=== PATIENT | female | born 1940 | race Caucasian/White ===

== ENCOUNTER 2016-05-18 12:44 | Inpatient (IN) | payer OTHER ==
[2016-05-11 11:23] VITALS: BMI 21.0
[~2016-05-18] VITALS: Ht 165.1 cm; Wt 59.9 kg
[~2016-05-18 12:44] MED LIST: CEPH500C2 PO; CMBIN INH; DIGO0.122 PO; LEVO25TA5 PO; POTA-335 PO; SULF1TAB92 PO
[2016-05-18 13:25] VITALS: BMI 21.0
[2016-05-18] MEDS ORDERED: LIDOCAINE HCL 2% 2 ML VIAL (20MG/ML) ONE (13:34)
[2016-05-18] MEDS ORDERED: PROPOFOL IV EMULSION 10 MG/ML 20 ML VIAL IV ONE (13:34)
[2016-05-18] MEDS ORDERED: SODIUM CHLORIDE 0.9% 500ML 500 ML IV ONE (13:37)
[2016-05-18] MEDS ORDERED: KETAMINE HCL INJ 50 MG/ML 10 ML VIAL ONE (13:38)
--- NOTE | 2016-05-18 13:39 | Endo History and Physical ---
History & Physical Date of Service: May 18, 2016. Chief Complaint: blood in stool Referring Physician: Dr. Marcial History of Present Illness + cologard;colonoscopy Past Medical History Atrial Fibrillation, Sleep Apnea, CHF, COPD, CVA/TIA Past Surgical History Hx Cardiac Surgery: Yes (HEART CATH-NO STENTS) Hx Internal Defibrillator: No Hx Pacemaker: No Hx Abdominal Surgery: Yes (OVARIAN CYST REMOVAL, KEYLA BSO) Hx of Implantable Prosthesis: No Hx Post-Op Nausea and Vomiting: No Hx Cancer Surgery: No Hx Thoracic Surgery: No Hx Orthopedic: No Hx Urinary Tract Surgery: No Family History None Social History Smoking Status: Former Smoker Hx Substance Use: No Hx Alcohol Use: No Allergies Coded Allergies: Latex1 -Allergic Contact Dermititis (Verified Allergy, Mild, RASH AND ITCHING, 05/18/16) Diltiazem (Verified Adverse Reaction, Unknown, LOW BP AND UPSET STOMACH, ) Current Medications Reported Home Medications Medications Dose Route/Sig Max Daily Dose Days Date Category Dose Instructions Bactrim 400MG/80MG (Trimethoprim/Sulfamethoxazole) Tab 0.5 Tab PO Q12H 05/11/16 Reported Keflex (Cephalexin Monohydrate) 500 Mg Cap 500 Mg PO BID 05/11/16 Reported Vitamin C (Ascorbic Acid) 500 Mg Tab 1 Tab PO DAILY AT LUNCH 05/11/16 Reported Levothyroxine Sodium 25 Mcg Tab 1 Tab PO 6XWK 90 05/11/16 Reported Levothyroxine Sodium 25 Mcg Tab 2 Tab PO WK 90 05/11/16 Reported Floranex (Lactobacillus) 1 Tab Tab 1 Tab PO QAM 05/11/16 Reported Calcium (Calcium Carbonate) 600 Mg Tab 1 Tab PO DAILY AT LUNCH 05/11/16 Reported Vitamin D3 (Cholecalciferol) 2,000 Unit Cap 1 Cap PO BID 90 05/11/16 Reported Prilosec (Omeprazole) 20 Mg Capcr 20 Mg PO DAILY PRN 10/12/14 Reported Micro-K Ext Rel (Potassium Chloride) 20 Meq Cap 20 Meq PO DAILY PRN 09/15/14 Reported Multivitamin (Multiple Vitamin) 1 Tab Tab 1 Tab PO DAILY AT LUNCH 09/15/14 Reported Toprol-Xl (Metoprolol Succinate) 25 Mg Tabcr 12.5 Mg PO QAM 08/19/14 Reported Pradaxa (Dabigatran Elexilate) 75 Mg Cap 75 Mg PO BID 08/19/14 Reported Advair Diskus 100/50 60 Dose (Fluticasone Prop/Salmeterol) 1 Ea Aerp 1 Puff INH BID 08/19/14 Reported Lasix (Furosemide) 20 Mg Tab 40 Mg PO DAILY PRN 06/22/12 Reported Tylenol (Acetaminophen) 500 Mg Tab 500 Mg PO Q4 PRN 08/11/11 Reported Mag-Ox (Magnesium Oxide) 400 Mg Tab 400 Mg PO DAILY 08/11/11 Reported TAKE WITH LUNCH Nitrostat (Nitroglycerin) 0.4 Mg Tab 0.4 Mg UT UD PRN 08/11/11 Reported Lanoxin (Digoxin) 0.125 Mg Tab 0.125 Mg PO DAILY 08/11/11 Reported Combivent (Ipratropium [place]) Aer 2 Puffs INH QID 08/11/11 Reported Zocor (Simvastatin) 20 Mg Tab 20 Mg PO QPM 09/12/08 Reported Vital Signs Weight (Kilograms): 58.18 Height (Feet): 5 Height (Inches): 5 Date Time Temp Pulse Resp B/P Pulse Ox O2 Delivery O2 Flow Rate FiO2 05/18/16 13:19 36.7 93 24 112/63 95 Room Air Physical Exam AAO x3 Nl s1s2 Lungs CTA Abd soft NT/ND + BS - CCe Assessment and Plan colonoscopy today
[2016-05-18] MEDS ORDERED: ALBUT/IPRATROP 3MG/0.5MG NEB 3 ML VIAL INH ONE (13:45)
[2016-05-18 13:48] VITALS: PULSE 87; O2SAT 92
[2016-05-18] MEDS ORDERED: PHENYLEPHRINE HCL INJ 10 MG/ML VIAL ONE (15:20)
--- NOTE | 2016-05-18 15:27 | Discharge Instructions ---
Endoscopy Patient Instructions Date / Procedure(s) Performed May 18, 2016. Colonoscopy Allergy Information Coded Allergies: Latex1 -Allergic Contact Dermititis (Verified Allergy, Mild, RASH AND ITCHING, 05/18/16) Diltiazem (Verified Adverse Reaction, Unknown, LOW BP AND UPSET STOMACH, ) Discharge Date / Findings May 18, 2016. CASE CANCELED DUE TO EKG CHANGES PROCEDURE NOT PERFORMED AND PATIENT DID NOT RECEIVE ANY SEDATION Medication Instructions Stopped Medication(s): Pradaxa stopped per Dr. Vargas. Last dose was 05/15/16 Restart Stopped Medication(s): Reported Home Medications Medications Dose Route/Sig Max Daily Dose Days Date Category Dose Instructions Bactrim 400MG/80MG (Trimethoprim/Sulfamethoxazole) Tab 0.5 Tab PO Q12H 05/11/16 Reported Keflex (Cephalexin Monohydrate) 500 Mg Cap 500 Mg PO BID 05/11/16 Reported Vitamin C (Ascorbic Acid) 500 Mg Tab 1 Tab PO DAILY AT LUNCH 05/11/16 Reported Levothyroxine Sodium 25 Mcg Tab 1 Tab PO 6XWK 90 05/11/16 Reported Levothyroxine Sodium 25 Mcg Tab 2 Tab PO WK 90 05/11/16 Reported Floranex (Lactobacillus) 1 Tab Tab 1 Tab PO QAM 05/11/16 Reported Calcium (Calcium Carbonate) 600 Mg Tab 1 Tab PO DAILY AT LUNCH 05/11/16 Reported Vitamin D3 (Cholecalciferol) 2,000 Unit Cap 1 Cap PO BID 90 05/11/16 Reported Prilosec (Omeprazole) 20 Mg Capcr 20 Mg PO DAILY PRN 10/12/14 Reported Micro-K Ext Rel (Potassium Chloride) 20 Meq Cap 20 Meq PO DAILY PRN 09/15/14 Reported Multivitamin (Multiple Vitamin) 1 Tab Tab 1 Tab PO DAILY AT LUNCH 09/15/14 Reported Toprol-Xl (Metoprolol Succinate) 25 Mg Tabcr 12.5 Mg PO QAM 08/19/14 Reported Pradaxa (Dabigatran Elexilate) 75 Mg Cap 75 Mg PO BID 08/19/14 Reported Advair Diskus 100/50 60 Dose (Fluticasone Prop/Salmeterol) 1 Ea Aerp 1 Puff INH BID 08/19/14 Reported Lasix (Furosemide) 20 Mg Tab 40 Mg PO DAILY PRN 06/22/12 Reported Tylenol (Acetaminophen) 500 Mg Tab 500 Mg PO Q4 PRN 08/11/11 Reported Mag-Ox (Magnesium Oxide) 400 Mg Tab 400 Mg PO DAILY 08/11/11 Reported TAKE WITH LUNCH Nitrostat (Nitroglycerin) 0.4 Mg Tab 0.4 Mg UT UD PRN 08/11/11 Reported Lanoxin (Digoxin) 0.125 Mg Tab 0.125 Mg PO DAILY 08/11/11 Reported Combivent (Ipratropium [place]) Aer 2 Puffs INH QID 08/11/11 Reported Zocor (Simvastatin) 20 Mg Tab 20 Mg PO QPM 09/12/08 Reported PT TO BE ADMITTED. WILL CONSIDER COLONOSCOPY TOMORROW OR FUTURE DATE ONCE CARDIAC STATUS OPTIMIZED Provider Instructions Activity Restrictions - No exercising or heavy lifting for 24 hours. - Do not drink alcohol the day of the procedure. - Do not drive a car or operate machinery until the day after the procedure. - Do not make any important decisions or sign important papers in 24 hours after the procedure. Following Day: - Return to full activity which may include returning to work/school. Diet Start your diet with liquids and light foods (jello, soup, juice, toast). Then eat your usual diet if not nauseated. Treatment For Common After Affects For mild abdominal pain, bloating, or excessive gas: - Rest - Eat lightly - Lie on right side Follow-Up Information Follow-up with Dr. Marcial as scheduled Anesthesia Information What You Should Know You have had a procedure that required some medicine to reduce anxiety and discomfort. This treatment is called moderate sedation. After receiving the treatment, you may be sleepy, but you will be able to breathe on your own. The effects of the treatment may last for several hours. Follow these instructions along with Activity/Diet recommendations noted above: * Do NOT do anything where dizziness or clumsiness would be dangerous. * Rest quietly at home today, then you can be up and about tomorrow. * Have a responsible person stay with you the rest of today. * You may have had an I.V. today. If so, you may take the dressing off later today. Recommendations Call your doctor if: * Trouble breathing * Continuous vomiting for more than 24 hours * Temperature above 101 degrees * Severe abdominal pain or bloating * Pain not relieved by pain medicine ordered * There is increased drainage or redness from any incision * A large amount of rectal bleeding greater than 2-3 tablespoons. (If you had a polyp/s removed or have hemorrhoids, a small amount of blood - from the rectum is to be expected.) * You have any unanswered questions or concerns. IN THE EVENT OF A SERIOUS EMERGENCY, GO TO THE NEAREST EMERGENCY ROOM Your discharge instructions were prepared by provider Dominick Das. Patient Instructions Signature Page Leonora Ellison Patient (or Guardian) Signature/Date: I have read and understand the instructions given to me by my caregivers. Caregiver/RN/Doctor Signature/Date: The above-named patient and/or guardian has received patient instructions on this date. + Original Patient Signature Page (only) stays with chart. Please make copy for patient.
--- NOTE | 2016-05-18 15:50 | History and Physical ---
History & Physical Date & Time of Service: May 18, 2016 at 15:50 Chief Complaint: Positive Stool 7 Primary Care Physician: Crow Marcial D.O.Int.Med. Past Medical/Surgical History Medical Problems: (1) ANTICOAGULANTS,LT,CURRENT USE Status: Chronic (2) ATRIAL FIBRILLATION Status: Chronic (3) CATARACT NOS Status: Resolved (4) CEREBRAL THROMBOSIS W CEREBRAL INFARCTION Status: Resolved (5) CHR AIRWAY OBSTRUCT NEC Status: Chronic (6) DIVERTICULOSIS COLON (W/O MENT OF HEMORRHAGE) Status: Chronic Family History Negative FHx for blood clots Social History Smoking Status: Former Smoker Drug Use: none Marital Status: Occupational Status: retired Immunizations History of Influenza Vaccine: No History of Tetanus Vaccine?: Unknown History of Pneumococcal: Unknown Pneumococcal Date: Apr 10, 2010 History of Hepatitis B Vaccine: Unknown Multi-Drug Resistant Organisms History of MDRO: No Allergies Coded Allergies: Latex1 -Allergic Contact Dermititis (Verified Allergy, Mild, RASH AND ITCHING, 05/18/16) Diltiazem (Verified Adverse Reaction, Unknown, LOW BP AND UPSET STOMACH, ) Home Medications Scheduled Ascorbic Acid (Vitamin C), 1 TAB PO DAILY AT LUNCH Calcium Carbonate (Calcium), 1 TAB PO DAILY AT LUNCH Cephalexin Monohydrate (Keflex), 500 MG PO BID Cholecalciferol (Vitamin D3), 1 CAP PO BID Dabigatran Elexilate (Pradaxa), 75 MG PO BID Digoxin (Lanoxin), 0.125 MG PO DAILY Fluticasone Prop/Salmeterol (Advair Diskus 100/50 60 Dose), 1 PUFF INH BID Ipratropium/Albuterol (Combivent), 2 PUFFS INH QID Lactobacillus (Floranex), 1 TAB PO QAM Levothyroxine Sodium (Levothyroxine Sodium), 2 TAB PO WK Levothyroxine Sodium (Levothyroxine Sodium), 1 TAB PO 6XWK Magnesium Oxide (Mag-Ox), 400 MG PO DAILY Metoprolol Succ (Toprol Xl) (Toprol-Xl), 12.5 MG PO QAM Multiple Vitamin (Multivitamin), 1 TAB PO DAILY AT LUNCH Simvastatin (Zocor), 20 MG PO QPM Trimethoprim/Sulfamethoxazole (Bactrim 400MG/80MG), 0.5 TAB PO Q12H Scheduled PRN Acetaminophen (Tylenol), 500 MG PO Q4 PRN for Pain or Fever Furosemide (Lasix), 40 MG PO DAILY PRN for SWELLING Nitroglycerin (Nitrostat), 0.4 MG UT UD PRN for Chest Pain Omeprazole (Prilosec), 20 MG PO DAILY PRN for GI Upset Potassium Chloride (Micro-K Ext Rel), 20 MEQ PO DAILY PRN for LASIX USE Physical Exam Vital Signs Date Time Temp Pulse Resp B/P Pulse Ox O2 Delivery O2 Flow Rate FiO2 05/18/16 15:28 93 20 111/58 98 Nasal Cannula 3 05/18/16 15:13 92 20 123/62 99 Nasal Cannula 3 05/18/16 13:48 87 16 92 Room Air 05/18/16 13:19 36.7 93 24 112/63 95 Room Air Impression Assessment and Plan admit #[id number]
[2016-05-18] MEDS ORDERED: ONDANSETRON INJ 2 MG/ML 2 ML VIAL IV PRN (16:00)
[2016-05-18] MEDS ORDERED: ACETAMINOPHEN 500 MG TAB PO PRN (16:00)
[2016-05-18] MEDS ORDERED: POTASSIUM CHLORIDE 20 MEQ TABCR PO PRN (16:00)
[2016-05-18] MEDS ORDERED: NITROGLYCERIN 0.4 MG SL PER TAB CHARGE UT PRN (16:00)
[2016-05-18] MEDS ORDERED: NITROGLYCERIN 0.4 MG SL PER TAB CHARGE SL PRN (16:00)
[2016-05-18] MEDS ORDERED: IV FLUIDS COMPLETED PRN (16:15)
--- NOTE | 2016-05-18 16:42 | Anesthesiology Progress Note ---
Anesthesia Progress Note Date of Service May 18, 2016. Progress Notes The patient is a 75 y/o female scheduled for colonoscopy with Dr. Das to evaluate for bleeding. PMH includes COPD ( chronic 02 2L NC at home) , LAITH on CPAP, Afib, HTN, DLD, diastolic CHF, cor pulmonale, PVD, GERD, stage III CKD, and hypothyroidism. The patient was noted to be short of breath on arrival and was taking puffs from her albuterol inhaler on admission to the preoperative area. Her preoperative SpO2 was 95% on RA. She had decreased breath sounds at the bases as well as slight rales in the L anterior apex. She is able to lie flat without any problems. However, she is easily becomes SOB with activity. She has no chest pain. The patient sees Dr. Vargas with cardiology as an outpatient. Her last echocardiogram in 2014 showed EF 65-70% with mod-severe TR. The patient also complains of cellulitis in her legs. Her BP in the preop area was 112/63, however her initial BP upon arrival to the procedure room was 89/60 with a HR in the 80s. The patient's initial IV was not functioning so a 22 GA IV was started in the R upper extremity. Shortly after the IV was placed the patient starting saying that she "did not feel right. " She denied chest pain or shortness of breath just stating that she felt " weird" and " just not right. " Her BP cuff was cycled and she was given 100mcg IV phenylephrine and placed in Trendelenburg. Her BP was 112/69. Her HR was in the 90s and it appeared that her ST segments were becoming more depressed. She remained in atrial fibrillation. Her oxygen saturation was 100% on 10L FM. Over the next several minutes the patient started feeling better. Her vital signs remained normal and she had no further complaints. Therefore, it was felt that the patient likely experienced a vasovagal response to IV placement. A 12 lead EKG was obtained and showed Atrial fibrillation HR [address] and T wave abnormality, consider inferolateral ischemia. There were T wave inversion in II, III, AVF and V4-V6. The EKG, however is very similar to her EKG from 09/12/14 which showed similar changes. I discussed the patient and her EKG with Dr. Worthington who felt that due to the patient's complicated cardiac with abnormal EKG and pulmonary history in the setting of likely dehydration secondary to bowel prep that it would be best to cancel her procedure until she can be better optimized. I was also concerned that aggressively hydrating the patient may place her in heart failure. I informed Dr. Das who stated that he would like the patient admitted overnight for further evaluation and treatment. If the patient is stabilized and felt to be optimized than she can have her colonoscopy tomorrow. The patient was agreeable to being admitted. Dr. Briceno was consulted and given a full report. He evaluated the patient in endoscopy recovery. He will be admitting her to telemetry for further evaluation and treatment.
[2016-05-18 17:01] LABS: BASO % 0.4 %; BASO ABS # 0.02 K/uL (0-0.2); COMPLETE YES; EOS % 2.6 %; HEMATOCRIT 40.2 % (37-47); IG% 0.2 %; LYMPH % 13.4 %; LYMPH ABS # 0.66 K/uL (1.2-3.4); MEAN CORPUSCULAR HEMOGLOBIN 34.4 pg (25-34); MEAN CORPUSCULAR HGB CONC 34.1 g/dl (32-36); MEAN PLATELET VOLUME 10.1 fL (7.4-10.4); MONO % 10.8 %; NEUT % 72.6 %; PLATELET COUNT 149 K/uL (130-400); RED BLOOD COUNT 3.98 M/uL (4.2-5.4); WHITE BLOOD COUNT 4.93 K/uL (4.8-10.8)
[2016-05-18 17:15] VITALS: BP 122/69; PULSE 96; TEMP 36.6; O2SAT 95; Ht 165.1 cm; Wt 59.9 kg
[2016-05-18 17:33] LABS: CALCIUM 9.1 mg/dl (8.5-10.1); CREATININE 0.88 mg/dl (0.60-1.20); POTASSIUM 3.8 mmol/L (3.5-5.1)
[2016-05-18] MEDS ORDERED: DIGOXIN 0.125 MG TAB PO ONE (18:30)
[2016-05-18] MEDS: SODIUM CHLORIDE 0.45% 1000ML 1,000 ML IV SCH (18:43)
[2016-05-18] MEDS: IPRATROPIUM BROMIDE/ALBUTEROL respimat INH INH SCH ×2 (18:53→20:50)
[2016-05-18] MEDS ORDERED: NURSING VERBAL MED ORDER ONE (19:45)
[2016-05-18] MEDS: FLUTICASONE/SALMETEROL 100/50 (ADVAIR) 14 PUFF/1 INHALER INH SCH (20:50)
[2016-05-18] MEDS: CHOLECALCIFEROL 1000 INTER.UNIT TAB PO SCH (20:52)
[2016-05-18] MEDS: SULFAMETHOXAZOLE/TRIMETHOPRIM DS 800/160MG TAB PO SCH (20:54)
[2016-05-18] MEDS: CEPHALEXIN MONOHYDRATE 500 MG CAP PO SCH (20:54)
[2016-05-18] MEDS: SIMVASTATIN 20 MG TAB PO SCH (20:55)
[2016-05-18] MEDS ORDERED: DABIGATRAN ELEXILATE 75 MG CAP PO SCH (21:00)
[2016-05-18] MEDS ORDERED: LAVAGE SOLUTION 4000ML PO SCH (21:00)
--- NOTE | 2016-05-18 21:47 | HISTORY & PHYSICAL EXAMINATION ---
DATE OF ADMISSION: 05/18/2016 CHIEF COMPLAINT: Hypotension. HISTORY OF PRESENT ILLNESS: The patient is a very pleasant 75-year-old female, who was actually here for a colonoscopy because of apparently ongoing blood in the stool. She had a bowel prep and then whenever they started to give medications she started to be hypotensive. Anesthesia did note that she was a bit short of breath on arrival and was taking puffs off her albuterol inhaler, although to me she does not necessarily relate that she has got any worse short of breath than her baseline. She was 112/63, then after IV was placed she started not feeling quite right. Her blood pressure started to drop, she was given phenylephrine and placed in Trendelenburg. EKG was checked; with a degree of ST depression, although on further review it appeared fairly similar to her previous EKG. Her vital signs then improved to normal and she was generally feeling good. We were asked to see her to admit her because of concern on volume depletion from the bowel prep as well as needing to get the colonoscopy done and what appears to be overall a high risk patient. REVIEW OF SYSTEMS: Otherwise negative, except for as above. PAST MEDICAL HISTORY: Includes chronic diastolic CHF, COPD, cor pulmonale, dyslipidemia, GERD, hypothyroidism, sleep apnea, osteoporosis, peripheral vascular disease, atrial fibrillation, vitamin D deficiency and recurrent lower extremity cellulitis on chronic suppressive antibiotic therapy, related to venous stasis. MEDICATIONS: Advair 250/50 one puff b.i.d., Keflex 1 cap b.i.d., cephalexin 500 mg b.i.d., Combivent 1 puff q.i.d., digoxin 125 mcg daily, calcium 600 mg daily, Floranex daily, Lasix 40 mg p.r.n. weight gain, Synthroid 25 mcg Sunday to Sunday and 2 tablets on Sunday, Mag-Ox 400 mg daily, metoprolol ER 25 mg 1/2 tab daily, multivitamin daily, nitroglycerin 0.4 under the tongue p.r.n. chest pain, potassium chloride 20 mEq daily, Pradaxa 75 mg b.i.d., Prilosec 20 mg daily, simvastatin 20 mg at bedtime, Bactrim 800/160 daily, Tylenol Arthritis 650 p.r.n. pain and Vitamin C 500 mg daily. PAST SURGICAL HISTORY: Includes hysterectomy. FAMILY HISTORY: Mom had an NM as did her father. SOCIAL HISTORY: She is a former smoker. She is retired. No significant alcohol use. ALLERGIES: INCLUDE DILTIAZEM AND LATEX WHICH CAUSES CONTACT DERMATITIS. PHYSICAL EXAMINATION: VITAL SIGNS: Temperature 36.7, pulse 93, respiratory rate 24, blood pressure 112/63 and 95% on room air. Round about the time I am seeing her, her heart rate is 93 with a blood pressure of 111/58. GENERAL: She is awake, alert, oriented x3, pleasant, in no acute distress. HEENT: Normocephalic and atraumatic. Mucous membranes are moist. CARDIOVASCULAR: Irregularly irregular, but rate-controlled. No rubs, murmurs or gallops. LUNGS: Clear to auscultation bilaterally. No rales, rhonchi or wheezes, with good effort. ABDOMEN: Soft, nondistended and nontender. No masses or organomegaly. EXTREMITIES: Without cyanosis or clubbing. She has about 1+ left lower extremity edema compared to maybe trace on the right. The left definitely appears shiny and more thickened skin: She notes this is actually worse than her baseline. NEUROLOGIC: Shows cranial nerves II-XII to be grossly intact. Gross motor and sensory are intact. MENTAL STATE: Shows good recent and remote recall. Normal mood and affect. Good judgment and insight. LABORATORIES AND DIAGNOSTICS: CBC shows a white count of 4.93, hemoglobin 13.7, MCV of 101 and platelets of 149. Basic metabolic panel with; sodium 138, potassium 3.8, chloride 101, CO2 26, BUN 11, creatinine 0.88, calcium 9.1 and glucose of 71. ASSESSMENT AND PLAN: 1. Hypotension. This appears to be syncope, multifactorial or near syncope I guess. When she was lying down she never quite lost consciousness, but probably in no small part volume depletion from the bowel prep and with cor pulmonale, likely she was unable to handle the diminished volume because of right heart filling pressures going down combined with likely vagal response as they were starting her IV. She appears okay now. We will give her gentle hydration, follow her closely and anticipate improvement. 2. Blood in her stool, certainly need to progress with colonoscopy. It appears that this would likely be able to be done tomorrow. 3. EKG changes with ST depressions anterolaterally; appear very similar to previous. We will trend cardiac enzymes to be safe, but I suspect this is her baseline EKG. 4. Chronic obstructive pulmonary disease. Continue home medications and oxygen. 5. Chronic diastolic congestive heart failure. Hold off on her Lasix, continue home medications. Otherwise, follow obviously as we are giving her fluids. 6. Gastroesophageal reflux disease. Continue her PPI. 7. Hypothyroidism. Continue her Synthroid. 8. Sleep apnea. 9. Osteoporosis. Continue home medications. 10. Deep venous thrombosis prophylaxis; pharmacologically contraindicated both because of the procedure tomorrow and her gastrointestinal bleeding. 11. Venous stasis with apparent chronic cellulitis. Continue suppressive therapy as per infectious diseases. 12. Asymmetric left lower extremity edema, check venous Dopplers. MTDD
--- NOTE | 2016-05-18 22:05 | GASTROINTESTINAL CONSULTATION ---
DATE OF CONSULTATION: 05/18/2016 REASON FOR CONSULTATION: Heme-positive stools, abnormal Cologuard test. HISTORY: Mrs. Ellison is a 75-year-old white female who was scheduled for an outpatient colonoscopy at [facility] today for an abnormal Cologuard finding through Dr. Marcial's office. Prior to performing the procedure or receiving sedation, the patient had developed a sense of chest pressure with possible EKG changes identified. The patient is followed by cardiology with Dr. Vargas. She is on Pradaxa at home for a history of CVA. CHRONIC HISTORY: Includes atrial fibrillation, cerebral thrombosis with cerebral infarction, chronic airway obstructive disease, diverticulosis, anticoagulants for above. The patient had a prior colonoscopy approximately [address] Lee, at which time polyps were identified according to the patient. FAMILY HISTORY: Noncontributory. There is no report of colorectal cancer or other gastrointestinal disorders. SOCIAL HISTORY: The patient is a former smoker. She is and retired. ALLERGIES: SHE IS ALLERGIC TO LATEX AND CARDIAZEM. CURRENT MEDICATIONS: Include ascorbic acid, calcium carbonate, Keflex for cellulitis, vitamin D, Pradaxa, digoxin, Advair, Combivent, lactobacillus, Synthroid, magnesium oxide, Lopressor, multivitamin, simvastatin and Bactrim. REVIEW OF SYSTEMS: Otherwise noncontributory. The patient denies melena, bright red blood per rectum, weight loss, odynophagia, dysphagia, hematemesis, or coffee-ground emesis. PHYSICAL EXAMINATION: VITAL SIGNS: On admission through the endo department, temperature, she is afebrile at 36.7, heart rate 93, respirations 24, blood pressure 112/63, she is 95% on room air. GENERAL: The patient is awake, alert and oriented x3. HEENT: Sclerae anicteric. Oral mucosa moist. Conjunctivae moist. NECK: There is no cervical or supraclavicular adenopathy. I do not appreciate thyromegaly. HEART: Normal S1 and S2. LUNGS: Breath sounds are markedly diminished in the lower lung andrea bilaterally. ABDOMEN: Soft, flat, nontender, nondistended, with good bowel sounds. EXTREMITIES: Without clubbing, cyanosis or edema. RECTAL: Deferred. LABORATORY STUDIES: This evening show a white count of 4.93, hemoglobin 13.7, MCV is 101, platelets 149,000. Serum chemistry reveals BUN and creatinine of 11 and 0.9 with a potassium of 3.8. Calcium is normal. Glucose 71. IMPRESSION: Depending on the cardiac workup and assessment, would consider holding Pradaxa in anticipation of the patient undergoing colonoscopy tomorrow. She will require an additional small-bowel prep in order to further cleanse the colon. Once this is completed, if the primary team is agreeable, the patient can be discharged from a GI standpoint. We will make tentative arrangements and place orders for colonoscopy for tomorrow if acceptable with the primary team provided that there are no acute cardiac or respiratory issues that would delay this procedure. The patient can have clear liquids through midnight and afterwards n.p.o. except for medications. All questions answered.
[2016-05-18 22:40] LABS: CKMB/CK RATIO 3.2 (0-3.0)
--- NOTE | 2016-05-18 22:58 | DIAGNOSTIC IMAGING REPORT ---
ULTRASOUND VENOUS DOPPLER LWR EXT BILA CLINICAL HISTORY: Bilateral leg edema COMPARISON STUDY: 10/12/2014 FINDINGS: Real-time and color flow Doppler imaging were performed. Flow was seen within the femoral, popliteal and calf veins with no intraluminal thrombus demonstrated. The saphenous vein is patent. Incidental note is made of a 20 x 39 x 13 mm left popliteal cyst. IMPRESSION: No evidence of lower extremity DVT. Electronically signed by: Glen Cade M.D. 05/18/2016 10:56 PM Dictated Date/Time: 05/18/2016 10:56 PM
[2016-05-19] VITALS (12 sets, daily range): BP systolic 79–101; BP diastolic 43–63; PULSE 71–100; TEMP 36.3–36.8; O2SAT 94–99
[2016-05-19] MEDS: LEVOTHYROXINE 25 MCG TAB PO SCH (05:26)
[2016-05-19 06:36] LABS: CKMB/CK RATIO 3.7 (0-3.0)
[2016-05-19] MEDS: SODIUM CHLORIDE 0.45% 1000ML 1,000 ML IV SCH (07:00)
[2016-05-19] MEDS: CEPHALEXIN MONOHYDRATE 500 MG CAP PO SCH ×2 (09:00→21:02)
[2016-05-19] MEDS: MAGNESIUM OXIDE 400 MG TAB PO SCH (09:00)
[2016-05-19] MEDS: CHOLECALCIFEROL 1000 INTER.UNIT TAB PO SCH ×2 (09:00→21:02)
[2016-05-19] MEDS ORDERED: PANTOprazole SOD 40 MG TAB PO PRN (09:00)
[2016-05-19] MEDS: MULTIVITAMIN TAB PO SCH (09:00)
[2016-05-19] MEDS: LACTOBACILLUS ACIDOPHILUS (FLORANEX) TAB PO SCH (09:00)
[2016-05-19] MEDS: METOPROLOL SUCC 25MG EXT REL TAB PO SCH (09:00)
[2016-05-19] MEDS: ASCORBIC ACID 500 MG TAB PO SCH (09:00)
[2016-05-19] MEDS: SULFAMETHOXAZOLE/TRIMETHOPRIM DS 800/160MG TAB PO SCH ×2 (09:00→21:02)
[2016-05-19] MEDS: FLUTICASONE/SALMETEROL 100/50 (ADVAIR) 14 PUFF/1 INHALER INH SCH ×2 (10:17→21:02)
[2016-05-19] MEDS: IPRATROPIUM BROMIDE/ALBUTEROL respimat INH INH SCH ×4 (10:18→21:02)
[2016-05-19] MEDS: CALCIUM CARBONATE 1250MG TAB PO SCH (12:00)
[2016-05-19] MEDS ORDERED: SODIUM CHLORIDE 0.9% 500ML 500 ML IV SCH (12:15)
[2016-05-19] MEDS ORDERED: METOPROLOL TARTRATE 1 MG/ML VIAL IV PRN (12:15)
[2016-05-19] MEDS ORDERED: HEPARIN IV LOW DOSE NO BOLUS SCH ×2 (12:32→15:15)
--- NOTE | 2016-05-19 12:35 | Hospitalist Progress Note ---
Hospitalist Progress Note Date of Service May 19, 2016. (Dorota Al, MAINOR) Subjective Pt evaluation today including: conversation w/ patient, conversation w/ family , physical exam, chart review, lab review, review of studies Pain: None PO Intake: NPO Voiding: no voiding problems The patient was seen and examined this morning. Pt's son is present at bedside. Was called for hypotension of 79/43 by nursing. The patient was mentating and denies any lightheadedness, dizziness, palpitations, flutter, cp, or shortness of breath. + c/o fatigue while this was happening. She is unhappy about having an elective procedure and possibly needing to stay in the hospital if she doesn't get this colonoscopy today, and states she'll leave. She does not want to do another bowel prep since she has gotten dehydrated now twice from them. All Other Systems: Reviewed and Negative (other than listed above) (Dorota Al, BLUEC) Objective Vital Signs Date Time Temp Pulse Resp B/P Pulse Ox O2 Delivery O2 Flow Rate FiO2 05/19/16 11:45 71 16 89/53 05/19/16 11:44 36.4 83 16 79/48 05/19/16 08:00 Nasal Cannula 2.0 05/19/16 07:35 36.4 92 17 91/55 94 05/19/16 06:26 Nasal Cannula 2.0 05/19/16 04:05 Nasal Cannula 2.0 05/19/16 04:00 36.3 88 20 101/60 94 2.0 05/19/16 00:05 Nasal Cannula 2.0 05/19/16 00:00 36.4 92 18 94/57 99 2.0 05/18/16 20:05 Nasal Cannula 2.0 05/18/16 18:53 83 05/18/16 17:15 36.6 96 22 122/69 95 Nasal Cannula 2.0 05/18/16 16:13 81 20 101/58 96 Nasal Cannula 3 05/18/16 15:58 85 20 106/57 98 Nasal Cannula 3 05/18/16 15:43 87 20 101/51 96 Nasal Cannula 3 05/18/16 15:28 93 20 111/58 98 Nasal Cannula 3 05/18/16 15:13 92 20 123/62 99 Nasal Cannula 3 05/18/16 13:48 87 16 92 Room Air 05/18/16 13:19 36.7 93 24 112/63 95 Room Air (Dorota Al PA-C) Physical Exam General Appearance: WD/WN, no apparent distress, + thin Eyes: PERRL, EOMI ENT: hearing grossly normal, pharynx normal Neck: supple, no JVD Respiratory/Chest: chest non-tender, lungs clear, no respiratory distress, no accessory muscle use Cardiovascular: + irregularly irregular Abdomen: normal bowel sounds, non tender, soft, no organomegaly Extremities: non-tender, no pedal edema, no calf tenderness Neurologic/Psychiatric: alert, normal mood/affect, oriented x 3 Skin: normal color, warm/dry (Dorota Al PA-C) Laboratory Results Last 24 Hours Test 05/18/16 16:50 05/18/16 21:55 05/19/16 05:50 05/19/16 12:06 White Blood Count 4.93 K/uL Red Blood Count 3.98 M/uL Hemoglobin 13.7 g/dL Hematocrit 40.2 % Mean Corpuscular Volume 101.0 fL Mean Corpuscular Hemoglobin 34.4 pg Mean Corpuscular Hemoglobin Concent 34.1 g/dl Platelet Count 149 K/uL Mean Platelet Volume 10.1 fL Neutrophils (%) (Auto) 72.6 % Lymphocytes (%) (Auto) 13.4 % Monocytes (%) (Auto) 10.8 % Eosinophils (%) (Auto) 2.6 % Basophils (%) (Auto) 0.4 % Neutrophils # (Auto) 3.58 K/uL Lymphocytes # (Auto) 0.66 K/uL Monocytes # (Auto) 0.53 K/uL Eosinophils # (Auto) 0.13 K/uL Basophils # (Auto) 0.02 K/uL RDW Standard Deviation 49.0 fL RDW Coefficient of Variation 13.2 % Immature Granulocyte % (Auto) 0.2 % Immature Granulocyte # (Auto) 0.01 K/uL Sodium Level 138 mmol/L Potassium Level 3.8 mmol/L Chloride Level 101 mmol/L Carbon Dioxide Level 26 mmol/L Anion Gap 11.0 mmol/L Blood Urea Nitrogen 11 mg/dl Creatinine 0.88 mg/dl Est Creatinine Clear Calc Drug Dose 48.2 ml/min Estimated GFR () 73.5 Estimated GFR (Non- 63.4 BUN/Creatinine Ratio 12.0 Random Glucose 71 mg/dl Calcium Level 9.1 mg/dl Total Creatine Kinase 189 U/L 178 U/L Creatine Kinase MB 6.1 ng/ml 6.5 ng/ml Creatine Kinase MB Ratio 3.2 3.7 Troponin I 0.034 ng/ml 0.038 ng/ml Vitamin B12 Level 528 pg/mL (Dorota Al, MAINOR) Assessment and Plan 75 yo admitted after episode of hypotension prior to outpatient scheduled colonoscopy yesterday with Dr. dixon. She was admitted for colonoscopy to be performed today by Dr. North. Hypotension - Yesterday was attributed to syncope likely secondary to volume depletion from the bowel prep and with cor pulmonale, likely she was unable to handle the diminished volume because of right heart filling pressures going down combined with likely vagal response as they were starting her IV. - Reoccurrence of hypotension this morning- the patient is asymptomatic at bedside with pressure of 79/43 - only complaint is fatigue. - Ordered 500 mL bolus stat, and recheck of BP was improved - Rechecking H&H stat, follow - Discussion was held with Dr. North who plans to see the patient prior to procedure and discuss other options since the pt is adamant that she doesn't want to stay admitted in the hospital if scope doesn't happen today. - Spoke with Dr. Vargas about holding pradaxa ( today is day 3) - he is agreeable to starting heparin gtt if she stays inpatient without bolus- reasoning behind this is that the patient has had a previous stroke and it increases her risk for a thromboembolic event after the first 48 hours. + Blood in stool - Dr. North scheduled for scope today, will await his eval and discussion with anesthesia regarding episode of low BP. Spoke with him on the phone and he plans to see the patient soon and determine if she can have scope today. EKG changes with ST depressions anterolaterally; appear very similar to previous. - Negative troponins thus far Chronic obstructive pulmonary disease. - Continue home medications and oxygen. Chronic diastolic congestive heart failure. - Hold off on her Lasix, continue home medications. - Caution with replacing with NSS but pt does appear to be hypovolemic at present - Checking digoxin level Gastroesophageal reflux disease. Continue her PPI. Hypothyroidism. Continue her Synthroid. Sleep apnea. Osteoporosis. Continue home medications. Venous stasis with apparent chronic cellulitis. Continue suppressive therapy as per infectious diseases. Asymmetric left lower extremity edema appears to have resolved. Venous Dopplers checked and are negative. DVT ppx: pharmacologically contraindicated currently. Discussion was held with Dr. Vargas and Sarao about starting heparin gtt as above if scope is not able to be performed today. Continue TEDs, SCDs CODE STATUS: FULL CODE Disposition: From home (Dorota Al, MAINOR) PA Physician Supervision Note: I interviewed and examined the patient. Discussed with Dorota Al PAC and agree with findings and plan as documented in the note. Any exceptions or clarifications are listed here: None this pt was previously pradaxa as chronic anticoagulation for AFIB with stroke presents after low blood pressure after presenting for outpt colonoscopy for heme positive stools, although blood pressure is low by numbers, Seems hemodynamically stable as has good color and is hemodynamically stable exam is non focal, abdomen is benign. will use protonix and trend hgb, after discussion with DR Vargas will use heparin gtt overweekend and have colonoscopy on sunday while maintaining liquid diet Documented By: Sergio Guzman . (Sergio Guzman M.D.)
[2016-05-19 13:17] LABS: HEMATOCRIT 38.2 % (37-47)
[2016-05-19] MEDS: SODIUM CHLORIDE 0.9% 1000ML 1,000 ML IV SCH ×2 (13:19→23:17)
--- NOTE | 2016-05-19 13:35 | PROGRESS NOTE ---
DATE: 05/19/2016 SUBJECTIVE: The patient reports no abdominal pain or bleeding. The patient was scheduled for an outpatient colonoscopy yesterday for a positive Cologuard test but prior to the procedure, the patient got hypotensive and vagal and was admitted to the hospital overnight. She remained on clear liquids and was given some IV fluids. She continues to be slightly hypotensive with a systolic pressure of 90. She is in chronic atrial fibrillation and has had a CVA in the past and was on Pradaxa, which was held 2 days ago. With a pressure of 90 currently, I believe it is probably not safe to proceed with the planned colonoscopy as the sedation would potentially lower her pressure even more. I discussed the situation with the patient and her son and we agreed that she will need to re-prep but if she can stay on clear liquids through the weekend, we can add her onto the schedule on Sunday afternoon as an outpatient. She should stay off her Pradaxa and if Dr. Vargas decides to bridge her with heparin between now and Sunday, that would be fine; if not, she will just stay off the Pradaxa and we will see her on Sunday as an outpatient. She needs to report at 12:45 to the outpatient endoscopy center at [facility]. In the meantime just stay on clear liquids only and drink lots to get her pressure up into a safer range.
[2016-05-19] MEDS ORDERED: HEPARIN IV LOW DOSE NO BOLUS STA (14:53)
[2016-05-19 15:30] LABS: BASO % 0.4 %; BASO ABS # 0.02 K/uL (0-0.2); EOS % 1.5 %; HEMATOCRIT 38.2 % (37-47); IG% 0.2 %; LYMPH % 16.1 %; LYMPH ABS # 0.85 K/uL (1.2-3.4); MEAN PLATELET VOLUME 9.7 fL (7.4-10.4); MONO % 11.2 %; NEUT % 70.6 %; PLATELET COUNT 151 K/uL (130-400); RED BLOOD COUNT 3.82 M/uL (4.2-5.4); WHITE BLOOD COUNT 5.29 K/uL (4.8-10.8)
[2016-05-19] MEDS ORDERED: HEPARIN BOLUS IV ONE (15:30)
[2016-05-19 15:42] LABS: INR 1.1 (0.9-1.1); PARTIAL THROMBOPLASTIN RATIO 1.1; PROTHROMBIN TIME (PATIENT) 12.3 SECONDS (9.0-12.0)
[2016-05-19 16:12] LABS: COMPLETE YES
[2016-05-19] MEDS: HEPARIN 25,000 UNIT/500ML D5W 500 ML IV PRN ×2 (16:18→23:02)
[2016-05-19] MEDS: DIGOXIN 0.125 MG TAB PO SCH (16:19)
[2016-05-19] MEDS: SIMVASTATIN 20 MG TAB PO SCH (21:02)
[2016-05-19 22:44] LABS: PARTIAL THROMBOPLASTIN RATIO 1.8
[2016-05-19] MEDS ORDERED: HEPARIN IV BOLUS 2,000 UNIT in SYRINGE 0 ML IV STA (23:01)
[2016-05-20 04:25] VITALS: BP 89/54; PULSE 80; TEMP 36.6; O2SAT 91
[2016-05-20 05:55] LABS: HEMATOCRIT 36.4 % (37-47); MEAN CELL VOLUME 99.2 fL (80-100); MEAN CORPUSCULAR HEMOGLOBIN 33.8 pg (25-34); MEAN CORPUSCULAR HGB CONC 34.1 g/dl (32-36); MEAN PLATELET VOLUME 9.9 fL (7.4-10.4); PLATELET COUNT 146 K/uL (130-400); RED BLOOD COUNT 3.67 M/uL (4.2-5.4); WHITE BLOOD COUNT 4.76 K/uL (4.8-10.8)
[2016-05-20] MEDS: LEVOTHYROXINE 25 MCG TAB PO SCH (06:12)
[2016-05-20] MEDS: HEPARIN 25,000 UNIT/500ML D5W 500 ML IV PRN (06:37)
[2016-05-20 08:04] VITALS: BP 106/66; PULSE 90; TEMP 36.9; O2SAT 97
[2016-05-20] MEDS: MULTIVITAMIN TAB PO SCH (09:00)
[2016-05-20] MEDS: SODIUM CHLORIDE 0.9% 1000ML 1,000 ML IV SCH (09:58)
[2016-05-20] MEDS: METOPROLOL SUCC 25MG EXT REL TAB PO SCH (09:58)
[2016-05-20] MEDS: LACTOBACILLUS ACIDOPHILUS (FLORANEX) TAB PO SCH (09:59)
[2016-05-20] MEDS: CEPHALEXIN MONOHYDRATE 500 MG CAP PO SCH ×2 (09:59→20:53)
[2016-05-20] MEDS: SULFAMETHOXAZOLE/TRIMETHOPRIM DS 800/160MG TAB PO SCH ×2 (09:59→20:53)
[2016-05-20] MEDS: CHOLECALCIFEROL 1000 INTER.UNIT TAB PO SCH ×2 (10:00→20:53)
[2016-05-20] MEDS: IPRATROPIUM BROMIDE/ALBUTEROL respimat INH INH SCH ×4 (10:00→20:52)
[2016-05-20] MEDS: MAGNESIUM OXIDE 400 MG TAB PO SCH (10:00)
[2016-05-20] MEDS: FLUTICASONE/SALMETEROL 100/50 (ADVAIR) 14 PUFF/1 INHALER INH SCH ×2 (10:01→20:52)
[2016-05-20] MEDS: ASCORBIC ACID 500 MG TAB PO SCH (10:06)
[2016-05-20 12:09] VITALS: BP 98/57; PULSE 77; TEMP 36.9; O2SAT 95
[2016-05-20] MEDS: CALCIUM CARBONATE 1250MG TAB PO SCH (12:13)
[2016-05-20 12:38] LABS: PARTIAL THROMBOPLASTIN RATIO 1.9
--- NOTE | 2016-05-20 15:20 | Progress Note ---
Subjective Date of Service: May 20, 2016. Subjective pt had some shortness of breath in am which improved after stopping ivf, no issues with heparin, no significant blood in stool Review of Systems Constitutional: No chills, No fever Respiratory: + shortness of breath (resolved though), No cough Cardiac: No chest pain, No edema Abdomen: No nausea, No pain Female : No dysuria, No urinary frequency Objective Vital Signs Date Time Temp Pulse Resp B/P Pulse Ox O2 Delivery O2 Flow Rate FiO2 05/20/16 08:04 36.9 90 18 106/66 97 2.0 05/20/16 04:25 36.6 80 18 89/54 91 2.0 05/20/16 04:05 Nasal Cannula 2.0 05/20/16 00:05 Nasal Cannula 2.0 05/19/16 23:52 36.4 87 16 96/56 97 Nasal Cannula 2.0 05/19/16 20:35 36.8 98 24 87/53 95 Nasal Cannula 2.0 82/47 05/19/16 20:00 Nasal Cannula 2.0 05/19/16 16:19 84 05/19/16 16:00 Nasal Cannula 2.0 05/19/16 15:16 96/63 05/19/16 15:15 36.7 87 16 79/43 97 05/19/16 13:00 100 93/58 05/19/16 12:00 94 Nasal Cannula 2.0 05/19/16 11:45 71 16 89/53 05/19/16 11:44 36.4 83 16 79/48 Physical Exam General Appearance: WD/WN, + mild distress Eyes: PERRL, EOMI Respiratory/Chest: chest non-tender, lungs clear, normal breath sounds Cardiovascular: no murmur, + irregularly irregular Abdomen: normal bowel sounds, non tender, soft Extremities: no pedal edema, no calf tenderness Neurologic/Psychiatric: alert, oriented x 3 Laboratory Results Last 24 Hours Test 05/19/16 13:03 05/19/16 15:20 05/19/16 22:15 05/20/16 05:14 Hemoglobin 12.8 g/dL 13.0 g/dL 12.4 g/dL Hematocrit 38.2 % 38.2 % 36.4 % Digoxin Level 0.5 ng/ml White Blood Count 5.29 K/uL 4.76 K/uL Red Blood Count 3.82 M/uL 3.67 M/uL Mean Corpuscular Volume 100.0 fL 99.2 fL Mean Corpuscular Hemoglobin 34.0 pg 33.8 pg Mean Corpuscular Hemoglobin Concent 34.0 g/dl 34.1 g/dl Platelet Count 151 K/uL 146 K/uL Mean Platelet Volume 9.7 fL 9.9 fL Neutrophils (%) (Auto) 70.6 % Lymphocytes (%) (Auto) 16.1 % Monocytes (%) (Auto) 11.2 % Eosinophils (%) (Auto) 1.5 % Basophils (%) (Auto) 0.4 % Neutrophils # (Auto) 3.74 K/uL Lymphocytes # (Auto) 0.85 K/uL Monocytes # (Auto) 0.59 K/uL Eosinophils # (Auto) 0.08 K/uL Basophils # (Auto) 0.02 K/uL RDW Standard Deviation 48.2 fL 48.0 fL RDW Coefficient of Variation 13.3 % 13.2 % Immature Granulocyte % (Auto) 0.2 % Immature Granulocyte # (Auto) 0.01 K/uL Prothrombin Time 12.3 SECONDS Prothromb Time International Ratio 1.1 Activated Partial Thromboplast Time 29.0 SECONDS 46.3 SECONDS 77.9 SECONDS Partial Thromboplastin Ratio 1.1 1.8 3.0 Assessment and Plan 75 F on pradaxa for anticoagulation of Afib with previous embolic stroke, having blood in bowel movements attempt of outpt colonsocopy pt had low blood pressure and presyncope, was admitted for heparin bridging as is high risk off anticoagulation for prolonged periods and monitoring for more significant GI bleed Had some shortness of breath, improved after stopping ivf, is taking po although liquid diet GIB is stable continue protonix and planning colonoscopy on 05/22 while maintaining liquid diet to avoid need of formal bowel prep afib, blood pressure remains low pt states this is her norm, continue metoprolol at lower dose, digoxin level is low but heart rate is controlled dvt prevention is scd's I personally reviewed labs and hgb is stable Documented By: Sergio Guzman .
[2016-05-20 16:00] VITALS: O2SAT 95
[2016-05-20 16:09] VITALS: BP 97/63; PULSE 82; TEMP 36.4; O2SAT 96
[2016-05-20] MEDS: DIGOXIN 0.125 MG TAB PO SCH (17:13)
[2016-05-20] MEDS: SIMVASTATIN 20 MG TAB PO SCH (20:54)
[2016-05-20 23:32] VITALS: BP 105/68; PULSE 100; TEMP 36.5; O2SAT 92
[2016-05-21] VITALS (10 sets, daily range): BP systolic 87–104; BP diastolic 54–64; PULSE 79–90; TEMP 36.3–37.1; O2SAT 91–98
[2016-05-21 00:45] LABS: BUN/CREATININE RATIO 8.2 (10-20); CALCIUM 8.2 mg/dl (8.5-10.1); CREATININE 0.6 mg/dl (0.60-1.20); MAGNESIUM 1.6 mg/dl (1.8-2.4); POTASSIUM 3.6 mmol/L (3.5-5.1)
[2016-05-21 00:52] LABS: ALB/GLOB RATIO 1.2 (0.9-2)
[2016-05-21] MEDS: HEPARIN 25,000 UNIT/500ML D5W 500 ML IV PRN ×2 (05:12→09:31)
[2016-05-21] MEDS: LEVOTHYROXINE 25 MCG TAB PO SCH (05:52)
--- NOTE | 2016-05-21 07:19 | DIAGNOSTIC IMAGING REPORT ---
CHEST ONE VIEW PORTABLE HISTORY: Hypotension. change of patient condition COMPARISON: Chest 10/12/2014. FINDINGS: Emphysema persists. The heart remains mildly enlarged. No pneumothorax. Mild central pulmonary vascular congestion without overt edema. Trace left pleural effusion. IMPRESSION: 1. Mild central pulmonary vascular congestion without overt edema. 2. Trace left pleural effusion. 3. Emphysema. 4. Stable mild cardiomegaly. Electronically signed by: Link Koroma M.D. 05/21/2016 7:18 AM Dictated Date/Time: 05/21/2016 7:17 AM
[2016-05-21 07:26] LABS: HEMATOCRIT 34.9 % (37-47); MEAN CELL VOLUME 98.6 fL (80-100); MEAN CORPUSCULAR HEMOGLOBIN 33.9 pg (25-34); MEAN CORPUSCULAR HGB CONC 34.4 g/dl (32-36); MEAN PLATELET VOLUME 9.9 fL (7.4-10.4); PLATELET COUNT 132 K/uL (130-400); RED BLOOD COUNT 3.54 M/uL (4.2-5.4); WHITE BLOOD COUNT 5.54 K/uL (4.8-10.8)
[2016-05-21 07:41] LABS: PARTIAL THROMBOPLASTIN RATIO 1.7
[2016-05-21 07:55] LABS: BUN/CREATININE RATIO 5.1 (10-20); CALCIUM 8.3 mg/dl (8.5-10.1); CREATININE 0.63 mg/dl (0.60-1.20); POTASSIUM 3.7 mmol/L (3.5-5.1)
[2016-05-21] MEDS: FLUTICASONE/SALMETEROL 100/50 (ADVAIR) 14 PUFF/1 INHALER INH SCH ×2 (08:11→21:24)
[2016-05-21] MEDS: IPRATROPIUM BROMIDE/ALBUTEROL respimat INH INH SCH ×4 (08:11→21:24)
[2016-05-21] MEDS: METOPROLOL SUCC 25MG EXT REL TAB PO SCH (08:12)
[2016-05-21] MEDS: SULFAMETHOXAZOLE/TRIMETHOPRIM DS 800/160MG TAB PO SCH ×2 (08:13→21:27)
[2016-05-21] MEDS: CEPHALEXIN MONOHYDRATE 500 MG CAP PO SCH ×2 (08:13→21:26)
[2016-05-21] MEDS: MAGNESIUM OXIDE 400 MG TAB PO SCH (08:14)
[2016-05-21] MEDS: LACTOBACILLUS ACIDOPHILUS (FLORANEX) TAB PO SCH (08:14)
--- NOTE | 2016-05-21 08:27 | Progress Note ---
Subjective Date of Service: May 21, 2016. Subjective pt tends to feel sob in am, requests lasix today, states takes at home, does not have systolic heart failure on last echo Review of Systems Constitutional: No chills, No fatigue, No fever, No weakness ENT: No hearing loss, No sore throat Respiratory: + dyspnea on exertion, + shortness of breath, No cough Cardiac: No chest pain, No edema Abdomen: No diarrhea, No nausea, No pain, No vomiting Objective Vital Signs Date Time Temp Pulse Resp B/P Pulse Ox O2 Delivery O2 Flow Rate FiO2 05/21/16 07:49 37.1 90 16 95/61 95 2.0 05/21/16 04:36 36.8 82 18 100/64 96 Nasal Cannula 2.0 05/21/16 04:00 Nasal Cannula 2.0 05/21/16 00:00 94 Nasal Cannula 2.0 05/20/16 23:32 36.5 100 18 105/68 92 Nasal Cannula 2.0 05/20/16 20:00 Nasal Cannula 2.0 05/20/16 17:13 74 05/20/16 16:09 36.4 82 16 97/63 96 2.0 05/20/16 16:00 95 Nasal Cannula 2.0 05/20/16 12:09 36.9 77 20 98/57 95 2.0 05/20/16 12:00 Nasal Cannula 2.0 05/20/16 10:25 Nasal Cannula 2.0 Physical Exam General Appearance: WD/WN, + mild distress Neck: supple, no JVD Respiratory/Chest: chest non-tender, lungs clear, normal breath sounds Cardiovascular: no murmur, + irregularly irregular Abdomen: normal bowel sounds, non tender, soft Extremities: no pedal edema, no calf tenderness Laboratory Results Last 24 Hours Test 05/20/16 12:05 05/21/16 07:08 Activated Partial Thromboplast Time 50.6 SECONDS 44.6 SECONDS Partial Thromboplastin Ratio 1.9 1.7 White Blood Count 5.54 K/uL Red Blood Count 3.54 M/uL Hemoglobin 12.0 g/dL Hematocrit 34.9 % Mean Corpuscular Volume 98.6 fL Mean Corpuscular Hemoglobin 33.9 pg Mean Corpuscular Hemoglobin Concent 34.4 g/dl RDW Standard Deviation 48.0 fL RDW Coefficient of Variation 13.2 % Platelet Count 132 K/uL Mean Platelet Volume 9.9 fL Sodium Level 138 mmol/L Potassium Level 3.7 mmol/L Chloride Level 103 mmol/L Carbon Dioxide Level 31 mmol/L Anion Gap 4.0 mmol/L Blood Urea Nitrogen 3 mg/dl Creatinine 0.63 mg/dl Est Creatinine Clear Calc Drug Dose 67.3 ml/min Estimated GFR () 100.3 Estimated GFR (Non- 86.5 BUN/Creatinine Ratio 5.1 Random Glucose 104 mg/dl Calcium Level 8.3 mg/dl Assessment and Plan 75 F on pradaxa for anticoagulation of Afib with previous embolic stroke, having blood in bowel movements Attempt of outpt colonsocopy pt deveolped presyncope, was admitted for heparin bridging as is high risk off anticoagulation for prolonged periods and monitoring for more significant GI bleed Had some shortness of breath 05/20 and 05/21 ,although no clinical HF the pt requested lasix " as I would take it at home" as I feel anxiety is also at hand will give small dose of lasix and follow GIB is stable continue protonix and planning colonoscopy on 05/22 while maintaining liquid diet to avoid need of formal bowel prep afib, blood pressure remains low pt states this is her norm, she has no symptoms of weakness, continue metoprolol at lower dose, digoxin level is low but heart rate is controlled dvt prevention is scd's I personally reviewed labs and hgb is stable in the 12 gm range, blood pressure remains low but pt is asymptomatic Documented By: Sergio Guzman .
[2016-05-21] MEDS ORDERED: FUROSEMIDE INJ 10 MG in SYRINGE 0 ML IV ONE (09:30)
[2016-05-21] MEDS ORDERED: POTASSIUM CHLORIDE 10 MEQ TABCR PO ONE (09:30)
[2016-05-21] MEDS ORDERED: HEPARIN IV BOLUS 2,000 UNIT in SYRINGE 0 ML IV ONE (09:30)
[2016-05-21] MEDS: MULTIVITAMIN TAB PO SCH (12:51)
[2016-05-21] MEDS: CHOLECALCIFEROL 1000 INTER.UNIT TAB PO SCH ×2 (12:51→21:27)
[2016-05-21] MEDS: CALCIUM CARBONATE 1250MG TAB PO SCH (12:52)
[2016-05-21] MEDS: ASCORBIC ACID 500 MG TAB PO SCH (12:53)
[2016-05-21 15:45] LABS: PARTIAL THROMBOPLASTIN RATIO 2.4
[2016-05-21] MEDS: DIGOXIN 0.125 MG TAB PO SCH (17:48)
[2016-05-21] MEDS: SIMVASTATIN 20 MG TAB PO SCH (21:27)
[2016-05-22] VITALS (9 sets, daily range): BP systolic 88–115; BP diastolic 51–74; PULSE 75–96; TEMP 36.4–36.9; O2SAT 90–99
[2016-05-22 06:00] LABS: HEMATOCRIT 36.5 % (37-47); MEAN CELL VOLUME 101.7 fL (80-100); MEAN CORPUSCULAR HEMOGLOBIN 33.7 pg (25-34); MEAN CORPUSCULAR HGB CONC 33.2 g/dl (32-36); MEAN PLATELET VOLUME 10.3 fL (7.4-10.4); PLATELET COUNT 117 K/uL (130-400); RED BLOOD COUNT 3.59 M/uL (4.2-5.4); WHITE BLOOD COUNT 4.02 K/uL (4.8-10.8)
[2016-05-22] MEDS: LEVOTHYROXINE 25 MCG TAB PO SCH ×2 (06:11→06:12)
[2016-05-22 06:15] LABS: PARTIAL THROMBOPLASTIN RATIO 2.2
[2016-05-22 06:33] LABS: BUN/CREATININE RATIO 4.7 (10-20); CALCIUM 8.3 mg/dl (8.5-10.1); CREATININE 0.59 mg/dl (0.60-1.20); POTASSIUM 3.8 mmol/L (3.5-5.1)
--- NOTE | 2016-05-22 08:04 | Hospitalist Progress Note ---
Hospitalist Progress Note Date of Service May 22, 2016. (Dorota Al PA-C) Subjective Pt evaluation today including: conversation w/ patient, physical exam, chart review, lab review, review of studies, review of inpatient medication list Pain: None PO Intake: Liquid diet Voiding: no voiding problems The patient was seen and examined this morning. Pt reports feeling well this morning, she did have a full liquid diet ordered over the weekend. This morning appears she had chicken broth and small amount of chocolate pudding, coffee. She did not eat the red jello that was on her tray as I visited her prior to consuming that. She denies visible blood in stool, black tarry stools over the weekend. She had a liquid bowel movement last evening around 7 pm. Pt is anticipating scope today. All Other Systems: Reviewed and Negative (other than above) (Dorota Al PA-C) Objective Vital Signs Date Time Temp Pulse Resp B/P Pulse Ox O2 Delivery O2 Flow Rate FiO2 05/22/16 07:33 36.8 84 16 89/52 95 2.0 05/22/16 06:15 Nasal Cannula 2.0 05/22/16 04:27 36.9 77 18 88/51 90 2.0 05/22/16 04:05 94 Nasal Cannula 2.0 05/22/16 00:05 94 Nasal Cannula 2.0 05/21/16 23:36 36.4 87 18 98/62 96 Nasal Cannula 2.0 05/21/16 20:05 Nasal Cannula 2.0 05/21/16 20:03 36.8 85 18 104/61 91 Nasal Cannula 2.0 05/21/16 17:48 79 05/21/16 16:05 36.3 79 18 99/62 98 Nasal Cannula 2.0 05/21/16 15:28 94 Nasal Cannula 2.0 05/21/16 12:00 94 Nasal Cannula 2.0 05/21/16 11:48 36.6 82 18 87/54 98 2.0 05/21/16 08:28 94 Nasal Cannula 2.0 (Dorota Al PA-C) Physical Exam General Appearance: WD/WN, no apparent distress Eyes: PERRL, EOMI ENT: hearing grossly normal, pharynx normal Neck: supple, no JVD Respiratory/Chest: lungs clear, normal breath sounds, no respiratory distress, no accessory muscle use Cardiovascular: regular rate, rhythm, no JVD Abdomen: non tender, soft, + pertinent finding (hypoactive bowel sounds) Extremities: non-tender, no pedal edema, no calf tenderness Neurologic/Psychiatric: alert, normal mood/affect, oriented x 3 Skin: normal color, warm/dry (Dorota Al PA-C) Laboratory Results Last 24 Hours Test 05/21/16 15:20 05/22/16 05:42 Activated Partial Thromboplast Time 62.6 SECONDS 56.8 SECONDS Partial Thromboplastin Ratio 2.4 2.2 White Blood Count 4.02 K/uL Red Blood Count 3.59 M/uL Hemoglobin 12.1 g/dL Hematocrit 36.5 % Mean Corpuscular Volume 101.7 fL Mean Corpuscular Hemoglobin 33.7 pg Mean Corpuscular Hemoglobin Concent 33.2 g/dl RDW Standard Deviation 49.5 fL RDW Coefficient of Variation 13.2 % Platelet Count 117 K/uL Mean Platelet Volume 10.3 fL Sodium Level 140 mmol/L Potassium Level 3.8 mmol/L Chloride Level 100 mmol/L Carbon Dioxide Level 35 mmol/L Anion Gap 5.0 mmol/L Blood Urea Nitrogen 3 mg/dl Creatinine 0.59 mg/dl Est Creatinine Clear Calc Drug Dose 71.9 ml/min Estimated GFR () 102.5 Estimated GFR (Non- 88.4 BUN/Creatinine Ratio 4.7 Random Glucose 94 mg/dl Calcium Level 8.3 mg/dl (Dorota Al PA-C) Assessment and Plan 75 yo admitted after episode of hypotension prior to outpatient scheduled colonoscopy yesterday with Dr. dixon. She was admitted for colonoscopy to be performed today by Dr. North which was postponed due to hypotension again. Pt was kept inpatient over the weekend for colonoscopy this morning. Hypotension - Seems improved with rehydration with fluids and allowed to have liquid diet. - H&H has remained stable around ~12 gm - Dr. Vargas agreed with holding pradaxa (today is day 3) - he is agreeable to starting heparin gtt if she stays inpatient without bolus- reasoning behind this is that the patient has had a previous stroke and it increases her risk for a thromboembolic event after the first 48 hours. GI bleed/ + Blood in stool - Was allowed a clear liquid diet x 3 days after previous bowel preps which likely caused dehydration. Yesterday she was ordered a full liquid diet, pt was made NPO this morning. She had chicken broth, some chocolate pudding and coffee this morning. - unable to scope today. - Dr. Dixon to see the patient today. - Plan for scope tomorrow morning while pt is maintained on clears for now. NPO after 2400. - Will need Heparin gtt turned off mikal morning in anticipation of scope. EKG changes with ST depressions anterolaterally; appear very similar to previous. - Negative troponins Chronic obstructive pulmonary disease. - Continue home medications and oxygen. - Wearing 2L O2 while admitted, normally does not required supplemental o2. Chronic diastolic congestive heart failure, not systolic failure - Hold Lasix- pt requested this yesterday for some swelling in her hands and feet. None apparent today. - Caution with replacing with NSS but pt does appear to be hypovolemic at present- she is also getting small amount of fluid with heparin gtt. Gastroesophageal reflux disease. Continue her PPI. Hypothyroidism - Cont Synthroid. Sleep apnea. Osteoporosis. Continue home medications. Venous stasis with apparent chronic cellulitis. Continue suppressive therapy as per infectious diseases. - Asymmetric left lower extremity edema appears to have resolved. Venous Dopplers checked and are negative. DVT ppx: Cont heparin gtt per Dr. Vargas, TEDs, SCDs CODE STATUS: FULL CODE Disposition: From home, discharge after scope possibly tomorrow (Dorota Al, MAINOR) Attending Attestation: Pt seen/examined, chart reviewed, care plan d/w VIKASH Al. I agree w/ the newton components of her documentation. Pt upset that her colonoscopy was canceled today because she had full liquids for breakfast this AM. With that said she denies any complaints - specifically, no BRBPR, sob at rest, DORADO, orthopnea, abd pain. Denies dizziness. VSS although BPs run low (80s to about 100 systolically) gen - nad mouth - MMM neck - no JVD heart - RRR, s1, s2 lungs - CTA b/l abd - soft, NT, ND, BS+ ext - no edema skin - no cellulitis LLE labs - Hb 12.1 A/P: 1. acute blood loss anemia 2nd to GI bleeding in setting of chronic anticoagulation 2. chronic diastolic CHF - compensated 3. LAITH on CPAP 4. hypotension - mild, asymptomatic Extensive discussion held with GI Dr. Dixon as well as the anesthesiologist contract administrator. plan - NPO after MN tonight Bowel Prep again tonight IVF - 1 liter NS x 1 to help raise BP anesthesia consultation due to previous lack of success with colonoscopy due to hypotension restart heparin drip; this will need to be stopped 6 hours prior to scopes son updated at bedside Emory AGRBER MD (Declan Garber MD)
[2016-05-22] MEDS: METOPROLOL SUCC 25MG EXT REL TAB PO SCH (08:12)
[2016-05-22] MEDS: ASCORBIC ACID 500 MG TAB PO SCH (08:21)
[2016-05-22] MEDS: SULFAMETHOXAZOLE/TRIMETHOPRIM DS 800/160MG TAB PO SCH ×2 (08:21→16:31)
[2016-05-22] MEDS: MAGNESIUM OXIDE 400 MG TAB PO SCH (08:21)
[2016-05-22] MEDS: MULTIVITAMIN TAB PO SCH (08:21)
[2016-05-22] MEDS: LACTOBACILLUS ACIDOPHILUS (FLORANEX) TAB PO SCH (08:21)
[2016-05-22] MEDS: CHOLECALCIFEROL 1000 INTER.UNIT TAB PO SCH ×2 (08:21→21:05)
[2016-05-22] MEDS: FLUTICASONE/SALMETEROL 100/50 (ADVAIR) 14 PUFF/1 INHALER INH SCH ×2 (08:22→21:05)
[2016-05-22] MEDS: CEPHALEXIN MONOHYDRATE 500 MG CAP PO SCH ×2 (08:22→16:31)
[2016-05-22] MEDS: IPRATROPIUM BROMIDE/ALBUTEROL respimat INH INH SCH ×4 (08:22→21:04)
[2016-05-22] MEDS: CALCIUM CARBONATE 1250MG TAB PO SCH (11:42)
[2016-05-22] MEDS ORDERED: HEPARIN IV LOW DOSE NO BOLUS SCH (12:30)
[2016-05-22] MEDS ORDERED: HEPARIN 25,000 UNIT/500ML D5W 500 ML IV PRN (13:00)
[2016-05-22 13:43] LABS: INR 1.1 (0.9-1.1); PARTIAL THROMBOPLASTIN RATIO 1.1; PROTHROMBIN TIME (PATIENT) 11.9 SECONDS (9.0-12.0)
[2016-05-22] MEDS ORDERED: HEPARIN IV BOLUS 3,000 UNIT in SYRINGE 0 ML IV ONE (14:00)
[2016-05-22 14:42] LABS: PARTIAL THROMBOPLASTIN RATIO 1.1
[2016-05-22] MEDS ORDERED: LAVAGE SOLUTION 4000ML PO PRN (15:30)
[2016-05-22] MEDS ORDERED: LAVAGE SOLUTION 4000ML PO SCH (16:00)
[2016-05-22] MEDS: SODIUM CHLORIDE 0.9% 1000ML 1,000 ML IV SCH (16:17)
[2016-05-22] MEDS: DIGOXIN 0.125 MG TAB PO SCH (16:18)
[2016-05-22] MEDS: SIMVASTATIN 20 MG TAB PO SCH (16:31)
[2016-05-22] MEDS ORDERED: NURSING VERBAL MED ORDER ONE (16:45)
--- NOTE | 2016-05-22 17:05 | GASTROINTESTINAL CONSULTATION ---
DATE OF CONSULTATION: 05/22/2016 GASTROENTEROLOGY INPATIENT PROGRESS NOTE HISTORY OF PRESENT ILLNESS: The patient had eaten pudding this morning. The patient is planned for colonoscopy due to a positive Cologuard result. The patient on heparin for stroke history and has had blood pressure meds managed over the weekend. MEDICATIONS: Reviewed and reconciled and are unchanged. She continues levothyroxine, heparin, digoxin, Lopressor, ascorbic acid, Floranex, Mag-ox, pantoprazole, Synthroid, Keflex for cellulitis and Bactrim. ALLERGIES: INCLUDE DILTIAZEM AND LATEX. REVIEW OF SYSTEMS: Otherwise noncontributory. There are no reports of hematemesis, coffee-ground emesis, melena or bright red blood per rectum. Otherwise, noncontributory based on a 14-point exam. PHYSICAL EXAMINATION: VITAL SIGNS: Today - blood pressure 99/66, heart rate is 83, respirations 18, afebrile 36.8, 93% on 2 liters. GENERAL: Unchanged. HEENT: Sclerae are anicteric. Oral mucosa moist. HEART: Normal S1, S2. LUNGS: Clear to auscultation. ABDOMEN: Soft, flat, nontender, nondistended with good bowel sounds. EXTREMITIES: Without edema. RECTAL: Deferred. IMPRESSION AND PLAN: 1. We will arrange for colonoscopy for tomorrow. We will maintain clear liquids this evening with bowel prep and n.p.o. after midnight except meds. Heparin can be resumed and held tomorrow morning at approximately 6:00-8:00 a.m. in anticipation of colonoscopy in the afternoon. Further recommendations to follow. In addition, given the patient's heme-positive status on Cologuard, will plan for upper endoscopy as well, given the patient's necessity for anticoagulation.
--- NOTE | 2016-05-22 17:08 | Anesthesiology Progress Note ---
Anesthesia Progress Note Date of Service May 22, 2016. Progress Notes The patient is a 75 y/o female scheduled for colonoscopy with Dr. Das to evaluate for bleeding. PMH includes COPD ( chronic 02 2L NC at home), LAITH on CPAP, Afib, HTN, DLD, diastolic CHF, cor pulmonale, PVD, GERD, stage III CKD, and hypothyroidism. The procedure was attempted on 05/18/16 but patient had a vaso-vagal episode with IV replacement in procedure room prior to the procedure starting (initial IV infiltrated) in setting of hypotension and EKG changes and subsequently procedure was aborted (see Dr. Augustine's note for full details). Patient was admitted and hospitalist service has been following her. She had an episode of hypotension on 05/19/16 on the floor so she was not scheduled for the procedure that day. Procedure was again scheduled for 05/22/16 but she had improper diet ordered and was not done. Plan is for her to redo the prep tonight and have the procedure tomorrow with Dr. Das on 05/23/16. Of note, patient's systolic blood pressure runs high 80's through 100's. She is being gently hydrated given that she has diastolic heart failure with cor pulmonale. She is able to lay flat but does required NC oxygen chronically. EKG' s have shown ST depressions but this has not changed from prior EKG's and her troponins have been negative for this admission. She is on a small dose of metoprolol for rate controlling her A fib and and is also on a heparin ggt since her anticoagulation had been stopped (pradaxa). Patient appeared in good spirits despite the setbacks when I went to see her. She denied any worsening shortness of breath and was anxious to have the procedure done tomorrow. Anesthesia was discussed with her and plan will be for a gentle sedation given that her blood pressure runs low and she will certainly be more prone to hypotension. While she does have many significant medical problems, it appears that she is as optimized as she is going to be prior to this procedure. Consent was obtained and all questions were answered. Micha Molina.
[2016-05-22 20:22] LABS: PARTIAL THROMBOPLASTIN RATIO 1.6
[2016-05-22] MEDS ORDERED: HEPARIN IV BOLUS 2,000 UNIT in SYRINGE 0 ML IV ONE (21:15)
[2016-05-23] MEDS: SODIUM CHLORIDE 0.9% 1000ML 1,000 ML IV SCH ×2 (00:15→10:27)
[2016-05-23 03:53] VITALS: BP 97/57; PULSE 84; TEMP 36.5; O2SAT 98
[2016-05-23 04:05] VITALS: O2SAT 94
[2016-05-23 04:59] LABS: PARTIAL THROMBOPLASTIN RATIO 2.5
[2016-05-23] MEDS: LEVOTHYROXINE 25 MCG TAB PO SCH ×2 (06:02→08:23)
[2016-05-23 06:56] VITALS: BP 93/56; PULSE 73; TEMP 36.9; O2SAT 96
--- NOTE | 2016-05-23 07:25 | Hospitalist Progress Note ---
Hospitalist Progress Note Date of Service May 23, 2016. (Dorota Al PA-C) Subjective Pt evaluation today including: conversation w/ patient, physical exam, chart review, lab review, review of studies, review of inpatient medication list Pain: None PO Intake: NPO, finishing bowel prep Voiding: no voiding problems The patient was seen and examined this morning. Pt reports doing well, she has not been able to finish the bowel prep due to nausea. She feels good this morning overall. Denies any lightheadedness, dizziness, fatigue. She has not yet been up and moving around though. Her BPs this morning are stable. She anticipates having colonoscopy today by Dr. Dixon. All Other Systems: Reviewed and Negative (other than listed above) (Dorota Al PA-C) Objective Vital Signs Date Time Temp Pulse Resp B/P Pulse Ox O2 Delivery O2 Flow Rate FiO2 05/23/16 06:56 36.9 73 18 93/56 96 2.0 05/23/16 06:35 Nasal Cannula 2.0 05/23/16 04:05 94 Nasal Cannula 2.0 05/23/16 03:53 36.5 84 16 97/57 98 Nasal Cannula 2.0 05/23/16 00:05 Nasal Cannula 2.0 05/22/16 23:43 36.5 96 20 100/64 99 2.0 05/22/16 20:05 94 Nasal Cannula 2.0 05/22/16 19:50 36.4 93 22 115/74 95 2.0 05/22/16 16:30 Nasal Cannula 2.0 05/22/16 16:18 73 05/22/16 15:56 36.8 83 18 99/66 93 2.0 05/22/16 12:15 Nasal Cannula 2.0 05/22/16 11:44 36.4 75 16 89/53 98 2.0 75 05/22/16 08:45 Nasal Cannula 2.0 05/22/16 07:33 36.8 84 16 89/52 95 2.0 (Dorota Al PA-C) Physical Exam General Appearance: WD/WN, no apparent distress Eyes: PERRL, EOMI ENT: hearing grossly normal, pharynx normal Neck: supple, no JVD Respiratory/Chest: lungs clear, no respiratory distress, no accessory muscle use Cardiovascular: regular rate, rhythm, no murmur Abdomen: normal bowel sounds, non tender, soft, no organomegaly Extremities: non-tender, no pedal edema, no calf tenderness, + pertinent finding (+ mild LLE erythema and edema, 1+ nonpitting. ) Neurologic/Psychiatric: alert, normal mood/affect, oriented x 3 Skin: normal color, warm/dry (Dorota Al PA-C) Laboratory Results Last 24 Hours Test 05/22/16 13:16 05/22/16 14:10 05/22/16 20:05 05/23/16 04:14 Prothrombin Time 11.9 SECONDS Prothromb Time International Ratio 1.1 Activated Partial Thromboplast Time 28.4 SECONDS 27.8 SECONDS 42.7 SECONDS 63.9 SECONDS Partial Thromboplastin Ratio 1.1 1.1 1.6 2.5 (Dorota Al PA-C) Assessment and Plan 75 yo admitted after episode of hypotension prior to outpatient scheduled colonoscopy yesterday with Dr. dixon. She was admitted for colonoscopy to be performed today by Dr. North which was postponed due to hypotension again. Pt was kept inpatient over the weekend for colonoscopy. Hypotension - Seems improved with rehydration with fluids and allowed to have liquid diet. - H&H has remained stable around ~12 gm - Dr. Vargas agreed with holding pradaxa - he is agreeable to starting heparin gtt if she stays inpatient without bolus- reasoning behind this is that the patient has had a previous stroke and it increases her risk for a thromboembolic event after the first 48 hours. GI bleed/ + Blood in stool - Was allowed a clear liquid diet x 3 days after previous bowel preps which likely caused dehydration. - Planned for colonoscopy today by Dr. Dixon - pt has tolerated partial bowel prep today, had some nausea, caution as she has had hypotensive episodes x 2 in relation to dehydration with bowel preps. Currently NPO except meds. - Heparin gtt on hold anticipation of scope this morning, will restart after procedure EKG changes with ST depressions anterolaterally; appear very similar to previous. - Negative troponins Chronic obstructive pulmonary disease. - Continue home medications and oxygen. - Wearing 2L O2 while admitted, normally does not required supplemental o2. Chronic diastolic congestive heart failure, not systolic failure - Hold Lasix- pt requested once for some swelling in her hands and feet over the weekend. No swelling at this point. - Caution with replacing with NSS but pt does appear to be hypovolemic at present- she is also getting small amount of fluid with heparin gtt. Gastroesophageal reflux disease. Continue her PPI. Hypothyroidism - Cont Synthroid. Sleep apnea. Osteoporosis. Continue home medications. Venous stasis with apparent chronic cellulitis. Continue suppressive therapy as per infectious diseases. - Asymmetric left lower extremity edema slightly present this morning with mild erythema surrounding the ankle. Pt reports this comes and goes on and off. Venous Dopplers checked and are negative. DVT ppx: Cont heparin gtt per Rojelio Gonzalez, SCDs CODE STATUS: FULL CODE Disposition: From home, discharge after scope possibly today (Dorota Al, MAINOR) Attending Attestation: Pt seen/examined, chart reviewed, care plan d/w VIKASH Montoya. I agree w/ the newton components of her documentation. No events overnight. I saw the pt following her c-scope today. She tolerated a diet after the c-scope and ambulated w/o difficulty. VSS gen - nad heart - RRR, s1, s2 lungs - CTA b/l abd - soft, NT, ND, BS+ ext - no edema A/P: s/p colonoscopy today. sigmoid diverticulosis noted. no colon cancer. no active bleeding. EGD also negative. ok for d/c home. ok to resume pradaxa later tonight. f/u PCP later this week for repeat cbc. diverticulosis instructions given to patient. discussed fiber supplementation. questions answered. Emory GARBER MD (Declan Garber MD)
[2016-05-23] MEDS: FLUTICASONE/SALMETEROL 100/50 (ADVAIR) 14 PUFF/1 INHALER INH SCH (08:08)
[2016-05-23] MEDS: CEPHALEXIN MONOHYDRATE 500 MG CAP PO SCH (08:08)
[2016-05-23] MEDS: IPRATROPIUM BROMIDE/ALBUTEROL respimat INH INH SCH ×3 (08:08→15:35)
[2016-05-23] MEDS: MAGNESIUM OXIDE 400 MG TAB PO SCH (08:08)
[2016-05-23] MEDS: CHOLECALCIFEROL 1000 INTER.UNIT TAB PO SCH (08:08)
[2016-05-23] MEDS: ASCORBIC ACID 500 MG TAB PO SCH (08:08)
[2016-05-23] MEDS: SULFAMETHOXAZOLE/TRIMETHOPRIM DS 800/160MG TAB PO SCH (08:09)
[2016-05-23] MEDS: METOPROLOL SUCC 25MG EXT REL TAB PO SCH (08:09)
[2016-05-23] MEDS: MULTIVITAMIN TAB PO SCH (08:09)
[2016-05-23] MEDS: LACTOBACILLUS ACIDOPHILUS (FLORANEX) TAB PO SCH (08:09)
--- NOTE | 2016-05-23 09:54 | Discharge Instructions ---
Discharge Instructions Admission Reason for Admission: Hypotension (Dorota Al PA-C) Discharge Discharge Diagnosis / Problem: Hypotension secondary to dehydration (Dorota Al PA-C) Discharge Goals Goal(s): Decrease discomfort, Improve function, Increase independence (Dorota Al PA-C) Activity Recommendations Activity Limitations: resume your previous activity Lifting Limitations: gradually increase as tolerated Exercise/Sports Limitations: rest today, gradually increase as tolerated Shower/Bathe: no limitations Driving or Machine Use: resume 1 day after discharge . (Dorota Al PA-C) Instructions / Follow-Up Instructions / Follow-Up You were admitted to [facility] with hypotension secondary to dehydration from bowel prep During your stay here you were treated with intravenous fluids, and heparin intravenously while your blood thinner was held for colonoscopy. Your blood pressure improved with use of intravenous fluids. Imaging studies which were completed include colonoscopy on 05/23. Continue taking medications as prescribed. Follow up with your PCP within 1 week. (Dorota Al PA-C) Instructions / Follow-Up From Dr. Garber - 1. Your upper endoscopy (also known as "EGD") was completely normal. Your colonoscopy showed diverticulosis. There was NO EVIDENCE of colon cancer. This is a common condition in Americans. Please see the separate hand-out devoted to diverticulosis. Recommend that you take a DAILY fiber supplement. A good example is Metamucil. You can buy this [id number] at any grocery store or pharmacy. 2. It is possible that the trace amounts of blood in your stool came from the diverticulosis or in the small intestine. Pradaxa use will make you more susceptible to bleeding of course. Have your family doctor on Sunday of this week repeat your blood counts. 3. OK to resume your pradaxa TONIGHT, 05/23/16. 4. Upon return home you may gradually increase your diet as tolerated. Would avoid heavy, processed foods; fried foods; fast foods for at least 24 hours. (Declan Garber MD) Current Hospital Diet Patient's current hospital diet: Clear Liquid Diet (Dorota Al PA-C) Discharge Diet Recommended Diet: Regular Diet Fluid Restriction: None (Dorota Al PA-C) Procedures Procedures Performed: Colonoscopy 05/23 (Dorota Al PA-C) Procedures Performed: EGD (upper endoscopy) - normal colonoscopy - diverticulosis (Declan Garber MD) Pending Studies Studies pending at discharge: no (Dorota Al PA-C) Studies pending at discharge: no (Declan Garber MD) Medical Emergencies . Who to Call and When: Medical Emergencies: If at any time you feel your situation is an emergency, please call 911 immediately. . (Dorota Al PA-C) Non-Emergent Contact Non-Emergency issues call your: Primary Care Provider Call Non-Emergent contact if: temperature is above 100.5, your pain is not controlled, your pain is worsening, you have any medication questions you experience chest pain, shortness of breath, abdominal pain, bright red blood per rectum, lightheadedness, dizziness, nausea, vomiting, diarrhea, or if you have other concerns with your health. . (Dorota Al PA-C) Past History Medical & Surgical History: (1) GI bleed (2) Hypotension (3) ATRIAL FIBRILLATION (4) ANTICOAGULANTS,LT,CURRENT USE (5) CEREBRAL THROMBOSIS W CEREBRAL INFARCTION (6) Cellulitis (7) Peripheral vascular disease (Dorota Al PA-C) . "Provider Documentation" section prepared by Yara Al. (Dorota Al PA-C) VTE Core Measure Inpt VTE Proph given/why not?: Other Anticoagulation, T.E.D. Stockings, SCD's (Dorota Al PA-C)
--- NOTE | 2016-05-23 10:09 | Discharge Summary ---
Discharge Summary Date of Service May 23, 2016. (Dorota Al PA-C) Discharge Summary Admission Date: May 22, 2016 at 10:23 Discharge Date: May 23, 2016 Discharge Disposition: Home Principal Diagnosis: GI bleed, hypotension secondary to dehydration Problems/Secondary Diagnoses: Atrial fibrillation on anticoagulation, Hx CVA, Hypothyroidism, hypotension, chronic cellulitis of the LLE, Immunizations: Have You Had Influenza Vaccine: No History of Tetanus Vaccine?: Unknown History of Pneumococcal: Unknown Pneumococcal Date: Apr 10, 2010 History of Hepatitis B Vaccine: Unknown Procedures: Colonoscopy 05/23/16 EGD 05/23/16 - Normal EGD - Diverticulosis ULTRASOUND VENOUS DOPPLER LWR EXT BILA CLINICAL HISTORY: Bilateral leg edema COMPARISON STUDY: 10/12/2014 FINDINGS: Real-time and color flow Doppler imaging were performed. Flow was seen within the femoral, popliteal and calf veins with no intraluminal thrombus demonstrated. The saphenous vein is patent. Incidental note is made of a 20 x 39 x 13 mm left popliteal cyst. IMPRESSION: No evidence of lower extremity DVT. Electronically signed by: Glen Cade M.D. 05/18/2016 10:56 PM Dictated Date/Time: 05/18/2016 10:56 PM The status of this report is Signed. CHEST ONE VIEW PORTABLE HISTORY: Hypotension. change of patient condition COMPARISON: Chest 10/12/2014. FINDINGS: Emphysema persists. The heart remains mildly enlarged. No pneumothorax. Mild central pulmonary vascular congestion without overt edema. Trace left pleural effusion. IMPRESSION: 1. Mild central pulmonary vascular congestion without overt edema. 2. Trace left pleural effusion. 3. Emphysema. 4. Stable mild cardiomegaly. Electronically signed by: Link Koroma M.D. 05/21/2016 7:18 AM Dictated Date/Time: 05/21/2016 7:17 AM The status of this report is Signed. Consultations: Gastroenterology Cardiology (Dorota Al PA-C) Medication Reconciliation Continued Medications: Acetaminophen (Tylenol) 500 Mg Tab 500 MG PO Q4 PRN for Pain or Fever, TAB Ascorbic Acid (Vitamin C) 500 Mg Tab 1 TAB PO DAILY AT LUNCH Calcium Carbonate (Calcium) 600 Mg Tab 1 TAB PO DAILY AT LUNCH Cephalexin Monohydrate (Keflex) 500 Mg Cap 500 MG PO BID, #15 CAP Cholecalciferol (Vitamin D3) 2,000 Unit Cap 1 CAP PO BID for 90 Days, #180 CAP 3 Refills Dabigatran Elexilate (Pradaxa) 75 Mg Cap 75 MG PO BID Digoxin (Lanoxin) 0.125 Mg Tab 0.125 MG PO DAILY, TAB Fluticasone Prop/Salmeterol (Advair Diskus 100/50 60 Dose) 1 Ea Aerp 1 PUFF INH BID, INHALER Furosemide (Lasix) 20 Mg Tab 40 MG PO DAILY PRN for SWELLING, #30 Ipratropium/Albuterol (Combivent) Aer 2 PUFFS INH QID, AER Lactobacillus (Floranex) 1 Tab Tab 1 TAB PO QAM Levothyroxine Sodium (Levothyroxine Sodium) 25 Mcg Tab 2 TAB PO WK for 90 Days, TAB 1 Refill Levothyroxine Sodium (Levothyroxine Sodium) 25 Mcg Tab 1 TAB PO 6XWK for 90 Days, TAB 3 Refills Magnesium Oxide (Mag-Ox) 400 Mg Tab 400 MG PO DAILY, TAB TAKE WITH LUNCH Metoprolol Succ (Toprol Xl) (Toprol-Xl) 25 Mg Tabcr 12.5 MG PO QAM, TAB Multiple Vitamin (Multivitamin) 1 Tab Tab 1 TAB PO DAILY AT LUNCH, TAB Nitroglycerin (Nitrostat) 0.4 Mg Tab 0.4 MG UT UD PRN for Chest Pain, TAB Omeprazole (Prilosec) 20 Mg Capcr 20 MG PO DAILY PRN for GI Upset, CAP Potassium Chloride (Micro-K Ext Rel) 20 Meq Cap 20 MEQ PO DAILY PRN for LASIX USE, CAP Simvastatin (Zocor) 20 Mg Tab 20 MG PO QPM, 0 Refills Trimethoprim/Sulfamethoxazole (Bactrim 400MG/80MG) Tab 0.5 TAB PO Q12H, TAB Discharge Exam The patient was seen and examined this morning. She is feeling well this morning , anticipating colonoscopy today. Heparin gtt has been turned off this morning. She is scheduled with Dr. Dixon this afternoon for scope. Review of Systems: Constitutional: No chills, No fever Eyes: No diplopia, No problem reported ENT: No problem reported, No trouble swallowing Respiratory: No cough, No dyspnea at rest, No dyspnea on exertion, No shortness of breath Cardiovascular: No chest pain, No orthopnea Abdomen: No constipation, No diarrhea, No nausea, No pain, No vomiting Musculoskeletal: No calf pain, No muscle pain, No swelling Genitourinary - Male: No dysuria, No hematuria Neurologic: No balance problems, No numbness/tingling Endocrine: No fatigue Integumentary: No itch, No rash Physical Exam: General Appearance: WD/WN, no apparent distress Eyes: PERRL, EOMI ENT: hearing grossly normal, pharynx normal Neck: supple, no JVD Respiratory/Chest: lungs clear, normal breath sounds, no respiratory distress, no accessory muscle use Cardiovascular: regular rate, rhythm, normal peripheral pulses Abdomen / GI: normal bowel sounds, non tender, soft, no organomegaly Extremities: no calf tenderness, normal range of motion, + pertinent finding (+ mild ertythema and edema 1+ of the LLE, chronic) Neurologic/Psychiatric: alert, normal reflexes, oriented x 3 Skin: normal color, warm/dry (Dorota Al, MAINOR) Hospital Course H&P per Dr. Jake Briceno HISTORY OF PRESENT ILLNESS: The patient is a very pleasant 75-year-old female, who was actually here for a colonoscopy because of apparently ongoing blood in the stool. She had a bowel prep and then whenever they started to give medications she started to be hypotensive. Anesthesia did note that she was a bit short of breath on arrival and was taking puffs off her albuterol inhaler, although to me she does not necessarily relate that she has got any worse short of breath than her baseline. She was 112/63, then after IV was placed she started not feeling quite right. Her blood pressure started to drop, she was given phenylephrine and placed in Trendelenburg. EKG was checked; with a degree of ST depression, although on further review it appeared fairly similar to her previous EKG. Her vital signs then improved to normal and she was generally feeling good. We were asked to see her to admit her because of concern on volume depletion from the bowel prep as well as needing to get the colonoscopy done and what appears to be overall a high risk patient. PHYSICAL EXAMINATION: VITAL SIGNS: Temperature 36.7, pulse 93, respiratory rate 24, blood pressure 112/63 and 95% on room air. Round about the time I am seeing her, her heart rate is 93 with a blood pressure of 111/58. GENERAL: She is awake, alert, oriented x3, pleasant, in no acute distress. HEENT: Normocephalic and atraumatic. Mucous membranes are moist. CARDIOVASCULAR: Irregularly irregular, but rate-controlled. No rubs, murmurs or gallops. LUNGS: Clear to auscultation bilaterally. No rales, rhonchi or wheezes, with good effort. ABDOMEN: Soft, nondistended and nontender. No masses or organomegaly. EXTREMITIES: Without cyanosis or clubbing. She has about 1+ left lower extremity edema compared to maybe trace on the right. The left definitely appears shiny and more thickened skin: She notes this is actually worse than her baseline. NEUROLOGIC: Shows cranial nerves II-XII to be grossly intact. Gross motor and sensory are intact. MENTAL STATE: Shows good recent and remote recall. Normal mood and affect. Good judgment and insight. Hospital Course: 75 yo admitted after episode of hypotension prior to outpatient scheduled colonoscopy with Dr. dixon. She was admitted for colonoscopy to be performed today by Dr. North which was postponed due to hypotension again. Pt was kept inpatient over the weekend for colonoscopy prior to discharge. She was maintained on a heparin ftt while pradaxa was held due to high risck for thromboembolic event with her hx of previous ischemic CVA. Dr. Vargas with cardiology was consulted and agreed with this plan. The patient was able to tolerate a bowel prep overnight on 05/22 for colonoscopy on 05/23. Colonoscopy and Egd were completed on 05/23 and showed normal EGD and colonoscopy with diverticulosis. Hypotension - Seems improved with rehydration with fluids. - H&H has remained stable around ~12 gm - Dr. Vargas agreed with holding pradaxa - he is agreeable to starting heparin gtt if she stays inpatient without bolus- reasoning behind this is that the patient has had a previous stroke and it increases her risk for a thromboembolic event after the first 48 hours. GI bleed/ + Blood in stool - Was allowed a clear liquid diet x 3 days after previous bowel preps which likely caused dehydration. - Planned for colonoscopy 05/[address] Dixon - colonoscopy and Egd were completed on 05/23 and showed normal EGD and colonoscopy with diverticulosis. - pt has tolerated partial bowel prep prior to scope, had some nausea, caution as she has had hypotensive episodes x 2 in relation to dehydration with bowel preps. - Heparin gtt on hold anticipation of scope this morning, will restart after procedure. - Pradaxa was restarted upon discharge. EKG changes with ST depressions anterolaterally; appear very similar to previous. - Negative troponins Chronic obstructive pulmonary disease. - Continue home medications and oxygen. - Wearing 2L O2 while admitted, normally does not required supplemental o2. Chronic diastolic congestive heart failure, not systolic failure - Hold Lasix- pt requested once for some swelling in her hands and feet over the weekend. No swelling at this point. Will resume prn upon discharge. - Caution with replacing with NSS but pt does appear to be hypovolemic at present- she is also getting small amount of fluid with heparin gtt. Gastroesophageal reflux disease. Continue her PPI. Hypothyroidism - Cont Synthroid. Sleep apnea. Osteoporosis. Continue home medications. Venous stasis with apparent chronic cellulitis. Continue suppressive therapy as per infectious diseases. - Asymmetric left lower extremity edema slightly present this morning with mild erythema surrounding the ankle. Pt reports this comes and goes on and off. Have pt continue f/u with PCP. - Venous Dopplers checked and are negative. DVT ppx: Cont heparin gtt per Rojelio Gonzalez, SCDs CODE STATUS: FULL CODE Disposition: From home, discharge after scopes today. Total Time Spent: Greater than 30 minutes This includes examination of the patient, discharge planning, medication reconciliation, and communication with other providers. (Dorota Al PA-C) Attending Attestation: Pt seen/examined, chart reviewed, care plan d/w VIKASH Al on day of discharge. I agree w/ the newton components of her discharge summary. 75yo female with h/o a. fib on chronic anticoagulation who presented for a colonoscopy due to a recently positive fecal occult blood test. Unfortunately the colonoscopy had to be aborted due to hypotension at the onset of the procedure. She was subsequently admitted. After admission her pradaxa was held, she was hydrated, and she was once again prepped for another colonoscopy later on in her stay. She underwent EGD and colonoscopy without incident. EGD was normal. Colonoscopy showed sigmoid diverticulosis but no other acute findings. It is possible her previous fecal occult blood was positive due to diverticular disease or an unknown small bowel process. Hemoglobin stayed stable throughout her hospitalization, and she will resume her pradaxa following discharge. Discharge exam: gen - NAD neck - no JVD heart - irregular lungs - CTA b/l abd - soft, NT, ND, BS+ ext - no edema skin - no lingering cellulitis of either leg Declan Garber MD (Declan Garber MD) Discharge Instructions Please refer to the electronic Patient Visit Report (Discharge Instructions) for additional information. (Dorota Al PA-C) Follow-Up Follow up with your Primary Care Provider within 1 week. (Dorota Al PA-C) Chelle Cameron PA-C at Dr. Marcial's office for May 26 at 11am (Declan Garber MD) Additional Copies To Crow Marcial D.O.Int.Med.
[2016-05-23 11:24] VITALS: BP 94/60; PULSE 78; TEMP 36.8; O2SAT 100
[2016-05-23] MEDS ORDERED: MIDAZOLAM HCL 1 MG/ML 2ML VIAL ONE (12:57)
[2016-05-23] MEDS ORDERED: ONDANSETRON INJ 2 MG/ML 2 ML VIAL ONE (12:58)
[2016-05-23] MEDS ORDERED: LIDOCAINE HCL 2% 2 ML VIAL (20MG/ML) ONE (12:58)
[2016-05-23] MEDS ORDERED: PROPOFOL IV EMULSION 10 MG/ML 20 ML VIAL IV ONE (12:58)
[2016-05-23] MEDS ORDERED: ETOMIDATE 2 MG/ML 20 ML VIAL IV ONE (13:07)
--- NOTE | 2016-05-23 13:11 | History & Physical Bridge Note ---
H&P Re-Evaluation Bridge Note: I have examined the patient, reviewed the History & Physical and in the interval since the performance of the History & Physical I have noted the following changes of clinical significance: No changes noted
[2016-05-23] MEDS ORDERED: PHENYLEPHRINE 100MCG/ML 5ML SYR ONE (13:53)
--- NOTE | 2016-05-23 13:58 | GI REPORT ---
Procedure Date: 05/23/2016 1:24 PM Procedure: Upper GI endoscopy Indications: Heme positive stool Medicines: Propofol per Anesthesia Complications: No immediate complications. Estimated blood loss: None. Estimated Blood Loss: Estimated blood loss: none. Procedure: Pre-Anesthesia Assessment: - Prior to the procedure, a History and Physical was performed, and patient medications and allergies were reviewed. The patient's tolerance of previous anesthesia was also reviewed. The risks and benefits of the procedure and the sedation options and risks were discussed with the patient. All questions were answered, and informed consent was obtained. Prior Anticoagulants: The patient has taken no previous anticoagulant or antiplatelet agents. ASA Grade Assessment: III - A patient with severe systemic disease. After reviewing the risks and benefits, the patient was deemed in satisfactory condition to undergo the procedure. After obtaining informed consent, the endoscope was passed under direct vision. Throughout the procedure, the patient's blood pressure, pulse, and oxygen saturations were monitored continuously. The scope was introduced through the mouth, and advanced to the third part of duodenum. The upper GI endoscopy was accomplished without difficulty. The patient tolerated the procedure well. Findings: The examined esophagus was normal. The Z-line was regular and was found 42 cm from the incisors. The entire examined stomach was normal. The examined duodenum was normal. Retained gastric contents are not identified on this exam. The cardia and gastric fundus were normal on retroflexion. Impression: - Normal esophagus. - Z-line regular, 42 cm from the incisors. - Normal stomach. - Normal examined duodenum. - No specimens collected. Recommendation: - Return patient to [facility] for ongoing care. - Perform a colonoscopy today. MD Dominick Ramon MD 05/23/2016 1:58:34 PM This report has been signed electronically. Note Initiated On: 05/23/2016 1:24 PM I attest to the content of the Intraoperative Record and orders documented therein, exceptions below
[2016-05-23 15:26] VITALS: BP 158/83; PULSE 58; TEMP 36.4; O2SAT 58
[2016-05-23] MEDS: CALCIUM CARBONATE 1250MG TAB PO SCH (15:26)
[2016-05-23] MEDS: DIGOXIN 0.125 MG TAB PO SCH (15:35)
--- NOTE | 2016-05-23 15:38 | Anesthesiology Progress Note ---
Anesthesia Post Op Note Date & Time May 23, 2016 at 15:37 Vital Signs Pain Intensity: 0 Vital Signs Past 12 Hours Date Time Temp Pulse Resp B/P Pulse Ox O2 Delivery O2 Flow Rate FiO2 05/23/16 15:35 78 05/23/16 15:26 36.4 58 16 158/83 58 2.0 05/23/16 14:35 80 18 110/63 97 Room Air 2 05/23/16 14:23 104 18 96/53 98 Nasal Cannula 2 05/23/16 14:10 107 18 100/58 96 Nasal Cannula 2 05/23/16 13:58 100 18 102/56 97 Nasal Cannula 2 05/23/16 12:54 36.6 81 20 105/60 98 Nasal Cannula 2 05/23/16 11:24 36.8 78 18 94/60 100 2.0 05/23/16 08:30 Nasal Cannula 2.0 05/23/16 06:56 36.9 73 18 93/56 96 2.0 05/23/16 06:35 Nasal Cannula 2.0 05/23/16 04:05 94 Nasal Cannula 2.0 05/23/16 03:53 36.5 84 16 97/57 98 Nasal Cannula 2.0 Notes Mental Status: alert / awake / arousable, participated in evaluation Pt Amnestic to Procedure: Yes Nausea / Vomiting: adequately controlled Pain: adequately controlled Airway Patency, RR, SpO2: stable & adequate BP & HR: stable & adequate Hydration State: stable & adequate Anesthetic Complications: no major complications apparent
[2016-05-23] MEDS ORDERED: NURSING VERBAL MED ORDER ONE (16:00)
[2016-05-23 17:58] VITALS: BP 158/83; PULSE 78; TEMP 36.4; O2SAT 58
[2016-05-25] MEDS ORDERED: LEVOTHYROXINE 50 MCG TAB PO SCH (06:30)
[2016-06-12] MEDS ORDERED: ACET-1256 PO (09:48)
[2016-11-29] MEDS ORDERED: MULTTAB58 PO (09:10)
[2016-11-29] MEDS ORDERED: NTRGSL/4 UT (09:43)
[2016-11-29] MEDS ORDERED: MAGN400T6 PO (09:47)
[2016-11-29] MEDS ORDERED: ASCO500T3 PO (11:42)
[2016-11-29] MEDS ORDERED: LACT1TAB4 PO (11:42)
[2016-11-29] MEDS ORDERED: LNX125 PO (11:54)
[2016-11-29] MEDS ORDERED: MCRK20 PO (11:58)
== END 2016-05-23 18:24 | disposition home or self-care (01) | DRG 813 ==
LOC: ENRESERVDT → ENRESERVTM → C.GI 12:44 → C.MED 17:16 → OBSVTOIN 05-22 10:23
PROVIDERS: ADMIT Internal Medicine Gastroenterology; ATTEND Internal Medicine
PROC: 0DJ08ZZ Inspection of Upper Intestinal Tract, Via Natural or Artificial Opening Endoscopic (ICD-10-PCS; principal; 2016-05-23 12:51)
DX: D68.32 Hemorrhagic disorder due to extrinsic circulating anticoagulants (principal); K57.31 Diverticulosis of large intestine without perforation or abscess with bleeding; D62 Acute posthemorrhagic anemia; I50.32 Chronic diastolic (congestive) heart failure; K92.1 Melena; L03.116 Cellulitis of left lower limb; I13.0 Hypertensive heart and chronic kidney disease with heart failure and stage 1 through stage 4 chronic kidney disease, or unspecified chronic kidney disease; I95.9 Hypotension, unspecified; E03.9 Hypothyroidism, unspecified; N18.3 Chronic kidney disease, stage 3 (moderate); K21.9 Gastro-esophageal reflux disease without esophagitis; I48.2 Chronic atrial fibrillation; G47.33 Obstructive sleep apnea (adult) (pediatric); M81.0 Age-related osteoporosis without current pathological fracture; E86.0 Dehydration; J44.9 Chronic obstructive pulmonary disease, unspecified; E78.5 Hyperlipidemia, unspecified; I87.8 Other specified disorders of veins; R55 Syncope and collapse; R94.31 Abnormal electrocardiogram [ECG] [EKG]; I27.81 Cor pulmonale (chronic); E55.9 Vitamin D deficiency, unspecified; Z79.01 Long term (current) use of anticoagulants; Z79.51 Long term (current) use of inhaled steroids; Z79.899 Other long term (current) drug therapy; Z99.89 Dependence on other enabling machines and devices; Z86.73 Personal history of transient ischemic attack (TIA), and cerebral infarction without residual deficits; Z87.891 Personal history of nicotine dependence; Z53.09 Procedure and treatment not carried out because of other contraindication

== ENCOUNTER 2016-06-12 11:19 | Inpatient (IN) | payer OTHER ==
[~2016-06-12] VITALS: Ht 162.6 cm; Wt 56.6 kg
[~2016-06-12 11:19] MED LIST changes: +ACET-1256 PO
[2016-06-12] MEDS ORDERED: CALC-393 PO (11:42)
[2016-06-12] MEDS ORDERED: CHOL2000 PO (11:42)
[2016-06-12] MEDS ORDERED: SULF800T23 PO (11:53)
[2016-06-12] MEDS ORDERED: IPRA1AER2 INH (11:54)
[2016-06-12] MEDS ORDERED: SYN50 PO (11:56)
[2016-06-12] MEDS ORDERED: SYN25 PO (11:56)
--- NOTE | 2016-06-12 13:00 | EMERGENCY ROOM VISIT NOTE ---
History Report prepared by Pierre: Nilson Zaidi Under the Supervision of: Dr. Jerry Gordon M.D. First contact with patient: 12:45 Chief Complaint: OTHER COMPLAINT Stated Complaint: CELLULITIS BOTH LEGS History of Present Illness The patient is a 75 year old female who presents to the Emergency Room with complaints of worsening bilateral leg cellulitis that started last week. She says she has had issues with cellulitis for 2 years. The patient notes that both her legs are swollen, red, and very painful. The patient says that she had a colonoscopy done at the end of April, and had to be in the hospital for 6 days for that. She states that she was dehydrated, and her "diet was messed up" . The patient says that she got the flu after leaving the hospital, and her legs were swollen, but not red yet. Over the next few weeks, she says her swelling worsened, until last week, her cellulitis went "full blown". She states that she is short of breath, and has some chills and coughing. The patient denies any fevers, nausea, or vomiting. She was at her primary care physician's office lately, and there was some concern over her right lung. The patient has had to be admitted for cellulitis in the past, and the cellulitis has been worse before than it is currently. She has been on Bactrim and Keflex daily for 2 years. Source of History: patient Onset: Last week Position: leg (bilateral) Quality: other (cellulitis) Timing: worsening Associated Symptoms: + SOB, + chills, + cough, No fevers, No nausea, No vomiting Note: Associated symptoms: Leg swelling, leg redness, leg pain. Review of Systems See HPI for pertinent positives & negatives. A total of 10 systems reviewed and were otherwise negative. Past Medical & Surgical Medical Problems: (1) ANTICOAGULANTS,LT,CURRENT USE (2) ATRIAL FIBRILLATION (3) CATARACT NOS (4) CEREBRAL THROMBOSIS W CEREBRAL INFARCTION (5) CHR AIRWAY OBSTRUCT NEC (6) DIVERTICULOSIS COLON (W/O MENT OF HEMORRHAGE) (7) GI bleed (8) Hypotension Family History Negative FHx for blood clots Social History Smoking Status: Former Smoker Alcohol Use: none Drug Use: none Marital Status: Housing Status: lives with family Occupation Status: retired Current/Historical Medications Scheduled Ascorbic Acid (Vitamin C), 1 TAB PO DAILY AT LUNCH Calcium Carbonate (Calcium), 1 TAB PO DAILY AT LUNCH Cephalexin Monohydrate (Keflex), 500 MG PO BID Cholecalciferol (Vitamin D3), 1 CAP PO BID Dabigatran Elexilate (Pradaxa), 75 MG PO BID Digoxin (Digoxin), 0.125 MG PO DAILY Fluticasone Prop/Salmeterol (Advair Diskus 100/50 60 Dose), 1 PUFF INH BID Ipratropium-Albuterol (Combivent Respimat), 1 PUFFS INH QID Lactobacillus (Floranex), 1 TAB PO QAM Levothyroxine Sodium (Synthroid), 25 MCG PO 6XWK Levothyroxine Sodium (Synthroid), 50 MCG PO WK Magnesium Oxide (Mag-Ox), 400 MG PO DAILY Metoprolol Succ (Toprol Xl) (Toprol-Xl), 12.5 MG PO QAM Multiple Vitamin (Multivitamin), 1 TAB PO DAILY AT LUNCH Potassium Chloride (Klor-Con M20), 20 MEQ PO DAILY Simvastatin (Zocor), 20 MG PO QPM Sulfamethoxazole-Trimethoprim (Bactrim Ds 800MG/160MG), 0.5 TAB PO BID Scheduled PRN Acetaminophen (Tylenol), 500 MG PO Q4 PRN for Pain or Fever Furosemide (Lasix), 40 MG PO DAILY PRN for SWELLING Nitroglycerin (Nitrostat), 0.4 MG UT UD PRN for Chest Pain Omeprazole (Prilosec), 20 MG PO DAILY PRN for GI Upset Allergies Coded Allergies: Latex1 -Allergic Contact Dermititis (Verified Allergy, Mild, RASH AND ITCHING, 06/12/16) Diltiazem (Verified Adverse Reaction, Unknown, LOW BP AND UPSET STOMACH, ) Physical Exam Vital Signs Date Time Temp Pulse Resp B/P Pulse Ox O2 Delivery O2 Flow Rate FiO2 06/12/16 11:23 36.9 76 20 106/68 96 Room Air Physical Exam GENERAL: Patient is chronically unwell appearing, in mild distress. HEENT: No acute trauma, normocephalic atraumatic, mucous membranes moist, no nasal congestion, no scleral icterus. NECK: No stridor, no adenopathy, no meningismus, trachea is midline. LUNGS: Crackles in right lower lobe, mildly dyspneic. HEART: Irregular heartbeat. No murmurs, rubs, gallops appreciated. ABDOMEN: Soft, nontender, bowel sounds positive, no masses appreciated, no peritonitis. BACK: No midline tenderness, no CVA tenderness EXTREMITIES: Large erythematous left leg from knee to toes, severely tender to palpation. Some blistering over heel. Mild erythema of right ankle, with increased warmth. NEUROLOGIC: Alert and oriented, no acute motor or sensory deficits, no focal weakness, cranial nerves grossly intact. SKIN: No diaphoresis. Medical Decision & Procedures ER Provider Diagnostic Interpretation: X ray results are stated below per my interpretation and the radiologist's interpretation. CHEST ONE VIEW PORTABLE HISTORY: shortness of breath COMPARISON: Chest 05/15/1616. FINDINGS: The heart remains mildly enlarged. There are trace bilateral pleural effusions. No focal lung consolidations to suggest pneumonia. Slight prominence of interstitial markings has improved. This is consistent with resolving congestive change. The lungs remain hyperexpanded with apical predominant emphysematous changes. IMPRESSION: 1. Trace bilateral pleural effusions and mild cardiomegaly. 2. Mild interstitial thickening is slightly improved. This suggests resolving congestive change. Electronically signed by: Link Koroma M.D. 06/12/2016 1:11 PM Dictated Date/Time: 06/12/2016 1:09 PM Laboratory Results 06/12/16 12:30 Red Blood Count 4.00, Mean Corpuscular Volume 102.3, Mean Corpuscular Hemoglobin 33.5, Mean Corpuscular Hemoglobin Concent 32.8, Mean Platelet Volume 10.2, Neutrophils (%) (Auto) 75.9, Lymphocytes (%) (Auto) 9.0, Monocytes (%) ( Auto) 12.3, Eosinophils (%) (Auto) 2.4, Basophils (%) (Auto) 0.2, Neutrophils # (Auto) 5.06, Lymphocytes # (Auto) 0.60, Monocytes # (Auto) 0.82, Eosinophils # ( Auto) 0.16, Basophils # (Auto) 0.01 06/12/16 12:30 Test 06/12/16 12:30 06/12/16 12:45 06/12/16 13:22 White Blood Count 6.66 K/uL (4.8-10.8) Red Blood Count 4.00 M/uL (4.2-5.4) Hemoglobin 13.4 g/dL (12.0-16.0) Hematocrit 40.9 % (37-47) Mean Corpuscular Volume 102.3 fL (80-100) Mean Corpuscular Hemoglobin 33.5 pg (25-34) Mean Corpuscular Hemoglobin Concent 32.8 g/dl (32-36) Platelet Count 213 K/uL (130-400) Mean Platelet Volume 10.2 fL (7.4-10.4) Neutrophils (%) (Auto) 75.9 % Lymphocytes (%) (Auto) 9.0 % Monocytes (%) (Auto) 12.3 % Eosinophils (%) (Auto) 2.4 % Basophils (%) (Auto) 0.2 % Neutrophils # (Auto) 5.06 K/uL (1.4-6.5) Lymphocytes # (Auto) 0.60 K/uL (1.2-3.4) Monocytes # (Auto) 0.82 K/uL (0.11-0.59) Eosinophils # (Auto) 0.16 K/uL (0-0.5) Basophils # (Auto) 0.01 K/uL (0-0.2) RDW Standard Deviation 50.1 fL (36.4-46.3) RDW Coefficient of Variation 13.4 % (11.5-14.5) Immature Granulocyte % (Auto) 0.2 % Immature Granulocyte # (Auto) 0.01 K/uL (0.00-0.02) Anion Gap 7.0 mmol/L (3-11) Est Creatinine Clear Calc Drug Dose 49.0 ml/min Estimated GFR () 78.8 Estimated GFR (Non- 68.0 BUN/Creatinine Ratio 9.6 (10-20) Calcium Level 9.5 mg/dl (8.5-10.1) Total Bilirubin 0.5 mg/dl (0.2-1) Aspartate Amino Transf (AST/SGOT) 28 U/L (15-37) Alanine Aminotransferase (ALT/SGPT) 32 U/L (12-78) Alkaline Phosphatase 89 U/L (45-117) Troponin I 0.019 ng/ml (0-0.045) C-Reactive Protein < 0.29 mg/dl (0-0.29) Pro-B-Type Natriuretic Peptide 2638 pg/ml (0-1800) Total Protein 6.8 gm/dl (6.4-8.2) Albumin 3.6 gm/dl (3.4-5.0) Globulin 3.2 gm/dl (2.5-4.0) Albumin/Globulin Ratio 1.1 (0.9-2) Digoxin Level 0.7 ng/ml (0.8-2.0) Thyroid Stimulating Hormone (TSH) 2.670 uIu/ml (0.300-4.500) Bedside Lactic Acid Venous 1.15 mmol/L (0.90-1.70) Laboratory results as reviewed by me. ECG Indication: other (cellulitis) Rate (beats per minute): 86 Rhythm: atrial fibrillation Findings: T-wave inversion (Lateral), other (no STEMI) ED Course 1246: The patient was evaluated in room B4B. A complete history and physical exam was performed. 1322: I discussed the patient with Dr. Walter SHERIDAN hospitalist - he is going to evaluate the patient for further treatment. 1330: Upon reevaluation, the patient is resting comfortably. Discussed results and treatment plan with the patient. She verbalized understanding and agreement with the treatment plan. The patient will be evaluated for further management. 1341: I reevaluated the patient and she is stable. She is currently being evaluated by medicine. Medical Decision Differential: DVT, CHF, Arterial Occlusion, Infectious, Joint Effusion, Trauma, Lymphedema, Idiopathic, Trauma, amongst other pathologies entertained. 75 yr old female sent over from infectious disease office for erythematous left leg and swelling. Crackles bilateral lungs. Not hypoxic. Already on bactrim/ keflex. No fever, no wbc, no crp elevation. I am not convinced this is infectious and may just be fluid overload with vascular congestion. Blood cultures pending. As already on abx will hold on emergent treatment and defer to decision of hospitalist on if to treat empirically or not. Already on blood thinner thus will hold on US lower extremity. Pulses intact thus I do not feel this is arterial in nature. She is stable, no distress and not septic. She will be evaluated by Hospitalist for further management. Consults Time Called: 1320 Consulting Physician: Dr. Walter SHERIDAN hospitalist Returned Call: 1322 I discussed the patient with Dr. Watson - [facility] hospitalist - he is going to evaluate the patient for further treatment. Impression Primary Impression: Fluid overload Additional Impression: Pulmonary vascular congestion Scribe Attestation The scribe's documentation has been prepared under my direction and personally reviewed by me in its entirety. I confirm that the note above accurately reflects all work, treatment, procedures, and medical decision making performed by me. Departure Information Dispostion Being Evaluated By Hospitalist Referrals Crow Marcial, D.O.Int.Med. (PCP) Patient Instructions My [facility] Problem Qualifiers Primary Impression: Fluid overload Hypervolemia type: unspecified Qualified Codes: E87.70 - Fluid overload, unspecified
[2016-06-12 13:04] LABS: BASO % 0.2 %; BASO ABS # 0.01 K/uL (0-0.2); COMPLETE YES; EOS % 2.4 %; HEMATOCRIT 40.9 % (37-47); IG% 0.2 %; MEAN CELL VOLUME 102.3 fL (80-100); MEAN CORPUSCULAR HEMOGLOBIN 33.5 pg (25-34); MEAN CORPUSCULAR HGB CONC 32.8 g/dl (32-36); MEAN PLATELET VOLUME 10.2 fL (7.4-10.4); MONO % 12.3 %; NEUT % 75.9 %; PLATELET COUNT 213 K/uL (130-400); WHITE BLOOD COUNT 6.66 K/uL (4.8-10.8)
[2016-06-12 13:12] LABS: ALT/SGPT 32 U/L (12-78); AST/SGOT 28 U/L (15-37); BLOOD UREA NITROGEN 8 mg/dl (7-18); BUN/CREATININE RATIO 9.6 (10-20); C-REACTIVE PROTEIN < 0.29 mg/dl (0-0.29); CALCIUM 9.5 mg/dl (8.5-10.1); CARBON DIOXIDE 32 mmol/L (21-32); CHLORIDE 101 mmol/L (98-107); CREATININE 0.83 mg/dl (0.60-1.20); GLUCOSE 82 mg/dl (70-99); POTASSIUM 4.4 mmol/L (3.5-5.1); SODIUM 140 mmol/L (136-145)
--- NOTE | 2016-06-12 13:12 | DIAGNOSTIC IMAGING REPORT ---
CHEST ONE VIEW PORTABLE HISTORY: shortness of breath COMPARISON: Chest 05/15/1616. FINDINGS: The heart remains mildly enlarged. There are trace bilateral pleural effusions. No focal lung consolidations to suggest pneumonia. Slight prominence of interstitial markings has improved. This is consistent with resolving congestive change. The lungs remain hyperexpanded with apical predominant emphysematous changes. IMPRESSION: 1. Trace bilateral pleural effusions and mild cardiomegaly. 2. Mild interstitial thickening is slightly improved. This suggests resolving congestive change. Electronically signed by: Link Koroma M.D. 06/12/2016 1:11 PM Dictated Date/Time: 06/12/2016 1:09 PM
[2016-06-12 13:16] LABS: ALB/GLOB RATIO 1.1 (0.9-2); ALKALINE PHOSPHATASE 89 U/L (45-117)
[2016-06-12] MEDS ORDERED: HEPARIN SOD 5000 UNIT/0.5 ML CARP SQ SCH (13:45)
[2016-06-12] MEDS ORDERED: ONDANSETRON INJ 2 MG/ML 2 ML VIAL IV PRN (13:45)
[2016-06-12] MEDS ORDERED: ACETAMINOPHEN 325 MG TAB PO PRN (13:45)
[2016-06-12] MEDS ORDERED: NITROGLYCERIN 0.4 MG SL PER TAB CHARGE UT PRN (14:00)
[2016-06-12] MEDS ORDERED: ACETAMINOPHEN 500 MG TAB PO PRN (14:00)
[2016-06-12] MEDS ORDERED: PANTOprazole SOD 40 MG TAB PO PRN (14:00)
[2016-06-12] MEDS ORDERED: PRLSR20 PO (14:40)
--- NOTE | 2016-06-12 14:41 | History and Physical ---
History & Physical Date & Time of Service: Jun 12, 2016 at 14:23 Chief Complaint: Cellulitis Both Legs Primary Care Physician: Crow Marcial D.O.Int.Med. History of Present Illness Source: patient Pt is a 75 year old female who presents to the ER with complaints of worsening bilateral leg cellulitis that started last week. Pt has been on keflex and bactrim for 2 yrs for chronic cellulitis. Pt reports was just at [facility] for colonoscopy 3 weeks ago where she reports "she was given too much IV fluids." She states having worsening shortness of breath on exertion and reports worsening pain in swelling in both legs, especially the left leg. Pt denies missing any of her keflex or bactrim medication. She did got to Dr. Little's office who recommended admission for cellulitis. Pt denies any fevers, chills, chest pain, palpitations, trauma or tick/insect bites to leg. Past Medical/Surgical History Medical Problems: (1) ANTICOAGULANTS,LT,CURRENT USE Status: Chronic (2) ATRIAL FIBRILLATION Status: Chronic (3) CATARACT NOS Status: Resolved (4) CEREBRAL THROMBOSIS W CEREBRAL INFARCTION Status: Resolved (5) CHR AIRWAY OBSTRUCT NEC Status: Chronic (6) DIVERTICULOSIS COLON (W/O MENT OF HEMORRHAGE) Status: Chronic Family History Negative FHx for blood clots Social History Smoking Status: Former Smoker Drug Use: none Marital Status: Occupational Status: retired Immunizations History of Influenza Vaccine: No History of Tetanus Vaccine?: Unknown History of Pneumococcal: Unknown Pneumococcal Date: Apr 10, 2010 History of Hepatitis B Vaccine: Unknown Multi-Drug Resistant Organisms History of MDRO: No Allergies Coded Allergies: Latex1 -Allergic Contact Dermititis (Verified Allergy, Mild, RASH AND ITCHING, 06/12/16) Diltiazem (Verified Adverse Reaction, Unknown, LOW BP AND UPSET STOMACH, ) Home Medications Scheduled Ascorbic Acid (Vitamin C), 1 TAB PO DAILY AT LUNCH Calcium Carbonate (Calcium), 1 TAB PO DAILY AT LUNCH Cephalexin Monohydrate (Keflex), 500 MG PO BID Cholecalciferol (Vitamin D3), 1 CAP PO BID Dabigatran Elexilate (Pradaxa), 75 MG PO BID Digoxin (Digoxin), 0.125 MG PO DAILY Fluticasone Prop/Salmeterol (Advair Diskus 100/50 60 Dose), 1 PUFF INH BID Ipratropium-Albuterol (Combivent Respimat), 1 PUFFS INH QID Lactobacillus (Floranex), 1 TAB PO QAM Levothyroxine Sodium (Synthroid), 25 MCG PO 6XWK Levothyroxine Sodium (Synthroid), 50 MCG PO WK Magnesium Oxide (Mag-Ox), 400 MG PO DAILY Metoprolol Succ (Toprol Xl) (Toprol-Xl), 12.5 MG PO QAM Multiple Vitamin (Multivitamin), 1 TAB PO DAILY AT LUNCH Potassium Chloride (Klor-Con M20), 20 MEQ PO DAILY Simvastatin (Zocor), 20 MG PO QPM Sulfamethoxazole-Trimethoprim (Bactrim Ds 800MG/160MG), 0.5 TAB PO BID Scheduled PRN Acetaminophen (Tylenol), 500 MG PO Q4 PRN for Pain or Fever Furosemide (Lasix), 40 MG PO DAILY PRN for SWELLING Nitroglycerin (Nitrostat), 0.4 MG UT UD PRN for Chest Pain Omeprazole (Prilosec), 20 MG PO DAILY PRN for GI Upset Review of Systems Constitutional: No chills, No fever Respiratory: + dyspnea on exertion, No cough, No shortness of breath, No sputum Cardiovascular: + edema, No chest pain, No orthopnea Abdomen: No nausea, No pain, No vomiting Musculoskeletal: + calf pain, + joint pain, + muscle pain Genitourinary - Female: No dysuria, No urinary frequency, No urinary urgency Psychiatric: No anhedonism, No anxiety Endocrine: No excessive thirst, No fatigue Integumentary: No itch, No rash Physical Exam Vital Signs Date Time Temp Pulse Resp B/P Pulse Ox O2 Delivery O2 Flow Rate FiO2 06/12/16 14:05 83 16 107/53 92 Room Air 06/12/16 11:23 36.9 76 20 106/68 96 Room Air General Appearance: WD/WN, + mild distress Neck: supple, no adenopathy Respiratory/Chest: chest non-tender, + accessory muscle use Cardiovascular: no gallop, + irregularly irregular Abdomen/GI: non tender, soft Extremities/Musculoskelatal: + calf tenderness, + inflammation (left leg tenderness and redness below knee, right foot redness and tenderness) Neurologic/Psych: alert, normal mood/affect, oriented x 3 Diagnostics Laboratory Results Results Past 24 Hours Test 06/12/16 12:30 06/12/16 13:22 Range/Units White Blood Count 6.66 4.8-10.8 K/uL Red Blood Count 4.00 4.2-5.4 M/uL Hemoglobin 13.4 12.0-16.0 g/dL Hematocrit 40.9 37-47 % Mean Corpuscular Volume 102.3 80-100 fL Mean Corpuscular Hemoglobin 33.5 25-34 pg Mean Corpuscular Hemoglobin Concent 32.8 32-36 g/dl Platelet Count 213 130-400 K/uL Mean Platelet Volume 10.2 7.4-10.4 fL Neutrophils (%) (Auto) 75.9 % Lymphocytes (%) (Auto) 9.0 % Monocytes (%) (Auto) 12.3 % Eosinophils (%) (Auto) 2.4 % Basophils (%) (Auto) 0.2 % Neutrophils # (Auto) 5.06 1.4-6.5 K/uL Lymphocytes # (Auto) 0.60 1.2-3.4 K/uL Monocytes # (Auto) 0.82 0.11-0.59 K/uL Eosinophils # (Auto) 0.16 0-0.5 K/uL Basophils # (Auto) 0.01 0-0.2 K/uL RDW Standard Deviation 50.1 36.4-46.3 fL RDW Coefficient of Variation 13.4 11.5-14.5 % Immature Granulocyte % (Auto) 0.2 % Immature Granulocyte # (Auto) 0.01 0.00-0.02 K/uL Sodium Level 140 136-145 mmol/L Potassium Level 4.4 3.5-5.1 mmol/L Chloride Level 101 98-107 mmol/L Carbon Dioxide Level 32 21-32 mmol/L Anion Gap 7.0 3-11 mmol/L Blood Urea Nitrogen 8 7-18 mg/dl Creatinine 0.83 0.60-1.20 mg/dl Est Creatinine Clear Calc Drug Dose 49.0 ml/min Estimated GFR () 78.8 Estimated GFR (Non- 68.0 BUN/Creatinine Ratio 9.6 10-20 Random Glucose 82 70-99 mg/dl Calcium Level 9.5 8.5-10.1 mg/dl Total Bilirubin 0.5 0.2-1 mg/dl Aspartate Amino Transf (AST/SGOT) 28 15-37 U/L Alanine Aminotransferase (ALT/SGPT) 32 12-78 U/L Alkaline Phosphatase 89 45-117 U/L Troponin I 0.019 0-0.045 ng/ml C-Reactive Protein < 0.29 0-0.29 mg/dl Pro-B-Type Natriuretic Peptide 2638 0-1800 pg/ml Total Protein 6.8 6.4-8.2 gm/dl Albumin 3.6 3.4-5.0 gm/dl Globulin 3.2 2.5-4.0 gm/dl Albumin/Globulin Ratio 1.1 0.9-2 Digoxin Level 0.7 0.8-2.0 ng/ml Bedside Lactic Acid Venous 1.15 0.90-1.70 mmol/L Microbiology Results 06/12/16 Blood Culture, Received Pending 06/12/16 Blood Culture, Received Pending Impression Assessment and Plan Pt is a 75 yo female with hx of atrial fib, diastolic CHF, hypothyroidism, chronic cellulitis who reports to ER for worsening bilateral lower ext redness and swelling for past 3 days Bilateral lower ext cellulitis - Will admit to med surg at this time. Stop keflex and bactrim and start on IV clindamycin. No fevers or leukocytosis noted. CRP WNL. Consult ID at this time. Blood cultures pending. Acute on chronic diastolic HF - Stop PO lasix and start on IV lasix 40 mg daily. CXR with noted congestion. Obtain ECHO at this time. Likely secondary to IVF from previous hospitalization. Cont digoxin at this time and metoprolol. Trend trops. EKG consistent with atrial fib with t wave inversions in lateral leads. COPD - Cont combivent and advair, no exacerbation noted Atrial fibrillation - Cont digoxin, metoprolol and pradaxa, EKG noted afib Hypothyroidism - Check TSH, cont synthroid Pt is FULL CODE VTE Prophylaxis VTE Risk Assessment Done? Y/N: Yes Risk Level: Moderate
[2016-06-12 15:15] VITALS: BP 107/63; PULSE 56; TEMP 36.9; O2SAT 95; Ht 162.6 cm; Wt 56.6 kg
[2016-06-12 15:38] VITALS: BP 107/63; PULSE 56; TEMP 37; O2SAT 95
[2016-06-12] MEDS ORDERED: NURSING VERBAL MED ORDER ONE ×2 (16:30→16:44)
[2016-06-12] MEDS: CLINDAMYCIN IV 300 MG in DEXTROSE 5% 50ML 50 ML IV SCH ×2 (16:44→23:51)
[2016-06-12] MEDS: IPRATROPIUM BROMIDE/ALBUTEROL respimat INH INH SCH ×2 (16:45→19:23)
[2016-06-12] MEDS ORDERED: FUROSEMIDE INJ 40 MG in SYRINGE 0 ML IV ONE (16:45)
[2016-06-12] MEDS ORDERED: DIGOXIN 0.125 MG TAB PO ONE (17:15)
[2016-06-12] MEDS ORDERED: PRD75 PO (17:54)
[2016-06-12] MEDS ORDERED: ADVIN10/60 INH (17:54)
[2016-06-12] MEDS: FLUTICASONE/SALMETEROL 100/50 (ADVAIR) 14 PUFF/1 INHALER INH SCH (19:21)
[2016-06-12] MEDS: SIMVASTATIN 20 MG TAB PO SCH (19:22)
[2016-06-12] MEDS: CHOLECALCIFEROL 1000 INTER.UNIT TAB PO SCH (19:22)
[2016-06-12 19:30] VITALS: O2SAT 91
[2016-06-12 19:42] VITALS: BP 134/75; PULSE 81; TEMP 37.3; O2SAT 93
[2016-06-12] MEDS: DABIGATRAN ELEXILATE 75 MG CAP PO SCH (20:42)
[2016-06-12] MEDS ORDERED: FURO-85 PO (22:08)
[2016-06-13 00:16] VITALS: BP 97/56; PULSE 96; TEMP 37; O2SAT 96
[2016-06-13] MEDS: LEVOTHYROXINE 25 MCG TAB PO SCH (06:02)
[2016-06-13 06:19] LABS: BASO % 0.2 %; BASO ABS # 0.01 K/uL (0-0.2); COMPLETE YES; EOS % 5.2 %; IG% 0.2 %; LYMPH % 15.5 %; LYMPH ABS # 0.81 K/uL (1.2-3.4); MEAN CELL VOLUME 100.3 fL (80-100); MEAN CORPUSCULAR HGB CONC 32.9 g/dl (32-36); MONO % 18.5 %; NEUT % 60.4 %; PLATELET COUNT 189 K/uL (130-400); RED BLOOD COUNT 3.79 M/uL (4.2-5.4); WHITE BLOOD COUNT 5.23 K/uL (4.8-10.8)
[2016-06-13 06:53] LABS: BUN/CREATININE RATIO 11.5 (10-20); CALCIUM 8.6 mg/dl (8.5-10.1); CREATININE 1.1 mg/dl (0.60-1.20); POTASSIUM 3.9 mmol/L (3.5-5.1)
[2016-06-13] MEDS ORDERED: PERFLUTREN LIPID MICROSPHERE (DEFINITY) IV ONE (07:23)
[2016-06-13 07:49] VITALS: BP_SYST 90; BP_SYST 95; BP_DIAS 56; BP_DIAS 59; PULSE 76; TEMP 36.3; O2SAT 97
--- NOTE | 2016-06-13 07:51 | Hospitalist Progress Note ---
Hospitalist Progress Note Date of Service Jun 13, 2016. (Dorota Al PA-C) Subjective Pt evaluation today including: conversation w/ patient, physical exam, chart review, lab review, review of studies, review of inpatient medication list Pain: Left lower ext PO Intake: Good Voiding: no voiding problems The patient was seen and examined this morning. Pt reports a chronic history of cellulitis where she had been placed on keflex and bactrim about [address] Little. She reports her LLE is a little less swollen and not as painful. She states the redness is about the same, still extends up to her knee. She has some reddness in the RLE over the top of her foot which she normally has not had in the past. Constitutional: No chills, No fever, No sweats Eyes: No diplopia, No redness ENT: + problem reported (Recent URI with flu like symptoms), No nasal symptoms, No sore throat Respiratory: + shortness of breath, + wheezing, No cough, No dyspnea at rest , No dyspnea on exertion Cardiovascular: No chest pain, No palpitations Abdomen: No constipation, No diarrhea, No nausea, No pain, No vomiting Musculoskeletal: + swelling (LLE and R foot), No joint pain, No muscle pain Female : No dysuria Neurologic: No balance problems, No numbness/tingling, No weakness Psychiatric: No anxiety Endo: No fatigue Skin: No itch, No rash (Dorota Al PA-C) Objective Vital Signs Date Time Temp Pulse Resp B/P Pulse Ox O2 Delivery O2 Flow Rate FiO2 06/13/16 00:16 37.0 96 20 97/56 96 2.0 06/13/16 00:01 Nasal Cannula 2.0 06/12/16 19:42 37.3 81 134/75 93 Room Air 06/12/16 19:30 91 Nasal Cannula 2.0 06/12/16 17:31 70 06/12/16 15:38 37.0 56 16 107/63 95 06/12/16 15:15 36.9 56 16 107/63 95 Room Air 06/12/16 14:05 83 16 107/53 92 Room Air 06/12/16 11:23 36.9 76 20 106/68 96 Room Air (Dorota Al PA-C) Physical Exam General Appearance: WD/WN, no apparent distress, + thin Eyes: PERRL, EOMI ENT: hearing grossly normal, pharynx normal Neck: supple, no JVD Respiratory/Chest: normal breath sounds, no respiratory distress, no accessory muscle use, + pertinent finding (+ expiratory wheeze in the left lung andrea, No crackles. Wearing 2 L O2 via NC) Cardiovascular: no murmur, + irregularly irregular Abdomen: normal bowel sounds, non tender, soft, no organomegaly Extremities: + pedal edema, + pertinent finding (Erythema of the LLE up to the knee with + edema, Erythema over dorsal aspect of the R foot with + edema. Tender with palpation. ) Neurologic/Psychiatric: alert, normal mood/affect, oriented x 3 Skin: warm/dry (other than described in extremity exam), no rash (Dorota Al PA-C) Laboratory Results Last 24 Hours Test 06/12/16 12:30 06/12/16 12:45 06/12/16 13:22 06/12/16 21:57 White Blood Count 6.66 K/uL Red Blood Count 4.00 M/uL Hemoglobin 13.4 g/dL Hematocrit 40.9 % Mean Corpuscular Volume 102.3 fL Mean Corpuscular Hemoglobin 33.5 pg Mean Corpuscular Hemoglobin Concent 32.8 g/dl Platelet Count 213 K/uL Mean Platelet Volume 10.2 fL Neutrophils (%) (Auto) 75.9 % Lymphocytes (%) (Auto) 9.0 % Monocytes (%) (Auto) 12.3 % Eosinophils (%) (Auto) 2.4 % Basophils (%) (Auto) 0.2 % Neutrophils # (Auto) 5.06 K/uL Lymphocytes # (Auto) 0.60 K/uL Monocytes # (Auto) 0.82 K/uL Eosinophils # (Auto) 0.16 K/uL Basophils # (Auto) 0.01 K/uL RDW Standard Deviation 50.1 fL RDW Coefficient of Variation 13.4 % Immature Granulocyte % (Auto) 0.2 % Immature Granulocyte # (Auto) 0.01 K/uL Sodium Level 140 mmol/L Potassium Level 4.4 mmol/L Chloride Level 101 mmol/L Carbon Dioxide Level 32 mmol/L Anion Gap 7.0 mmol/L Blood Urea Nitrogen 8 mg/dl Creatinine 0.83 mg/dl Est Creatinine Clear Calc Drug Dose 49.0 ml/min Estimated GFR () 78.8 Estimated GFR (Non- 68.0 BUN/Creatinine Ratio 9.6 Random Glucose 82 mg/dl Calcium Level 9.5 mg/dl Total Bilirubin 0.5 mg/dl Aspartate Amino Transf (AST/SGOT) 28 U/L Alanine Aminotransferase (ALT/SGPT) 32 U/L Alkaline Phosphatase 89 U/L Troponin I 0.019 ng/ml 0.023 ng/ml C-Reactive Protein < 0.29 mg/dl Pro-B-Type Natriuretic Peptide 2638 pg/ml Total Protein 6.8 gm/dl Albumin 3.6 gm/dl Globulin 3.2 gm/dl Albumin/Globulin Ratio 1.1 Digoxin Level 0.7 ng/ml Thyroid Stimulating Hormone (TSH) 2.670 uIu/ml Bedside Lactic Acid Venous 1.15 mmol/L Test 06/13/16 06:00 White Blood Count 5.23 K/uL Red Blood Count 3.79 M/uL Hemoglobin 12.5 g/dL Hematocrit 38.0 % Mean Corpuscular Volume 100.3 fL Mean Corpuscular Hemoglobin 33.0 pg Mean Corpuscular Hemoglobin Concent 32.9 g/dl Platelet Count 189 K/uL Mean Platelet Volume 10.0 fL Neutrophils (%) (Auto) 60.4 % Lymphocytes (%) (Auto) 15.5 % Monocytes (%) (Auto) 18.5 % Eosinophils (%) (Auto) 5.2 % Basophils (%) (Auto) 0.2 % Neutrophils # (Auto) 3.16 K/uL Lymphocytes # (Auto) 0.81 K/uL Monocytes # (Auto) 0.97 K/uL Eosinophils # (Auto) 0.27 K/uL Basophils # (Auto) 0.01 K/uL RDW Standard Deviation 49.0 fL RDW Coefficient of Variation 13.5 % Immature Granulocyte % (Auto) 0.2 % Immature Granulocyte # (Auto) 0.01 K/uL Sodium Level 141 mmol/L Potassium Level 3.9 mmol/L Chloride Level 101 mmol/L Carbon Dioxide Level 36 mmol/L Anion Gap 4.0 mmol/L Blood Urea Nitrogen 13 mg/dl Creatinine 1.10 mg/dl Est Creatinine Clear Calc Drug Dose 37.0 ml/min Estimated GFR () 56.1 Estimated GFR (Non- 48.4 BUN/Creatinine Ratio 11.5 Random Glucose 89 mg/dl Calcium Level 8.6 mg/dl Troponin I 0.018 ng/ml (Dorota Al PA-C) Assessment and Plan Pt is a 75 yo female PMHhx of atrial fib, diastolic CHF, hypothyroidism, chronic cellulitis who reported to the ER for worsening bilateral lower ext redness and swelling for past week. The patient is well known to me from a previous admission at the end of April for + cologuard and required inpatient colonscopy due to episodes of hypotension associated with volume depletion with bowel prep. Bilateral lower ext cellulitis - Failed outpatient antibiotics keflex and bactrim, start on IV clindamycin.- ID consulted, pt follows with Dr. Little as an outpatient. She has been taking abx for chronic cellulitis for the past 2 years - No fevers or leukocytosis noted. - Follow Blood cultures Acute on chronic diastolic HF - Stop PO lasix and start on IV lasix 40 mg daily. - CXR with bilateral pleural effusion- Likely secondary to IVF, Pt also reports a history of recent URI about 1 week ago. - ordered ECHO - Digoxin level =0.7, Cont digoxin at this time and metoprolol. - Trend trops--> 0.19, 0.023, 0.018 - EKG consistent with atrial fib with t wave inversions in lateral leads. - BP typically runs in the 90s - 100s, so no concerns with pressure at this time. COPD - Cont combivent and advair, no exacerbation noted - Will order prn duonebs for complaints of sob this morning Atrial fibrillation - Cont digoxin, metoprolol and pradaxa, EKG noted afib Hypothyroidism - Check TSH, cont synthroid DVT ppx:Teds, SCDs, on pradaxa CODE STATUS: FULL CODE Disposition: From home, discharge when medically stable, will likely need IV antibiotics for another day or so, await ID recs. (Dorota Al PA-C) Resident Physician Supervision Note: I interviewed and examined the patient. Discussed with Dorota Al PAC and agree with findings and plan as documented in the note. Any exceptions or clarifications are listed here: None Pt with history of recurrent LE cellulitis, and chronic venous stasis, on rotating oral antibiotics supervised by Dr Little Developed progressive redness pain and swelling, R>L treated with IV clindamycin and improved vss legs with some redness, pain and swelling L>R continue clinda pending cultures and ID recommendations Documented By: Sergio Guzman (Sergio Guzman M.D.)
[2016-06-13 08:00] VITALS: O2SAT 97
[2016-06-13] MEDS: METOPROLOL SUCC 25MG EXT REL TAB PO SCH (08:22)
[2016-06-13] MEDS: LACTOBACILLUS ACIDOPHILUS (FLORANEX) TAB PO SCH (08:23)
[2016-06-13] MEDS: MAGNESIUM OXIDE 400 MG TAB PO SCH (08:23)
[2016-06-13] MEDS: CHOLECALCIFEROL 1000 INTER.UNIT TAB PO SCH ×2 (08:23→20:35)
[2016-06-13] MEDS: POTASSIUM CHLORIDE 20 MEQ TABCR PO SCH (08:23)
[2016-06-13] MEDS: DABIGATRAN ELEXILATE 75 MG CAP PO SCH ×2 (08:23→20:35)
[2016-06-13] MEDS: FUROSEMIDE INJ 40 MG in SYRINGE 0 ML IV SCH (08:23)
[2016-06-13] MEDS: FLUTICASONE/SALMETEROL 100/50 (ADVAIR) 14 PUFF/1 INHALER INH SCH ×2 (08:24→20:33)
[2016-06-13] MEDS: IPRATROPIUM BROMIDE/ALBUTEROL respimat INH INH SCH ×4 (08:24→20:33)
[2016-06-13] MEDS: CLINDAMYCIN IV 300 MG in DEXTROSE 5% 50ML 50 ML IV SCH ×3 (08:35→23:34)
[2016-06-13] MEDS ORDERED: ALBUT/IPRATROP 3MG/0.5MG NEB 3 ML VIAL INH PRN (08:45)
--- NOTE | 2016-06-13 11:36 | Medical Consult ---
Consultation Date of Consultation: Jun 13, 2016. Attending Physician: Brayan Watson D.O. Reason for Consultation: Bilateral lower extremity cellulitis History of Present Illness Patient is a 75-year-old female who presented to the emergency department after my recommendation from the office yesterday. Patient is chronically seen a by Infectious Disease for recurrent bilateral lower extremity cellulitis. She is typically followed by Dr. Little. She has chronically been on p.o. Bactrim and Keflex for approximately 2 years and has been well controlled with her recurrent cellulitis. The patient was recently admitted to the hospital for a colonoscopy during which time she had multiple complications during prep for her colonoscopy and ended up being in the hospital for multiple days. She did end up having a colonoscopy and EGD which were both unremarkable. These were reviewed again today. She was noted to have some diverticulosis, but otherwise the studies were negative. During my exam yesterday, the patient was noted to have moderate edema of the bilateral lower extremities with the left being worse than the right. She was also noted to have erythema and a shiny appearance to her bilateral lower extremities. She did also have wheezing in the left lung throughout. She was having shortness of breath especially with exertion, and her respiratory rate was 40 on exam. Since admission, the patient was noted to have a normal white blood cell count at 6.66. Her creatinine was 0.83 yesterday, and her BNP was noted to be 2638. She was started on IV Lasix and IV clindamycin. She is feeling slightly improved today. Her TSH was normal at 2.67. She did have blood cultures drawn which are pending. A chest x-ray showed trace bilateral pleural effusions and mild cardiomegaly along with mild interstitial thickening which is slightly improved compared to her prior exam. Past Medical/Surgical History Medical Problems: (1) Fluid overload Status: Acute (2) Pulmonary vascular congestion Status: Acute Medical Problems: (1) ANTICOAGULANTS,LT,CURRENT USE (2) ATRIAL FIBRILLATION (3) CATARACT NOS (4) CEREBRAL THROMBOSIS W CEREBRAL INFARCTION (5) CHR AIRWAY OBSTRUCT NEC (6) DIVERTICULOSIS COLON (W/O MENT OF HEMORRHAGE) (7) GI bleed (8) Hypotension Family History Negative FHx for blood clots Noncontributory Social History Smoking Status: Former Smoker Drug Use: none Marital Status: Housing Status: lives with family Occupation Status: retired Allergies Coded Allergies: Latex1 -Allergic Contact Dermititis (Verified Allergy, Mild, RASH AND ITCHING, 06/12/16) Diltiazem (Verified Adverse Reaction, Unknown, LOW BP AND UPSET STOMACH, ) Home Medications Reported Home Medications Medications Dose Route/Sig Max Daily Dose Days Date Category Dose Instructions Klor-Con M20 (Potassium Chloride) 20 Meq Tabcr 20 Meq PO DAILY 06/12/16 Reported EXTRA TABLET WITH INCREASED LASIX Synthroid (Levothyroxine Sodium) 50 Mcg Tab 50 Mcg PO WK 06/12/16 Reported SUNDAY Synthroid (Levothyroxine Sodium) 25 Mcg Tab 25 Mcg PO [id number] 06/12/16 Reported SUNDAY THROUGH SUNDAY Combivent Respimat (Ipratropium-Albuterol) 1 Aer Aer 1 Puffs INH QID 06/12/16 Reported Digoxin 0.125 Mg Tab 0.125 Mg PO DAILY 06/12/16 Reported Bactrim Ds 800MG/160MG (Sulfamethoxazole-Trimethoprim) 1 Tab Tab 0.5 Tab PO BID 06/12/16 Reported Keflex (Cephalexin Monohydrate) 500 Mg Cap 500 Mg PO BID 05/11/16 Reported Vitamin C (Ascorbic Acid) 500 Mg Tab 1 Tab PO DAILY AT LUNCH 05/11/16 Reported Floranex (Lactobacillus) 1 Tab Tab 1 Tab PO QAM 05/11/16 Reported Calcium (Calcium Carbonate) 600 Mg Tab 1 Tab PO DAILY AT LUNCH 05/11/16 Reported Vitamin D3 (Cholecalciferol) 2,000 Unit Cap 1 Cap PO BID 90 05/11/16 Reported Prilosec (Omeprazole) 20 Mg Capcr 20 Mg PO DAILY PRN 10/12/14 Reported Multivitamin (Multiple Vitamin) 1 Tab Tab 1 Tab PO DAILY AT LUNCH 09/15/14 Reported Toprol-Xl (Metoprolol Succinate) 25 Mg Tabcr 12.5 Mg PO QAM 08/19/14 Reported Pradaxa (Dabigatran Elexilate) 75 Mg Cap 75 Mg PO BID 08/19/14 Reported Advair Diskus 100/50 60 Dose (Fluticasone Prop/Salmeterol) 1 Ea Aerp 1 Puff INH BID 08/19/14 Reported Lasix (Furosemide) 20 Mg Tab 40 Mg PO DAILY PRN 06/22/12 Reported Tylenol (Acetaminophen) 500 Mg Tab 500 Mg PO Q4 PRN 08/11/11 Reported Mag-Ox (Magnesium Oxide) 400 Mg Tab 400 Mg PO DAILY 08/11/11 Reported TAKE WITH LUNCH Nitrostat (Nitroglycerin) 0.4 Mg Tab 0.4 Mg UT UD PRN 08/11/11 Reported Zocor (Simvastatin) 20 Mg Tab 20 Mg PO QPM 09/12/08 Reported Current Inpatient Medications Current Inpatient Medications Medications (Trade) Dose Ordered Sig/Lori Route Start Time Stop Time Status Last Admin Dose Admin Acetaminophen (Tylenol Tab) 650 mg Q4H PRN PO 06/12/16 13:45 07/12/16 13:44 Ondansetron HCl 4 mg 4 mg Q6H PRN IV 06/12/16 13:45 07/12/16 13:44 Furosemide 40 mg/ Syringe 4 ml @ 4 mls/min DAILY IV 06/13/16 09:00 07/13/16 08:59 06/13/16 08:23 4 MLS/MIN Clindamycin Phosphate/Dextrose (Cleocin Iv/D5 50ml) 52 ml @ 100 mls/hr Q8H IV 06/12/16 16:00 06/22/16 13:59 06/13/16 08:35 100 MLS/HR Acetaminophen (Tylenol Tab) 500 mg Q4 PRN PO 06/12/16 14:00 07/12/16 13:59 Dabigatran (Pradaxa Cap) 75 mg BID PO 06/12/16 21:00 07/12/16 20:59 06/13/16 08:23 75 MG Digoxin (Lanoxin Tab) 0.125 mg DAILY@1600 PO 06/13/16 16:00 07/13/16 15:59 Salmeterol Xinafoate/ Fluticasone (Advair Diskus 100/50 Inh) 1 puff BID INH 06/12/16 21:00 07/12/16 20:59 06/13/16 08:24 1 PUFF Albuterol/ Ipratropium (Combivent Respimat Inh) 1 puffs QID INH 06/12/16 17:00 07/12/16 16:59 06/13/16 08:24 1 PUFFS Lactobacillus Acidophilus (Floranex Tab) 1 tab QAM PO 06/13/16 09:00 07/13/16 08:59 06/13/16 08:23 1 TAB Levothyroxine Sodium (Synthroid Tab) 25 mcg DAILYBB PO 06/13/16 06:30 07/13/16 06:59 06/13/16 06:02 25 MCG Magnesium Oxide (Mag-Ox Tab) 400 mg DAILY PO 06/13/16 09:00 07/13/16 08:59 06/13/16 08:23 400 MG Metoprolol Succinate (Toprol Xl Tab) 12.5 mg QAM PO 06/13/16 09:00 07/13/16 08:59 Nitroglycerin (Nitrostat Tab) 0.4 mg UD PRN UT 06/12/16 14:00 07/12/16 13:59 Potassium Chloride (Klor-Con Tab) 20 meq DAILY PO 06/13/16 09:00 07/13/16 08:59 06/13/16 08:23 20 MEQ Simvastatin (Zocor Tab) 20 mg QPM PO 06/12/16 21:00 07/12/16 20:59 06/12/16 19:22 20 MG Calcium Carbonate (oS-Carlos 500 TAB) 1,250 mg QDL PO 06/13/16 11:00 07/13/16 10:59 Cholecalciferol (Vitamin D Tab) 2,000 inter.unit BID PO 06/12/16 21:00 07/12/16 20:59 06/13/16 08:23 2,000 INTER.UNIT Pantoprazole Sodium (Protonix Tab) 40 mg DAILY PRN PO 06/12/16 14:00 07/12/16 13:59 Albuterol/ Ipratropium (Duoneb) 3 ml QID PRN INH 06/13/16 08:45 07/13/16 08:44 Review of Systems Constitutional: + chills, + fatigue, + weakness Eyes: No worsening of vision ENT: No hearing loss Respiratory: + cough, + dyspnea on exertion, + shortness of breath Cardiovascular: No chest pain Abdomen: No nausea, No pain, No vomiting Musculoskeletal: + swelling (Bilateral lower extremities), No joint pain Genitourinary - Female: No dysuria, No urinary frequency Integumentary: + color change (Erythema of the bilateral lower extremities especially of the left lower extremity and right ankle), No itch, No rash Physical Exam Date Time Temp Pulse Resp B/P Pulse Ox O2 Delivery O2 Flow Rate FiO2 06/13/16 08:00 97 Nasal Cannula 2.0 06/13/16 07:49 36.3 76 17 90/56 97 Nasal Cannula 2.0 95/59 06/13/16 00:16 37.0 96 20 97/56 96 2.0 06/13/16 00:01 Nasal Cannula 2.0 06/12/16 19:42 37.3 81 134/75 93 Room Air 06/12/16 19:30 91 Nasal Cannula 2.0 06/12/16 17:31 70 06/12/16 15:38 37.0 56 16 107/63 95 06/12/16 15:15 36.9 56 16 107/63 95 Room Air 06/12/16 14:05 83 16 107/53 92 Room Air General Appearance: WD/WN, no apparent distress Head: normocephalic, atraumatic Eyes: normal inspection, sclerae normal ENT: hearing grossly normal Neck: supple, trachea midline Respiratory/Chest: chest non-tender, no respiratory distress, no accessory muscle use, + wheezing (Mild throughout the left lung) Cardiovascular: no murmur, + irregularly irregular Abdomen/GI: normal bowel sounds, non tender, soft Back: normal inspection Extremities/Musculoskelatal: + swelling (1+ pitting edema of the bilateral lower extremities and pedal edema.) Neurologic/Psych: alert, normal mood/affect Skin: warm/dry, + pertinent finding (Erythema of the left lower extremity. Very mildly improved compared to yesterday's exam. Right ankle mild erythema as well. Warmth on exam) Laboratory Results CHEST ONE VIEW PORTABLE HISTORY: shortness of breath COMPARISON: Chest 05/15/1616. FINDINGS: The heart remains mildly enlarged. There are trace bilateral pleural effusions. No focal lung consolidations to suggest pneumonia. Slight prominence of interstitial markings has improved. This is consistent with resolving congestive change. The lungs remain hyperexpanded with apical predominant emphysematous changes. IMPRESSION: 1. Trace bilateral pleural effusions and mild cardiomegaly. 2. Mild interstitial thickening is slightly improved. This suggests resolving congestive change. Item Value Date Time Blood Culture Received 06/12/16 1315 Blood Pending Blood Culture Received 06/12/16 1232 Blood Pending Last 24 Hours Test 06/12/16 12:30 06/12/16 12:45 06/12/16 13:22 06/12/16 21:57 White Blood Count 6.66 K/uL Red Blood Count 4.00 M/uL Hemoglobin 13.4 g/dL Hematocrit 40.9 % Mean Corpuscular Volume 102.3 fL Mean Corpuscular Hemoglobin 33.5 pg Mean Corpuscular Hemoglobin Concent 32.8 g/dl Platelet Count 213 K/uL Mean Platelet Volume 10.2 fL Neutrophils (%) (Auto) 75.9 % Lymphocytes (%) (Auto) 9.0 % Monocytes (%) (Auto) 12.3 % Eosinophils (%) (Auto) 2.4 % Basophils (%) (Auto) 0.2 % Neutrophils # (Auto) 5.06 K/uL Lymphocytes # (Auto) 0.60 K/uL Monocytes # (Auto) 0.82 K/uL Eosinophils # (Auto) 0.16 K/uL Basophils # (Auto) 0.01 K/uL RDW Standard Deviation 50.1 fL RDW Coefficient of Variation 13.4 % Immature Granulocyte % (Auto) 0.2 % Immature Granulocyte # (Auto) 0.01 K/uL Sodium Level 140 mmol/L Potassium Level 4.4 mmol/L Chloride Level 101 mmol/L Carbon Dioxide Level 32 mmol/L Anion Gap 7.0 mmol/L Blood Urea Nitrogen 8 mg/dl Creatinine 0.83 mg/dl Est Creatinine Clear Calc Drug Dose 49.0 ml/min Estimated GFR () 78.8 Estimated GFR (Non- 68.0 BUN/Creatinine Ratio 9.6 Random Glucose 82 mg/dl Calcium Level 9.5 mg/dl Total Bilirubin 0.5 mg/dl Aspartate Amino Transf (AST/SGOT) 28 U/L Alanine Aminotransferase (ALT/SGPT) 32 U/L Alkaline Phosphatase 89 U/L Troponin I 0.019 ng/ml 0.023 ng/ml C-Reactive Protein < 0.29 mg/dl Pro-B-Type Natriuretic Peptide 2638 pg/ml Total Protein 6.8 gm/dl Albumin 3.6 gm/dl Globulin 3.2 gm/dl Albumin/Globulin Ratio 1.1 Digoxin Level 0.7 ng/ml Thyroid Stimulating Hormone (TSH) 2.670 uIu/ml Bedside Lactic Acid Venous 1.15 mmol/L Test 06/13/16 06:00 White Blood Count 5.23 K/uL Red Blood Count 3.79 M/uL Hemoglobin 12.5 g/dL Hematocrit 38.0 % Mean Corpuscular Volume 100.3 fL Mean Corpuscular Hemoglobin 33.0 pg Mean Corpuscular Hemoglobin Concent 32.9 g/dl Platelet Count 189 K/uL Mean Platelet Volume 10.0 fL Neutrophils (%) (Auto) 60.4 % Lymphocytes (%) (Auto) 15.5 % Monocytes (%) (Auto) 18.5 % Eosinophils (%) (Auto) 5.2 % Basophils (%) (Auto) 0.2 % Neutrophils # (Auto) 3.16 K/uL Lymphocytes # (Auto) 0.81 K/uL Monocytes # (Auto) 0.97 K/uL Eosinophils # (Auto) 0.27 K/uL Basophils # (Auto) 0.01 K/uL RDW Standard Deviation 49.0 fL RDW Coefficient of Variation 13.5 % Immature Granulocyte % (Auto) 0.2 % Immature Granulocyte # (Auto) 0.01 K/uL Sodium Level 141 mmol/L Potassium Level 3.9 mmol/L Chloride Level 101 mmol/L Carbon Dioxide Level 36 mmol/L Anion Gap 4.0 mmol/L Blood Urea Nitrogen 13 mg/dl Creatinine 1.10 mg/dl Est Creatinine Clear Calc Drug Dose 37.0 ml/min Estimated GFR () 56.1 Estimated GFR (Non- 48.4 BUN/Creatinine Ratio 11.5 Random Glucose 89 mg/dl Calcium Level 8.6 mg/dl Troponin I 0.018 ng/ml Assessment & Plan Patient with CHF exacerbation, lower extremity edema, and acute on chronic cellulitis of the left lower extremity and possibly of the right ankle/lower extremity as well. She is currently on IV Clindamycin and dose appear to have had some improvement. Will continue this antibiotic pending further improvement. She hopefully will be able to transition to PO abx in the near future, but continue IV's pending further workup and decreasing leg edema/ erythema. We will follow. PROVIDER ADDENDUM: Patient examined and reviewed with Ms. Hurtado. Agree with above assessment.
[2016-06-13] MEDS: CALCIUM CARBONATE 1250MG TAB PO SCH (12:00)
--- NOTE | 2016-06-13 13:16 | ECHOCARDIOGRAM REPORT ---
*NOTICE TO RECEIVING DEMOCRAT AGENCY This information is strictly Confidential and protected under [place] law. [place] law prohibits you from making any further disclosure of this information unless further disclosure is expressly permitted by the written consent of the person to whom it pertains or is authorized by law. A general authorization for the release of medical or other information is not sufficient for this purpose. Hospital accepts no responsibility if the information is made available to any other person, INCLUDING THE PATIENT. Interpretation Summary * Name: LEONORA RODRIGUEZ Study Date: 06/13/2016 06:47 AM BP: 95/59 mmHg * Patient Location: [facility]\S\N278\S\1 HR: 76 * : 1940 (M/d/yyy) Gender: Female Height: 64 in * Age: 75 yrs Ethnicity: [place] Weight: 131 lb * Ordering Physician: Brayan Watson * Referring Physician: Self, Referred * Performed By: Leonora Foley RDCS * * Reason For Study: DIASTOLIC CHF * BSA: 1.6 m2 * History: DIASTOLIC CHF, CONGESTION * -- Conclusions -- * 1. Normal left ventricular size with hyperdynamic systolic function. EF 65-70%. No regional wall motion abnormalities. Severe hypertrophy of the distal left ventricular segments, including the apex, consistent with hypertrophic cardiomyopathy, apical variant. * 2. Mild biatrial dilation. * 3. At least mild to moderate tricuspid regurgitation. * 4. Normal estimated right ventricular systolic pressure; 34 mmHg. * 5. Compared to prior study on 08/29/2014, tricuspid regurgitant jet is not as well visualized on current study. Current degree of tricuspid regurgitation may be underestimated due to visualization. Procedure Details * A contrast injection of Definity was performed to improve assessment of LV function. * Contrast was injected into an intravenous site in the right arm. * One vial of Definity ultrasound contrast was diluted in normal saline to a total volume of 10 ml. A total of '2' ml of solution was administered during imaging. * Lot # [id number] of Definity utilized for procedure. * Expiration date JUN 10. * The attending nurse who injected the contrast agent was HILARY MARTIN RN. Left Ventricle * Normal left ventricular size with hyperdynamic systolic function. EF 65-70%. No regional wall motion abnormalities. Severe hypertrophy of the distal left ventricular segments, including the apex, consistent with hypertrophic cardiomyopathy, apical variant. Right Ventricle * The right ventricle is normal in size and function. * The right ventricular systolic function is normal as assessed by tricuspid annular plane systolic excursion (TAPSE) (normal >1.5 cm). Atria * The left atrium is mildly dilated. * The right atrium is mildly dilated. * There is no evidence of atrial septal defect, but resolution does not allow assessment for a patent foramen ovale. Mitral Valve * The mitral valve leaflets appear normal. There is no evidence of stenosis, fluttering, or prolapse. * There is trace mitral regurgitation. Tricuspid Valve * The tricuspid valve is not well visualized, but is grossly normal. * There is no tricuspid stenosis. * At least mild to moderate tricuspid regurgitation. Aortic Valve * The aortic valve is normal in structure and function. * The aortic valve is trileaflet. * No hemodynamically significant valvular aortic stenosis. * Trace aortic regurgitation. Pulmonic Valve * The pulmonic valve is not well visualized. * There is no pulmonic valvular stenosis. * There is no significant pulmonary regurgitation. Great Vessels * The aortic root is normal size. * Ascending aorta of normal dimension * Aortic arch of normal dimension. * Blunted pulmonary venous flow pattern. Pericardium/Pleural * There is no pericardial effusion. Great Vessels * Normal inferior vena cava size and collapsability with sniff indicates a normal right atrial pressure of 3 mmHg MMode 2D Measurements and Calculations IVSd 0.77 cm IVSs 1.2 cm LVIDd 5.0 cm LVIDs 3.2 cm LVPWd 1.1 cm LVPWs 1.9 cm IVS/LVPW 0.72 FS 36.2 % EDV(Teich) 115.8 ml ESV(Teich) 39.8 ml EF(Teich) 65.7 % EDV(cubed) 121.6 ml ESV(cubed) 31.6 ml EF(cubed) 74.0 % % IVS thick 59.6 % % LVPW thick 73.5 % LV mass(C)d 161.4 grams LV mass(C)dI 98.8 grams/m\S\2 LV mass(C)s 178.5 grams LV mass(C)sI 109.2 grams/m\S\2 SV(Teich) 76.0 ml SI(Teich) 46.5 ml/m\S\2 SV(cubed) 90.1 ml SI(cubed) 55.1 ml/m\S\2 Ao root diam 3.1 cm Ao root area 7.4 cm\S\2 LA dimension 3.9 cm asc Aorta Diam 2.8 cm LA/Ao 1.3 Doppler Measurements and Calculations MV E max xenia 88.8 cm/sec MV dec time 0.22 sec Ao V2 max 109.7 cm/sec Ao max PG 4.8 mmHg Ao max PG (full) 1.8 mmHg LV V1 max PG 3.0 mmHg LV V1 max 87.3 cm/sec TV E max xenia 60.6 cm/sec TR max xenia 274.9 cm/sec RVSP(TR) 33.6 mmHg RAP systole 3.0 mmHg
[2016-06-13 15:02] VITALS: BP 95/59; PULSE 76; TEMP 36.3; O2SAT 97
[2016-06-13 15:50] VITALS: BP 92/55; PULSE 79; TEMP 36.6; O2SAT 97
[2016-06-13] MEDS: DIGOXIN 0.125 MG TAB PO SCH (16:34)
[2016-06-13] MEDS: SIMVASTATIN 20 MG TAB PO SCH (20:35)
[2016-06-13 23:30] VITALS: BP 95/56; PULSE 81; TEMP 36.7; O2SAT 96
[2016-06-14] MEDS: LEVOTHYROXINE 25 MCG TAB PO SCH (06:34)
[2016-06-14 07:30] LABS: BASO % 0.2 %; BASO ABS # 0.01 K/uL (0-0.2); COMPLETE YES; EOS % 5.3 %; HEMATOCRIT 38.1 % (37-47); LYMPH % 16.2 %; LYMPH ABS # 0.76 K/uL (1.2-3.4); MEAN CELL VOLUME 101.9 fL (80-100); MEAN CORPUSCULAR HEMOGLOBIN 33.4 pg (25-34); MEAN CORPUSCULAR HGB CONC 32.8 g/dl (32-36); MEAN PLATELET VOLUME 9.9 fL (7.4-10.4); MONO % 16.4 %; NEUT % 61.9 %; PLATELET COUNT 186 K/uL (130-400); RED BLOOD COUNT 3.74 M/uL (4.2-5.4)
[2016-06-14] MEDS: CLINDAMYCIN IV 300 MG in DEXTROSE 5% 50ML 50 ML IV SCH ×3 (07:36→23:57)
[2016-06-14 08:00] VITALS: BP 100/63; PULSE 88; TEMP 36.3; O2SAT 92
[2016-06-14 08:00] LABS: BUN/CREATININE RATIO 17.9 (10-20); CALCIUM 8.7 mg/dl (8.5-10.1); CREATININE 0.82 mg/dl (0.60-1.20); POTASSIUM 4.2 mmol/L (3.5-5.1)
[2016-06-14] MEDS: FLUTICASONE/SALMETEROL 100/50 (ADVAIR) 14 PUFF/1 INHALER INH SCH ×2 (08:34→20:57)
[2016-06-14] MEDS: IPRATROPIUM BROMIDE/ALBUTEROL respimat INH INH SCH ×4 (08:34→20:57)
[2016-06-14] MEDS: METOPROLOL SUCC 25MG EXT REL TAB PO SCH (08:35)
[2016-06-14] MEDS: MAGNESIUM OXIDE 400 MG TAB PO SCH (08:35)
[2016-06-14] MEDS: DABIGATRAN ELEXILATE 75 MG CAP PO SCH ×2 (08:35→20:57)
[2016-06-14] MEDS: CHOLECALCIFEROL 1000 INTER.UNIT TAB PO SCH ×2 (08:35→20:56)
[2016-06-14] MEDS: FUROSEMIDE INJ 40 MG in SYRINGE 0 ML IV SCH (08:35)
[2016-06-14] MEDS: POTASSIUM CHLORIDE 20 MEQ TABCR PO SCH (08:36)
[2016-06-14] MEDS: LACTOBACILLUS ACIDOPHILUS (FLORANEX) TAB PO SCH (08:36)
[2016-06-14] MEDS: CALCIUM CARBONATE 1250MG TAB PO SCH (11:19)
--- NOTE | 2016-06-14 11:37 | Infectious Disease Progress Nt ---
Progress Note Date of Service Jun 14, 2016. Subjective Pt evaluation today including: conversation w/ patient, physical exam, chart review, lab review, review of studies, review of inpatient medication list WBC count was 4.70 this morning. The patient continues to have swelling in the right ankle and left lower extremity. She is fatigued today. She has some tenderness of the bilateral legs. She continues to have mild SOB but states this has slightly improved. All Other Systems: Reviewed and Negative Medications Current Inpatient Medications Medications (Trade) Dose Ordered Sig/Lori Route Start Time Stop Time Status Last Admin Dose Admin Acetaminophen (Tylenol Tab) 650 mg Q4H PRN PO 06/12/16 13:45 07/12/16 13:44 Ondansetron HCl 4 mg 4 mg Q6H PRN IV 06/12/16 13:45 07/12/16 13:44 Furosemide 40 mg/ Syringe 4 ml @ 4 mls/min DAILY IV 06/13/16 09:00 07/13/16 08:59 06/14/16 08:35 4 MLS/MIN Clindamycin Phosphate/Dextrose (Cleocin Iv/D5 50ml) 52 ml @ 100 mls/hr Q8H IV 06/12/16 16:00 06/22/16 13:59 06/14/16 07:36 100 MLS/HR Acetaminophen (Tylenol Tab) 500 mg Q4 PRN PO 06/12/16 14:00 07/12/16 13:59 Dabigatran (Pradaxa Cap) 75 mg BID PO 06/12/16 21:00 07/12/16 20:59 06/14/16 08:35 75 MG Digoxin (Lanoxin Tab) 0.125 mg DAILY@1600 PO 06/13/16 16:00 07/13/16 15:59 06/13/16 16:34 0.125 MG Salmeterol Xinafoate/ Fluticasone (Advair Diskus 100/50 Inh) 1 puff BID INH 06/12/16 21:00 07/12/16 20:59 06/14/16 08:34 1 PUFF Albuterol/ Ipratropium (Combivent Respimat Inh) 1 puffs QID INH 06/12/16 17:00 07/12/16 16:59 06/14/16 08:34 1 PUFFS Lactobacillus Acidophilus (Floranex Tab) 1 tab QAM PO 06/13/16 09:00 07/13/16 08:59 06/14/16 08:36 1 TAB Levothyroxine Sodium (Synthroid Tab) 25 mcg DAILYBB PO 06/13/16 06:30 07/13/16 06:59 06/14/16 06:34 25 MCG Magnesium Oxide (Mag-Ox Tab) 400 mg DAILY PO 06/13/16 09:00 07/13/16 08:59 06/14/16 08:35 400 MG Metoprolol Succinate (Toprol Xl Tab) 12.5 mg QAM PO 06/13/16 09:00 07/13/16 08:59 06/14/16 08:35 12.5 MG Nitroglycerin (Nitrostat Tab) 0.4 mg UD PRN UT 06/12/16 14:00 07/12/16 13:59 Potassium Chloride (Klor-Con Tab) 20 meq DAILY PO 06/13/16 09:00 07/13/16 08:59 06/14/16 08:36 20 MEQ Simvastatin (Zocor Tab) 20 mg QPM PO 06/12/16 21:00 07/12/16 20:59 06/13/16 20:35 20 MG Calcium Carbonate (oS-Carlos 500 TAB) 1,250 mg QDL PO 06/13/16 11:00 07/13/16 10:59 06/14/16 11:19 1,250 MG Cholecalciferol (Vitamin D Tab) 2,000 inter.unit BID PO 06/12/16 21:00 07/12/16 20:59 06/14/16 08:35 2,000 INTER.UNIT Pantoprazole Sodium (Protonix Tab) 40 mg DAILY PRN PO 06/12/16 14:00 07/12/16 13:59 Albuterol/ Ipratropium (Duoneb) 3 ml QID PRN INH 06/13/16 08:45 07/13/16 08:44 Objective Vital Signs Date Time Temp Pulse Resp B/P Pulse Ox O2 Delivery O2 Flow Rate FiO2 06/14/16 08:00 36.3 88 18 100/63 92 Room Air 06/14/16 07:45 Nasal Cannula 2.0 06/13/16 23:30 36.7 81 16 95/56 96 Nasal Cannula 2.0 06/13/16 23:30 Nasal Cannula 2.0 06/13/16 16:34 64 06/13/16 15:50 36.6 79 32 92/55 97 Nasal Cannula 2.0 06/13/16 15:50 97 Nasal Cannula 2.0 06/13/16 15:02 36.3 76 18 97 2.0 Physical Exam General Appearance: no apparent distress, + thin Eyes: normal inspection, sclerae normal ENT: hearing grossly normal Neck: supple, trachea midline Respiratory/Chest: chest non-tender, no respiratory distress, no accessory muscle use, + wheezing (left lung throughout - mild) Cardiovascular: + irregularly irregular Abdomen: normal bowel sounds, non tender Extremities: + swelling (right ankle with 1+ edema. Left lower extremity with continued mild to moderate edema- slightly improved. ) Neurologic/Psychiatric: alert, normal mood/affect Skin: warm/dry, no rash, + pertinent finding (continued mild to moderate erythema of the left lower extremity, very mild erythema of the right ankle. Slightly improved.) Laboratory Results Item Value Date Time Blood Culture - Preliminary Resulted 06/12/16 1315 Blood NO GROWTH TO DATE. Blood Culture - Preliminary Resulted 06/12/16 1232 Blood NO GROWTH TO DATE. Last 24 Hours Test 06/13/16 14:03 06/14/16 07:20 Troponin I 0.025 ng/ml White Blood Count 4.70 K/uL Red Blood Count 3.74 M/uL Hemoglobin 12.5 g/dL Hematocrit 38.1 % Mean Corpuscular Volume 101.9 fL Mean Corpuscular Hemoglobin 33.4 pg Mean Corpuscular Hemoglobin Concent 32.8 g/dl Platelet Count 186 K/uL Mean Platelet Volume 9.9 fL Neutrophils (%) (Auto) 61.9 % Lymphocytes (%) (Auto) 16.2 % Monocytes (%) (Auto) 16.4 % Eosinophils (%) (Auto) 5.3 % Basophils (%) (Auto) 0.2 % Neutrophils # (Auto) 2.91 K/uL Lymphocytes # (Auto) 0.76 K/uL Monocytes # (Auto) 0.77 K/uL Eosinophils # (Auto) 0.25 K/uL Basophils # (Auto) 0.01 K/uL RDW Standard Deviation 50.0 fL RDW Coefficient of Variation 13.4 % Immature Granulocyte % (Auto) 0.0 % Immature Granulocyte # (Auto) 0.00 K/uL Sodium Level 140 mmol/L Potassium Level 4.2 mmol/L Chloride Level 101 mmol/L Carbon Dioxide Level 34 mmol/L Anion Gap 5.0 mmol/L Blood Urea Nitrogen 15 mg/dl Creatinine 0.82 mg/dl Est Creatinine Clear Calc Drug Dose 49.6 ml/min Estimated GFR () 80.0 Estimated GFR (Non- 69.0 BUN/Creatinine Ratio 17.9 Random Glucose 90 mg/dl Calcium Level 8.7 mg/dl Assessment and Plan Patient with CHF exacerbation, lower extremity edema, and acute on chronic cellulitis of the left lower extremity and possibly of the right ankle/lower extremity as well. She is currently on IV Clindamycin and does appear to have continued very slight improvement. I have asked Dr. Little to also evaluate this patient this afternoon since he is more familiar with her baseline cellulitis. We will continue IV abx, and I feel that she likely will at least need 1 more day of IV therapy pending further improvement. We will follow. PROVIDER ADDENDUM: Patient examined and reviewed with Ms. Hurtado. Agree with above assessment. She does seem to be making slow improvement, and will continue present therapy.
[2016-06-14 16:00] VITALS: BP 105/65; PULSE 89; TEMP 36.6; O2SAT 96
[2016-06-14 16:20] VITALS: O2SAT 96
[2016-06-14] MEDS: DIGOXIN 0.125 MG TAB PO SCH (16:21)
--- NOTE | 2016-06-14 17:21 | Progress Note ---
Subjective Date of Service: Jun 14, 2016. Subjective this has slow and steady progress to her cellulitis, ID is concerned that Clindamycin may not be the best choice and she was on IV vanco in the past via picc line, Dr Little to make the final determination Problem List Medical Problems: (1) Fluid overload Status: Acute (2) Pulmonary vascular congestion Status: Acute Review of Systems Constitutional: No chills, No fever Respiratory: No cough, No shortness of breath Cardiac: No edema Abdomen: No diarrhea, No nausea, No pain, No vomiting Musculoskeletal: + joint pain, + muscle pain, + swelling Skin: + problem reported (improving redness), + rash Objective Vital Signs Date Time Temp Pulse Resp B/P Pulse Ox O2 Delivery O2 Flow Rate FiO2 06/14/16 16:21 80 06/14/16 16:20 96 Nasal Cannula 2.0 06/14/16 16:00 36.6 89 20 105/65 96 Nasal Cannula 2.0 06/14/16 08:00 36.3 88 18 100/63 92 Room Air 06/14/16 07:45 Nasal Cannula 2.0 06/13/16 23:30 36.7 81 16 95/56 96 Nasal Cannula 2.0 06/13/16 23:30 Nasal Cannula 2.0 Physical Exam General Appearance: WD/WN, + mild distress Neck: supple, no JVD Respiratory/Chest: chest non-tender, lungs clear, normal breath sounds Cardiovascular: regular rate, rhythm, no murmur Abdomen: normal bowel sounds, non tender, soft Extremities: + pertinent finding (redness and swelling are receeding) Laboratory Results Last 24 Hours Test 06/14/16 07:20 White Blood Count 4.70 K/uL Red Blood Count 3.74 M/uL Hemoglobin 12.5 g/dL Hematocrit 38.1 % Mean Corpuscular Volume 101.9 fL Mean Corpuscular Hemoglobin 33.4 pg Mean Corpuscular Hemoglobin Concent 32.8 g/dl Platelet Count 186 K/uL Mean Platelet Volume 9.9 fL Neutrophils (%) (Auto) 61.9 % Lymphocytes (%) (Auto) 16.2 % Monocytes (%) (Auto) 16.4 % Eosinophils (%) (Auto) 5.3 % Basophils (%) (Auto) 0.2 % Neutrophils # (Auto) 2.91 K/uL Lymphocytes # (Auto) 0.76 K/uL Monocytes # (Auto) 0.77 K/uL Eosinophils # (Auto) 0.25 K/uL Basophils # (Auto) 0.01 K/uL RDW Standard Deviation 50.0 fL RDW Coefficient of Variation 13.4 % Immature Granulocyte % (Auto) 0.0 % Immature Granulocyte # (Auto) 0.00 K/uL Sodium Level 140 mmol/L Potassium Level 4.2 mmol/L Chloride Level 101 mmol/L Carbon Dioxide Level 34 mmol/L Anion Gap 5.0 mmol/L Blood Urea Nitrogen 15 mg/dl Creatinine 0.82 mg/dl Est Creatinine Clear Calc Drug Dose 49.6 ml/min Estimated GFR () 80.0 Estimated GFR (Non- 69.0 BUN/Creatinine Ratio 17.9 Random Glucose 90 mg/dl Calcium Level 8.7 mg/dl Assessment and Plan Pt with history of recurrent LE cellulitis, and chronic venous stasis, on rotating oral antibiotics supervised by Dr Little Developed progressive redness pain and swelling, R>Ltreated with IV clindamycin and improved continue clinda pending cultures and ID recommendations Acute on chronic diastolic HF , LE edema has improved, will transition back to po lasix COPD stable combivent and advair, likely swelling in part from lung disease and right heart Atrial fibrillation rate controlled digoxin, metoprolol and pradaxa, EKG noted afib Hypothyroidism TSH normal , cont synthroid DVT ppx:Teds, SCDs, on pradaxa CODE STATUS: FULL CODE
[2016-06-14 19:30] VITALS: BP 100/63; PULSE 71; TEMP 36.6; O2SAT 96
[2016-06-14] MEDS: SIMVASTATIN 20 MG TAB PO SCH (20:54)
[2016-06-14 23:00] VITALS: BP 94/56; PULSE 76; TEMP 36.7; O2SAT 98
[2016-06-14 23:55] VITALS: O2SAT 98
[2016-06-15 04:00] VITALS: BP 101/56; PULSE 68; TEMP 36.3; O2SAT 99
[2016-06-15] MEDS: LEVOTHYROXINE 25 MCG TAB PO SCH (06:44)
[2016-06-15 07:00] LABS: BASO % 0.2 %; BASO ABS # 0.01 K/uL (0-0.2); COMPLETE YES; EOS % 3.7 %; HEMATOCRIT 39.3 % (37-47); IG% 0.2 %; LYMPH % 17.3 %; LYMPH ABS # 0.99 K/uL (1.2-3.4); MEAN CELL VOLUME 101.6 fL (80-100); MEAN CORPUSCULAR HEMOGLOBIN 34.4 pg (25-34); MEAN CORPUSCULAR HGB CONC 33.8 g/dl (32-36); MEAN PLATELET VOLUME 10.1 fL (7.4-10.4); MONO % 9.8 %; NEUT % 68.8 %; PLATELET COUNT 194 K/uL (130-400); RED BLOOD COUNT 3.87 M/uL (4.2-5.4); WHITE BLOOD COUNT 5.73 K/uL (4.8-10.8)
[2016-06-15 07:36] LABS: BUN/CREATININE RATIO 21.1 (10-20); CALCIUM 8.8 mg/dl (8.5-10.1); CREATININE 0.78 mg/dl (0.60-1.20); POTASSIUM 4.6 mmol/L (3.5-5.1)
[2016-06-15] MEDS: CLINDAMYCIN IV 300 MG in DEXTROSE 5% 50ML 50 ML IV SCH ×2 (07:56→16:00)
[2016-06-15 08:00] VITALS: BP 82/54; PULSE 78; TEMP 36.3; O2SAT 95
[2016-06-15] MEDS: FLUTICASONE/SALMETEROL 100/50 (ADVAIR) 14 PUFF/1 INHALER INH SCH ×2 (08:37→21:29)
[2016-06-15] MEDS: IPRATROPIUM BROMIDE/ALBUTEROL respimat INH INH SCH ×4 (08:38→21:29)
[2016-06-15] MEDS: POTASSIUM CHLORIDE 20 MEQ TABCR PO SCH (08:38)
[2016-06-15] MEDS: CHOLECALCIFEROL 1000 INTER.UNIT TAB PO SCH ×2 (08:39→21:30)
[2016-06-15] MEDS: MAGNESIUM OXIDE 400 MG TAB PO SCH (08:39)
[2016-06-15] MEDS: METOPROLOL SUCC 25MG EXT REL TAB PO SCH (08:41)
[2016-06-15] MEDS: DABIGATRAN ELEXILATE 75 MG CAP PO SCH ×2 (08:42→21:30)
[2016-06-15] MEDS: LACTOBACILLUS ACIDOPHILUS (FLORANEX) TAB PO SCH (08:43)
[2016-06-15] MEDS: FUROSEMIDE 40 MG TAB PO SCH (08:49)
--- NOTE | 2016-06-15 11:11 | Infectious Disease Progress Nt ---
Progress Note Date of Service Jun 15, 2016. Subjective Pt evaluation today including: conversation w/ patient, physical exam, chart review, lab review, review of studies, conversation w/ talent acquisition consultant (Dr. Guzman ), review of inpatient medication list WBC count was 5.73 today. Creatinine is stable at 0.78. The patient states that she continues to feel very fatigued, but continues to improve. She feels that her legs are improving very slowly. Her breathing is better. She continues to have mild pain in the B/L LE. No calf pain. No diarrhea, nausea or vomiting. Blood cultures continue to show no growth to date. All Other Systems: Reviewed and Negative Medications Current Inpatient Medications Medications (Trade) Dose Ordered Sig/Lori Route Start Time Stop Time Status Last Admin Dose Admin Acetaminophen (Tylenol Tab) 650 mg Q4H PRN PO 06/12/16 13:45 07/12/16 13:44 Ondansetron HCl 4 mg 4 mg Q6H PRN IV 06/12/16 13:45 07/12/16 13:44 Clindamycin Phosphate/Dextrose (Cleocin Iv/D5 50ml) 52 ml @ 100 mls/hr Q8H IV 06/12/16 16:00 06/22/16 13:59 06/15/16 07:56 100 MLS/HR Acetaminophen (Tylenol Tab) 500 mg Q4 PRN PO 06/12/16 14:00 07/12/16 13:59 Dabigatran (Pradaxa Cap) 75 mg BID PO 06/12/16 21:00 07/12/16 20:59 06/15/16 08:42 75 MG Digoxin (Lanoxin Tab) 0.125 mg DAILY@1600 PO 06/13/16 16:00 07/13/16 15:59 06/14/16 16:21 0.125 MG Salmeterol Xinafoate/ Fluticasone (Advair Diskus 100/50 Inh) 1 puff BID INH 06/12/16 21:00 07/12/16 20:59 06/15/16 08:37 1 PUFF Albuterol/ Ipratropium (Combivent Respimat Inh) 1 puffs QID INH 06/12/16 17:00 07/12/16 16:59 06/15/16 08:38 1 PUFFS Lactobacillus Acidophilus (Floranex Tab) 1 tab QAM PO 06/13/16 09:00 07/13/16 08:59 06/15/16 08:43 1 TAB Levothyroxine Sodium (Synthroid Tab) 25 mcg DAILYBB PO 06/13/16 06:30 07/13/16 06:59 06/15/16 06:44 25 MCG Magnesium Oxide (Mag-Ox Tab) 400 mg DAILY PO 06/13/16 09:00 07/13/16 08:59 06/15/16 08:39 400 MG Metoprolol Succinate (Toprol Xl Tab) 12.5 mg QAM PO 06/13/16 09:00 07/13/16 08:59 06/14/16 08:35 12.5 MG Nitroglycerin (Nitrostat Tab) 0.4 mg UD PRN UT 06/12/16 14:00 07/12/16 13:59 Potassium Chloride (Klor-Con Tab) 20 meq DAILY PO 06/13/16 09:00 07/13/16 08:59 06/15/16 08:38 20 MEQ Simvastatin (Zocor Tab) 20 mg QPM PO 06/12/16 21:00 07/12/16 20:59 06/14/16 20:54 20 MG Calcium Carbonate (oS-Carlos 500 TAB) 1,250 mg QDL PO 06/13/16 11:00 07/13/16 10:59 06/14/16 11:19 1,250 MG Cholecalciferol (Vitamin D Tab) 2,000 inter.unit BID PO 06/12/16 21:00 07/12/16 20:59 06/15/16 08:39 2,000 INTER.UNIT Pantoprazole Sodium (Protonix Tab) 40 mg DAILY PRN PO 06/12/16 14:00 07/12/16 13:59 Albuterol/ Ipratropium (Duoneb) 3 ml QID PRN INH 06/13/16 08:45 07/13/16 08:44 Furosemide (Lasix Tab) 40 mg QAM PO 06/15/16 09:00 07/15/16 08:59 06/15/16 08:49 40 MG Objective Vital Signs Date Time Temp Pulse Resp B/P Pulse Ox O2 Delivery O2 Flow Rate FiO2 06/15/16 08:00 95 Nasal Cannula 2.0 06/15/16 08:00 36.3 78 26 82/54 95 Nasal Cannula 2.0 06/15/16 04:00 36.3 68 20 101/56 99 Room Air 2.0 06/14/16 23:55 98 Nasal Cannula 2.0 06/14/16 23:00 36.7 76 20 94/56 98 Nasal Cannula 2.0 06/14/16 19:30 36.6 71 22 100/63 96 Nasal Cannula 2.0 06/14/16 16:21 80 06/14/16 16:20 96 Nasal Cannula 2.0 06/14/16 16:00 36.6 89 20 105/65 96 Nasal Cannula 2.0 Physical Exam General Appearance: WD/WN, no apparent distress Eyes: normal inspection, sclerae normal ENT: hearing grossly normal Neck: supple, trachea midline Respiratory/Chest: chest non-tender, normal breath sounds, no respiratory distress, no accessory muscle use, + wheezing (very mild right upper lobe) Cardiovascular: + irregularly irregular Abdomen: normal bowel sounds Extremities: + swelling (mild edema of the left lower extremity, continued mild edema of the right ankle. ), + pertinent finding (mild tenderness to palpation of the bilateral lower extremities but no calf tenderness) Neurologic/Psychiatric: alert, normal mood/affect Skin: + pertinent finding (purple discoloration of the left lower extremity and right anterior ankle- no erythema today. Mild warmth) Laboratory Results Item Value Date Time Blood Culture - Preliminary Resulted 06/12/16 1315 Blood NO GROWTH TO DATE. Blood Culture - Preliminary Resulted 06/12/16 1232 Blood NO GROWTH TO DATE. Last 24 Hours Test 06/15/16 06:50 White Blood Count 5.73 K/uL Red Blood Count 3.87 M/uL Hemoglobin 13.3 g/dL Hematocrit 39.3 % Mean Corpuscular Volume 101.6 fL Mean Corpuscular Hemoglobin 34.4 pg Mean Corpuscular Hemoglobin Concent 33.8 g/dl Platelet Count 194 K/uL Mean Platelet Volume 10.1 fL Neutrophils (%) (Auto) 68.8 % Lymphocytes (%) (Auto) 17.3 % Monocytes (%) (Auto) 9.8 % Eosinophils (%) (Auto) 3.7 % Basophils (%) (Auto) 0.2 % Neutrophils # (Auto) 3.95 K/uL Lymphocytes # (Auto) 0.99 K/uL Monocytes # (Auto) 0.56 K/uL Eosinophils # (Auto) 0.21 K/uL Basophils # (Auto) 0.01 K/uL RDW Standard Deviation 50.0 fL RDW Coefficient of Variation 13.4 % Immature Granulocyte % (Auto) 0.2 % Immature Granulocyte # (Auto) 0.01 K/uL Sodium Level 139 mmol/L Potassium Level 4.6 mmol/L Chloride Level 100 mmol/L Carbon Dioxide Level 35 mmol/L Anion Gap 4.0 mmol/L Blood Urea Nitrogen 16 mg/dl Creatinine 0.78 mg/dl Est Creatinine Clear Calc Drug Dose 52.2 ml/min Estimated GFR () 85.0 Estimated GFR (Non- 73.3 BUN/Creatinine Ratio 21.1 Random Glucose 91 mg/dl Calcium Level 8.8 mg/dl Chemistry Specimen Hemolysis Assessment and Plan Patient with CHF exacerbation, lower extremity edema, and acute on chronic cellulitis of the left lower extremity and possibly of the right ankle/lower extremity as well. She is currently on IV Clindamycin and does appear to have more improvement today. Will continue IV Clindamycin likely for at least 1 more day. May consider transition to PO Clindamycin tomorrow if continued improvement. PROVIDER ADDENDUM: Patient reviewed with Ms. Hurtado. Agree with above assessment.
[2016-06-15] MEDS: CALCIUM CARBONATE 1250MG TAB PO SCH (11:58)
[2016-06-15 15:30] VITALS: BP 96/66; PULSE 85; TEMP 36.6; O2SAT 97
[2016-06-15] MEDS: DIGOXIN 0.125 MG TAB PO SCH (16:00)
--- NOTE | 2016-06-15 16:33 | Progress Note ---
Subjective Date of Service: Jun 15, 2016. Subjective this pt is doing better, has receding erythema Problem List Medical Problems: (1) Fluid overload Status: Acute (2) Pulmonary vascular congestion Status: Acute Review of Systems Constitutional: No chills, No fever Respiratory: No cough, No shortness of breath Cardiac: No chest pain, No edema Abdomen: No diarrhea, No nausea, No pain, No vomiting Neurologic: No memory loss, No paralysis Skin: + new/changing skin lesions (improving), + rash Objective Vital Signs Date Time Temp Pulse Resp B/P Pulse Ox O2 Delivery O2 Flow Rate FiO2 06/15/16 08:00 95 Nasal Cannula 2.0 06/15/16 08:00 36.3 78 26 82/54 95 Nasal Cannula 2.0 06/15/16 04:00 36.3 68 20 101/56 99 Room Air 2.0 06/14/16 23:55 98 Nasal Cannula 2.0 06/14/16 23:00 36.7 76 20 94/56 98 Nasal Cannula 2.0 06/14/16 19:30 36.6 71 22 100/63 96 Nasal Cannula 2.0 Physical Exam General Appearance: WD/WN, + mild distress Neck: supple, no JVD Respiratory/Chest: chest non-tender, lungs clear, normal breath sounds Cardiovascular: regular rate, rhythm, no murmur Abdomen: normal bowel sounds, non tender, soft Extremities: no calf tenderness, + pedal edema (chronically) Skin: + rash, + pertinent finding (receeding cellulitis on baseline chronic venous stasis changes) Laboratory Results Last 24 Hours Test 06/15/16 06:50 White Blood Count 5.73 K/uL Red Blood Count 3.87 M/uL Hemoglobin 13.3 g/dL Hematocrit 39.3 % Mean Corpuscular Volume 101.6 fL Mean Corpuscular Hemoglobin 34.4 pg Mean Corpuscular Hemoglobin Concent 33.8 g/dl Platelet Count 194 K/uL Mean Platelet Volume 10.1 fL Neutrophils (%) (Auto) 68.8 % Lymphocytes (%) (Auto) 17.3 % Monocytes (%) (Auto) 9.8 % Eosinophils (%) (Auto) 3.7 % Basophils (%) (Auto) 0.2 % Neutrophils # (Auto) 3.95 K/uL Lymphocytes # (Auto) 0.99 K/uL Monocytes # (Auto) 0.56 K/uL Eosinophils # (Auto) 0.21 K/uL Basophils # (Auto) 0.01 K/uL RDW Standard Deviation 50.0 fL RDW Coefficient of Variation 13.4 % Immature Granulocyte % (Auto) 0.2 % Immature Granulocyte # (Auto) 0.01 K/uL Sodium Level 139 mmol/L Potassium Level 4.6 mmol/L Chloride Level 100 mmol/L Carbon Dioxide Level 35 mmol/L Anion Gap 4.0 mmol/L Blood Urea Nitrogen 16 mg/dl Creatinine 0.78 mg/dl Est Creatinine Clear Calc Drug Dose 52.2 ml/min Estimated GFR () 85.0 Estimated GFR (Non- 73.3 BUN/Creatinine Ratio 21.1 Random Glucose 91 mg/dl Calcium Level 8.8 mg/dl Chemistry Specimen Hemolysis Assessment and Plan Pt with history of recurrent LE cellulitis, and chronic venous stasis, on rotating oral antibiotics supervised by Dr Little Developed progressive redness pain and swelling, R>Ltreated with IV clindamycin and comtinues to improve continue clinda pending cultures and ID recommendation is one additional day of iv then transition to po Acute on chronic diastolic HF , LE edema has improved, will transition back to po lasix COPD stable combivent and advair, likely swelling in part from lung disease and right heart Atrial fibrillation rate controlled digoxin, metoprolol and pradaxa, EKG noted afib Hypothyroidism TSH normal , cont synthroid DVT ppx:Teds, SCDs, on pradaxa CODE STATUS: FULL CODE
[2016-06-15 19:50] VITALS: BP 100/64; PULSE 87; TEMP 36.5; O2SAT 92
[2016-06-15] MEDS: SIMVASTATIN 20 MG TAB PO SCH (21:30)
[2016-06-16 00:01] VITALS: BP 102/63; PULSE 96; TEMP 36.7; O2SAT 97
[2016-06-16] MEDS: CLINDAMYCIN IV 300 MG in DEXTROSE 5% 50ML 50 ML IV SCH ×2 (00:05→07:36)
[2016-06-16] MEDS: LEVOTHYROXINE 25 MCG TAB PO SCH (06:25)
[2016-06-16 07:09] LABS: BASO % 0.2 %; BASO ABS # 0.01 K/uL (0-0.2); COMPLETE YES; EOS % 4.6 %; HEMATOCRIT 39.2 % (37-47); LYMPH % 16.5 %; LYMPH ABS # 0.82 K/uL (1.2-3.4); MEAN CELL VOLUME 100.3 fL (80-100); MEAN CORPUSCULAR HEMOGLOBIN 33.5 pg (25-34); MEAN CORPUSCULAR HGB CONC 33.4 g/dl (32-36); MEAN PLATELET VOLUME 9.9 fL (7.4-10.4); MONO % 14.3 %; NEUT % 64.4 %; PLATELET COUNT 189 K/uL (130-400); RED BLOOD COUNT 3.91 M/uL (4.2-5.4); WHITE BLOOD COUNT 4.96 K/uL (4.8-10.8)
[2016-06-16 07:43] LABS: BUN/CREATININE RATIO 20.8 (10-20); CALCIUM 9.1 mg/dl (8.5-10.1); CREATININE 0.72 mg/dl (0.60-1.20); POTASSIUM 4.2 mmol/L (3.5-5.1)
[2016-06-16 07:51] VITALS: BP_SYST 95; BP_DIAS 61; BP_DIAS 62; PULSE 77; TEMP 36.3; O2SAT 96
[2016-06-16] MEDS: FLUTICASONE/SALMETEROL 100/50 (ADVAIR) 14 PUFF/1 INHALER INH SCH (08:23)
[2016-06-16] MEDS: IPRATROPIUM BROMIDE/ALBUTEROL respimat INH INH SCH ×2 (08:23→12:32)
[2016-06-16] MEDS: LACTOBACILLUS ACIDOPHILUS (FLORANEX) TAB PO SCH (08:24)
[2016-06-16] MEDS: METOPROLOL SUCC 25MG EXT REL TAB PO SCH (08:26)
[2016-06-16] MEDS: FUROSEMIDE 40 MG TAB PO SCH (08:26)
[2016-06-16] MEDS: MAGNESIUM OXIDE 400 MG TAB PO SCH (08:26)
[2016-06-16] MEDS: CHOLECALCIFEROL 1000 INTER.UNIT TAB PO SCH (08:27)
[2016-06-16] MEDS: POTASSIUM CHLORIDE 20 MEQ TABCR PO SCH (08:28)
[2016-06-16] MEDS: DABIGATRAN ELEXILATE 75 MG CAP PO SCH (08:28)
[2016-06-16] MEDS ORDERED: CLIN300C2 PO (10:31)
[2016-06-16] MEDS ORDERED: SYN25 PO (10:31)
--- NOTE | 2016-06-16 10:40 | Discharge Instructions ---
Discharge Instructions Date of Service Jun 16, 2016. Admission Reason for Admission: Chf Exacerbation, Left Leg Cellulitis Discharge Discharge Diagnosis / Problem: cellulitis bilateral lower extremities Discharge Goals Goal(s): Improve function, Therapeutic intervention Activity Recommendations Activity Limitations: resume your previous activity . Instructions / Follow-Up Instructions / Follow-Up You have been treated in the hospital for worsening cellulitis of your lower legs The following changes/additions have been made to your medication list: -Please discontinue Keflex and Bactrim -Clindamycin 300 mg 3 times daily. Please finish the entire course -Synthroid has been increased to 25 g daily Please follow up with your primary care physician within one week Please also follow up with infectious disease as scheduled Call your doctor or return to the emergency department if you have any of the following symptoms: -Fever of 101F or greater -Persistent vomiting - Persistent diarrhea -Lethargy -Chest pain -Shortness of breath -Worsening swelling, pain or redness of your legs Current Hospital Diet Patient's current hospital diet: AHA Diet (Heart Healthy) Discharge Diet Recommended Diet: AHA Diet (Heart Healthy) Pending Studies Studies pending at discharge: no Medical Emergencies . Who to Call and When: Medical Emergencies: If at any time you feel your situation is an emergency, please call 911 immediately. . Non-Emergent Contact Non-Emergency issues call your: Primary Care Provider . . "Provider Documentation" section prepared by Parvin Briseno. VTE Core Measure Inpt VTE Proph given/why not?: Other Anticoagulation
--- NOTE | 2016-06-16 10:53 | Discharge Summary ---
Discharge Summary Date of Service Jun 16, 2016. (Parvin Briseno PA-C) Discharge Summary Admission Date: Jun 12, 2016 at 13:43 Discharge Date: Jun 16, 2016 Discharge Disposition: Home Principal Diagnosis: cellulitis, CHF exacerbation Problems/Secondary Diagnoses: A. fib Hypertension COPD Hypothyroidism Immunizations: Have You Had Influenza Vaccine: No History of Tetanus Vaccine?: Unknown History of Pneumococcal: Unknown Pneumococcal Date: Apr 10, 2010 History of Hepatitis B Vaccine: Unknown Consultations: Infectious disease (Parvin Briseno PA-C) Medication Reconciliation New Medications: Clindamycin Hcl (Cleocin) 300 Mg Cap 1 CAP PO TID for 10 Days, #30 CAP Levothyroxine Sodium (Synthroid) 25 Mcg Tab 25 MCG PO DAILYBB for 30 Days, #30 TAB Continued Medications: Acetaminophen (Tylenol) 500 Mg Tab 500 MG PO Q4 PRN for Pain or Fever, TAB Ascorbic Acid (Vitamin C) 500 Mg Tab 1 TAB PO DAILY AT LUNCH Calcium Carbonate (Calcium) 600 Mg Tab 1 TAB PO DAILY AT LUNCH Cholecalciferol (Vitamin D3) 2,000 Unit Cap 1 CAP PO BID for 90 Days, #180 CAP 3 Refills Dabigatran Elexilate (Pradaxa) 75 Mg Cap 75 MG PO BID Digoxin (Digoxin) 0.125 Mg Tab 0.125 MG PO DAILY Fluticasone Prop/Salmeterol (Advair Diskus 100/50 60 Dose) 1 Ea Aerp 1 PUFF INH BID, INHALER Furosemide (Lasix) 20 Mg Tab 40 MG PO DAILY PRN for SWELLING, #30 Ipratropium-Albuterol (Combivent Respimat) 1 Aer Aer 1 PUFFS INH QID, INH Lactobacillus (Floranex) 1 Tab Tab 1 TAB PO QAM Magnesium Oxide (Mag-Ox) 400 Mg Tab 400 MG PO DAILY, TAB TAKE WITH LUNCH Metoprolol Succ (Toprol Xl) (Toprol-Xl) 25 Mg Tabcr 12.5 MG PO QAM, TAB Multiple Vitamin (Multivitamin) 1 Tab Tab 1 TAB PO DAILY AT LUNCH, TAB Nitroglycerin (Nitrostat) 0.4 Mg Tab 0.4 MG UT UD PRN for Chest Pain, TAB Omeprazole (Prilosec) 20 Mg Capcr 20 MG PO DAILY PRN for GI Upset, CAP Potassium Chloride (Klor-Con M20) 20 Meq Tabcr 20 MEQ PO DAILY EXTRA TABLET WITH INCREASED LASIX Simvastatin (Zocor) 20 Mg Tab 20 MG PO QPM, 0 Refills Discontinued Medications: Cephalexin Monohydrate (Keflex) 500 Mg Cap 500 MG PO BID, #15 CAP Levothyroxine Sodium (Synthroid) 25 Mcg Tab 25 MCG PO 6XWK SUNDAY THROUGH SUNDAY Levothyroxine Sodium (Synthroid) 50 Mcg Tab 50 MCG PO WK SUNDAY Sulfamethoxazole-Trimethoprim (Bactrim Ds 800MG/160MG) 1 Tab Tab 0.5 TAB PO BID, #6 TAB Referrals At Discharge Follow up Referrals: Infectious Disease - Within 1-2 Weeks with Kwaku Little MD Discharge Exam Patient reports feeling fairly well today. Her legs overall have improved. She is still complaining of some pain in the right proximal foot/distal leg. Denies any fever or chills. Review of Systems: Constitutional: No fever Respiratory: No cough Cardiovascular: No chest pain Abdomen: No nausea Physical Exam: General Appearance: no apparent distress Eyes: EOMI Neck: no JVD Respiratory/Chest: + pertinent finding (very faint crackles at the bases bilaterally. Mild wheeze bilaterally. No tachypnea or accessory muscle use) Cardiovascular: no murmur, + irregularly irregular Abdomen / GI: normal bowel sounds, non tender, soft Extremities: + pertinent finding (erythema in the left lower extremity distal to the knee extending into the foot mild warmth. Blotchy erythema noted to a lesser extent on the right lower extremity. Warmth also noted.) Neurologic/Psychiatric: no motor/sensory deficits, oriented x 3 Skin: warm/dry (Parvin Briseno, PA-C) Hospital Course Pt is a 75 yo female PMHhx of atrial fib, diastolic CHF, hypothyroidism, chronic cellulitis who reported to the ER for worsening bilateral lower ext redness and swelling for past week. Bilateral lower ext cellulitis - Failed outpatient antibiotics keflex and bactrim, start on IV clindamycin.- ID consulted, pt follows with Dr. Little as an outpatient. She has been taking abx for chronic cellulitis for the past 2 years -Started on IV Clinda--> transition to po 300 mg TID for a total course of 14 days -Blood cultures negative Acute on chronic diastolic HF -Upon admission, Lasix 40 mg IV was started--> eventually transitioned back to po -tele monitoring intially - Trend trops--> 0.19, 0.023, 0.018 - ordered ECHO * 1. Normal left ventricular size with hyperdynamic systolic function. EF 65-70 %. No regional wall motion abnormalities. Severe hypertrophy of the distal left ventricular segments, including the apex, consistent with hypertrophic cardiomyopathy, apical variant. * 2. Mild biatrial dilation. * 3. At least mild to moderate tricuspid regurgitation. * 4. Normal estimated right ventricular systolic pressure; 34 mmHg. -Cont digoxin at this time and metoprolol. - EKG consistent with atrial fib with t wave inversions in lateral leads. - BP typically runs in the 90s - 100s, so no concerns with pressure at this time. COPD - Cont combivent and advair, no exacerbation noted Atrial fibrillation - Cont digoxin, metoprolol and pradaxa, EKG noted afib Hypothyroidism -Synthroid increased to 25 g daily DVT ppx:Teds, SCDs, on pradaxa CODE STATUS: FULL CODE Total Time Spent: Greater than 30 minutes This includes examination of the patient, discharge planning, medication reconciliation, and communication with other providers. (Parvin Briseno PA-C) PA Physician Supervision Note: I interviewed and examined the patient. Discussed with Parvin Briseno PAC and agree with findings and plan as documented in the note. Any exceptions or clarifications are listed here: None Pt with history of recurrent LE cellulitis, and chronic venous stasis, on rotating oral antibiotics supervised by Dr Little Developed progressive redness pain and swelling, R>Ltreated with IV clindamycin and has improved, will transition to po and follow up with DR Little Acute on chronic diastolic HF , LE edema has improved, po lasix COPD stable combivent and advair Atrial fibrillation rate controlled digoxin, metoprolol and pradaxa, EKG noted afib Hypothyroidism TSH normal , cont synthroid Documented By: Sergio Guzman Total Time Spent: Greater than 30 minutes (Sergio Guzman M.D.) Discharge Instructions Please refer to the electronic Patient Visit Report (Discharge Instructions) for additional information. (Parvin Briseno PA-C) Follow-Up Infectious disease PCP (Parvin Briseno PA-C) Additional Copies To Kwaku Little MD; Crow Marcial, Sarahy.O.Int.Med.
--- NOTE | 2016-06-16 11:24 | Infectious Disease Progress Nt ---
Progress Note Date of Service Jun 16, 2016. Subjective Pt evaluation today including: conversation w/ patient, physical exam, chart review, lab review, review of studies, conversation w/ compensation consultant (Dr Guzman) , review of inpatient medication list Patient is feeling improved this morning. Her legs are slightly less swollen. She is not having SOB. She continues to have mild pain in the legs. WBC count 4.96. All Other Systems: Reviewed and Negative Medications Current Inpatient Medications Medications (Trade) Dose Ordered Sig/Lori Route Start Time Stop Time Status Last Admin Dose Admin Acetaminophen (Tylenol Tab) 650 mg Q4H PRN PO 06/12/16 13:45 07/12/16 13:44 Ondansetron HCl 4 mg 4 mg Q6H PRN IV 06/12/16 13:45 07/12/16 13:44 Clindamycin Phosphate/Dextrose (Cleocin Iv/D5 50ml) 52 ml @ 100 mls/hr Q8H IV 06/12/16 16:00 06/22/16 13:59 06/16/16 07:36 100 MLS/HR Acetaminophen (Tylenol Tab) 500 mg Q4 PRN PO 06/12/16 14:00 07/12/16 13:59 Dabigatran (Pradaxa Cap) 75 mg BID PO 06/12/16 21:00 07/12/16 20:59 06/16/16 08:28 75 MG Digoxin (Lanoxin Tab) 0.125 mg DAILY@1600 PO 06/13/16 16:00 07/13/16 15:59 06/15/16 16:00 0.125 MG Salmeterol Xinafoate/ Fluticasone (Advair Diskus 100/50 Inh) 1 puff BID INH 06/12/16 21:00 07/12/16 20:59 06/16/16 08:23 1 PUFF Albuterol/ Ipratropium (Combivent Respimat Inh) 1 puffs QID INH 06/12/16 17:00 07/12/16 16:59 06/16/16 08:23 1 PUFFS Lactobacillus Acidophilus (Floranex Tab) 1 tab QAM PO 06/13/16 09:00 07/13/16 08:59 06/16/16 08:24 1 TAB Levothyroxine Sodium (Synthroid Tab) 25 mcg DAILYBB PO 06/13/16 06:30 4/20/17 06:59 06/16/16 06:25 25 MCG Magnesium Oxide (Mag-Ox Tab) 400 mg DAILY PO 06/13/16 09:00 07/13/16 08:59 06/16/16 08:26 400 MG Metoprolol Succinate (Toprol Xl Tab) 12.5 mg QAM PO 06/13/16 09:00 07/13/16 08:59 06/16/16 08:26 12.5 MG Nitroglycerin (Nitrostat Tab) 0.4 mg UD PRN UT 06/12/16 14:00 07/12/16 13:59 Potassium Chloride (Klor-Con Tab) 20 meq DAILY PO 06/13/16 09:00 07/13/16 08:59 06/16/16 08:28 20 MEQ Simvastatin (Zocor Tab) 20 mg QPM PO 06/12/16 21:00 07/12/16 20:59 06/15/16 21:30 20 MG Calcium Carbonate (oS-Carlos 500 TAB) 1,250 mg QDL PO 06/13/16 11:00 07/13/16 10:59 06/15/16 11:58 1,250 MG Cholecalciferol (Vitamin D Tab) 2,000 inter.unit BID PO 06/12/16 21:00 07/12/16 20:59 06/16/16 08:27 2,000 INTER.UNIT Pantoprazole Sodium (Protonix Tab) 40 mg DAILY PRN PO 06/12/16 14:00 07/12/16 13:59 Albuterol/ Ipratropium (Duoneb) 3 ml QID PRN INH 06/13/16 08:45 07/13/16 08:44 Furosemide (Lasix Tab) 40 mg QAM PO 06/15/16 09:00 07/15/16 08:59 06/16/16 08:26 40 MG Objective Vital Signs Date Time Temp Pulse Resp B/P Pulse Ox O2 Delivery O2 Flow Rate FiO2 06/16/16 08:30 Nasal Cannula 2.0 06/16/16 07:51 36.3 77 16 95/62 96 Nasal Cannula 2.0 95/61 06/16/16 00:01 36.7 96 18 102/63 97 Room Air 06/16/16 00:00 Nasal Cannula 2.0 06/15/16 19:50 Room Air 06/15/16 19:50 36.5 87 16 100/64 92 Room Air 06/15/16 16:00 80 06/15/16 15:30 97 Nasal Cannula 2.0 06/15/16 15:30 36.6 85 24 96/66 97 Room Air Physical Exam General Appearance: WD/WN, no apparent distress Eyes: normal inspection, sclerae normal ENT: hearing grossly normal Neck: supple, trachea midline Respiratory/Chest: no respiratory distress, no accessory muscle use Cardiovascular: + irregularly irregular Extremities: + swelling (mild edema of right ankle. Mild edema left lower extremity) Skin: warm/dry, + pertinent finding (Very mild erythema/purple discoloration of left lower extremity and right ankle) Laboratory Results Last 24 Hours Test 06/16/16 06:55 White Blood Count 4.96 K/uL Red Blood Count 3.91 M/uL Hemoglobin 13.1 g/dL Hematocrit 39.2 % Mean Corpuscular Volume 100.3 fL Mean Corpuscular Hemoglobin 33.5 pg Mean Corpuscular Hemoglobin Concent 33.4 g/dl Platelet Count 189 K/uL Mean Platelet Volume 9.9 fL Neutrophils (%) (Auto) 64.4 % Lymphocytes (%) (Auto) 16.5 % Monocytes (%) (Auto) 14.3 % Eosinophils (%) (Auto) 4.6 % Basophils (%) (Auto) 0.2 % Neutrophils # (Auto) 3.19 K/uL Lymphocytes # (Auto) 0.82 K/uL Monocytes # (Auto) 0.71 K/uL Eosinophils # (Auto) 0.23 K/uL Basophils # (Auto) 0.01 K/uL RDW Standard Deviation 48.2 fL RDW Coefficient of Variation 13.3 % Immature Granulocyte % (Auto) 0.0 % Immature Granulocyte # (Auto) 0.00 K/uL Sodium Level 139 mmol/L Potassium Level 4.2 mmol/L Chloride Level 100 mmol/L Carbon Dioxide Level 34 mmol/L Anion Gap 5.0 mmol/L Blood Urea Nitrogen 15 mg/dl Creatinine 0.72 mg/dl Est Creatinine Clear Calc Drug Dose 56.5 ml/min Estimated GFR () 93.6 Estimated GFR (Non- 80.8 BUN/Creatinine Ratio 20.8 Random Glucose 91 mg/dl Calcium Level 9.1 mg/dl Assessment and Plan Patient with CHF exacerbation, lower extremity edema, and acute on chronic cellulitis of the left lower extremity and possibly of the right ankle/lower extremity as well. She is currently on IV Clindamycin and does appear to have more improvement today. OK to D/C IV Clindamycin today. Recommend transition to PO Clindamycin 300 mg TID. We will follow up as outpatient. Thanks PROVIDER ADDENDUM: Patient reviewed with Ms. Hurtado. Agree with above assessment.
[2016-06-16] MEDS: CALCIUM CARBONATE 1250MG TAB PO SCH (12:32)
[2016-06-16 15:30] VITALS: BP 95/61; PULSE 77; TEMP 36.3; O2SAT 96
[2016-11-29] MEDS ORDERED: MULTTAB58 PO (09:10)
[2016-11-29] MEDS ORDERED: NTRGSL/4 UT (09:43)
[2016-11-29] MEDS ORDERED: MAGN400T6 PO (09:47)
[2016-11-29] MEDS ORDERED: LACT1TAB4 PO (11:42)
[2016-11-29] MEDS ORDERED: ASCO500T3 PO (11:42)
[2016-11-29] MEDS ORDERED: LNX125 PO (11:54)
[2016-11-29] MEDS ORDERED: MCRK20 PO (11:58)
== END 2016-06-16 15:30 | disposition home or self-care (01) | DRG 602 ==
LOC: ENRESERVTM → ENRESERVDT → C.EDB 11:20 → C.MED 13:43 → C.MS4N 06-13 15:27
PROVIDERS: ADMIT Hospitalist; ATTEND Hospitalist
DX: L03.115 Cellulitis of right lower limb (principal); I50.33 Acute on chronic diastolic (congestive) heart failure; L03.116 Cellulitis of left lower limb; I48.2 Chronic atrial fibrillation; Z79.01 Long term (current) use of anticoagulants; Z86.73 Personal history of transient ischemic attack (TIA), and cerebral infarction without residual deficits; J44.9 Chronic obstructive pulmonary disease, unspecified; K57.30 Diverticulosis of large intestine without perforation or abscess without bleeding; Z87.891 Personal history of nicotine dependence; Z91.040 Latex allergy status; Z88.8 Allergy status to other drugs, medicaments and biological substances; Z79.899 Other long term (current) drug therapy; E03.9 Hypothyroidism, unspecified; H26.9 Unspecified cataract; I10 Essential (primary) hypertension

== ENCOUNTER → 2016-07-13 | Outpatient (CLI) | payer OTHER ==
[~2016-07-13] MED LIST changes: +ADVIN10/60 INH; +ADVIN25/60 INH; +ASCO500T3 PO; +CALC-393 PO; +CHOL2000 PO; -CMBIN INH; +CPR500 PO; +DABI1CAP PO; -DIGO0.122 PO; +DOXY-300 PO; +FRS/40 PO; +FURO-85 PO; +GFNSR600 PO; +IPRA1AER2 INH; +LACT1TAB4 PO; +LNX125 PO; +LSX20 PO; +MAGN400T6 PO; +MCRK20 PO; +METO25TA3 PO; +MULTTAB58 PO; +NTRGSL/4 UT; +NZRCR TOP; -POTA-335 PO; +PRD75 PO; +PRLSR20 PO; +SIMV20TA2 PO; -SULF1TAB92 PO; +SULF800T23 PO; +SYN25 PO; +[UNRECOGNIZED DRUG - CODE] PO
--- NOTE | 2016-07-13 14:15 | DIAGNOSTIC IMAGING REPORT ---
CHEST 2 VIEWS ROUTINE CLINICAL HISTORY: SHORTNESS OF BREATH dyspnea COMPARISON STUDY: 06/12/2016 FINDINGS: Mild emphysematous change. Mild stable cardiomegaly. Lungs are clear. Diaphragms smooth but somewhat flattened. IMPRESSION: Mild emphysematous change. No acute process. Electronically signed by: Kehinde Serrano M.D. 07/13/2016 2:13 PM Dictated Date/Time: 07/13/2016 2:12 PM
[2016-07-13 17:05] LABS: BASO % 0.6 %; BASO ABS # 0.04 K/uL (0-0.2); COMPLETE YES; EOS % 3.3 %; HEMATOCRIT 41.6 % (37-47); IG% 0.1 %; LYMPH ABS # 0.69 K/uL (1.2-3.4); MEAN CORPUSCULAR HEMOGLOBIN 33.9 pg (25-34); MEAN CORPUSCULAR HGB CONC 32.9 g/dl (32-36); MEAN PLATELET VOLUME 10.5 fL (7.4-10.4); MONO % 15.2 %; NEUT % 70.8 %; PLATELET COUNT 215 K/uL (130-400); RED BLOOD COUNT 4.04 M/uL (4.2-5.4); WHITE BLOOD COUNT 6.89 K/uL (4.8-10.8)
[2016-07-13 17:24] LABS: ALT/SGPT 28 U/L (12-78); BLOOD UREA NITROGEN 13 mg/dl (7-18); BUN/CREATININE RATIO 17.2 (10-20); CARBON DIOXIDE 34 mmol/L (21-32); CHLORIDE 97 mmol/L (98-107); CREATININE 0.74 mg/dl (0.60-1.20); GLUCOSE 101 mg/dl (70-99); MAGNESIUM 2.3 mg/dl (1.8-2.4); POTASSIUM 4.1 mmol/L (3.5-5.1); SODIUM 138 mmol/L (136-145)
[2016-07-13 17:34] LABS: ALB/GLOB RATIO 1.1 (0.9-2); ALKALINE PHOSPHATASE 88 U/L (45-117); AST/SGOT 28 U/L (15-37)
[2016-07-13 18:03] LABS: CALCIUM 9.5 mg/dl (8.5-10.1)
== END | disposition home or self-care (01) ==
LOC: C.LABBC 12:53
PROVIDERS: ATTEND Family Medicine
DX: R06.02 Shortness of breath (principal); R19.5 Other fecal abnormalities; I50.32 Chronic diastolic (congestive) heart failure; E03.9 Hypothyroidism, unspecified

== ENCOUNTER → 2016-07-20 | Outpatient (CLI) | payer OTHER ==
[2016-07-20 17:36] LABS: ALT/SGPT 32 U/L (12-78); BLOOD UREA NITROGEN 10 mg/dl (7-18); BUN/CREATININE RATIO 12.2 (10-20); CALCIUM 9.2 mg/dl (8.5-10.1); CARBON DIOXIDE 39 mmol/L (21-32); CHLORIDE 99 mmol/L (98-107); CREATININE 0.84 mg/dl (0.60-1.20); GLUCOSE 98 mg/dl (70-99); POTASSIUM 4.2 mmol/L (3.5-5.1); SODIUM 139 mmol/L (136-145)
[2016-07-20 17:42] LABS: ALB/GLOB RATIO 0.9 (0.9-2); ALKALINE PHOSPHATASE 95 U/L (45-117); AST/SGOT 25 U/L (15-37)
== END | disposition home or self-care (01) ==
LOC: C.LAB1850 15:08
PROVIDERS: ATTEND Family Medicine
DX: I50.32 Chronic diastolic (congestive) heart failure (principal)

== ENCOUNTER 2016-07-31 13:36 | Inpatient (IN) | payer OTHER ==
[~2016-07-31] VITALS: Ht 162.6 cm; Wt 59.8 kg
[~2016-07-31 13:36] MED LIST changes: -ADVIN25/60 INH; -ASCO500T3 PO; -CEPH500C2 PO; -CPR500 PO; -DABI1CAP PO; -DOXY-300 PO; -FRS/40 PO; -GFNSR600 PO; -LACT1TAB4 PO; -LEVO25TA5 PO; -LNX125 PO; -LSX20 PO; -MAGN400T6 PO; -MCRK20 PO; -METO25TA3 PO; -MULTTAB58 PO; -NTRGSL/4 UT; -NZRCR TOP; -SIMV20TA2 PO; -SULF800T23 PO; -[UNRECOGNIZED DRUG - CODE] PO
[2016-07-31 14:05] VITALS: BP 114/74; PULSE 86; TEMP 36.7; O2SAT 90; Ht 162.6 cm; Wt 59.8 kg
[2016-07-31 14:08] VITALS: BP 114/74; PULSE 86; TEMP 36.7; O2SAT 90
[2016-07-31] MEDS ORDERED: CONSULT PHARMACY STA (14:42)
[2016-07-31] MEDS ORDERED: FUROSEMIDE 40 MG TAB PO PRN (14:45)
[2016-07-31] MEDS ORDERED: NITROGLYCERIN 0.4 MG SL PER TAB CHARGE UT PRN (14:45)
[2016-07-31] MEDS ORDERED: ALUMINUM/MAGNESIUM/SIMETH (MAALOX MAX) 30 ML UDC PO PRN (14:45)
[2016-07-31] MEDS ORDERED: ONDANSETRON INJ 2 MG/ML 2 ML VIAL IV PRN (14:45)
[2016-07-31] MEDS ORDERED: POLYETHYLENE (MIRALAX) 17 GM PACK PO PRN (14:45)
[2016-07-31] MEDS ORDERED: MAGNESIUM HYDROXIDE SUSP 30 ML UDC PO PRN (14:45)
--- NOTE | 2016-07-31 15:25 | Progress Note ---
Progress Note Date of Service July 31, 2016. Progress Note cellulitis mayuri lower exts need to rule out DVT, [id number]
[2016-07-31] MEDS ORDERED: PIPERACILL/TAZOBAC IV 4.5 GM in DEXTROSE 5% 100ML IV ONE (15:30)
[2016-07-31] MEDS ORDERED: DAPTOMYCIN IV 500 MG in NSS 50ML IV SCH (15:30)
[2016-07-31] MEDS ORDERED: PIPERACILL/TAZOBAC CONSULT ACTIVE PRN (15:30)
[2016-07-31] MEDS ORDERED: DAPTOMYCIN CONSULT ACTIVE PRN ×2 (15:30)
[2016-07-31 15:31] LABS: BASO % 0.4 %; BASO ABS # 0.02 K/uL (0-0.2); COMPLETE YES; EOS % 4.7 %; HEMATOCRIT 40.2 % (37-47); IG% 0.2 %; LYMPH % 13.4 %; LYMPH ABS # 0.76 K/uL (1.2-3.4); MEAN CELL VOLUME 103.1 fL (80-100); MEAN CORPUSCULAR HEMOGLOBIN 33.8 pg (25-34); MEAN CORPUSCULAR HGB CONC 32.8 g/dl (32-36); MEAN PLATELET VOLUME 9.9 fL (7.4-10.4); MONO % 16.3 %; PLATELET COUNT 207 K/uL (130-400); WHITE BLOOD COUNT 5.69 K/uL (4.8-10.8)
--- NOTE | 2016-07-31 15:47 | Medical Student: [facility] ---
Med Student History & Physical Date & Time of Service: July 31, 2016 at 15:22 Chief Complaint: Fluid Overload Primary Care Physician: Crow Marcial D.O.Int.Med. History of Present Illness Source: patient, family (niece), clinic records (Dr. Little's outpatient note 07/31) Ms Leonora Ellison is a pleasant 76 yo female admitted directly from Dr. Little' s office today for worsening b/l LE edema and cellulitis. The cellulitis first started two years ago, and a source from the infection has never been identified due to lack of open wound to culture. The infection was well controlled on maintenance bactrim + keflex until April of this year. At that time, she had a complicated colonoscopy which resulted in 5 days of hospitalization, with multiple days of bowel prep. Following the colonoscopy, the cellulitis returned on her left toe, and has gradually worsened since that time. In 06/16/16 she was started on clindamycin x 14 days followed by Dalvanse IV q 14 days. Her next infusion of Devanse was to be tomorrow, but because of chills last night and worsening bilateral leg pain, she saw Dr. Little today in the office. Upon evaluation, he decided to admit her for more aggressive treatment of her cellulitis and lower extremity edema. She also takes furosemide 40mg BID for chronic lower extremity edema, which she is only able to take about 50% of the time, due to her diastolic blood pressure often being below 60. Past Medical/Surgical History Medical Problems: (1) Fluid overload Status: Acute (2) Pulmonary vascular congestion Status: Acute 3. Cellulitis, B/L lower extremity Status: Chronic, progressive. 4. Lower extremity edema, B/L Status: Chronic, persistent Social History Smoking Status: Former Smoker Drug Use: none Marital Status: Occupational Status: retired Immunizations History of Influenza Vaccine: No History of Tetanus Vaccine?: Unknown History of Pneumococcal: Unknown Pneumococcal Date: Apr 10, 2010 History of Hepatitis B Vaccine: Unknown Allergies Coded Allergies: Latex1 -Allergic Contact Dermititis (Verified Allergy, Mild, RASH AND ITCHING, 07/03/16) Diltiazem (Verified Adverse Reaction, Unknown, LOW BP AND UPSET STOMACH, ) Medications Acetaminophen (Tylenol), 500 MG PO Q4 PRN for Pain or Fever Ascorbic Acid (Vitamin C), 1 TAB PO DAILY AT LUNCH Calcium Carbonate (Calcium), 1 TAB PO BIDM Dabigatran Elexilate (Pradaxa), 75 MG PO BID Digoxin (Digoxin), 0.125 MG PO DAILY Fluticasone Prop/Salmeterol (Advair Diskus 250/50 60 Dose), 1 PUFFS INH BID Furosemide (Lasix), 40 MG PO DAILY PRN for SWELLING Ipratropium-Albuterol (Combivent Respimat), 1 PUFFS INH QID Lactobacillus (Floranex), 1 TAB PO QAM Levothyroxine Sodium (Synthroid), 25 MCG PO DAILYBB Magnesium Oxide (Mag-Ox), 400 MG PO DAILY Metoprolol Succ (Toprol Xl) (Toprol-Xl), 12.5 MG PO QAM Multiple Vitamin (Multivitamin), 1 TAB PO DAILY AT LUNCH Nitroglycerin (Nitrostat), 0.4 MG UT UD PRN for Chest Pain Potassium Chloride (Klor-Con M20), 20 MEQ PO DAILY Simvastatin (Zocor), 20 MG PO QPM Review of Systems Constitutional: + chills (last night), + fatigue (last night) Eyes: No diplopia, No discharge, No eye pain, No problem reported, No redness, No worsening of vision ENT: No dental problems, No hearing loss, No nasal symptoms, No problem reported, No sore throat, No tinnitus, No trouble swallowing, No unusual epistaxis Respiratory: No cough, No dyspnea at rest, No dyspnea on exertion, No hemoptysis, No problem reported, No shortness of breath, No sputum, No wheezing Cardiovascular: No PND, No chest pain, No claudication, No edema, No orthopnea , No palpitations, No problem reported Abdomen: No GI bleeding, No constipation, No diarrhea, No nausea, No pain, No problem reported, No vomiting Musculoskeletal: + calf pain (b/l lower extremity, worse on right, extends 10cm superior to knee), + swelling (b/l lower extremity) Endocrine: + fatigue, No excessive thirst, No excessive urination, No problem reported Integumentary: + new/changing skin lesions (b/l cellulitis), + rash Physical Exam Vital Signs (24 Hours) Date Time Temp Pulse Resp B/P Pulse Ox O2 Delivery O2 Flow Rate FiO2 5/8/17 14:08 36.7 86 16 114/74 90 Room Air 07/31/16 14:05 36.7 86 16 114/74 90 Room Air General Appearance: WD/WN, no apparent distress Head: normocephalic, atraumatic Eyes: normal inspection, PERRL, EOMI ENT: + pertinent finding (dry oral mucosa) Neck: supple, no JVD Respiratory/Chest: chest non-tender, lungs clear, normal breath sounds, no respiratory distress, no accessory muscle use Cardiovascular: no gallop, no JVD, + irregularly irregular, + abnormal peripheral pulses (1+ posterior tibial, dorsalis pedis bilaterally) Back: normal inspection, no CVA tenderness Extremities/Musculoskelatal: normal capillary refill, + calf tenderness (worse on right extending superior to knee), + inflammation, + pedal edema, + swelling , + pertinent finding (erythema extending superior to knee bilaterally) Neurologic/Psych: no motor/sensory deficits, normal mood/affect, oriented x 3 Skin: + rash, + pertinent finding (erythema extending superior to knees bilaterally, no open wounds. All toenails noted to be fungal) Diagnostics Laboratory Results Results Past 24 Hours Test 07/31/16 14:42 Range/Units Microbiology Results 07/31/16 Blood Culture, Wesley Batch Pending 07/31/16 Blood Culture, Wesley Batch Pending Impression Assessment and Plan Ms Ellison is a 76 y/o female with chronic progressive b/l lower extremity cellulitis and edema admitted today for more agressive treatment. Assessment and Plan are as follows: 1. Cellulitis: Chronic, progressive. Will start on IV pip/tazo and daptomycin per Dr. Little's recommendation. Blood cultures ordered. 2. Lower extremity edema: Chronic, persistent. Will continue furosemide as tolerated, keeping diastolic pressure >60. B/L lower extremity U/S ordered to rule out DVT. Will consider SCDs if pain decreases. Continue taking 20meq Kcl with each dose of furosemide. Continue to monitor weight, BP and other vitals for volume status assessment. 3. COPD: Chronic, Stable. Continue home inhalers and medications. 4. Afib: Continue Pradaxa, metoprolol 5. Hypothyroidism: Continue levothyroxine 25mcg daily 6. Chronic diastolic heart failure: Continue digoxin 125mcg daily. Continue other home meds as tolerated. Level of Care Med/Surg Advanced Directives Existing Living Will: Yes Existing Power of Coremaking Supervisor: Yes DVT Prophylaxis other (on pradaxa)
[2016-07-31 15:56] LABS: BUN/CREATININE RATIO 13.1 (10-20); C-REACTIVE PROTEIN 0.37 mg/dl (0-0.29); CALCIUM 9.2 mg/dl (8.5-10.1); CREATININE 0.78 mg/dl (0.60-1.20); MAGNESIUM 2.4 mg/dl (1.8-2.4); POTASSIUM 4.2 mmol/L (3.5-5.1)
[2016-07-31 16:10] VITALS: O2SAT 90
[2016-07-31] MEDS: IPRATROPIUM BROMIDE/ALBUTEROL respimat INH INH SCH ×2 (16:15→21:04)
[2016-07-31] MEDS: DIGOXIN 0.125 MG TAB PO SCH (16:16)
[2016-07-31] MEDS: CALCIUM CARBONATE 1250MG TAB PO SCH (16:17)
--- NOTE | 2016-07-31 16:20 | HISTORY & PHYSICAL EXAMINATION ---
DATE OF ADMISSION: 07/31/2016 This is level 3 inpatient admission, 35 minutes. CHIEF COMPLAINT: Worsening bilateral lower extremity swelling and hot and tender. HISTORY OF PRESENT ILLNESS: The patient is a 76-year-old white female with a significant past medical history of aFib, on Pradaxa, has history of CVA, COPD and tobacco abuse disorder, has a recent admission because of bilateral lower extremity cellulitis, direct admission from Dr. Little's service because of the above chief complaint. This morning, Dr. Little called me about patient's conditions. He reported the patient has worsening bilateral lower extremity swelling, red associated with chills, shaky, last night. The patient has been on antibiotics which include Dalvanse IV infusion every 2 week. Therefore, Dr. Little feels that this worsening and recurrent lower extremity cellulitis, recommended direct admission and I agreed. When I interviewed with the patient, the patient was awake, alert, and orientated, conversational. Confirming the above information include shaky chills last night. Currently, has no fever or chills. No chest pain, palpitation, no palpitations. Denied facial droop, slurry speech or local weakness. Denied cough, sputum and shortness of breath. Denied nausea, vomiting, abdominal pain, diarrhea, or constipation. Denied dysuria, urgency, or frequencies. PAST MEDICAL HISTORY: Like I mentioned in the above. PAST SURGICAL HISTORY: unremarkable FAMILY HISTORY: Negative for blood clot. SOCIAL HISTORY: The patient has smoking histories before but quit. Denied illicit drug abuse. Denied alcohol abuse. FAMILY HISTORY: Noncontributory. ALLERGIES: 1. ALLERGY TO LATEX. 2. ALLERGY TO CARDIZEM. MEDICATIONS: Taking at home currently which include: 1. Vitamin C 500 mg p.o. daily. 2. Calcium carbonate 600 mg p.o. b.i.d. 3. Pradaxa 75 mg p.o. b.i.d. 4. Digoxin 0.125 mg p.o. daily. 5. Advair 250/50 one puff b.i.d. 6. Lasix 20 mg p.o. p.r.n. 7. Combivent 1 inhale q.i.d. 8. Floranex 1 tab p.o. q.a.m. 9. Levothyroxine 25 mcg p.o. daily. 10. Magnesium oxide 400 mg p.o. daily. 11. Toprol 25 mg tablets 12.5 mg p.o. q.a.m. 12. Multiple vitamin 1 tab p.o. with lunch. 13. Nitrostat 0.4 mg sublingual p.r.n. for the chest pain. 14. Potassium chloride 20 mEq p.o. daily. 15. Zocor 20 mg p.o. at bedtime. PHYSICAL EXAMINATION: VITAL SIGNS: Temperature is 36.7, pulse 86, respiration rate 16, blood pressure 140/74, pulse ox was 90% in room air. GENERAL: The patient is a white female, awake, alert and orientated, looks thin but conversational, follows all commands. No acute distress. HEAD: Normocephalic. EYES: Pupils equal, round responds to light. EARS: Ear was normal. NOSE: Normal. NECK: Supple. Thyroid no enlargement. Trachea midline. HEART: Irregular, irregular, S1, S2. LUNGS: Decreased breathing sounds. There were no wheezing, rhonchi and crackles. ABDOMEN: Soft, nontender. Bowel sound was positive. SKIN: Has obvious rashes in bilateral lower extremities. BILATERAL LOWER EXTREMITIES: 2-3+ edema. Pulse in bilateral lower extremities is decreased. Calf was having obvious tender. LABORATORY DATA: Pending. CBC, BMP, C-reactive protein, blood cultures is pending. ASSESSMENT AND PLAN: A 76-year-old white female with problems below: 1. Recurrent lower extremity cellulitis, patient reported cellulitis and chill , getting much worse associated with fever and chill last night. Therefore, I feel the diagnosis include worsening cellulitis, bilateral lower extremity, even cellulitis is getting worse when patient on the medication of Dalvanse Iv 2. The patient was having chills yesterday. Need to look into the possibility of bacteremia or sepsis. 3. History of atrial fibrillation, on Pradaxa. Will continue current medication. 4. Congestive heart failure, systolic history, possibly compensated. No obvious fluid overload. 5. Hypothyroidism. 6. Chronic obstructive pulmonary disease, history of smoking. Pulmonary function is in normal range. 7. Dyslipidemia. For the possibility of deep vein thrombosis, the patient has swelling in bilateral lower extremity with calf pain. Although she is on Pradaxa, the risk of deep vein thrombosis was decreased, but will check Doppler ultrasound to rule out deep venous thrombosis. FOLLOWUP PLAN: Keep patient in admission. IV antibiotic with daptomycin and Zosyn, per recommendation from Dr. Little. Has sent blood culture, ESR, CRP. Has ordered a bilateral lower extremity Doppler ultrasound to rule out DVT. Other medical conditions include dyslipidemia, COPD - will continue current medication. Hypothyroidism - will continue current medications. We will not need to check a TSH because a recent TSH checking was 1 month ago. Continue current medications for the atrial fibrillation include digoxin. GI and DVT prophylaxis is covered. I discussed with patient and family about a care plan. I answered all the questions. DHAVAL
--- NOTE | 2016-07-31 16:52 | DIAGNOSTIC IMAGING REPORT ---
BILATERAL LOWER EXTREMITY VENOUS DOPPLER HISTORY: Pain. Edema. to rule out DVT COMPARISON STUDY: 05/18/2016 FINDINGS: There is normal compressibility, flow, and augmentation within the bilateral lower extremity deep venous systems. IMPRESSION: No DVT within the right or left lower extremity. Electronically signed by: Kehinde Serrano M.D. 07/31/2016 4:51 PM Dictated Date/Time: 07/31/2016 4:51 PM
[2016-07-31] MEDS ORDERED: CALCIUM CARBONATE 1250MG TAB PO SCH (17:00)
[2016-07-31] MEDS: PIPERACILL/TAZOBAC IV 3.375 GM in DEXTROSE 5% 100ML IV SCH (21:04)
[2016-07-31] MEDS: FLUTICASONE/SALMETEROL 250/50 (ADVAIR) 14 PUFF/1 INHALER INH SCH (21:05)
[2016-07-31] MEDS: DABIGATRAN ELEXILATE 75 MG CAP PO SCH (21:06)
[2016-07-31] MEDS: SIMVASTATIN 20 MG TAB PO SCH (21:06)
[2016-08-01] VITALS: BP 103/68; PULSE 96; TEMP 36.6; O2SAT 95
[2016-08-01] MEDS: PIPERACILL/TAZOBAC IV 3.375 GM in DEXTROSE 5% 100ML IV SCH ×3 (05:48→20:55)
[2016-08-01] MEDS: LEVOTHYROXINE 25 MCG TAB PO SCH (05:49)
[2016-08-01 07:17] LABS: BASO % 0.6 %; BASO ABS # 0.03 K/uL (0-0.2); COMPLETE YES; EOS % 5.6 %; HEMATOCRIT 36.9 % (37-47); IG% 0.2 %; LYMPH % 18.1 %; LYMPH ABS # 0.87 K/uL (1.2-3.4); MEAN CELL VOLUME 102.5 fL (80-100); MEAN CORPUSCULAR HEMOGLOBIN 33.1 pg (25-34); MEAN CORPUSCULAR HGB CONC 32.2 g/dl (32-36); MEAN PLATELET VOLUME 9.8 fL (7.4-10.4); MONO % 14.4 %; NEUT % 61.1 %; PLATELET COUNT 207 K/uL (130-400)
[2016-08-01 07:24] VITALS: BP_SYST 78; BP_SYST 83; BP_DIAS 41; BP_DIAS 49; PULSE 72; TEMP 36.4; O2SAT 98
[2016-08-01] MEDS: METOPROLOL SUCC 25MG EXT REL TAB PO SCH (07:45)
[2016-08-01 07:51] LABS: BUN/CREATININE RATIO 11.4 (10-20); CALCIUM 8.6 mg/dl (8.5-10.1); CREATININE 0.83 mg/dl (0.60-1.20); MAGNESIUM 2.2 mg/dl (1.8-2.4); POTASSIUM 3.7 mmol/L (3.5-5.1)
[2016-08-01] MEDS ORDERED: SODIUM CHLORIDE 0.9% 500ML 500 ML IV SCH ×2 (08:00→09:00)
[2016-08-01] MEDS ORDERED: NURSING VERBAL MED ORDER ONE (08:00)
[2016-08-01] MEDS: FLUTICASONE/SALMETEROL 250/50 (ADVAIR) 14 PUFF/1 INHALER INH SCH ×2 (08:10→20:52)
[2016-08-01] MEDS: IPRATROPIUM BROMIDE/ALBUTEROL respimat INH INH SCH ×4 (08:10→20:53)
[2016-08-01] MEDS: LACTOBACILLUS ACIDOPHILUS (FLORANEX) TAB PO SCH (08:11)
[2016-08-01] MEDS: DABIGATRAN ELEXILATE 75 MG CAP PO SCH ×2 (08:12→20:54)
[2016-08-01] MEDS: MAGNESIUM OXIDE 400 MG TAB PO SCH (08:12)
[2016-08-01] MEDS: MULTIVITAMIN TAB PO SCH (08:12)
[2016-08-01] MEDS: POTASSIUM CHLORIDE 20 MEQ TABCR PO SCH (08:12)
[2016-08-01] MEDS: ASCORBIC ACID 500 MG TAB PO SCH (08:12)
--- NOTE | 2016-08-01 09:07 | DIAGNOSTIC IMAGING REPORT ---
CHEST ONE VIEW PORTABLE CLINICAL HISTORY: sob dyspnea COMPARISON STUDY: 07/13/2016 FINDINGS: Subtle increase in density left base most likely secondary to overlapping breast shadow and lungs are considered clear. Diaphragms are smooth. IMPRESSION: Chronic change. No acute process. Electronically signed by: Kehinde Serrano M.D. 08/01/2016 9:06 AM Dictated Date/Time: 08/01/2016 9:06 AM
[2016-08-01 09:14] VITALS: BP 95/56; PULSE 84
[2016-08-01 11:10] VITALS: BP_SYST 121; BP_SYST 83; BP_SYST 94; BP_DIAS 44; BP_DIAS 55; BP_DIAS 59
[2016-08-01] MEDS ORDERED: NURSING DECISION MEDICATION ORDER SCH (11:15)
--- NOTE | 2016-08-01 11:47 | Medical Consult ---
Consultation Date of Consultation: August 01, 2016. Attending Physician: Mann Alejandro MD Reason for Consultation: Recurrent cellulitis History of Present Illness 76-year-old female well known to me with long history of lower extremity lymphedema, and several year history of recurrent lower extremity cellulitis. She had been maintained on suppressive therapy with cephalexin and Bactrim and had done reasonably well until last several weeks when she had increasing swelling and redness of her legs. She failed to respond to change in oral antibiotics and then course of IV therapy, and presented to the office yesterday with 2 day history of markedly worsening lower extremity edema and increasing erythema of her legs associated with episode of shaking chills. She was referred to the hospital for admission, and started empirically on combination of daptomycin and Zosyn. Over the last 12 hours she has shown significant improvement with decrease in leg swelling and erythema. Blood cultures are pending so far. Denies any other new systemic complaints. Past Medical/Surgical History Medical Problems: (1) Fluid overload Status: Acute (2) Pulmonary vascular congestion Status: Acute Medical Problems: (1) ANTICOAGULANTS,LT,CURRENT USE (2) ATRIAL FIBRILLATION (3) CATARACT NOS (4) CEREBRAL THROMBOSIS W CEREBRAL INFARCTION (5) CHR AIRWAY OBSTRUCT NEC (6) DIVERTICULOSIS COLON (W/O MENT OF HEMORRHAGE) (7) GI bleed (8) Hypotension (9) recurrence cellulitis (10) Recurrent cellulitis Family History Negative FHx for blood clots Social History Smoking Status: Former Smoker Drug Use: none Marital Status: Housing Status: lives with family Occupation Status: retired Allergies Coded Allergies: Latex1 -Allergic Contact Dermititis (Verified Allergy, Mild, RASH AND ITCHING, 07/03/16) Diltiazem (Verified Adverse Reaction, Unknown, LOW BP AND UPSET STOMACH, ) Current Inpatient Medications Current Inpatient Medications Medications (Trade) Dose Ordered Sig/Lori Route Start Time Stop Time Status Last Admin Dose Admin Acetaminophen (Tylenol Tab) 650 mg Q4H PRN PO 07/31/16 14:45 08/30/16 14:44 Al Hydrox/Mg Hydrox/Simethicone (Maalox Max Susp) 15 ml Q4H PRN PO 07/31/16 14:45 08/30/16 14:44 Magnesium Hydroxide (Milk Of Magnesia Susp) 30 ml Q6H PRN PO 07/31/16 14:45 08/30/16 14:44 Polyethylene (Miralax Powder Packet) 17 gm DAILY PRN PO 07/31/16 14:45 08/30/16 14:44 Ondansetron HCl (Zofran Inj) 4 mg Q6H PRN IV 07/31/16 14:45 08/30/16 14:44 Ascorbic Acid (Vitamin C Tab) 500 mg DAILY PO 08/01/16 08:00 08/31/16 07:59 08/01/16 08:12 500 MG Dabigatran (Pradaxa Cap) 75 mg BID PO 07/31/16 20:00 08/30/16 19:59 08/01/16 08:12 75 MG Digoxin (Lanoxin Tab) 0.125 mg DAILY@1600 PO 07/31/16 16:00 08/30/16 15:59 07/31/16 16:16 0.125 MG Salmeterol Xinafoate/ Fluticasone (Advair Diskus 250/50 Inh) 1 puff BID INH 07/31/16 20:00 08/30/16 19:59 08/01/16 08:10 1 PUFF Furosemide (Lasix Tab) 40 mg DAILY PRN PO 07/31/16 14:45 08/30/16 14:44 07/31/16 19:12 40 MG Albuterol/ Ipratropium (Combivent Respimat Inh) 1 puffs QID INH 07/31/16 17:00 08/30/16 16:59 08/01/16 08:10 1 PUFFS Lactobacillus Acidophilus (Floranex Tab) 1 tab QAM PO 08/01/16 08:00 08/31/16 07:59 08/01/16 08:11 1 TAB Levothyroxine Sodium (Synthroid Tab) 25 mcg DAILYBB PO 08/01/16 06:30 08/31/16 06:29 08/01/16 05:49 25 MCG Magnesium Oxide (Mag-Ox Tab) 400 mg DAILY PO 08/01/16 08:00 08/31/16 07:59 08/01/16 08:12 400 MG Metoprolol Succinate (Toprol Xl Tab) 12.5 mg QAM PO 08/01/16 08:00 08/31/16 07:59 Multivitamins (Multivitamin Tab) 1 tab DAILY PO 08/01/16 08:00 08/31/16 07:59 08/01/16 08:12 1 TAB Nitroglycerin (Nitrostat Tab) 0.4 mg UD PRN UT 07/31/16 14:45 08/30/16 14:44 Potassium Chloride (Klor-Con Tab) 20 meq DAILY PO 08/01/16 08:00 08/31/16 07:59 08/01/16 08:12 20 MEQ Simvastatin (Zocor Tab) 20 mg QPM PO 07/31/16 21:00 08/30/16 20:59 07/31/16 21:06 20 MG Calcium Carbonate (oS-Carlos 500 TAB) 1,250 mg DAILY@1200,1700 PO 07/31/16 17:00 08/30/16 16:59 07/31/16 16:17 1,250 MG Daptomycin (Consult) 1 ea UD PRN N/A 07/31/16 15:30 08/30/16 15:29 Piperacillin Sod/ Tazobactam Sod 1 ea 1 ea UD PRN N/A 07/31/16 15:30 08/30/16 15:29 Piperacillin Sod/ Tazobactam Sod 3.375 gm/Dextrose 115 ml @ 28.75 mls/ hr Q8 IV 07/31/16 22:00 08/10/16 21:59 08/01/16 05:48 28.75 MLS/HR Daptomycin 250 mg/ Sodium Chloride 55 ml @ 120 mls/hr DAILY@1600 IV 08/01/16 16:00 08/10/16 15:59 Sodium Chloride (Nss 500ml) 500 ml @ 100 mls/hr Q5H IV 08/01/16 09:00 08/01/16 13:59 08/01/16 08:15 100 MLS/HR Ketoconazole (Nizoral 2% Crm) 1 appln Q12 EXT 08/01/16 11:00 09/25/16 23:59 Miscellaneous Information (Nursing Decision Medication Order) 1 ea UD N/A 08/01/16 11:15 08/31/16 11:14 UNV Review of Systems All systems were reviewed and are negative except as per HPI Physical Exam Date Time Temp Pulse Resp B/P Pulse Ox O2 Delivery O2 Flow Rate FiO2 08/01/16 11:10 121/55 08/01/16 11:10 83/44 08/01/16 11:10 94/59 08/01/16 09:14 84 95/56 08/01/16 07:24 36.4 72 24 78/41 98 Nasal Cannula 3.0 83/49 08/01/16 00:30 Nasal Cannula 2.0 08/01/16 00:00 36.6 96 20 103/68 95 2.0 07/31/16 16:16 86 07/31/16 16:10 90 Room Air 07/31/16 14:08 36.7 86 16 114/74 90 Room Air 07/31/16 14:05 36.7 86 16 114/74 90 Room Air General Appearance: WD/WN, no apparent distress Head: normocephalic, atraumatic Eyes: normal inspection, EOMI, sclerae normal ENT: normal ENT inspection, pharynx normal Neck: supple, no adenopathy, thyroid normal, trachea midline Respiratory/Chest: chest non-tender, lungs clear, normal breath sounds, no respiratory distress Cardiovascular: regular rate, rhythm, no gallop, no murmur Abdomen/GI: normal bowel sounds, non tender, soft, no organomegaly Back: normal inspection, no CVA tenderness Extremities/Musculoskelatal: + inflammation, + swelling Neurologic/Psych: alert, normal mood/affect, oriented x 3 Skin: normal color, + pertinent finding ( bilateral lower extremity cellulitis and venous stasis changes, improved from yesterday) Lymphatic: no adenopathy Laboratory Results Date/Time Source Procedure Growth Status 07/31/16 16:04 Blood Blood Culture Pending Received 07/31/16 15:58 Blood Blood Culture Pending Received Last 24 Hours Test 07/31/16 15:20 08/01/16 06:42 08/01/16 08:27 White Blood Count 5.69 K/uL 4.80 K/uL Red Blood Count 3.90 M/uL 3.60 M/uL Hemoglobin 13.2 g/dL 11.9 g/dL Hematocrit 40.2 % 36.9 % Mean Corpuscular Volume 103.1 fL 102.5 fL Mean Corpuscular Hemoglobin 33.8 pg 33.1 pg Mean Corpuscular Hemoglobin Concent 32.8 g/dl 32.2 g/dl Platelet Count 207 K/uL 207 K/uL Mean Platelet Volume 9.9 fL 9.8 fL Neutrophils (%) (Auto) 65.0 % 61.1 % Lymphocytes (%) (Auto) 13.4 % 18.1 % Monocytes (%) (Auto) 16.3 % 14.4 % Eosinophils (%) (Auto) 4.7 % 5.6 % Basophils (%) (Auto) 0.4 % 0.6 % Neutrophils # (Auto) 3.70 K/uL 2.93 K/uL Lymphocytes # (Auto) 0.76 K/uL 0.87 K/uL Monocytes # (Auto) 0.93 K/uL 0.69 K/uL Eosinophils # (Auto) 0.27 K/uL 0.27 K/uL Basophils # (Auto) 0.02 K/uL 0.03 K/uL RDW Standard Deviation 52.5 fL 51.6 fL RDW Coefficient of Variation 13.9 % 13.8 % Immature Granulocyte % (Auto) 0.2 % 0.2 % Immature Granulocyte # (Auto) 0.01 K/uL 0.01 K/uL Erythrocyte Sedimentation Rate 16 mm/hr Sodium Level 139 mmol/L 141 mmol/L Potassium Level 4.2 mmol/L 3.7 mmol/L Chloride Level 101 mmol/L 101 mmol/L Carbon Dioxide Level 34 mmol/L 35 mmol/L Anion Gap 4.0 mmol/L 5.0 mmol/L Blood Urea Nitrogen 10 mg/dl 9 mg/dl Creatinine 0.78 mg/dl 0.83 mg/dl Est Creatinine Clear Calc Drug Dose 51.4 ml/min 48.3 ml/min Estimated GFR () 84.4 78.3 Estimated GFR (Non- 72.8 67.5 BUN/Creatinine Ratio 13.1 11.4 Random Glucose 85 mg/dl 94 mg/dl Calcium Level 9.2 mg/dl 8.6 mg/dl Magnesium Level 2.4 mg/dl 2.2 mg/dl Total Creatine Kinase 84 U/L C-Reactive Protein 0.37 mg/dl Total Bilirubin 0.7 mg/dl Direct Bilirubin 0.2 mg/dl Aspartate Amino Transf (AST/SGOT) 18 U/L Alanine Aminotransferase (ALT/SGPT) 25 U/L Alkaline Phosphatase 72 U/L Total Protein 5.8 gm/dl Albumin 2.9 gm/dl Lactic Acid Level 1.2 mmol/L [~ rep ct add3]] BILATERAL LOWER EXTREMITY VENOUS DOPPLER HISTORY: Pain. Edema. to rule out DVT COMPARISON STUDY: 05/18/2016 FINDINGS: There is normal compressibility, flow, and augmentation within the bilateral lower extremity deep venous systems. IMPRESSION: No DVT within the right or left lower extremity. Electronically signed by: Kehinde Serrano M.D. 07/31/2016 4:51 PM Dictated Date/Time: 07/31/2016 4:51 PM The Assessment & Plan 76-year-old female with recurrent lower extremity cellulitis in the setting of chronic lymphedema and venous stasis disease. Appears to be responding to diuretic therapy and antibiotics. Length of IV antibiotics will be determined by clinical response. We will follow.
[2016-08-01] MEDS: CALCIUM CARBONATE 1250MG TAB PO SCH ×2 (13:04→16:07)
[2016-08-01] MEDS: KETOCONAZOLE 2% CR 15 GM TUBE EXT SCH ×2 (13:05→20:53)
[2016-08-01 16:00] VITALS: O2SAT 90
[2016-08-01] MEDS: DIGOXIN 0.125 MG TAB PO SCH (16:08)
--- NOTE | 2016-08-01 17:39 | Progress Note ---
Subjective Date of Service: August 01, 2016. Subjective Pt evaluation today including: conversation w/ patient, physical exam, chart review, lab review Problem List Medical Problems: (1) Fluid overload Status: Acute (2) Pulmonary vascular congestion Status: Acute Review of Systems Constitutional: No fever ENT: No hearing loss Respiratory: No shortness of breath, No wheezing Cardiac: + edema, No chest pain Abdomen: No diarrhea, No pain Female : No dysuria Neurologic: + weakness Psychiatric: + depression symptoms Heme: + abnormal bleeding/bruising Skin: + rash Objective Vital Signs Date Time Temp Pulse Resp B/P Pulse Ox O2 Delivery O2 Flow Rate FiO2 08/01/16 07:24 36.4 72 24 78/41 98 Nasal Cannula 3.0 83/49 08/01/16 00:30 Nasal Cannula 2.0 08/01/16 00:00 36.6 96 20 103/68 95 2.0 07/31/16 16:16 86 07/31/16 16:10 90 Room Air 07/31/16 14:08 36.7 86 16 114/74 90 Room Air 07/31/16 14:05 36.7 86 16 114/74 90 Room Air Physical Exam General Appearance: WD/WN, no apparent distress Eyes: normal inspection, EOMI ENT: normal ENT inspection, hearing grossly normal Neck: supple Respiratory/Chest: chest non-tender, lungs clear, normal breath sounds, no respiratory distress, no accessory muscle use Cardiovascular: regular rate, rhythm, no edema, no gallop, no JVD, no murmur Abdomen: normal bowel sounds, non tender, soft, no organomegaly, no pulsatile mass Extremities: normal range of motion, non-tender, normal inspection, no pedal edema 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, no motor/sensory deficits, alert, normal mood/affect, oriented x 3 Skin: + pertinent finding (B/L lower ext erythema) Laboratory Results Last 24 Hours Test 07/31/16 15:20 08/01/16 06:42 08/01/16 08:27 White Blood Count 5.69 K/uL 4.80 K/uL Red Blood Count 3.90 M/uL 3.60 M/uL Hemoglobin 13.2 g/dL 11.9 g/dL Hematocrit 40.2 % 36.9 % Mean Corpuscular Volume 103.1 fL 102.5 fL Mean Corpuscular Hemoglobin 33.8 pg 33.1 pg Mean Corpuscular Hemoglobin Concent 32.8 g/dl 32.2 g/dl Platelet Count 207 K/uL 207 K/uL Mean Platelet Volume 9.9 fL 9.8 fL Neutrophils (%) (Auto) 65.0 % 61.1 % Lymphocytes (%) (Auto) 13.4 % 18.1 % Monocytes (%) (Auto) 16.3 % 14.4 % Eosinophils (%) (Auto) 4.7 % 5.6 % Basophils (%) (Auto) 0.4 % 0.6 % Neutrophils # (Auto) 3.70 K/uL 2.93 K/uL Lymphocytes # (Auto) 0.76 K/uL 0.87 K/uL Monocytes # (Auto) 0.93 K/uL 0.69 K/uL Eosinophils # (Auto) 0.27 K/uL 0.27 K/uL Basophils # (Auto) 0.02 K/uL 0.03 K/uL RDW Standard Deviation 52.5 fL 51.6 fL RDW Coefficient of Variation 13.9 % 13.8 % Immature Granulocyte % (Auto) 0.2 % 0.2 % Immature Granulocyte # (Auto) 0.01 K/uL 0.01 K/uL Erythrocyte Sedimentation Rate 16 mm/hr Sodium Level 139 mmol/L 141 mmol/L Potassium Level 4.2 mmol/L 3.7 mmol/L Chloride Level 101 mmol/L 101 mmol/L Carbon Dioxide Level 34 mmol/L 35 mmol/L Anion Gap 4.0 mmol/L 5.0 mmol/L Blood Urea Nitrogen 10 mg/dl 9 mg/dl Creatinine 0.78 mg/dl 0.83 mg/dl Est Creatinine Clear Calc Drug Dose 51.4 ml/min 48.3 ml/min Estimated GFR () 84.4 78.3 Estimated GFR (Non- 72.8 67.5 BUN/Creatinine Ratio 13.1 11.4 Random Glucose 85 mg/dl 94 mg/dl Calcium Level 9.2 mg/dl 8.6 mg/dl Magnesium Level 2.4 mg/dl 2.2 mg/dl Total Creatine Kinase 84 U/L C-Reactive Protein 0.37 mg/dl Total Bilirubin 0.7 mg/dl Direct Bilirubin 0.2 mg/dl Aspartate Amino Transf (AST/SGOT) 18 U/L Alanine Aminotransferase (ALT/SGPT) 25 U/L Alkaline Phosphatase 72 U/L Total Protein 5.8 gm/dl Albumin 2.9 gm/dl Lactic Acid Level 1.2 mmol/L Assessment and Plan 76 yo female admitted directly from Dr. Little's office for worsening b/l LE edema and cellulitis. failed multiple rounds of outpatient therapy. 1. B/L lower ext chronic Cellulitis / Tinea pedis Continue IV pip/tazo and daptomycin per Dr. Little's recommendation. F/U Blood cultures 2. Lower extremity edema: Continue furosemide as tolerated, keeping diastolic pressure >60. B/L lower extremity U/S reviewed and ruled out DVT. Continue taking 20meq Kcl with each dose of furosemide. monitor weight, BP and other vitals for volume status assessment. 3. COPD:not in exacerbation Continue home inhalers and medications. 4. Afib: Continue Pradaxa, metoprolol with holding parameters plus digoxin 5. Hypothyroidism: Continue levothyroxine 25mcg daily 6. Tinea pedis , start ketoconazole cream BID for 8 weeks 7. hypotension, she said she usually run low, will check cortisol level, UA with Ucx, s/p 500cc bolus
[2016-08-01] MEDS: DAPTOmycin IV 250 MG in SODIUM CHLORIDE 0.9% 50ML 50 ML IV SCH (18:09)
[2016-08-01 20:33] LABS: URINE APPEARANCE CLEAR (CLEAR); URINE BILIRUBIN NEG (NEG); URINE COLOR YELLOW; URINE NITRITE NEG (NEG); URINE PH 7.5 (4.5-7.5); URINE SPECIFIC GRAVITY 1.011 (1.000-1.030); UROBILINOGEN NEG (NEG); ZZURINE CULT IF INDIC CATH NO
[2016-08-01 20:34] LABS: MANUAL MICROSCOPIC REQUIRED? NO; REVIEW REQ? NO
[2016-08-01] MEDS: EUCERIN CR 120 GM JAR EXT SCH (20:53)
[2016-08-01] MEDS: SIMVASTATIN 20 MG TAB PO SCH (20:54)
[2016-08-01] MEDS: ALBUT/IPRATROP 3MG/0.5MG NEB 3 ML VIAL INH PRN (22:15)
[2016-08-01 22:16] VITALS: PULSE 88; O2SAT 95
[2016-08-02] VITALS: BP 102/61; PULSE 85; TEMP 36.6; O2SAT 95
[2016-08-02] MEDS: PIPERACILL/TAZOBAC IV 3.375 GM in DEXTROSE 5% 100ML IV SCH ×3 (06:17→21:46)
[2016-08-02] MEDS: LEVOTHYROXINE 25 MCG TAB PO SCH (06:17)
[2016-08-02 07:06] LABS: BASO % 0.4 %; BASO ABS # 0.02 K/uL (0-0.2); COMPLETE YES; EOS % 4.7 %; HEMATOCRIT 39.5 % (37-47); IG% 0.2 %; LYMPH % 12.4 %; LYMPH ABS # 0.68 K/uL (1.2-3.4); MEAN CELL VOLUME 103.7 fL (80-100); MEAN CORPUSCULAR HEMOGLOBIN 32.8 pg (25-34); MEAN CORPUSCULAR HGB CONC 31.6 g/dl (32-36); MEAN PLATELET VOLUME 9.4 fL (7.4-10.4); NEUT % 68.3 %; PLATELET COUNT 194 K/uL (130-400); RED BLOOD COUNT 3.81 M/uL (4.2-5.4)
[2016-08-02 07:36] VITALS: BP 94/61; PULSE 77; TEMP 36.4; O2SAT 97
[2016-08-02 07:48] LABS: CALCIUM 8.7 mg/dl (8.5-10.1); CREATININE 0.93 mg/dl (0.60-1.20); MAGNESIUM 2.3 mg/dl (1.8-2.4); POTASSIUM 3.9 mmol/L (3.5-5.1)
[2016-08-02 07:49] LABS: ALB/GLOB RATIO 0.9 (0.9-2); PHOSPHORUS 2.9 mg/dl (2.5-4.9)
[2016-08-02] MEDS: POTASSIUM CHLORIDE 20 MEQ TABCR PO SCH ×2 (08:00→08:23)
[2016-08-02] MEDS: METOPROLOL SUCC 25MG EXT REL TAB PO SCH (08:00)
[2016-08-02] MEDS: IPRATROPIUM BROMIDE/ALBUTEROL respimat INH INH SCH ×4 (08:21→20:50)
[2016-08-02] MEDS: EUCERIN CR 120 GM JAR EXT SCH ×2 (08:21→20:52)
[2016-08-02] MEDS: FLUTICASONE/SALMETEROL 250/50 (ADVAIR) 14 PUFF/1 INHALER INH SCH ×2 (08:21→20:49)
[2016-08-02] MEDS: ASCORBIC ACID 500 MG TAB PO SCH (08:22)
[2016-08-02] MEDS: DABIGATRAN ELEXILATE 75 MG CAP PO SCH ×2 (08:22→20:50)
[2016-08-02] MEDS: LACTOBACILLUS ACIDOPHILUS (FLORANEX) TAB PO SCH (08:22)
[2016-08-02] MEDS: MULTIVITAMIN TAB PO SCH (08:22)
[2016-08-02] MEDS: KETOCONAZOLE 2% CR 15 GM TUBE EXT SCH ×2 (08:22→20:52)
[2016-08-02] MEDS: MAGNESIUM OXIDE 400 MG TAB PO SCH (08:23)
[2016-08-02] MEDS: CALCIUM CARBONATE 1250MG TAB PO SCH ×2 (13:53→16:38)
[2016-08-02 14:37] VITALS: BP 93/60; PULSE 72; TEMP 36.7; O2SAT 97
[2016-08-02] MEDS: DIGOXIN 0.125 MG TAB PO SCH (15:40)
[2016-08-02] MEDS: DAPTOmycin IV 250 MG in SODIUM CHLORIDE 0.9% 50ML 50 ML IV SCH (15:42)
[2016-08-02] MEDS: ACETAMINOPHEN 325 MG TAB PO PRN (16:41)
--- NOTE | 2016-08-02 18:40 | Progress Note ---
Subjective Date of Service: August 02, 2016. Subjective Pt evaluation today including: conversation w/ patient, physical exam, chart review, lab review, review of inpatient medication list Problem List Medical Problems: (1) Fluid overload Status: Acute (2) Pulmonary vascular congestion Status: Acute Review of Systems Constitutional: No chills, No fatigue, No fever, No problem reported, No see HPI, No sweats, No weakness, No weight loss Eyes: No diplopia, No discharge, No eye pain, No problem reported, No redness, No see HPI, No worsening of vision ENT: No dental problems, No hearing loss, No nasal symptoms, No problem reported, No see HPI, No sore throat, No tinnitus, No trouble swallowing, No unusual epistaxis Respiratory: No cough, No dyspnea at rest, No dyspnea on exertion, No hemoptysis, No problem reported, No see HPI, No shortness of breath, No sputum, No wheezing Cardiac: No PND, No chest pain, No claudication, No edema, No orthopnea, No palpitations, No problem reported, No see HPI Abdomen: No GI bleeding, No constipation, No diarrhea, No nausea, No pain, No problem reported, No see HPI, No vomiting Musculoskeletal: No calf pain, No joint pain, No muscle pain, No problem reported, No see HPI, No swelling Female : No abnormal vaginal bleeding, No dysuria, No hematuria, No incontinence, No problem reported, No see HPI, No urinary frequency, No vaginal discharge Neurologic: No balance problems, No memory loss, No numbness/tingling, No paralysis, No problem reported, No see HPI, No vertigo, No weakness Psychiatric: No anhedonism, No anxiety, No depression symptoms, No insomnia, No problem reported, No see HPI, No substance abuse Heme: No abnormal bleeding/bruising, No clotting problems, No night sweats, No problem reported, No see HPI, No swollen lymph nodes Endo: No excessive thirst, No excessive urination, No fatigue, No problem reported, No see HPI Skin: + rash Medications Current Inpatient Medications Medications (Trade) Dose Ordered Sig/Lori Route Start Time Stop Time Status Last Admin Dose Admin Acetaminophen (Tylenol Tab) 650 mg Q4H PRN PO 07/31/16 14:45 08/30/16 14:44 08/02/16 16:41 650 MG Al Hydrox/Mg Hydrox/Simethicone (Maalox Max Susp) 15 ml Q4H PRN PO 07/31/16 14:45 08/30/16 14:44 Magnesium Hydroxide (Milk Of Magnesia Susp) 30 ml Q6H PRN PO 07/31/16 14:45 08/30/16 14:44 Polyethylene (Miralax Powder Packet) 17 gm DAILY PRN PO 07/31/16 14:45 08/30/16 14:44 Ondansetron HCl (Zofran Inj) 4 mg Q6H PRN IV 07/31/16 14:45 08/30/16 14:44 Ascorbic Acid (Vitamin C Tab) 500 mg DAILY PO 08/01/16 08:00 08/31/16 07:59 08/02/16 08:22 500 MG Dabigatran (Pradaxa Cap) 75 mg BID PO 07/31/16 20:00 08/30/16 19:59 08/02/16 08:22 75 MG Digoxin (Lanoxin Tab) 0.125 mg DAILY@1600 PO 07/31/16 16:00 08/30/16 15:59 08/02/16 15:40 0.125 MG Salmeterol Xinafoate/ Fluticasone (Advair Diskus 250/50 Inh) 1 puff BID INH 07/31/16 20:00 08/30/16 19:59 08/02/16 08:21 1 PUFF Furosemide (Lasix Tab) 40 mg DAILY PRN PO 07/31/16 14:45 08/30/16 14:44 07/31/16 19:12 40 MG Albuterol/ Ipratropium (Combivent Respimat Inh) 1 puffs QID INH 07/31/16 17:00 08/30/16 16:59 08/02/16 16:36 1 PUFFS Lactobacillus Acidophilus (Floranex Tab) 1 tab QAM PO 08/01/16 08:00 08/31/16 07:59 08/02/16 08:22 1 TAB Levothyroxine Sodium (Synthroid Tab) 25 mcg DAILYBB PO 08/01/16 06:30 08/31/16 06:29 08/02/16 06:17 25 MCG Magnesium Oxide (Mag-Ox Tab) 400 mg DAILY PO 08/01/16 08:00 6/8/17 07:59 08/02/16 08:23 400 MG Metoprolol Succinate (Toprol Xl Tab) 12.5 mg QAM PO 08/01/16 08:00 08/31/16 07:59 Multivitamins (Multivitamin Tab) 1 tab DAILY PO 08/01/16 08:00 08/31/16 07:59 08/02/16 08:22 1 TAB Nitroglycerin (Nitrostat Tab) 0.4 mg UD PRN UT 07/31/16 14:45 08/30/16 14:44 Potassium Chloride (Klor-Con Tab) 20 meq DAILY PO 08/01/16 08:00 08/31/16 07:59 08/01/16 08:12 20 MEQ Simvastatin (Zocor Tab) 20 mg QPM PO 07/31/16 21:00 08/30/16 20:59 08/01/16 20:54 20 MG Calcium Carbonate (oS-Carlos 500 TAB) 1,250 mg DAILY@1200,1700 PO 07/31/16 17:00 08/30/16 16:59 08/02/16 16:38 1,250 MG Daptomycin (Consult) 1 ea UD PRN N/A 07/31/16 15:30 08/30/16 15:29 Piperacillin Sod/ Tazobactam Sod 1 ea 1 ea UD PRN N/A 07/31/16 15:30 08/30/16 15:29 Piperacillin Sod/ Tazobactam Sod 3.375 gm/Dextrose 115 ml @ 28.75 mls/ hr Q8 IV 07/31/16 22:00 08/10/16 21:59 08/02/16 14:47 28.75 MLS/HR Daptomycin/Sodium Chloride (Cubicin IV/Nss 50ml) 55 ml @ 120 mls/hr DAILY@1600 IV 08/01/16 16:00 08/10/16 15:59 08/02/16 15:42 120 MLS/HR Ketoconazole (Nizoral 2% Crm) 1 appln Q12 EXT 08/01/16 11:00 09/25/16 23:59 08/02/16 08:22 1 APPLN Multi-Ingredient Ointment (Eucerin Unscented Cr) 1 appln BID EXT 08/01/16 20:00 08/31/16 19:59 08/02/16 08:21 1 APPLN Albuterol/ Ipratropium (Duoneb) 3 ml Q4H PRN INH 08/01/16 22:00 08/31/16 21:59 08/01/16 22:15 3 ML Objective Vital Signs Date Time Temp Pulse Resp B/P Pulse Ox O2 Delivery O2 Flow Rate FiO2 08/02/16 16:49 Nasal Cannula 2.0 08/02/16 15:40 72 08/02/16 14:37 36.7 72 20 93/60 97 Nasal Cannula 3.0 08/02/16 08:00 Nasal Cannula 2.0 08/02/16 07:36 36.4 77 20 94/61 97 Nasal Cannula 2.0 08/02/16 00:40 Room Air 08/02/16 00:00 36.6 85 20 102/61 95 2.0 08/01/16 22:16 88 18 95 Nasal Cannula 2.0 Physical Exam General Appearance: no apparent distress Eyes: normal inspection, EOMI ENT: normal ENT inspection, hearing grossly normal Neck: supple Respiratory/Chest: chest non-tender, lungs clear, normal breath sounds, no respiratory distress Cardiovascular: regular rate, rhythm, no edema, no gallop, no JVD Abdomen: normal bowel sounds, non tender, soft, no organomegaly Extremities: normal range of motion, non-tender 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, no motor/sensory deficits, alert, normal mood/affect, oriented x 3 Skin: + pertinent finding (B/L lower Ext erythema) Laboratory Results Last 24 Hours Test 08/01/16 20:10 08/02/16 06:59 Urine Color YELLOW Urine Appearance CLEAR Urine pH 7.5 Urine Specific [place] 1.011 Urine Protein NEG Urine Glucose (UA) NEG Urine Ketones NEG Urine Occult Blood NEG Urine Nitrite NEG Urine Bilirubin NEG Urine Urobilinogen NEG Urine Leukocyte Esterase NEG White Blood Count 5.50 K/uL Red Blood Count 3.81 M/uL Hemoglobin 12.5 g/dL Hematocrit 39.5 % Mean Corpuscular Volume 103.7 fL Mean Corpuscular Hemoglobin 32.8 pg Mean Corpuscular Hemoglobin Concent 31.6 g/dl Platelet Count 194 K/uL Mean Platelet Volume 9.4 fL Neutrophils (%) (Auto) 68.3 % Lymphocytes (%) (Auto) 12.4 % Monocytes (%) (Auto) 14.0 % Eosinophils (%) (Auto) 4.7 % Basophils (%) (Auto) 0.4 % Neutrophils # (Auto) 3.76 K/uL Lymphocytes # (Auto) 0.68 K/uL Monocytes # (Auto) 0.77 K/uL Eosinophils # (Auto) 0.26 K/uL Basophils # (Auto) 0.02 K/uL RDW Standard Deviation 51.6 fL RDW Coefficient of Variation 13.7 % Immature Granulocyte % (Auto) 0.2 % Immature Granulocyte # (Auto) 0.01 K/uL Sodium Level 141 mmol/L Potassium Level 3.9 mmol/L Chloride Level 102 mmol/L Carbon Dioxide Level 36 mmol/L Anion Gap 3.0 mmol/L Blood Urea Nitrogen 11 mg/dl Creatinine 0.93 mg/dl Est Creatinine Clear Calc Drug Dose 43.1 ml/min Estimated GFR () 68.2 Estimated GFR (Non- 58.9 BUN/Creatinine Ratio 12.0 Random Glucose 89 mg/dl Calcium Level 8.7 mg/dl Phosphorus Level 2.9 mg/dl Magnesium Level 2.3 mg/dl Total Bilirubin 0.7 mg/dl Aspartate Amino Transf (AST/SGOT) 23 U/L Alanine Aminotransferase (ALT/SGPT) 25 U/L Alkaline Phosphatase 77 U/L Total Protein 6.2 gm/dl Albumin 2.9 gm/dl Globulin 3.3 gm/dl Albumin/Globulin Ratio 0.9 Assessment and Plan 76 yo female admitted directly from Dr. Little's office for worsening b/l LE edema and cellulitis. failed multiple rounds of outpatient therapy. 1. B/L lower ext chronic Cellulitis / Tinea pedis Continue IV pip/tazo and daptomycin per Dr. Little's recommendation. F/U Blood cultures significant improvement in her redness 2. Lower extremity edema: Continue furosemide as tolerated, keeping diastolic pressure >60. she was on 40mg prn swelling, switched her to 20mg daily B/L lower extremity U/S reviewed and ruled out DVT. Continue taking 20meq Kcl with each dose of furosemide. monitor weight, BP and other vitals for volume status assessment. 3. COPD:not in exacerbation Continue home inhalers and medications. 4. Afib: Continue Pradaxa, metoprolol with holding parameters plus digoxin 5. Hypothyroidism: Continue levothyroxine 25mcg daily 6. Tinea pedis , start ketoconazole cream BID for 8 weeks 7. hypotension, she said she usually run low, will check cortisol level, UA with Ucx, s/p 500cc bolus
--- NOTE | 2016-08-02 19:17 | Infectious Disease Progress Nt ---
Progress Note Date of Service August 02, 2016. 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 Less pain in her legs. Swelling decreased. Cultures remain negative to date. No evidence of DVT on ultrasound. All Other Systems: Reviewed and Negative Medications Current Inpatient Medications Medications (Trade) Dose Ordered Sig/Lori Route Start Time Stop Time Status Last Admin Dose Admin Acetaminophen (Tylenol Tab) 650 mg Q4H PRN PO 07/31/16 14:45 08/30/16 14:44 08/02/16 16:41 650 MG Al Hydrox/Mg Hydrox/Simethicone (Maalox Max Susp) 15 ml Q4H PRN PO 07/31/16 14:45 08/30/16 14:44 Magnesium Hydroxide (Milk Of Magnesia Susp) 30 ml Q6H PRN PO 07/31/16 14:45 08/30/16 14:44 Polyethylene (Miralax Powder Packet) 17 gm DAILY PRN PO 07/31/16 14:45 08/30/16 14:44 Ondansetron HCl (Zofran Inj) 4 mg Q6H PRN IV 07/31/16 14:45 08/30/16 14:44 Ascorbic Acid (Vitamin C Tab) 500 mg DAILY PO 08/01/16 08:00 08/31/16 07:59 08/02/16 08:22 500 MG Dabigatran (Pradaxa Cap) 75 mg BID PO 07/31/16 20:00 08/30/16 19:59 08/02/16 08:22 75 MG Digoxin (Lanoxin Tab) 0.125 mg DAILY@1600 PO 07/31/16 16:00 08/30/16 15:59 08/02/16 15:40 0.125 MG Salmeterol Xinafoate/ Fluticasone (Advair Diskus 250/50 Inh) 1 puff BID INH 07/31/16 20:00 08/30/16 19:59 08/02/16 08:21 1 PUFF Albuterol/ Ipratropium (Combivent Respimat Inh) 1 puffs QID INH 07/31/16 17:00 08/30/16 16:59 08/02/16 16:36 1 PUFFS Lactobacillus Acidophilus (Floranex Tab) 1 tab QAM PO 08/01/16 08:00 08/31/16 07:59 08/02/16 08:22 1 TAB Levothyroxine Sodium (Synthroid Tab) 25 mcg DAILYBB PO 08/01/16 06:30 08/31/16 06:29 08/02/16 06:17 25 MCG Magnesium Oxide (Mag-Ox Tab) 400 mg DAILY PO 08/01/16 08:00 08/31/16 07:59 08/02/16 08:23 400 MG Metoprolol Succinate (Toprol Xl Tab) 12.5 mg QAM PO 08/01/16 08:00 08/31/16 07:59 Multivitamins (Multivitamin Tab) 1 tab DAILY PO 08/01/16 08:00 08/31/16 07:59 08/02/16 08:22 1 TAB Nitroglycerin (Nitrostat Tab) 0.4 mg UD PRN UT 07/31/16 14:45 08/30/16 14:44 Potassium Chloride (Klor-Con Tab) 20 meq DAILY PO 08/01/16 08:00 08/31/16 07:59 08/01/16 08:12 20 MEQ Simvastatin (Zocor Tab) 20 mg QPM PO 07/31/16 21:00 08/30/16 20:59 08/01/16 20:54 20 MG Calcium Carbonate (oS-Carlos 500 TAB) 1,250 mg DAILY@1200,1700 PO 07/31/16 17:00 08/30/16 16:59 08/02/16 16:38 1,250 MG Daptomycin (Consult) 1 ea UD PRN N/A 07/31/16 15:30 08/30/16 15:29 Piperacillin Sod/ Tazobactam Sod 1 ea 1 ea UD PRN N/A 07/31/16 15:30 08/30/16 15:29 Piperacillin Sod/ Tazobactam Sod 3.375 gm/Dextrose 115 ml @ 28.75 mls/ hr Q8 IV 07/31/16 22:00 08/10/16 21:59 08/02/16 14:47 28.75 MLS/HR Daptomycin/Sodium Chloride (Cubicin IV/Nss 50ml) 55 ml @ 120 mls/hr DAILY@1600 IV 08/01/16 16:00 08/10/16 15:59 08/02/16 15:42 120 MLS/HR Ketoconazole (Nizoral 2% Crm) 1 appln Q12 EXT 08/01/16 11:00 09/25/16 23:59 08/02/16 08:22 1 APPLN Multi-Ingredient Ointment (Eucerin Unscented Cr) 1 appln BID EXT 08/01/16 20:00 08/31/16 19:59 08/02/16 08:21 1 APPLN Albuterol/ Ipratropium (Duoneb) 3 ml Q4H PRN INH 08/01/16 22:00 08/31/16 21:59 08/01/16 22:15 3 ML Furosemide (Lasix Tab) 20 mg QAM PO 08/03/16 08:00 09/02/16 07:59 Objective Vital Signs Date Time Temp Pulse Resp B/P Pulse Ox O2 Delivery O2 Flow Rate FiO2 08/02/16 16:49 Nasal Cannula 2.0 08/02/16 15:40 72 08/02/16 14:37 36.7 72 20 93/60 97 Nasal Cannula 3.0 08/02/16 08:00 Nasal Cannula 2.0 08/02/16 07:36 36.4 77 20 94/61 97 Nasal Cannula 2.0 08/02/16 00:40 Room Air 08/02/16 00:00 36.6 85 20 102/61 95 2.0 08/01/16 22:16 88 18 95 Nasal Cannula 2.0 Physical Exam General Appearance: WD/WN, no apparent distress Eyes: normal inspection, sclerae normal ENT: normal ENT inspection, pharynx normal Neck: supple, no adenopathy, trachea midline Respiratory/Chest: chest non-tender, lungs clear, normal breath sounds, no respiratory distress Cardiovascular: regular rate, rhythm, no gallop, no murmur Abdomen: normal bowel sounds, non tender, soft, no organomegaly Extremities: + inflammation, + swelling Neurologic/Psychiatric: alert, oriented x 3 Skin: normal color, no rash, + pertinent finding ( Improving lower extremity cellulitis) Lymphatic: no adenopathy Laboratory Results RUN DATE: 08/02/16 [facility] PAGE 1 RUN TIME: 07 Specimen Inquiry PATIENT: GUERDA RODRIGUEZ LOC: Jose RamonMS4W U # : [id number] AGE/SX: 76/F ROOM: [facility] REG : 07/31/[address]: Mann Alejandro : 1940 BED: 2 DIS : STATUS: ADM IN TLOC: SPEC #: [id number] JASPREET: 07/31/16 STATUS: RES REQ #: [id number] RECD: 07/31/[address]: Jerry Peoples MD , PhD SOURCE: BLOOD ENTR: 07/31/16-[address] [facility] [address]: Kwaku Little [facility] Crow Marcial, D.O.Int.Med. ORDERED: BLOOD CULTURE Procedure Result Verified Site BLD CULT Preliminary 08/02/16-728 NO GROWTH TO DATE. Last 24 Hours Test 08/01/16 20:10 08/02/16 06:59 Urine Color YELLOW Urine Appearance CLEAR Urine pH 7.5 Urine Specific [place] 1.011 Urine Protein NEG Urine Glucose (UA) NEG Urine Ketones NEG Urine Occult Blood NEG Urine Nitrite NEG Urine Bilirubin NEG Urine Urobilinogen NEG Urine Leukocyte Esterase NEG White Blood Count 5.50 K/uL Red Blood Count 3.81 M/uL Hemoglobin 12.5 g/dL Hematocrit 39.5 % Mean Corpuscular Volume 103.7 fL Mean Corpuscular Hemoglobin 32.8 pg Mean Corpuscular Hemoglobin Concent 31.6 g/dl Platelet Count 194 K/uL Mean Platelet Volume 9.4 fL Neutrophils (%) (Auto) 68.3 % Lymphocytes (%) (Auto) 12.4 % Monocytes (%) (Auto) 14.0 % Eosinophils (%) (Auto) 4.7 % Basophils (%) (Auto) 0.4 % Neutrophils # (Auto) 3.76 K/uL Lymphocytes # (Auto) 0.68 K/uL Monocytes # (Auto) 0.77 K/uL Eosinophils # (Auto) 0.26 K/uL Basophils # (Auto) 0.02 K/uL RDW Standard Deviation 51.6 fL RDW Coefficient of Variation 13.7 % Immature Granulocyte % (Auto) 0.2 % Immature Granulocyte # (Auto) 0.01 K/uL Sodium Level 141 mmol/L Potassium Level 3.9 mmol/L Chloride Level 102 mmol/L Carbon Dioxide Level 36 mmol/L Anion Gap 3.0 mmol/L Blood Urea Nitrogen 11 mg/dl Creatinine 0.93 mg/dl Est Creatinine Clear Calc Drug Dose 43.1 ml/min Estimated GFR () 68.2 Estimated GFR (Non- 58.9 BUN/Creatinine Ratio 12.0 Random Glucose 89 mg/dl Calcium Level 8.7 mg/dl Phosphorus Level 2.9 mg/dl Magnesium Level 2.3 mg/dl Total Bilirubin 0.7 mg/dl Aspartate Amino Transf (AST/SGOT) 23 U/L Alanine Aminotransferase (ALT/SGPT) 25 U/L Alkaline Phosphatase 77 U/L Total Protein 6.2 gm/dl Albumin 2.9 gm/dl Globulin 3.3 gm/dl Albumin/Globulin Ratio 0.9 Assessment and Plan 76-year-old female with recurrent lower extremity cellulitis in the setting of chronic lymphedema and venous stasis disease. Appears to be responding to diuretic therapy and antibiotics. Hopefully will be able to transition to oral antibiotics in the next day or so. Will discuss with all involved.
[2016-08-02 19:50] VITALS: PULSE 72; O2SAT 96
[2016-08-02] MEDS: ALBUT/IPRATROP 3MG/0.5MG NEB 3 ML VIAL INH PRN (19:50)
[2016-08-02] MEDS: SIMVASTATIN 20 MG TAB PO SCH (20:51)
[2016-08-03] VITALS (10 sets, daily range): BP systolic 94–112; BP diastolic 56–71; PULSE 65–116; TEMP 36.5–36.9; O2SAT 92–98
[2016-08-03] MEDS: ACETAMINOPHEN 325 MG TAB PO PRN (01:24)
[2016-08-03] MEDS: PIPERACILL/TAZOBAC IV 3.375 GM in DEXTROSE 5% 100ML IV SCH (05:55)
[2016-08-03] MEDS: LEVOTHYROXINE 25 MCG TAB PO SCH (05:56)
[2016-08-03] MEDS: FUROSEMIDE 20 MG TAB PO SCH (08:00)
[2016-08-03] MEDS: FLUTICASONE/SALMETEROL 250/50 (ADVAIR) 14 PUFF/1 INHALER INH SCH ×2 (08:15→20:10)
[2016-08-03] MEDS: IPRATROPIUM BROMIDE/ALBUTEROL respimat INH INH SCH ×4 (08:15→20:10)
[2016-08-03] MEDS: LACTOBACILLUS ACIDOPHILUS (FLORANEX) TAB PO SCH (08:15)
[2016-08-03] MEDS: DABIGATRAN ELEXILATE 75 MG CAP PO SCH ×2 (08:16→20:11)
[2016-08-03] MEDS: POTASSIUM CHLORIDE 20 MEQ TABCR PO SCH (08:16)
[2016-08-03] MEDS: MULTIVITAMIN TAB PO SCH (08:16)
[2016-08-03] MEDS: METOPROLOL SUCC 25MG EXT REL TAB PO SCH (08:16)
[2016-08-03] MEDS: MAGNESIUM OXIDE 400 MG TAB PO SCH (08:16)
[2016-08-03] MEDS: KETOCONAZOLE 2% CR 15 GM TUBE EXT SCH ×2 (08:17→20:11)
[2016-08-03] MEDS: ASCORBIC ACID 500 MG TAB PO SCH (08:17)
[2016-08-03] MEDS: EUCERIN CR 120 GM JAR EXT SCH ×2 (08:18→20:10)
[2016-08-03 08:37] LABS: BASO % 0.5 %; BASO ABS # 0.03 K/uL (0-0.2); COMPLETE YES; EOS % 4.1 %; LYMPH % 7.3 %; LYMPH ABS # 0.46 K/uL (1.2-3.4); MEAN CELL VOLUME 105.4 fL (80-100); MEAN CORPUSCULAR HEMOGLOBIN 32.4 pg (25-34); MEAN CORPUSCULAR HGB CONC 30.7 g/dl (32-36); MONO % 13.7 %; NEUT % 74.4 %; PLATELET COUNT 193 K/uL (130-400); RED BLOOD COUNT 3.89 M/uL (4.2-5.4); WHITE BLOOD COUNT 6.33 K/uL (4.8-10.8)
[2016-08-03 09:09] LABS: BUN/CREATININE RATIO 13.9 (10-20); CREATININE 0.74 mg/dl (0.60-1.20); MAGNESIUM 2.4 mg/dl (1.8-2.4); POTASSIUM 4.1 mmol/L (3.5-5.1)
[2016-08-03 09:11] LABS: PHOSPHORUS 3.2 mg/dl (2.5-4.9)
[2016-08-03 09:22] LABS: CALCIUM 9.3 mg/dl (8.5-10.1)
[2016-08-03] MEDS: ALBUT/IPRATROP 3MG/0.5MG NEB 3 ML VIAL INH PRN ×3 (11:25→21:44)
[2016-08-03] MEDS: CALCIUM CARBONATE 1250MG TAB PO SCH ×2 (12:48→18:18)
--- NOTE | 2016-08-03 14:06 | DIAGNOSTIC IMAGING REPORT ---
CHEST 2 VIEWS ROUTINE CLINICAL HISTORY: SOB dyspnea COMPARISON STUDY: 08/01/2016 FINDINGS: Mild stable cardiomegaly. Parenchymal infiltrate left base. Suboptimal visibility left hemidiaphragm. IMPRESSION: Infiltrate left base. Electronically signed by: Kehinde Serrano M.D. 08/03/2016 2:04 PM Dictated Date/Time: 08/03/2016 2:04 PM
--- NOTE | 2016-08-03 14:20 | Hospitalist Progress Note ---
Hospitalist Progress Note Date of Service August 03, 2016. (Luna Reyes ., BLUEC) Subjective Pt evaluation today including: conversation w/ patient, physical exam, chart review, lab review, review of inpatient medication list Pain: None PO Intake: Tolerating PO diet Voiding: no voiding problems The patient complains of shortness of breath, dyspnea on exertion, weakness and fatigue. She has had a cough for the last two days that has not really been productive except sometimes after her breathing treatments. She also complains of hoarseness. She states that the swelling and redness in her legs have improved. She currently complains of a 1/10 dull pain in her legs bilaterally, although at times the pain becomes very sharp and intense. The pain is worse with weightbearing, and she states that her right leg gets stiff when trying to walk. She does complain of some tingling in her legs. The patient denies fevers, chills, sweats, chest pain, palpitations, claudication, wheezing, nausea , vomiting, abdominal pain, dysuria, hematuria, urinary retention, paralysis. Additional Comments: See HPI for pertinent positives and negatives. All other systems reviewed and negative. (Luna Reyes ., VIKASH-C) Objective Vital Signs Date Time Temp Pulse Resp B/P Pulse Ox O2 Delivery O2 Flow Rate FiO2 08/03/16 11:25 65 18 98 Nasal Cannula 2.0 08/03/16 11:13 Nasal Cannula 2.0 08/03/16 07:52 36.5 86 18 106/70 97 Nasal Cannula 2.0 08/03/16 00:00 36.5 83 20 94/56 98 2.0 08/03/16 00:00 Nasal Cannula 2.0 08/02/16 19:50 72 18 96 Nasal Cannula 2.0 08/02/16 16:49 Nasal Cannula 2.0 08/02/16 15:40 72 08/02/16 14:37 36.7 72 20 93/60 97 Nasal Cannula 3.0 (Luna Reyes ., BLUEC) Physical Exam Notes: General appearance: Well-developed, well-nourished, no apparent distress Head: Normocephalic, atraumatic Eyes: Normal inspection, PERRL, EOMI ENT: Normal ENT inspection, hearing grossly normal, pharynx normal Neck: Supple, no JVD, trachea midline Respiratory/Chest: +Wheezing. Decreased lung sounds. Normal breath sounds, no respiratory distress Cardiovascular: +Irregularly irregular. No gallop, no murmur Abdomen/GI: Normal bowel sounds, non-tender, soft Extremities/Musculoskeletal: +Erythema bilaterally from feet to knees. Legs TTP up to distal posterior thighs. 2+ pitting edema. Right leg warm to the touch. Neurological/Psych: Alert, normal mood/affect, oriented x 3 Skin: Normal color, warm/dry, no rash (Luna Reyes, VIKASH-C) Laboratory Results Last 24 Hours Test 08/03/16 07:49 08/03/16 11:25 White Blood Count 6.33 K/uL Red Blood Count 3.89 M/uL Hemoglobin 12.6 g/dL Hematocrit 41.0 % Mean Corpuscular Volume 105.4 fL Mean Corpuscular Hemoglobin 32.4 pg Mean Corpuscular Hemoglobin Concent 30.7 g/dl Platelet Count 193 K/uL Mean Platelet Volume 10.0 fL Neutrophils (%) (Auto) 74.4 % Lymphocytes (%) (Auto) 7.3 % Monocytes (%) (Auto) 13.7 % Eosinophils (%) (Auto) 4.1 % Basophils (%) (Auto) 0.5 % Neutrophils # (Auto) 4.71 K/uL Lymphocytes # (Auto) 0.46 K/uL Monocytes # (Auto) 0.87 K/uL Eosinophils # (Auto) 0.26 K/uL Basophils # (Auto) 0.03 K/uL RDW Standard Deviation 52.9 fL RDW Coefficient of Variation 13.8 % Immature Granulocyte % (Auto) 0.0 % Immature Granulocyte # (Auto) 0.00 K/uL Sodium Level 142 mmol/L Potassium Level 4.1 mmol/L Chloride Level 104 mmol/L Carbon Dioxide Level 34 mmol/L Anion Gap 4.0 mmol/L Blood Urea Nitrogen 10 mg/dl Creatinine 0.74 mg/dl Est Creatinine Clear Calc Drug Dose 54.1 ml/min Estimated GFR () 89.9 Estimated GFR (Non- 77.6 BUN/Creatinine Ratio 13.9 Random Glucose 83 mg/dl Calcium Level 9.3 mg/dl Phosphorus Level 3.2 mg/dl Magnesium Level 2.4 mg/dl Total Bilirubin 0.6 mg/dl Aspartate Amino Transf (AST/SGOT) 24 U/L Alanine Aminotransferase (ALT/SGPT) 26 U/L Alkaline Phosphatase 76 U/L Total Protein 6.2 gm/dl Albumin 3.1 gm/dl Globulin 3.1 gm/dl Albumin/Globulin Ratio 1.0 (Luan Reyes ., PA-C) Assessment and Plan 76 yo female with a history of afib, chronic diastolic CHF, COPD, HLD, hypothyroidism, and GERD who was admitted directly from Dr. Little's office for worsening b/l LE edema and cellulitis. Failed multiple rounds of outpatient therapy. B/L lower ext Cellulitis / Tinea pedis--improving -Admit to med/surg -ID consulted, appreciate recs: recommend CXR due to worsening SOB. Continue IV abx for now. -Continue IV Zosyn and daptomycin -BCX NGTD x 2 -Dopplers neg for DVT -Ketoconazole BID Chronic diastolic CHF/lower extremity edema--stable -Continue Lasix 20 mg PO qam -KCl 20 mEq PO qd -Add daily weights -Monitor I's & O's SOB with cough -Check CXR today -Mucinex 600 mg PO BID -Incentive spirometry -Continue Duonebs prn Hypotension--stable/resolved -Random cortisol WNL -Continue to monitor. Metoprolol with hold parameters. A-fib--stable -Continue digoxin 0.125 mg PO qd, Toprol 12.5 mg PO qd, Pradaxa 75 mg PO BID COPD--stable. Not in exacerbation -Continue Combivent HLD -Continue simvastatin 20 mg PO qd Hypothyroidism -Continue levothyroxine 25 mcg PO qd DVT prophylaxis -Pradaxa Code Status -Level I, FULL RESUSCITATION STATUS (Luna Reyes ., PA-C) I agree with PA assessment and plan and have seen and examined pt myself Resting comfortably in bed Dry cough noted Diminsihed lung sounds States leg pain less and noted less redness and swelling Cont IV antibx GEt CXR Appreciate ID recs (Brayan Watson, D.OAliyah)
[2016-08-03] MEDS: DAPTOmycin IV 250 MG in SODIUM CHLORIDE 0.9% 50ML 50 ML IV SCH (15:26)
[2016-08-03] MEDS: DIGOXIN 0.125 MG TAB PO SCH (15:27)
[2016-08-03] MEDS ORDERED: NITROGLYCERIN 0.4 MG SL PER TAB CHARGE SL PRN (17:00)
[2016-08-03] MEDS: SIMVASTATIN 20 MG TAB PO SCH (20:11)
[2016-08-03] MEDS: CIPROFLOXACIN 500 MG TAB PO SCH (20:12)
[2016-08-03] MEDS: GUAIFENESIN 600 MG TABCR PO SCH (20:13)
--- NOTE | 2016-08-03 21:56 | DIAGNOSTIC IMAGING REPORT ---
CHEST ONE VIEW PORTABLE CLINICAL HISTORY: Shortness of breath. COMPARISON STUDY: Chest radiograph performed earlier today. FINDINGS: Lung volumes are normal. There are trace bilateral pleural effusions. There is no pneumothorax. Frankie B lines are noted and are indicative of interstitial pulmonary edema. Hazy bibasilar opacities favor atelectasis. Mild cardiomegaly is unchanged. IMPRESSION: Mild interstitial pulmonary edema and trace bilateral pleural effusions. Electronically signed by: Phil Solorzano M.D. 08/03/2016 9:55 PM Dictated Date/Time: 08/03/2016 9:53 PM
[2016-08-03] MEDS ORDERED: METOPROLOL TARTRATE 1 MG/ML VIAL IV STA (22:45)
[2016-08-03] MEDS ORDERED: POTASSIUM CHLORIDE 10 MEQ TABCR PO STA (23:12)
[2016-08-03] MEDS ORDERED: FUROSEMIDE INJ 20 MG in SYRINGE 0 ML IV ONE (23:15)
[2016-08-03] MEDS ORDERED: DIGOXIN IV 250 MCG in SYRINGE 9 ML IV ONE (23:30)
[2016-08-04] VITALS (7 sets, daily range): BP systolic 84–106; BP diastolic 48–68; PULSE 74–95; TEMP 36.5–37.2; O2SAT 92–97
[2016-08-04] MEDS: ACETAMINOPHEN 325 MG TAB PO PRN (02:23)
[2016-08-04] MEDS ORDERED: METOPROLOL TARTRATE 1 MG/ML VIAL IV STA (02:36)
[2016-08-04] MEDS ORDERED: METOPROLOL TARTRATE 1 MG/ML VIAL ONE (02:51)
[2016-08-04 05:55] LABS: HEMATOCRIT 37.2 % (37-47); MEAN CORPUSCULAR HEMOGLOBIN 33.9 pg (25-34); MEAN PLATELET VOLUME 10.1 fL (7.4-10.4); PLATELET COUNT 175 K/uL (130-400); RED BLOOD COUNT 3.51 M/uL (4.2-5.4); WHITE BLOOD COUNT 6.69 K/uL (4.8-10.8)
[2016-08-04] MEDS: LEVOTHYROXINE 25 MCG TAB PO SCH (06:11)
[2016-08-04 06:43] LABS: BUN/CREATININE RATIO 13.5 (10-20); CREATININE 0.73 mg/dl (0.60-1.20); POTASSIUM 4.2 mmol/L (3.5-5.1)
[2016-08-04] MEDS: ASCORBIC ACID 500 MG TAB PO SCH (08:31)
[2016-08-04] MEDS: METOPROLOL SUCC 25MG EXT REL TAB PO SCH (08:32)
[2016-08-04] MEDS: FLUTICASONE/SALMETEROL 250/50 (ADVAIR) 14 PUFF/1 INHALER INH SCH ×2 (08:32→20:02)
[2016-08-04] MEDS: CIPROFLOXACIN 500 MG TAB PO SCH ×2 (08:33→20:00)
[2016-08-04] MEDS: MAGNESIUM OXIDE 400 MG TAB PO SCH (08:33)
[2016-08-04] MEDS: MULTIVITAMIN TAB PO SCH (08:34)
[2016-08-04] MEDS: GUAIFENESIN 600 MG TABCR PO SCH ×2 (08:34→20:00)
[2016-08-04] MEDS: DABIGATRAN ELEXILATE 75 MG CAP PO SCH ×2 (08:35→20:01)
[2016-08-04] MEDS: POTASSIUM CHLORIDE 20 MEQ TABCR PO SCH (08:35)
[2016-08-04] MEDS: IPRATROPIUM BROMIDE/ALBUTEROL respimat INH INH SCH ×4 (08:36→20:01)
[2016-08-04] MEDS: EUCERIN CR 120 GM JAR EXT SCH ×2 (08:36→20:02)
[2016-08-04] MEDS: KETOCONAZOLE 2% CR 15 GM TUBE EXT SCH ×2 (08:36→21:16)
[2016-08-04] MEDS: LACTOBACILLUS ACIDOPHILUS (FLORANEX) TAB PO SCH (08:37)
[2016-08-04] MEDS: FUROSEMIDE 20 MG TAB PO SCH (08:40)
[2016-08-04] MEDS: ASPIRIN 81 MG ECTAB PO SCH (09:02)
--- NOTE | 2016-08-04 12:27 | Hospitalist Progress Note ---
Hospitalist Progress Note Date of Service August 04, 2016. (Luna Reyes ., PA-C) Subjective Pt evaluation today including: conversation w/ patient, physical exam, chart review, lab review, review of studies, conversation w/ customer care consultant (spoke with Dr. Little), review of inpatient medication list Pain: None PO Intake: Tolerating a PO diet Voiding: no voiding problems Last evening the patient started to complain of worsening shortness of breath and chest pain. She was found to be in A. fib with RVR and was transferred to telemetry. She was given digoxin and Lopressor IV which did help to control her rate, as well as nitro for the chest pain. A repeat chest x-ray showed pulmonary edema. The patient was given IV Lasix. EKG showed ischemic changes in the inferior and lateral leads. Troponin negative. Patient reports feeling slightly better this morning. She states her shortness of breath has improved somewhat from last night although it is still present. She mostly feels fatigued right now. She still has a nonproductive cough Complains of some wheezing. She states that she had some nausea last night but that has since resolved. Her legs are feeling good today and she currently rates the pain a dull 1/10. The patient denies fevers, chills, sweats, chest pain, palpitations, claudication, nausea, vomiting, abdominal pain, dysuria, hematuria, urinary retention, paralysis, weakness, numbness and tingling. Additional Comments: See HPI for pertinent positives and negatives. All other systems reviewed and negative. (Luna Reyes ., PA-C) Objective Vital Signs Date Time Temp Pulse Resp B/P Pulse Ox O2 Delivery O2 Flow Rate FiO2 08/04/16 08:14 36.6 87 18 84/48 92 Nasal Cannula 2.0 93/52 08/04/16 08:00 Nasal Cannula 3.0 08/04/16 04:00 97 Nasal Cannula 3.0 08/04/16 04:00 36.7 95 20 98/59 97 Nasal Cannula 3.0 08/04/16 02:59 108 08/04/16 02:56 110 109/61 08/03/16 23:59 97 Nasal Cannula 3.0 08/03/16 23:45 36.8 116 24 108/71 94 Nasal Cannula 2.0 08/03/16 23:34 150 08/03/16 22:49 36.7 114 28 110/61 92 Nasal Cannula 2.0 08/03/16 21:45 88 22 95 Nasal Cannula 2.0 08/03/16 16:55 81 26 112/69 98 Nasal Cannula 2.0 08/03/16 16:22 Nasal Cannula 2.0 08/03/16 15:56 77 22 96 Nasal Cannula 2.0 08/03/16 15:27 82 08/03/16 15:15 36.9 82 22 108/70 98 Nasal Cannula 2.0 (Luna Reyes ., PA-C) Physical Exam Notes: General appearance: Well-developed, well-nourished, no apparent distress Head: Normocephalic, atraumatic Eyes: Normal inspection, PERRL, EOMI ENT: Normal ENT inspection, hearing grossly normal, pharynx normal Neck: Supple, no JVD, trachea midline Respiratory/Chest: +Wheezing. Decreased lung sounds. Normal breath sounds, no respiratory distress Cardiovascular: +Irregularly irregular, rate controlled. No gallop, no murmur Abdomen/GI: Normal bowel sounds, non-tender, soft Extremities/Musculoskeletal: +Erythema bilaterally from feet to knees looks improved. Legs TTP up to distal posterior thighs. 1-2+ pitting edema. Neurological/Psych: Alert, normal mood/affect, oriented x 3 Skin: Normal color, warm/dry, no rash (Luna Reyes ., PA-C) Laboratory Results Last 24 Hours Test 08/03/16 21:44 08/03/16 23:40 08/04/16 05:30 08/04/16 11:59 Troponin I 0.022 ng/ml 0.023 ng/ml Digoxin Level 25.5 ng/ml White Blood Count 6.69 K/uL Red Blood Count 3.51 M/uL Hemoglobin 11.9 g/dL Hematocrit 37.2 % Mean Corpuscular Volume 106.0 fL Mean Corpuscular Hemoglobin 33.9 pg Mean Corpuscular Hemoglobin Concent 32.0 g/dl RDW Standard Deviation 53.5 fL RDW Coefficient of Variation 13.7 % Platelet Count 175 K/uL Mean Platelet Volume 10.1 fL Sodium Level 139 mmol/L Potassium Level 4.2 mmol/L Chloride Level 99 mmol/L Carbon Dioxide Level 37 mmol/L Anion Gap 3.0 mmol/L Blood Urea Nitrogen 10 mg/dl Creatinine 0.73 mg/dl Est Creatinine Clear Calc Drug Dose 54.9 ml/min Estimated GFR () 91.4 Estimated GFR (Non- 78.9 BUN/Creatinine Ratio 13.5 Random Glucose 97 mg/dl Calcium Level 9.0 mg/dl (Luna Reyes PA-C) Diagnostic Results Reviewed EKG and agree with interpretation as follows: 08/03 22:50--134 bpm, afib with RVR, inverted T waves inferior leads, ST depressions lateral leads 08/04 08:00--75 bpm, afib, inverted T waves inferior leads, ST depressions lateral leads Reviewed the following studies and agree with interpretation as follows: Patient Name: GUERDA RODRIGUEZ Unit Number: [id number] Dictated: 08/03/161403 Transcribed: 08/03/161403 MS Printed Date/Time: [~ rep prt dt]/[~ rep prt tm] [~ rep ct labl] - [~ rep ct ivnm] [facility] Radiology [place] [address] Dictated: 08/03/161403 Transcribed: 08/03/16 1404 MS Printed Date/Time: [~ rep prt dt]/[~ rep prt tm] [~ rep ct labl] - [~ rep ct ivnm] Patient: GUERDA RODRIGUEZ Address1: [address] [facility] Rec: [id number] Address2: Acct ID: [id number] [facility] Zip: [place] [address] Date: 1940 Sex: F Room/Bed: [facility] Ref Phy: Crow Marcial D.O.Int.Med. SC: Jose RamonMS4W Att Phy: Brayan Watson D.O. Report #: [id number] Sammie Phy: Crow Marcial D.O.Int.Med. Test: CXR Admit Phy: Jerry Peoples MD, PhD Filling Carrier: KARSON Interpreting Phy: Kehinde Serrano M.D. Diagnosis: FLUID OVERLOAD Ordering Phy: Luna Reyes PA-C Service Date: 08/03/16 Admit Date: 07/31/16 MNE: [id number] CONF: DICTATED BY: Kehinde Serrano M.D.]] CC: Brayan Watson D.O. Cordero, Amanda .MAINOR Richard T., D.O.Int.Med. Endcc: [~ rep ct add3]] CHEST 2 VIEWS ROUTINE CLINICAL HISTORY: SOB dyspnea COMPARISON STUDY: 08/01/2016 FINDINGS: Mild stable cardiomegaly. Parenchymal infiltrate left base. Suboptimal visibility left hemidiaphragm. IMPRESSION: Infiltrate left base. Electronically signed by: Kehinde Serrano M.D. 08/03/2016 2:04 PM Dictated Date/Time: 08/03/2016 2:04 PM The status of this report is Signed. Draft = Not yet reviewed or approved by Radiologist. Signed = Reviewed and approved by Radiologist. <AttendingPhy>Brayan Watson D.O.</AttendingPhy> <FamilyPhy>Crow Marcial D.O.Int.Med.</FamilyPhy> <PrimaryPhy>Crow Marcial D.O.Int.Med.</ PrimaryPhy> <UnitNumber>[id number]</UnitNumber> <VisitNumber>[id number]</ VisitNumber> <PatientName>GUERDA RODRIGUEZ</PatientName> <DateOfBirth>1940</DateOfBirth> <Location>[place]4W</Location> <ServiceDate></ServiceDate> <MNE> ESINDI</MNE> <OrderingPhy>Luna Reyes PA-C</OrderingPhy> <OrderingPhyMNE>f rep ord dr short</OrderingPhyMNE> <DictatingPhyMNE>f rep dict dr short</ DictatingPhyMNE> <CCListMNE>f rep ct mne</CCListMNE> <AdmittingPhyMNE>f pt admit dr short</AdmittingPhyMNE> <AttendingPhyMNE>f pt attend dr short</ AttendingPhyMNE> <ConsultingPhyMNE>f pt consult dr short</ConsultingPhyMNE> <FamilyPhyMNE>f pt fam dr short</FamilyPhyMNE> <OtherPhyMNE>f pt other dr short</OtherPhyMNE> < PrimaryPhyMNE>f pt prim care dr short</PrimaryPhyMNE> <ReferringPhyMNE>f pt referring dr short</ReferringPhyMNE> Patient Name: GUERDA RODRIGUEZ Unit Number: [id number] Dictated: 08/03/162152 Transcribed: 08/03/162152 JA Printed Date/Time: [~ rep prt dt]/[~ rep prt tm] [~ rep ct labl] - [~ rep ct ivnm] [facility] [place] [address] Dictated: 08/03/162152 Transcribed: 08/03/162152 Printed Date/Time: [~ rep prt dt]/[~ rep prt tm] [~ rep ct labl] - [~ rep ct ivnm] Patient: GUERDA RODRIGUEZ Address1: [address] [place] [address] Rec: [id number] Address2: Acct ID: [id number] [facility] Zip: [place] [address] Date: 1940 Sex: F Room/Bed: [facility] Ref Phy: Crow Marcial D.OAliyahInt.Med. SC: CAliyahMS4W Att Phy: Brayan Watson D.O. Report #: [id number] Sammie Phy: Crow Marcial D.O.Int.Med. Test: CXR1P Admit Phy: Jerry Peoples MD, PhD Filling Carrier: ZHEN Interpreting Phy: Phil Solorzano MD Diagnosis: FLUID OVERLOAD Ordering Phy: Declan Siu MD Service Date: 08/03/16 Admit Date: 07/31/16 MNE: PWRSCRIBE CONF: DICTATED BY: Phil Solorzano MD]] CC: Brayan Watson D.O. Ashley, Jonathan, MD Hale, Richard T., D.O.Int.Med. Endcc: [~ rep ct add3]] CHEST ONE VIEW PORTABLE CLINICAL HISTORY: Shortness of breath. COMPARISON STUDY: Chest radiograph performed earlier today. FINDINGS: Lung volumes are normal. There are trace bilateral pleural effusions. There is no pneumothorax. Frankie B lines are noted and are indicative of interstitial pulmonary edema. Hazy bibasilar opacities favor atelectasis. Mild cardiomegaly is unchanged. IMPRESSION: Mild interstitial pulmonary edema and trace bilateral pleural effusions. Electronically signed by: Phil Solorzano M.D. 08/03/2016 9:55 PM Dictated Date/Time: 08/03/2016 9:53 PM The status of this report is Signed. Draft = Not yet reviewed or approved by Radiologist. Signed = Reviewed and approved by Radiologist. <AttendingPhy>Brayan Watson D.O.</AttendingPhy> <FamilyPhy>Crow Marcial D.OAliyahInt.Med.</FamilyPhy> <PrimaryPhy>Crow Marcial D.O.Int.Med.</ PrimaryPhy> <UnitNumber>[id number]</UnitNumber> <VisitNumber>[id number]</ VisitNumber> <PatientName>GUERDA RODRIGUEZ</PatientName> <DateOfBirth>1940</DateOfBirth> <Location>C.MS4W</Location> <ServiceDate></ServiceDate> <MNE> ESINDI</MNE> <OrderingPhy>Declan Siu MD</OrderingPhy> <OrderingPhyMNE>f rep ord dr short</OrderingPhyMNE> <DictatingPhyMNE>f rep dict dr short</ DictatingPhyMNE> <CCListMNE>f rep ct han</CCListMNE> <AdmittingPhyMNE>f pt admit dr short</AdmittingPhyMNE> <AttendingPhyMNE>f pt attend dr short</ AttendingPhyMNE> <ConsultingPhyMNE>f pt consult dr short</ConsultingPhyMNE> <FamilyPhyMNE>f pt fam dr short</FamilyPhyMNE> <OtherPhyMNE>f pt other dr short</OtherPhyMNE> < PrimaryPhyMNE>f pt prim care dr short</PrimaryPhyMNE> <ReferringPhyMNE>f pt referring dr short</ReferringPhyMNE> (Luna Reyes ., PAHemantC) Assessment and Plan 76 yo female with a history of afib, chronic diastolic CHF, COPD, HLD, hypothyroidism, and GERD who was admitted directly from Dr. Little's office for worsening b/l LE edema and cellulitis. Failed multiple rounds of outpatient therapy. B/L lower ext Cellulitis / Tinea pedis--improving -Admit to med/surg. Transferred to tele 08/03 due afib with RVR and ischemic changes on EKG -ID consulted, appreciate recs: Spoke with Dr. Little on the phone. IV Zosyn de- escalated to Cipro 500 mg PO BID. Continue daptomycin. -Cipro 500 mg PO BID, day #2 -Daptomycin IV, day #5 -BCX NGTD x 2 -Dopplers neg for DVT -Ketoconazole BID Afib with RVR--resolved, currently rate controlled with HR 70s-80s on tele -Continue digoxin 0.125 mg PO qd, Toprol 12.5 mg PO qd, Pradaxa 75 mg PO BID -Dig level 25.5 but drawn right after IV dig was given -Redraw dig level Chest pain--resolved -Consult cardiology -Keep on tele for now. Serial troponin negative -Nitro prn Probable LLL PNA, HCAP -CXR 08/03 showed left base infiltrate -Abx as above -Mucinex 600 mg PO BID -Incentive spirometry -Continue Duonebs prn Chronic diastolic CHF/lower extremity edema--CXR shows mild edema and trace bilateral pleural effusions without overt failure/exacerbation -Continue Lasix 20 mg PO qam -KCl 20 mEq PO qd -Daily weights -Monitor I's & O's Hypotension--ongoing -Random cortisol WNL -Continue to monitor -Metoprolol and Lasix held by nursing until BP allows COPD--stable. Not in exacerbation -Continue Combivent HLD -Continue simvastatin 20 mg PO qd Hypothyroidism -Continue levothyroxine 25 mcg PO qd DVT prophylaxis -Pradaxa Code Status -Level I, FULL RESUSCITATION STATUS (Luna Reyes ., BLUEC) I agree with PA assessment and plan and have seen and examined pt myself CP resolved ST depressions noted in lateral leads Awaiting ECHO, Cards consulted Cellulitis improving, appreciate ID recs Labs reviewed Cont PT/OT (Brayan Watson D.O.)
--- NOTE | 2016-08-04 14:21 | Infectious Disease Progress Nt ---
Progress Note Date of Service August 04, 2016. Subjective Pt evaluation today including: conversation w/ patient, physical exam, chart review, lab review, review of studies, conversation w/ data migration consultant, review of inpatient medication list Evants reviewed. Patient developed afib with acute pulmonary edema. Better after rate control and diuresis. No fever. No worsening erythema. All Other Systems: Reviewed and Negative Medications Current Inpatient Medications Medications (Trade) Dose Ordered Sig/Lori Route Start Time Stop Time Status Last Admin Dose Admin Acetaminophen (Tylenol Tab) 650 mg Q4H PRN PO 07/31/16 14:45 08/30/16 14:44 08/04/16 02:23 650 MG Al Hydrox/Mg Hydrox/Simethicone (Maalox Max Susp) 15 ml Q4H PRN PO 07/31/16 14:45 08/30/16 14:44 Magnesium Hydroxide (Milk Of Magnesia Susp) 30 ml Q6H PRN PO 07/31/16 14:45 08/30/16 14:44 Polyethylene (Miralax Powder Packet) 17 gm DAILY PRN PO 07/31/16 14:45 08/30/16 14:44 Ondansetron HCl (Zofran Inj) 4 mg Q6H PRN IV 07/31/16 14:45 08/30/16 14:44 08/03/16 21:12 4 MG Ascorbic Acid (Vitamin C Tab) 500 mg DAILY PO 08/01/16 08:00 08/31/16 07:59 08/04/16 08:31 500 MG Dabigatran (Pradaxa Cap) 75 mg BID PO 07/31/16 20:00 08/30/16 19:59 08/04/16 08:35 75 MG Digoxin (Lanoxin Tab) 0.125 mg DAILY@1600 PO 07/31/16 16:00 08/30/16 15:59 08/03/16 15:27 0.125 MG Salmeterol Xinafoate/ Fluticasone (Advair Diskus 250/50 Inh) 1 puff BID INH 07/31/16 20:00 08/30/16 19:59 08/04/16 08:32 1 PUFF Albuterol/ Ipratropium (Combivent Respimat Inh) 1 puffs QID INH 07/31/16 17:00 08/30/16 16:59 08/04/16 13:00 1 PUFFS Lactobacillus Acidophilus (Floranex Tab) 1 tab QAM PO 08/01/16 08:00 08/31/16 07:59 08/04/16 08:37 1 TAB Levothyroxine Sodium (Synthroid Tab) 25 mcg DAILYBB PO 08/01/16 06:30 08/31/16 06:29 08/04/16 06:11 25 MCG Magnesium Oxide (Mag-Ox Tab) 400 mg DAILY PO 08/01/16 08:00 08/31/16 07:59 08/04/16 08:33 400 MG Metoprolol Succinate (Toprol Xl Tab) 12.5 mg QAM PO 08/01/16 08:00 08/31/16 07:59 08/03/16 08:16 12.5 MG Multivitamins (Multivitamin Tab) 1 tab DAILY PO 08/01/16 08:00 08/31/16 07:59 08/04/16 08:34 1 TAB Nitroglycerin (Nitrostat Tab) 0.4 mg UD PRN UT 07/31/16 14:45 08/30/16 14:44 08/03/16 16:54 0.4 MG Potassium Chloride (Klor-Con Tab) 20 meq DAILY PO 08/01/16 08:00 08/31/16 07:59 08/04/16 08:35 20 MEQ Simvastatin (Zocor Tab) 20 mg QPM PO 07/31/16 21:00 08/30/16 20:59 08/03/16 20:11 20 MG Calcium Carbonate (oS-Carlos 500 TAB) 1,250 mg DAILY@1200,1700 PO 07/31/16 17:00 08/30/16 16:59 08/03/16 18:18 1,250 MG Daptomycin 1 ea 1 ea UD PRN N/A 07/31/16 15:30 08/30/16 15:29 Daptomycin/Sodium Chloride (Cubicin IV/Nss 50ml) 55 ml @ 120 mls/hr DAILY@1600 IV 08/01/16 16:00 08/10/16 15:59 08/03/16 15:26 120 MLS/HR Ketoconazole (Nizoral 2% Crm) 1 appln Q12 EXT 08/01/16 11:00 09/25/16 23:59 08/04/16 08:36 1 APPLN Multi-Ingredient Ointment (Eucerin Unscented Cr) 1 appln BID EXT 08/01/16 20:00 08/31/16 19:59 08/04/16 08:36 1 APPLN Albuterol/ Ipratropium (Duoneb) 3 ml Q4H PRN INH 08/01/16 22:00 08/31/16 21:59 08/03/16 21:44 3 ML Furosemide (Lasix Tab) 20 mg QAM PO 08/03/16 08:00 09/02/16 07:59 Guaifenesin (Mucinex Contr Rel Tab) 600 mg Q12 PO 08/03/16 21:00 09/02/16 20:59 08/04/16 08:34 600 MG Ciprofloxacin (Cipro Tab) 500 mg Q12@0800,2000 PO 08/03/16 20:00 08/13/16 19:59 08/04/16 08:33 500 MG Aspirin (Ecotrin Tab) 81 mg QAM PO 08/04/16 08:00 09/03/16 07:59 08/04/16 09:02 81 MG Objective Vital Signs Date Time Temp Pulse Resp B/P Pulse Ox O2 Delivery O2 Flow Rate FiO2 08/04/16 12:04 36.5 87 20 102/61 92 Nasal Cannula 2.0 08/04/16 12:00 Nasal Cannula 3.0 08/04/16 08:14 36.6 87 18 84/48 92 Nasal Cannula 2.0 93/52 08/04/16 08:00 Nasal Cannula 3.0 08/04/16 04:00 97 Nasal Cannula 3.0 08/04/16 04:00 36.7 95 20 98/59 97 Nasal Cannula 3.0 08/04/16 02:59 108 08/04/16 02:56 110 109/61 08/03/16 23:59 97 Nasal Cannula 3.0 08/03/16 23:45 36.8 116 24 108/71 94 Nasal Cannula 2.0 08/03/16 23:34 150 08/03/16 22:49 36.7 114 28 110/61 92 Nasal Cannula 2.0 08/03/16 21:45 88 22 95 Nasal Cannula 2.0 08/03/16 16:55 81 26 112/69 98 Nasal Cannula 2.0 08/03/16 16:22 Nasal Cannula 2.0 08/03/16 15:56 77 22 96 Nasal Cannula 2.0 08/03/16 15:27 82 08/03/16 15:15 36.9 82 22 108/70 98 Nasal Cannula 2.0 Physical Exam General Appearance: WD/WN, no apparent distress Eyes: normal inspection, EOMI, sclerae normal ENT: normal ENT inspection, pharynx normal Neck: supple, no adenopathy, trachea midline Respiratory/Chest: chest non-tender, no respiratory distress, + wheezing Cardiovascular: regular rate, rhythm, no gallop, no murmur Abdomen: normal bowel sounds, non tender, soft, no organomegaly Extremities: + inflammation, + swelling Neurologic/Psychiatric: alert, oriented x 3 Skin: normal color, no rash, + pertinent finding (improving LE erythema) Lymphatic: no adenopathy Laboratory Results Last 24 Hours Test 08/03/16 21:44 08/03/16 23:40 08/04/16 05:30 08/04/16 12:58 Troponin I 0.022 ng/ml 0.023 ng/ml Digoxin Level 25.5 ng/ml White Blood Count 6.69 K/uL Red Blood Count 3.51 M/uL Hemoglobin 11.9 g/dL Hematocrit 37.2 % Mean Corpuscular Volume 106.0 fL Mean Corpuscular Hemoglobin 33.9 pg Mean Corpuscular Hemoglobin Concent 32.0 g/dl RDW Standard Deviation 53.5 fL RDW Coefficient of Variation 13.7 % Platelet Count 175 K/uL Mean Platelet Volume 10.1 fL Sodium Level 139 mmol/L Potassium Level 4.2 mmol/L Chloride Level 99 mmol/L Carbon Dioxide Level 37 mmol/L Anion Gap 3.0 mmol/L Blood Urea Nitrogen 10 mg/dl Creatinine 0.73 mg/dl Est Creatinine Clear Calc Drug Dose 54.9 ml/min Estimated GFR () 91.4 Estimated GFR (Non- 78.9 BUN/Creatinine Ratio 13.5 Random Glucose 97 mg/dl Calcium Level 9.0 mg/dl Assessment and Plan 76-year-old female with recurrent lower extremity cellulitis in the setting of chronic lymphedema and venous stasis disease. Now with afib with pulmonary edema. Would continue IV/po Abx for now. Will follow.
[2016-08-04] MEDS: DAPTOmycin IV 250 MG in SODIUM CHLORIDE 0.9% 50ML 50 ML IV SCH (16:35)
[2016-08-04] MEDS: DIGOXIN 0.125 MG TAB PO SCH (16:35)
[2016-08-04] MEDS: CALCIUM CARBONATE 1250MG TAB PO SCH ×2 (16:35→16:38)
--- NOTE | 2016-08-04 17:59 | Cardiology Consultation ---
Cardiology Consultation Date of Consultation: August 04, 2016. Requesting Physician: Dr Watson Reason for Consultation: CHF, edema Pt evaluation today including: conversation w/ patient History of Present Illness This is a 76-year-old woman who has a history of chronic lymphedema, permanent atrial fibrillation and cardiac catheterization in 2011 showing only mild luminal irregularities. She has difficulty with chronic cellulitis for which she is on long-term antibiotic therapy. She has noticed an increase in leg swelling over the last several weeks and was admitted. She had an echocardiogram performed on 06/13/2016, this showed normal left ventricular size with hyperdynamic systolic function and left ventricular hypertrophy consistent with hypertrophic cardiomyopathy with an apical variant. She had normal estimated right ventricular systolic pressure. Her main cardiovascular complaint is shortness of breath and she is also complaining of leg edema although her edema has improved substantially since admission. Her shortness of breath continues and she is concerned about it. She has no chest discomfort. Past Medical/Surgical History (1) CHR AIRWAY OBSTRUCT NEC (2) DIVERTICULOSIS COLON (W/O MENT OF HEMORRHAGE) (3) Cellulitis (4) ANTICOAGULANTS,LT,CURRENT USE (5) CEREBRAL THROMBOSIS W CEREBRAL INFARCTION (6) ATRIAL FIBRILLATION Family History Negative FHx for blood clots Social History Smoking Status: Former Smoker History of Alcohol Use: No Review of Systems Constitutional: No fever, No weakness, No weight loss Respiratory: + see HPI, + shortness of breath, No cough, No dyspnea at rest, No dyspnea on exertion, No hemoptysis, No problem reported, No sputum, No wheezing Cardiac: + edema, No PND, No chest pain, No orthopnea, No palpitations Abdomen: No GI bleeding, No diarrhea, No nausea, No pain, No vomiting Female : No problem reported Neurologic: No balance problems, No numbness/tingling, No paralysis, No weakness Heme: No abnormal bleeding/bruising, No clotting problems Endo: No fatigue Skin: No problem reported All Other Systems: Reviewed and Negative Allergies Coded Allergies: Latex1 -Allergic Contact Dermititis (Verified Allergy, Mild, RASH AND ITCHING, 07/03/16) Diltiazem (Verified Adverse Reaction, Unknown, LOW BP AND UPSET STOMACH, ) Medications Current Inpatient Medications Medications (Trade) Dose Ordered Sig/Lori Route Start Time Stop Time Status Last Admin Dose Admin Acetaminophen (Tylenol Tab) 650 mg Q4H PRN PO 5/8/17 14:45 08/30/16 14:44 08/04/16 02:23 650 MG Al Hydrox/Mg Hydrox/Simethicone (Maalox Max Susp) 15 ml Q4H PRN PO 07/31/16 14:45 08/30/16 14:44 Magnesium Hydroxide (Milk Of Magnesia Susp) 30 ml Q6H PRN PO 07/31/16 14:45 08/30/16 14:44 Polyethylene (Miralax Powder Packet) 17 gm DAILY PRN PO 07/31/16 14:45 08/30/16 14:44 Ondansetron HCl (Zofran Inj) 4 mg Q6H PRN IV 07/31/16 14:45 08/30/16 14:44 08/03/16 21:12 4 MG Ascorbic Acid (Vitamin C Tab) 500 mg DAILY PO 08/01/16 08:00 08/31/16 07:59 08/04/16 08:31 500 MG Dabigatran (Pradaxa Cap) 75 mg BID PO 07/31/16 20:00 08/30/16 19:59 08/04/16 08:35 75 MG Digoxin (Lanoxin Tab) 0.125 mg DAILY@1600 PO 07/31/16 16:00 08/30/16 15:59 08/04/16 16:35 0.125 MG Salmeterol Xinafoate/ Fluticasone (Advair Diskus 250/50 Inh) 1 puff BID INH 07/31/16 20:00 08/30/16 19:59 08/04/16 08:32 1 PUFF Albuterol/ Ipratropium (Combivent Respimat Inh) 1 puffs QID INH 07/31/16 17:00 08/30/16 16:59 08/04/16 16:37 1 PUFFS Lactobacillus Acidophilus (Floranex Tab) 1 tab QAM PO 08/01/16 08:00 08/31/16 07:59 08/04/16 08:37 1 TAB Levothyroxine Sodium (Synthroid Tab) 25 mcg DAILYBB PO 08/01/16 06:30 08/31/16 06:29 08/04/16 06:11 25 MCG Magnesium Oxide (Mag-Ox Tab) 400 mg DAILY PO 08/01/16 08:00 08/31/16 07:59 08/04/16 08:33 400 MG Metoprolol Succinate (Toprol Xl Tab) 12.5 mg QAM PO 08/01/16 08:00 08/31/16 07:59 08/03/16 08:16 12.5 MG Multivitamins (Multivitamin Tab) 1 tab DAILY PO 08/01/16 08:00 08/31/16 07:59 08/04/16 08:34 1 TAB Nitroglycerin (Nitrostat Tab) 0.4 mg UD PRN UT 07/31/16 14:45 08/30/16 14:44 08/03/16 16:54 0.4 MG Potassium Chloride (Klor-Con Tab) 20 meq DAILY PO 08/01/16 08:00 08/31/16 07:59 08/04/16 08:35 20 MEQ Simvastatin (Zocor Tab) 20 mg QPM PO 07/31/16 21:00 08/30/16 20:59 08/03/16 20:11 20 MG Calcium Carbonate (oS-Carlos 500 TAB) 1,250 mg DAILY@1200,1700 PO 07/31/16 17:00 08/30/16 16:59 08/04/16 16:38 1,250 MG Daptomycin 1 ea 1 ea UD PRN N/A 07/31/16 15:30 08/30/16 15:29 Daptomycin/Sodium Chloride (Cubicin IV/Nss 50ml) 55 ml @ 120 mls/hr DAILY@1600 IV 08/01/16 16:00 08/10/16 15:59 08/04/16 16:35 120 MLS/HR Ketoconazole (Nizoral 2% Crm) 1 appln Q12 EXT 08/01/16 11:00 09/25/16 23:59 08/04/16 08:36 1 APPLN Multi-Ingredient Ointment (Eucerin Unscented Cr) 1 appln BID EXT 08/01/16 20:00 08/31/16 19:59 08/04/16 08:36 1 APPLN Albuterol/ Ipratropium (Duoneb) 3 ml Q4H PRN INH 08/01/16 22:00 08/31/16 21:59 08/03/16 21:44 3 ML Furosemide (Lasix Tab) 20 mg QAM PO 08/03/16 08:00 09/02/16 07:59 Guaifenesin (Mucinex Contr Rel Tab) 600 mg Q12 PO 08/03/16 21:00 09/02/16 20:59 08/04/16 08:34 600 MG Ciprofloxacin (Cipro Tab) 500 mg Q12@0800,2000 PO 08/03/16 20:00 08/13/16 19:59 08/04/16 08:33 500 MG Aspirin (Ecotrin Tab) 81 mg QAM PO 08/04/16 08:00 09/03/16 07:59 08/04/16 09:02 81 MG Physical Exam Vital Signs Past 12 Hours Date Time Temp Pulse Resp B/P Pulse Ox O2 Delivery O2 Flow Rate FiO2 08/04/16 16:35 77 08/04/16 16:00 Nasal Cannula 3.0 08/04/16 15:50 36.7 77 18 94/57 94 Nasal Cannula 2.0 08/04/16 12:04 36.5 87 20 102/61 92 Nasal Cannula 2.0 08/04/16 12:00 Nasal Cannula 3.0 08/04/16 08:14 36.6 87 18 84/48 92 Nasal Cannula 2.0 93/52 08/04/16 08:00 Nasal Cannula 3.0 Constitutional: General Apperance: heathly-appearing Level of Distress: NAD Psychiatric: Mental Status: active & alert Head: normocephalic Eyes: EOM: EOMI ENMT: normal ENT inspection, hearing grossly normal Neck: supple, no masses Lungs: Respiratory effort: no dyspnea, good air movement Auscultation: breath sounds normal, no wheezing Cardiovascular: Heart Auscultation: RRR, no murmurs, no rubs, no gallops Peripheral Pulses: Bruits: none appreciated Abdomen: Bowel Sounds: normal Inspection & Palpation: soft, no tenderness, guarding & rebound, no masses Musculoskeletal: normal strength (5/5 throughout) Extremities: no edema Neurologic: Cranial Nerves: grossly intact Sensation: grossly intact Data Laboratory Results: Last 24 Hours Test 08/03/16 21:44 08/03/16 23:40 08/04/16 05:30 08/04/16 12:58 Troponin I 0.022 ng/ml 0.023 ng/ml Digoxin Level 25.5 ng/ml 1.1 ng/ml White Blood Count 6.69 K/uL Red Blood Count 3.51 M/uL Hemoglobin 11.9 g/dL Hematocrit 37.2 % Mean Corpuscular Volume 106.0 fL Mean Corpuscular Hemoglobin 33.9 pg Mean Corpuscular Hemoglobin Concent 32.0 g/dl RDW Standard Deviation 53.5 fL RDW Coefficient of Variation 13.7 % Platelet Count 175 K/uL Mean Platelet Volume 10.1 fL Sodium Level 139 mmol/L Potassium Level 4.2 mmol/L Chloride Level 99 mmol/L Carbon Dioxide Level 37 mmol/L Anion Gap 3.0 mmol/L Blood Urea Nitrogen 10 mg/dl Creatinine 0.73 mg/dl Est Creatinine Clear Calc Drug Dose 54.9 ml/min Estimated GFR () 91.4 Estimated GFR (Non- 78.9 BUN/Creatinine Ratio 13.5 Random Glucose 97 mg/dl Calcium Level 9.0 mg/dl Imaging: Admission chest x-ray may show slight heart failure symptoms EKG: Atrial fibrillation with left ventricular hypertrophy Telemetry reviewed: Atrial fibrillation, initially a rapid heart rate on admission but now well controlled. Assessment & Plan #1. Edema: She has chronic lymphedema and she tells me that her leg swelling is actually improved. Based on her prior cardiac studies it is unlikely that she has significant cardiac abnormalities causing edema, although with her left ventricular hypertrophy she could have a minor component of elevated right- sided pressures (although this was not seen on her May echocardiogram). I would continue to diurese as long as her renal function and blood pressure can handle it. #2. CHF: She is complaining of shortness of breath which she says is unusual for her although she does carry a diagnosis of COPD. Her chest x-ray may show mild heart failure on admission. It is likely that she has diastolic dysfunction given her apical left ventricular hypertrophy. I would recommend diuresing in tell her creatinine starts to climb or her blood pressure becomes a problem, her blood pressure does seem to be dropping somewhat since admission and her weight is stable or perhaps slightly decreased on her oral Lasix. It is probably safer to very gradually diurese her and she feels that her edema is improving so perhaps her current dose of diuretic is acceptable. #3. Atrial fibrillation: She is in permanent atrial fibrillation and her rate is currently well controlled. She is on Pradaxa. She should remain on anticoagulation and I would probably not alter her rate controlling medications. Thank you for allowing me to participate in her care.
--- NOTE | 2016-08-04 19:46 | ECHOCARDIOGRAM REPORT ---
*NOTICE TO RECEIVING DEMOCRAT AGENCY This information is strictly Confidential and protected under [place] law. [place] law prohibits you from making any further disclosure of this information unless further disclosure is expressly permitted by the written consent of the person to whom it pertains or is authorized by law. A general authorization for the release of medical or other information is not sufficient for this purpose. Hospital accepts no responsibility if the information is made available to any other person, INCLUDING THE PATIENT. Interpretation Summary * Name: GUERDA RODRIGUEZ Study Date: 08/04/2016 11:05 AM BP: 93/52 mmHg * Patient Location: C.2T\S\S229\S\2 HR: 71 * : 1940 (M/d/yyyy) Gender: Female Height: 64 in * Age: 76 yrs Ethnicity: [place] Weight: 134 lb * Ordering Physician: Brayan Watson * Referring Physician: Kwaku Little * Performed By: Corrina Smith RCS * * Reason For Study: CHEST PAIN * BSA: 1.6 m2 * Normal biventricular systolic function. * Mild concentric left ventricular hypertrophy. * Mild biatrial dilatation. * Trace aortic regurgitation. * Trace pulmonic regurgitation. * Trace mitral regurgitation. * Moderate to severe tricuspid regurgitation. * Mildly elevated estimated right ventricular systolic pressure. * Probable elevated central venous pressure. * -- Conclusions -- * Aortic valve sclerosis mild, without significant aortic valvular stenosis. Procedure Details * A complete two-dimensional transthoracic echocardiogram was performed (2D, M-mode, Doppler and color flow Doppler). Left Ventricle * The left ventricle is normal in size. * There is mild concentric left ventricular hypertrophy. * Left ventricular systolic function is normal. * Ejection Fraction = 60-65%. * The left ventricular wall motion is normal. Right Ventricle * The right ventricle is normal in size and function. Atria * The left atrium is mildly dilated. * The right atrium is mildly dilated. * No ASD detected; PFO is not assessed. Mitral Valve * The mitral valve is normal. * There is no mitral valve stenosis. * There is trace mitral regurgitation. Tricuspid Valve * The tricuspid valve is normal. * There is no tricuspid stenosis. * There is moderate to severe tricuspid regurgitation. * Right ventricular systolic pressure is elevated at 40-50mmHg. Aortic Valve * The aortic valve is trileaflet. * Aortic valve sclerosis mild, without significant aortic valvular stenosis. * Aortic stenosis is absent. * Trace aortic regurgitation. Pulmonic Valve * The pulmonic valve is not well visualized. * The pulmonary valve is inadequately visualized, but the Doppler data is adequate for interpretation. * Pulmonic stenosis is absent. * Trace pulmonic valvular regurgitation. Great Vessels * The aortic root is normal size. Pericardium/Pleural * There is no pericardial effusion. Great Vessels * The inferior vena cava is mildly dilated. MMode 2D Measurements and Calculations IVSd 1.2 cm IVSs 1.6 cm LVIDd 4.7 cm LVIDs 3.1 cm LVPWd 1.2 cm LVPWs 1.6 cm IVS/LVPW 1.0 FS 34.1 % EDV(Teich) 101.8 ml ESV(Teich) 37.7 ml EF(Teich) 63.0 % EDV(cubed) 103.1 ml ESV(cubed) 29.6 ml EF(cubed) 71.3 % % IVS thick 34.9 % % LVPW thick 36.3 % LV mass(C)d 206.4 grams LV mass(C)dI 125.1 grams/m\S\2 LV mass(C)s 183.4 grams LV mass(C)sI 111.2 grams/m\S\2 SV(Teich) 64.2 ml SI(Teich) 38.9 ml/m\S\2 SV(cubed) 73.6 ml SI(cubed) 44.6 ml/m\S\2 Ao root diam 3.6 cm Ao root area 10.3 cm\S\2 LA dimension 2.9 cm LA/Ao 0.80 LVOT diam 1.9 cm LVOT area 2.8 cm\S\2 Doppler Measurements and Calculations MV A max xenia 33.4 cm/sec MV P1/2t max xenia 90.9 cm/sec MV P1/2t 57.5 msec MVA(P1/2t) 3.8 cm\S\2 MV dec slope 462.7 cm/sec\S\2 MV dec time 0.22 sec Ao V2 max 110.9 cm/sec Ao max PG 4.9 mmHg Ao max PG (full) 2.1 mmHg BARTOLOME(V,A) 2.1 cm\S\2 BARTOLOME(V,D) 2.1 cm\S\2 LV V1 max PG 2.8 mmHg LV V1 max 83.6 cm/sec TR max xenia 315.4 cm/sec
[2016-08-04] MEDS: SIMVASTATIN 20 MG TAB PO SCH (20:00)
[2016-08-04] MEDS: ALBUT/IPRATROP 3MG/0.5MG NEB 3 ML VIAL INH PRN (23:42)
[2016-08-05] VITALS (7 sets, daily range): BP systolic 98–109; BP diastolic 61–67; PULSE 80–93; TEMP 36.3–36.8; O2SAT 91–97
[2016-08-05] MEDS: ACETAMINOPHEN 325 MG TAB PO PRN (03:21)
[2016-08-05] MEDS: LEVOTHYROXINE 25 MCG TAB PO SCH (05:12)
[2016-08-05 05:26] LABS: HEMATOCRIT 37.8 % (37-47); MEAN CELL VOLUME 105.6 fL (80-100); MEAN CORPUSCULAR HEMOGLOBIN 33.8 pg (25-34); MEAN PLATELET VOLUME 10.1 fL (7.4-10.4); PLATELET COUNT 164 K/uL (130-400); RED BLOOD COUNT 3.58 M/uL (4.2-5.4); WHITE BLOOD COUNT 5.96 K/uL (4.8-10.8)
[2016-08-05 06:03] LABS: BUN/CREATININE RATIO 16.3 (10-20); CALCIUM 8.8 mg/dl (8.5-10.1); CREATININE 0.66 mg/dl (0.60-1.20); POTASSIUM 4.7 mmol/L (3.5-5.1)
[2016-08-05] MEDS: IPRATROPIUM BROMIDE/ALBUTEROL respimat INH INH SCH ×4 (08:35→20:14)
[2016-08-05] MEDS: FLUTICASONE/SALMETEROL 250/50 (ADVAIR) 14 PUFF/1 INHALER INH SCH ×2 (08:35→20:13)
[2016-08-05] MEDS: GUAIFENESIN 600 MG TABCR PO SCH ×2 (08:36→20:14)
[2016-08-05] MEDS: DABIGATRAN ELEXILATE 75 MG CAP PO SCH ×2 (08:36→20:15)
[2016-08-05] MEDS: LACTOBACILLUS ACIDOPHILUS (FLORANEX) TAB PO SCH (08:36)
[2016-08-05] MEDS: CIPROFLOXACIN 500 MG TAB PO SCH ×2 (08:36→20:12)
[2016-08-05] MEDS: ASPIRIN 81 MG ECTAB PO SCH ×2 (08:36→08:56)
[2016-08-05] MEDS: METOPROLOL SUCC 25MG EXT REL TAB PO SCH (08:37)
[2016-08-05] MEDS: POTASSIUM CHLORIDE 20 MEQ TABCR PO SCH (08:37)
[2016-08-05] MEDS: ASCORBIC ACID 500 MG TAB PO SCH (08:38)
[2016-08-05] MEDS: FUROSEMIDE 20 MG TAB PO SCH (08:38)
[2016-08-05] MEDS: MAGNESIUM OXIDE 400 MG TAB PO SCH (08:39)
[2016-08-05] MEDS: MULTIVITAMIN TAB PO SCH (08:39)
[2016-08-05] MEDS: EUCERIN CR 120 GM JAR EXT SCH ×2 (08:39→20:16)
[2016-08-05] MEDS: KETOCONAZOLE 2% CR 15 GM TUBE EXT SCH ×2 (08:39→20:13)
[2016-08-05] MEDS: CALCIUM CARBONATE 1250MG TAB PO SCH ×2 (12:40→17:16)
--- NOTE | 2016-08-05 13:49 | Progress Note ---
Subjective Date of Service: August 05, 2016. Subjective Pt evaluation today including: conversation w/ patient, physical exam, chart review, lab review, review of studies, review of inpatient medication list still complaining of cough, shortness of breath and bilateral leg pain Notes hasnt changes since yesterday no fevers or chills no other concerns at this time Problem List Medical Problems: (1) Fluid overload Status: Acute (2) Pulmonary vascular congestion Status: Acute Review of Systems Constitutional: No chills, No fever Respiratory: + shortness of breath, No cough, No sputum Cardiac: No chest pain, No orthopnea Abdomen: No diarrhea, No nausea, No pain, No vomiting Musculoskeletal: + muscle pain, + swelling, No joint pain Female : No dysuria, No urinary frequency Neurologic: No memory loss, No weakness Objective Vital Signs Date Time Temp Pulse Resp B/P Pulse Ox O2 Delivery O2 Flow Rate FiO2 08/05/16 12:26 36.7 80 18 106/64 97 Room Air 08/05/16 12:00 Nasal Cannula 2.0 08/05/16 08:08 36.3 85 20 103/65 92 Nasal Cannula 2.0 08/05/16 08:00 Nasal Cannula 2.0 08/05/16 04:00 Nasal Cannula 2.0 08/05/16 03:59 36.8 93 18 109/67 97 Nasal Cannula 2.0 08/05/16 00:01 Nasal Cannula 2.0 08/04/16 23:42 95 16 93 Nasal Cannula 2.0 08/04/16 23:24 37.0 85 20 106/68 92 Nasal Cannula 2.0 08/04/16 20:00 Nasal Cannula 2.0 08/04/16 19:07 37.2 74 18 101/65 97 Nasal Cannula 2.0 08/04/16 16:35 77 08/04/16 16:00 Nasal Cannula 3.0 08/04/16 15:50 36.7 77 18 94/57 94 Nasal Cannula 2.0 Physical Exam General Appearance: WD/WN, no apparent distress Neck: supple, no adenopathy Respiratory/Chest: lungs clear, normal breath sounds Cardiovascular: no edema, no gallop Abdomen: non tender, soft Neurologic/Psychiatric: alert, oriented x 3 Laboratory Results Last 24 Hours Test 08/05/16 05:05 White Blood Count 5.96 K/uL Red Blood Count 3.58 M/uL Hemoglobin 12.1 g/dL Hematocrit 37.8 % Mean Corpuscular Volume 105.6 fL Mean Corpuscular Hemoglobin 33.8 pg Mean Corpuscular Hemoglobin Concent 32.0 g/dl RDW Standard Deviation 51.9 fL RDW Coefficient of Variation 13.4 % Platelet Count 164 K/uL Mean Platelet Volume 10.1 fL Sodium Level 140 mmol/L Potassium Level 4.7 mmol/L Chloride Level 100 mmol/L Carbon Dioxide Level 38 mmol/L Anion Gap 2.0 mmol/L Blood Urea Nitrogen 11 mg/dl Creatinine 0.66 mg/dl Est Creatinine Clear Calc Drug Dose 60.7 ml/min Estimated GFR () 98.1 Estimated GFR (Non- 84.6 BUN/Creatinine Ratio 16.3 Random Glucose 97 mg/dl Calcium Level 8.8 mg/dl Assessment and Plan 76 yo female with a history of afib, chronic diastolic CHF, COPD, HLD, hypothyroidism, and GERD who was admitted directly from Dr. Little's office for worsening b/l LE edema and cellulitis. Failed multiple rounds of outpatient therapy. B/L lower ext Cellulitis / Tinea pedis--improving -Admit to med/surg. Transferred to tele 08/03 due afib with RVR and ischemic changes on EKG -ID consulted, appreciate recs: IV Zosyn de-escalated to Cipro 500 mg PO BID. Continue daptomycin. -Cipro 500 mg PO BID, day #3 -Daptomycin IV, day #6 -BCX NGTD x 2 -Dopplers neg for DVT -Ketoconazole BID Afib with RVR--resolved, currently rate controlled with HR 70s-80s on tele -Continue digoxin 0.125 mg PO qd, Toprol 12.5 mg PO qd, Pradaxa 75 mg PO BID -Dig level 25.5 but drawn right after IV dig was given Chest pain--resolved -Consult cardiology -Keep on tele for now. Serial troponin negative -Nitro prn Probable LLL PNA, HCAP -CXR 08/03 showed left base infiltrate -Abx as above -Mucinex 600 mg PO BID -Incentive spirometry -Continue Duonebs prn Chronic diastolic CHF/lower extremity edema--CXR shows mild edema and trace bilateral pleural effusions without overt failure/exacerbation -Continue Lasix 20 mg PO qam -KCl 20 mEq PO qd -Daily weights -Monitor I's & O's Hypotension--ongoing -Random cortisol WNL -Continue to monitor -Metoprolol and Lasix held by nursing until BP allows COPD--stable. Not in exacerbation -Continue Combivent HLD -Continue simvastatin 20 mg PO qd Hypothyroidism -Continue levothyroxine 25 mcg PO qd DVT prophylaxis -Pradaxa Code Status -Level I, FULL RESUSCITATION STATUS
[2016-08-05] MEDS: DAPTOmycin IV 250 MG in SODIUM CHLORIDE 0.9% 50ML 50 ML IV SCH (17:16)
[2016-08-05] MEDS: DIGOXIN 0.125 MG TAB PO SCH (17:16)
[2016-08-05] MEDS: SIMVASTATIN 20 MG TAB PO SCH (20:14)
--- NOTE | 2016-08-05 20:20 | Infectious Disease Progress Nt ---
Progress Note Date of Service August 05, 2016. Subjective Pt evaluation today including: conversation w/ patient, physical exam, chart review, lab review, review of studies, conversation w/ c consultant, review of inpatient medication list Still complaining of shortness of breath and cough. Leg pain about the same. No fever. All Other Systems: Reviewed and Negative Medications Current Inpatient Medications Medications (Trade) Dose Ordered Sig/Lori Route Start Time Stop Time Status Last Admin Dose Admin Acetaminophen (Tylenol Tab) 650 mg Q4H PRN PO 07/31/16 14:45 08/30/16 14:44 08/05/16 03:21 650 MG Al Hydrox/Mg Hydrox/Simethicone (Maalox Max Susp) 15 ml Q4H PRN PO 07/31/16 14:45 08/30/16 14:44 Magnesium Hydroxide (Milk Of Magnesia Susp) 30 ml Q6H PRN PO 07/31/16 14:45 08/30/16 14:44 Polyethylene (Miralax Powder Packet) 17 gm DAILY PRN PO 07/31/16 14:45 08/30/16 14:44 Ondansetron HCl (Zofran Inj) 4 mg Q6H PRN IV 07/31/16 14:45 08/30/16 14:44 08/03/16 21:12 4 MG Ascorbic Acid (Vitamin C Tab) 500 mg DAILY PO 08/01/16 08:00 08/31/16 07:59 08/05/16 08:38 500 MG Dabigatran (Pradaxa Cap) 75 mg BID PO 07/31/16 20:00 08/30/16 19:59 08/05/16 20:15 75 MG Digoxin (Lanoxin Tab) 0.125 mg DAILY@1600 PO 07/31/16 16:00 08/30/16 15:59 08/05/16 17:16 0.125 MG Salmeterol Xinafoate/ Fluticasone (Advair Diskus 250/50 Inh) 1 puff BID INH 07/31/16 20:00 08/30/16 19:59 08/05/16 20:13 1 PUFF Albuterol/ Ipratropium (Combivent Respimat Inh) 1 puffs QID INH 07/31/16 17:00 08/30/16 16:59 08/05/16 20:14 1 PUFFS Lactobacillus Acidophilus (Floranex Tab) 1 tab QAM PO 08/01/16 08:00 08/31/16 07:59 08/05/16 08:36 1 TAB Levothyroxine Sodium (Synthroid Tab) 25 mcg DAILYBB PO 08/01/16 06:30 08/31/16 06:29 08/05/16 05:12 25 MCG Magnesium Oxide (Mag-Ox Tab) 400 mg DAILY PO 08/01/16 08:00 08/31/16 07:59 08/05/16 08:39 400 MG Metoprolol Succinate (Toprol Xl Tab) 12.5 mg QAM PO 08/01/16 08:00 08/31/16 07:59 08/05/16 08:37 12.5 MG Multivitamins (Multivitamin Tab) 1 tab DAILY PO 08/01/16 08:00 08/31/16 07:59 08/05/16 08:39 1 TAB Nitroglycerin (Nitrostat Tab) 0.4 mg UD PRN UT 07/31/16 14:45 08/30/16 14:44 08/03/16 16:54 0.4 MG Potassium Chloride (Klor-Con Tab) 20 meq DAILY PO 08/01/16 08:00 08/31/16 07:59 08/05/16 08:37 20 MEQ Simvastatin (Zocor Tab) 20 mg QPM PO 07/31/16 21:00 08/30/16 20:59 08/05/16 20:14 20 MG Calcium Carbonate (oS-Carlos 500 TAB) 1,250 mg DAILY@1200,1700 PO 07/31/16 17:00 08/30/16 16:59 08/05/16 17:16 1,250 MG Daptomycin 1 ea 1 ea UD PRN N/A 07/31/16 15:30 08/30/16 15:29 Daptomycin/Sodium Chloride (Cubicin IV/Nss 50ml) 55 ml @ 120 mls/hr DAILY@1600 IV 08/01/16 16:00 08/10/16 15:59 08/05/16 17:16 120 MLS/HR Ketoconazole (Nizoral 2% Crm) 1 appln Q12 EXT 08/01/16 11:00 09/25/16 23:59 08/05/16 20:13 1 APPLN Multi-Ingredient Ointment (Eucerin Unscented Cr) 1 appln BID EXT 08/01/16 20:00 08/31/16 19:59 08/05/16 20:16 1 APPLN Albuterol/ Ipratropium (Duoneb) 3 ml Q4H PRN INH 08/01/16 22:00 08/31/16 21:59 08/04/16 23:42 3 ML Furosemide (Lasix Tab) 20 mg QAM PO 08/03/16 08:00 09/02/16 07:59 08/05/16 08:38 20 MG Guaifenesin (Mucinex Contr Rel Tab) 600 mg Q12 PO 08/03/16 21:00 09/02/16 20:59 08/05/16 20:14 600 MG Ciprofloxacin (Cipro Tab) 500 mg Q12@0800,2000 PO 08/03/16 20:00 08/13/16 19:59 08/05/16 20:12 500 MG Aspirin (Ecotrin Tab) 81 mg QAM PO 08/04/16 08:00 09/03/16 07:59 08/04/16 09:02 81 MG Objective Vital Signs Date Time Temp Pulse Resp B/P Pulse Ox O2 Delivery O2 Flow Rate FiO2 08/05/16 19:20 36.8 81 16 98/61 93 Nasal Cannula 2.0 08/05/16 17:16 88 08/05/16 16:00 Nasal Cannula 2.0 08/05/16 15:24 36.7 88 16 100/62 91 Room Air 08/05/16 12:26 36.7 80 18 106/64 97 Room Air 08/05/16 12:00 Nasal Cannula 2.0 08/05/16 08:08 36.3 85 20 103/65 92 Nasal Cannula 2.0 08/05/16 08:00 Nasal Cannula 2.0 08/05/16 04:00 Nasal Cannula 2.0 08/05/16 03:59 36.8 93 18 109/67 97 Nasal Cannula 2.0 08/05/16 00:01 Nasal Cannula 2.0 08/04/16 23:42 95 16 93 Nasal Cannula 2.0 08/04/16 23:24 37.0 85 20 106/68 92 Nasal Cannula 2.0 Physical Exam General Appearance: WD/WN, no apparent distress Eyes: normal inspection, sclerae normal ENT: normal ENT inspection, pharynx normal Neck: supple, no adenopathy, trachea midline Respiratory/Chest: chest non-tender, no respiratory distress, + wheezing Cardiovascular: no gallop, no murmur, + irregularly irregular Abdomen: normal bowel sounds, non tender, soft, no organomegaly Extremities: + inflammation, + swelling Neurologic/Psychiatric: alert, oriented x 3 Skin: normal color, no rash, + pertinent finding ( Improving improving lower extremity erythema) Lymphatic: no adenopathy Laboratory Results Last 24 Hours Test 08/05/16 05:05 White Blood Count 5.96 K/uL Red Blood Count 3.58 M/uL Hemoglobin 12.1 g/dL Hematocrit 37.8 % Mean Corpuscular Volume 105.6 fL Mean Corpuscular Hemoglobin 33.8 pg Mean Corpuscular Hemoglobin Concent 32.0 g/dl RDW Standard Deviation 51.9 fL RDW Coefficient of Variation 13.4 % Platelet Count 164 K/uL Mean Platelet Volume 10.1 fL Sodium Level 140 mmol/L Potassium Level 4.7 mmol/L Chloride Level 100 mmol/L Carbon Dioxide Level 38 mmol/L Anion Gap 2.0 mmol/L Blood Urea Nitrogen 11 mg/dl Creatinine 0.66 mg/dl Est Creatinine Clear Calc Drug Dose 60.7 ml/min Estimated GFR () 98.1 Estimated GFR (Non- 84.6 BUN/Creatinine Ratio 16.3 Random Glucose 97 mg/dl Calcium Level 8.8 mg/dl Assessment and Plan 76-year-old female with recurrent lower extremity cellulitis in the setting of chronic lymphedema and venous stasis disease. Now with afib with pulmonary edema. Would continue IV/po Abx for now. Will follow.
[2016-08-06] VITALS (11 sets, daily range): BP systolic 92–110; BP diastolic 57–70; PULSE 58–83; TEMP 36.4–36.9; O2SAT 92–96
[2016-08-06] MEDS: ACETAMINOPHEN 325 MG TAB PO PRN (01:08)
[2016-08-06 05:45] LABS: MEAN CELL VOLUME 105.4 fL (80-100); MEAN CORPUSCULAR HEMOGLOBIN 32.4 pg (25-34); MEAN CORPUSCULAR HGB CONC 30.8 g/dl (32-36); MEAN PLATELET VOLUME 10.1 fL (7.4-10.4); PLATELET COUNT 184 K/uL (130-400); WHITE BLOOD COUNT 5.53 K/uL (4.8-10.8)
[2016-08-06 06:14] LABS: BUN/CREATININE RATIO 18.8 (10-20); CREATININE 0.78 mg/dl (0.60-1.20); POTASSIUM 4.3 mmol/L (3.5-5.1)
[2016-08-06] MEDS: LEVOTHYROXINE 25 MCG TAB PO SCH (06:17)
[2016-08-06] MEDS: CIPROFLOXACIN 500 MG TAB PO SCH ×2 (08:44→19:53)
[2016-08-06] MEDS: GUAIFENESIN 600 MG TABCR PO SCH ×2 (08:45→19:54)
[2016-08-06] MEDS: METOPROLOL SUCC 25MG EXT REL TAB PO SCH (08:45)
[2016-08-06] MEDS: LACTOBACILLUS ACIDOPHILUS (FLORANEX) TAB PO SCH (08:45)
[2016-08-06] MEDS: MAGNESIUM OXIDE 400 MG TAB PO SCH (08:46)
[2016-08-06] MEDS: FUROSEMIDE 20 MG TAB PO SCH (08:47)
[2016-08-06] MEDS: ASPIRIN 81 MG ECTAB PO SCH (08:49)
[2016-08-06] MEDS: KETOCONAZOLE 2% CR 15 GM TUBE EXT SCH ×2 (08:49→19:51)
[2016-08-06] MEDS: DABIGATRAN ELEXILATE 75 MG CAP PO SCH ×2 (08:49→19:54)
[2016-08-06] MEDS: ASCORBIC ACID 500 MG TAB PO SCH (08:50)
[2016-08-06] MEDS: MULTIVITAMIN TAB PO SCH (08:50)
[2016-08-06] MEDS: POTASSIUM CHLORIDE 20 MEQ TABCR PO SCH (08:51)
[2016-08-06] MEDS: FLUTICASONE/SALMETEROL 250/50 (ADVAIR) 14 PUFF/1 INHALER INH SCH ×2 (08:53→19:52)
[2016-08-06] MEDS: IPRATROPIUM BROMIDE/ALBUTEROL respimat INH INH SCH ×4 (08:53→19:52)
[2016-08-06] MEDS: EUCERIN CR 120 GM JAR EXT SCH ×2 (08:54→19:55)
[2016-08-06] MEDS: CALCIUM CARBONATE 1250MG TAB PO SCH ×2 (12:42→16:37)
--- NOTE | 2016-08-06 13:47 | Progress Note ---
Subjective Date of Service: August 06, 2016. Subjective Pt evaluation today including: conversation w/ patient, conversation w/ family , physical exam, chart review, lab review, review of studies, conversation w/ new home sales consultant Reports shortness of breath improved Resting comfortably in bed States bilateral leg pain about the same Problem List Medical Problems: (1) Fluid overload Status: Acute (2) Pulmonary vascular congestion Status: Acute Review of Systems Constitutional: No chills, No fever Respiratory: No cough, No dyspnea on exertion, No shortness of breath, No sputum, No wheezing Cardiac: + edema, No PND, No chest pain, No orthopnea Abdomen: No constipation, No diarrhea, No nausea, No pain, No vomiting Musculoskeletal: + muscle pain, No joint pain Female : No dysuria, No urinary frequency Objective Vital Signs Date Time Temp Pulse Resp B/P Pulse Ox O2 Delivery O2 Flow Rate FiO2 08/06/16 12:00 94 Nasal Cannula 2.0 08/06/16 11:13 36.4 69 20 109/68 95 Nasal Cannula 2.0 08/06/16 08:00 93 Nasal Cannula 2.0 08/06/16 07:13 36.4 72 18 100/65 96 Nasal Cannula 2.0 08/06/16 04:04 36.8 74 18 110/70 93 Nasal Cannula 2.0 08/06/16 04:00 93 Nasal Cannula 2.0 08/06/16 00:00 36.9 78 18 107/67 92 2.0 08/05/16 23:59 93 Nasal Cannula 2.0 08/05/16 20:00 93 Nasal Cannula 2.0 08/05/16 19:20 36.8 81 16 98/61 93 Nasal Cannula 2.0 08/05/16 17:16 88 08/05/16 16:00 Nasal Cannula 2.0 08/05/16 15:24 36.7 88 16 100/62 91 Room Air Physical Exam General Appearance: WD/WN, no apparent distress Neck: supple, no adenopathy Respiratory/Chest: lungs clear, normal breath sounds Cardiovascular: regular rate, rhythm, no gallop Abdomen: non tender, soft Neurologic/Psychiatric: alert, oriented x 3 Laboratory Results Last 24 Hours Test 08/06/16 05:03 White Blood Count 5.53 K/uL Red Blood Count 3.70 M/uL Hemoglobin 12.0 g/dL Hematocrit 39.0 % Mean Corpuscular Volume 105.4 fL Mean Corpuscular Hemoglobin 32.4 pg Mean Corpuscular Hemoglobin Concent 30.8 g/dl RDW Standard Deviation 52.0 fL RDW Coefficient of Variation 13.3 % Platelet Count 184 K/uL Mean Platelet Volume 10.1 fL Sodium Level 141 mmol/L Potassium Level 4.3 mmol/L Chloride Level 99 mmol/L Carbon Dioxide Level 40 mmol/L Anion Gap 2.0 mmol/L Blood Urea Nitrogen 15 mg/dl Creatinine 0.78 mg/dl Est Creatinine Clear Calc Drug Dose 51.4 ml/min Estimated GFR () 84.4 Estimated GFR (Non- 72.8 BUN/Creatinine Ratio 18.8 Random Glucose 98 mg/dl Calcium Level 9.0 mg/dl Total Creatine Kinase 60 U/L Assessment and Plan 76 yo female with a history of afib, chronic diastolic CHF, COPD, HLD, hypothyroidism, and GERD who was admitted directly from Dr. Little's office for worsening b/l LE edema and cellulitis. Failed multiple rounds of outpatient therapy. B/L lower ext Cellulitis / Tinea pedis--improving -Admit to med/surg. Transferred to tele 08/03 due afib with RVR and ischemic changes on EKG -ID consulted, appreciate recs: IV Zosyn de-escalated to Cipro 500 mg PO BID. Continue daptomycin. -Cipro 500 mg PO BID, day #4 -Daptomycin IV, day #7 -BCX NGTD x 2 -Dopplers neg for DVT -Ketoconazole BID Afib with RVR--resolved, currently rate controlled with HR 70s-80s on tele -Continue digoxin 0.125 mg PO qd, Toprol 12.5 mg PO qd, Pradaxa 75 mg PO BID -Dig level 25.5 but drawn right after IV dig was given Chest pain--resolved -Consult cardiology -Keep on tele for now. Serial troponin negative -Nitro prn Probable LLL PNA, HCAP -CXR 08/03 showed left base infiltrate -Abx as above -Mucinex 600 mg PO BID -Incentive spirometry -Continue Duonebs prn Chronic diastolic CHF/lower extremity edema--CXR shows mild edema and trace bilateral pleural effusions without overt failure/exacerbation -Continue Lasix 20 mg PO qam -KCl 20 mEq PO qd -Daily weights -Monitor I's & O's Hypotension--ongoing -Random cortisol WNL, stable -Continue to monitor COPD--stable. Not in exacerbation -Continue Combivent HLD -Continue simvastatin 20 mg PO qd Hypothyroidism -Continue levothyroxine 25 mcg PO qd DVT prophylaxis -Pradaxa Code Status -Level I, FULL RESUSCITATION STATUS
[2016-08-06] MEDS: DAPTOmycin IV 250 MG in SODIUM CHLORIDE 0.9% 50ML 50 ML IV SCH (16:34)
[2016-08-06] MEDS: DIGOXIN 0.125 MG TAB PO SCH (16:36)
[2016-08-06] MEDS: SIMVASTATIN 20 MG TAB PO SCH (19:53)
[2016-08-07] VITALS (8 sets, daily range): BP systolic 103–116; BP diastolic 66–74; PULSE 81–99; TEMP 36.6–37; O2SAT 90–100
[2016-08-07] MEDS: ALBUT/IPRATROP 3MG/0.5MG NEB 3 ML VIAL INH PRN (01:24)
[2016-08-07 06:43] LABS: MEAN CELL VOLUME 105.3 fL (80-100); MEAN CORPUSCULAR HGB CONC 31.3 g/dl (32-36); MEAN PLATELET VOLUME 10.4 fL (7.4-10.4); PLATELET COUNT 194 K/uL (130-400); RED BLOOD COUNT 3.61 M/uL (4.2-5.4); WHITE BLOOD COUNT 6.11 K/uL (4.8-10.8)
[2016-08-07] MEDS: LEVOTHYROXINE 25 MCG TAB PO SCH (06:47)
[2016-08-07 07:13] LABS: BUN/CREATININE RATIO 16.9 (10-20); CALCIUM 8.9 mg/dl (8.5-10.1); CREATININE 0.67 mg/dl (0.60-1.20); POTASSIUM 4.1 mmol/L (3.5-5.1)
[2016-08-07] MEDS: METOPROLOL SUCC 25MG EXT REL TAB PO SCH (08:38)
[2016-08-07] MEDS: ASPIRIN 81 MG ECTAB PO SCH ×2 (08:39→08:48)
[2016-08-07] MEDS: GUAIFENESIN 600 MG TABCR PO SCH (08:39)
[2016-08-07] MEDS: LACTOBACILLUS ACIDOPHILUS (FLORANEX) TAB PO SCH (08:39)
[2016-08-07] MEDS: MAGNESIUM OXIDE 400 MG TAB PO SCH (08:39)
[2016-08-07] MEDS: FUROSEMIDE 20 MG TAB PO SCH (08:39)
[2016-08-07] MEDS: POTASSIUM CHLORIDE 20 MEQ TABCR PO SCH (08:40)
[2016-08-07] MEDS: CIPROFLOXACIN 500 MG TAB PO SCH (08:40)
[2016-08-07] MEDS: MULTIVITAMIN TAB PO SCH (08:40)
[2016-08-07] MEDS: DABIGATRAN ELEXILATE 75 MG CAP PO SCH (08:40)
[2016-08-07] MEDS: FLUTICASONE/SALMETEROL 250/50 (ADVAIR) 14 PUFF/1 INHALER INH SCH (08:41)
[2016-08-07] MEDS: ASCORBIC ACID 500 MG TAB PO SCH (08:41)
[2016-08-07] MEDS: IPRATROPIUM BROMIDE/ALBUTEROL respimat INH INH SCH ×2 (08:42→13:45)
[2016-08-07] MEDS: EUCERIN CR 120 GM JAR EXT SCH (08:43)
[2016-08-07] MEDS: KETOCONAZOLE 2% CR 15 GM TUBE EXT SCH (08:44)
[2016-08-07] MEDS ORDERED: GFNSR600 PO (10:37)
[2016-08-07] MEDS ORDERED: LSX20 PO (10:42)
--- NOTE | 2016-08-07 10:51 | CARDIOLOGY PROGRESS NOTE ---
DATE: 08/07/2016 HISTORY OF PRESENT ILLNESS: Mrs. Ellison is a 76-year-old white female with a history of Chronic Atrial Fibrillation, Apical Variant Hypertrophic Cardiomyopathy, chronic lymphedema, nonocclusive CAD, Hypertension, and Dyslipidemia, who was admitted acutely on 07/31/2016 with bilateral lower extremity cellulitis. She was noted to have a component of diastolic CHF, so cardiology was consulted. She was evaluated by Dr. Mcdonough last week. The patient has had a negative fluid balance since being hospitalized, and her breathing status has improved. States that she is very close to her baseline. Admittedly, the patient gained approximately 10 pounds of fluid weight leading up to this hospitalization, had a worsening of her chronic leg edema, and even noticed some abdominal bloating. She was using Lasix as directed at home but unfortunately did not get a good diuretic response. The patient offers no complaints today. She is going to go home later today. She denies any chest pain, heaviness, tightness or pressure. No neck, jaw, back or arm pain. Breathing is approaching baseline. No orthopnea or PND. Abdominal bloating has improved as has her edema. She denies any syncope or near syncope. PHYSICAL EXAMINATION: VITAL SIGNS: Temperature is 37 degrees Celsius, pulse is 85 and irregularly irregular, respiratory rate is 16 and unlabored, blood pressure is 113/71, SpO2 is 90% on 2 liters oxygen via nasal cannula. HEENT: Head is atraumatic, normocephalic. EOMs intact. Sclerae are anicteric. Face asymmetric. No perioral cyanosis. Mucous membranes moist. NECK: Without thyromegaly, adenopathy or JVD. Jugular venous pressure is just above the clavicle lying at a 45-degree angle. CHEST AND LUNGS: Mildly diminished breath sounds throughout. No wheezes, rales or rhonchi. CARDIOVASCULAR: S1 and S2 are irregularly irregular with a controlled ventricular response rate. No murmurs or gallops. PMI is laterally displaced. No lifts, heaves or thrills. No abdominal, aortic or renal bruits. ABDOMEN: Bowel sounds present. EXTREMITIES: With +1 mostly nonpitting edema. No delicia erythema of the legs is noted. NEUROLOGIC: The patient is awake, alert and interactive. Answers questions appropriately. Speech is clear. Normal movement of bilateral upper and lower extremities. 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 LABORATORY DATA: White blood cell count is 6.11. Hemoglobin is 11.9 g/dL, hematocrit 38.0%. Platelet count 194,000. Sodium is 139 mmol/L, potassium 4.1 mmol/L, BUN 11 mg/dL, creatinine 0.67 mg/dL. Random glucose 102 mg/dL. Troponin I levels have been negative throughout this hospitalization. Echocardiogram 08/04/2016 shows normal biventricular systolic function with mild concentric LVH as well as apical variant hypertrophy, mild biatrial dilatation, trace AI, trace PI, trace MR, moderate to severe TR, and mildly elevated estimated right ventricular systolic pressure. ASSESSMENT: 1. Bilateral lower extremity cellulitis, resolving. 2. Chronic Atrial Fibrillation. Rate controlled and on long-term Pradaxa. 3. Apical Variant Hypertrophic Cardiomyopathy with Diastolic CHF. 4. Chronic Lymphedema. 5. History of nonocclusive CAD. 6. History of cerebrovascular accident. 7. Hypertension. 8. Dyslipidemia. PLAN: 1. The patient anticipates being discharged to home later today. She is stable from a cardiac standpoint for discharge to home. 2. Continue long-term Toprol-XL 12.5 mg daily. 3. Continue Pradaxa 75 mg b.i.d. residential. 4. Continue Aspirin 81 mg daily. 5. Continue Lasix 20 mg daily. 6. Continue potassium chloride and magnesium oxide as prescribed. 7. Continue long-term Simvastatin. 8. Continue Digoxin 0.125 mg daily. 9. Monitor daily weights. 10. Maintain low-sodium, heart healthy diet. 11. We will continue to follow -- both as an inpatient and outpatient. 12. Patient is stable from a Cardiac standpoint for discharge to home. DHAVAL
[2016-08-07] MEDS ORDERED: DOXY-300 PO (11:48)
[2016-08-07] MEDS ORDERED: CPR500 PO (11:48)
[2016-08-07] MEDS: CALCIUM CARBONATE 1250MG TAB PO SCH (11:54)
--- NOTE | 2016-08-07 11:54 | Discharge Instructions ---
Discharge Instructions Date of Service August 07, 2016. Admission Reason for Admission: Fluid Overload Discharge Discharge Diagnosis / Problem: Bilateral lower extremity cellulitis Discharge Goals Goal(s): Decrease discomfort, Improve function, Diagnostic testing, Therapeutic intervention Activity Recommendations Activity Limitations: resume your previous activity . Instructions / Follow-Up Instructions / Follow-Up You were admitted to the hospital after presenting with worsening lower extremity redness and swelling and failing outpatient therapy. You were treated with IV antibiotics which did help to improve your symptoms and treat your cellulitis. You will be discharged on oral antibiotics for a few days to ensure resolution of the infection. During your hospital stay, you also developed a left lower lobe pneumonia. The antibiotics you have been taking for the cellulitis will also cover your pneumonia. Your persistent shortness of breath during your stay may be in part related to the pneumonia. You had also developed pulmonary edema, which is likely the biggest factor in your shortness of breath. You have been given daily Lasix to diurese the excess fluid, which should help you breathe better as well. Prior to discharge, you were assessed to see if you would need supplemental oxygen at home. You had adequate oxygen saturations at rest without oxygen, but required 3L oxygen while doing activity and walking around. A prescription for oxygen has been provided. Medications: *Take doxycycline 100 mg by mouth twice a day as well as ciprofloxacin 500 mg by mouth twice a day for 2 weeks. You will follow up with infectious disease next week, at which point your antibiotics may be adjusted as needed. *Please take furosemide (Lasix) 20 mg by mouth daily. This is a change from your previous dose which had only been as needed. Make sure to take this medication every day until you follow-up with either your primary care provider or your glass unloading equipment tender. *You may take Mucinex 600 mg by mouth twice a day for the next 5 days. *Continue your other home medications as prescribed. Follow up: *You have been scheduled to follow up with your primary care provider's office with Chelle Cameron PA-C on August 14 at 1:00 pm regarding your hospital stay and changes to your medications. *You have been scheduled to follow up with Dr. Little of infectious disease on August 16 at 11:30 am regarding your cellulitis and antibiotic course. *Please follow-up with cardiology as scheduled on August 22. Please seek medical attention if you experience fevers, chills, sweats, chest pain, shortness of breath, nausea, vomiting, lightheadedness, loss of consciousness, or if you experience worsening redness, swelling, tenderness or warmth in your lower extremities. Current Hospital Diet Patient's current hospital diet: Low Sodium Diet (2gm Na), AHA Diet (Heart Healthy) Discharge Diet Recommended Diet: AHA Diet (Heart Healthy), Low Sodium Diet (2gm Na) Procedures Procedures Performed: Echocardiogram Pending Studies Studies pending at discharge: no Medical Emergencies . Who to Call and When: Medical Emergencies: If at any time you feel your situation is an emergency, please call 911 immediately. . Non-Emergent Contact Non-Emergency issues call your: Primary Care Provider, Weight Engineer Call Non-Emergent contact if: you have a fever, your pain is not controlled, your pain is worsening, your pain is unusual for you, your pain is concerning you, wound has increased redness, wound has increased pain, you have any medication questions . Past History Medical & Surgical History: (1) Cellulitis (2) Pneumonia . "Provider Documentation" section prepared by Luna Reyes. . VTE Core Measure Inpt VTE Proph given/why not?: Other Anticoagulation (Pradaxa)
--- NOTE | 2016-08-07 14:11 | Discharge Summary ---
Discharge Summary Date of Service August 07, 2016. (Luna Reyes PA-C) Discharge Summary Admission Date: July 31, 2016 at 13:53 Discharge Date: August 07, 2016 Discharge Disposition: Home Principal Diagnosis: Bilateral lower extremity cellulitis, pneumonia Immunizations: Have You Had Influenza Vaccine: No History of Tetanus Vaccine?: Unknown History of Pneumococcal: Unknown Pneumococcal Date: Apr 10, 2010 History of Hepatitis B Vaccine: Unknown Procedures: Echocardiogram: * Normal biventricular systolic function. * Mild concentric left ventricular hypertrophy. * Mild biatrial dilatation. * Trace aortic regurgitation. * Trace pulmonic regurgitation. * Trace mitral regurgitation. * Moderate to severe tricuspid regurgitation. * Mildly elevated estimated right ventricular systolic pressure. * Probable elevated central venous pressure. * -- Conclusions -- * Aortic valve sclerosis mild, without significant aortic valvular stenosis. Consultations: Infectious disease--Dr. Little Cardiology--Dr. Mcdonough (Luna Reyes, VIKASH-C) Medication Reconciliation New Medications: Ciprofloxacin (Ciprofloxacin HCl) 500 Mg Tab 500 MG PO BID for 14 Days, #28 TABS Take 1 tablet by mouth twice a day for 2 weeks. Doxycycline (Monohydrate) (Doxycycline) 100 Mg Cap 100 MG PO BID for 14 Days, #28 CAP Take 1 capsule by mouth twice a day for 2 weeks. Furosemide (Furosemide) 20 Mg Tab 20 MG PO QAM for 30 Days, #30 TAB Guaifenesin Ext Rel (Mucinex Ext Rel) 600 Mg Tabcr 600 MG PO Q12 for 5 Days, #10 TABS Continued Medications: Acetaminophen (Tylenol) 500 Mg Tab 500 MG PO Q4 PRN for Pain or Fever, TAB Ascorbic Acid (Vitamin C) 500 Mg Tab 1 TAB PO DAILY AT LUNCH Calcium Carbonate (Calcium) 600 Mg Tab 1 TAB PO BIDM lunch and evening meal Dabigatran Elexilate (Pradaxa) 75 Mg Cap 75 MG PO BID Digoxin (Digoxin) 0.125 Mg Tab 0.125 MG PO DAILY Fluticasone Prop/Salmeterol (Advair Diskus 250/50 60 Dose) 1 Ea Aerp 1 PUFFS INH BID for 90 Days, #3 INHALER 3 Refills Ipratropium-Albuterol (Combivent Respimat) 1 Aer Aer 1 PUFFS INH QID, INH Lactobacillus (Floranex) 1 Tab Tab 1 TAB PO QAM Levothyroxine Sodium (Synthroid) 25 Mcg Tab 25 MCG PO DAILYBB for 30 Days, #30 TAB Magnesium Oxide (Mag-Ox) 400 Mg Tab 400 MG PO DAILY, TAB TAKE WITH LUNCH Metoprolol Succ (Toprol Xl) (Toprol-Xl) 25 Mg Tabcr 12.5 MG PO QAM, TAB Multiple Vitamin (Multivitamin) 1 Tab Tab 1 TAB PO DAILY AT LUNCH, TAB Nitroglycerin (Nitrostat) 0.4 Mg Tab 0.4 MG UT UD PRN for Chest Pain, TAB Potassium Chloride (Klor-Con M20) 20 Meq Tabcr 20 MEQ PO DAILY EXTRA TABLET WITH INCREASED LASIX Simvastatin (Zocor) 20 Mg Tab 20 MG PO QPM, 0 Refills Discontinued Medications: Furosemide (Lasix) 20 Mg Tab 40 MG PO DAILY PRN for SWELLING, #30 Discharge Exam Patient reports feeling well. She states that she has some mild shortness of breath at rest in addition to dyspnea on exertion. She states that her legs are not bothering her right now she denies any leg pain. She does complain of some soreness in her upper abdomen/ribs that occurs when she is coughing. Her cough is largely non-productive. She still complains of hoarseness. The patient denies fevers, chills, sweats, chest pain, palpitations, claudication, wheezing, nausea, vomiting, abdominal pain, dysuria, hematuria, urinary retention, paralysis, weakness, numbness and tingling. Review of Systems: Constitutional: No chills, No fever, No sweats Eyes: No diplopia, No eye pain, No worsening of vision ENT: + problem reported (hoarse), No hearing loss, No sore throat, No trouble swallowing Respiratory: + cough, + dyspnea on exertion, + shortness of breath, No sputum, No wheezing Cardiovascular: No chest pain, No claudication, No palpitations Abdomen: + pain (upper abdomen soreness secondary to coughing), No nausea, No vomiting Musculoskeletal: + swelling, No calf pain, No joint pain, No muscle pain Genitourinary - Female: No dysuria, No hematuria, No urinary retention Neurologic: No numbness/tingling, No paralysis, No weakness Integumentary: No color change, No itch, No rash Physical Exam: General Appearance: WD/WN, no apparent distress Eyes: normal inspection, PERRL, EOMI ENT: normal ENT inspection, hearing grossly normal, pharynx normal Neck: supple, no JVD, trachea midline Respiratory/Chest: normal breath sounds, no respiratory distress, + wheezing Cardiovascular: no gallop, no murmur, + irregularly irregular (rate controlled) Abdomen / GI: normal bowel sounds, non tender, soft Extremities: + swelling (1-2+ pitting edema), + pertinent finding (mild erythema in lower extremities bilaterally. Lower legs TTP) Neurologic/Psychiatric: alert, normal mood/affect, oriented x 3 Skin: normal color, warm/dry, no rash (Luna Reyes, BLUEC) Hospital Course 76 yo female with a history of afib, chronic diastolic CHF, COPD, HLD, hypothyroidism, and GERD who was admitted directly from Dr. Little's office for worsening b/l LE edema and cellulitis. Failed multiple rounds of outpatient therapy. B/L lower ext Cellulitis / Tinea pedis--improving -Admit to med/surg. Transferred to tele 08/03 due afib with RVR and ischemic changes on EKG -ID consulted, appreciate recs: Continue with Cipro and doxycycline PO x 2 weeks. F/u in office 7-10 days. -Cipro 500 mg PO BID -D/C daptomycin -Doxycycline 100 mg PO BID -BCX no growth x 2 -Dopplers neg for DVT -Ketoconazole BID Afib with RVR--resolved, currently rate controlled with HR 80s-90s on tele -Continue digoxin 0.125 mg PO qd, Toprol 12.5 mg PO qd, Pradaxa 75 mg PO BID -Dig level 25.5 but drawn right after IV dig was given -Dig level redrawn, 1.1 Chest pain--resolved -Consult cardiology, appreciate recs: continue current regimen. Stable for discharge -Serial troponin negative -Nitro prn Probable LLL PNA, HCAP -CXR 08/03 showed left base infiltrate -Abx as above -Mucinex 600 mg PO BID -Incentive spirometry -Continue Duonebs prn -2 step prior to discharge: Patient does not require oxygen at rest but will require 3 L oxygen with ambulation and activity. Prescription given for oxygen , patient already has equipment at home Chronic diastolic CHF/lower extremity edema--CXR shows mild edema and trace bilateral pleural effusions without overt failure/exacerbation -Continue Lasix 20 mg PO qam at discharge instead of prn -KCl 20 mEq PO qd -Daily weights -Monitor I's & O's Hypotension--stable -Random cortisol WNL -Continue to monitor COPD--stable. Not in exacerbation -Continue Combivent HLD -Continue simvastatin 20 mg PO qd Hypothyroidism -Continue levothyroxine 25 mcg PO qd DVT prophylaxis -Pradaxa Code Status -Level I, FULL RESUSCITATION STATUS Total Time Spent: Greater than 30 minutes This includes examination of the patient, discharge planning, medication reconciliation, and communication with other providers. (Luna Reyes ., PA-C) I agree with PA assessment and plan and have seen and examined pt myself Resting comfortably in bed SOB improved VSS and labs reviewed Less swelling and redness in B/L ext Cont cipro and doxy as OP Agree with ID recs Appreciate Cards recs Stable for discharge home (Brayan Watson, D.OAliyah) Discharge Instructions Please refer to the electronic Patient Visit Report (Discharge Instructions) for additional information. (Luna Reyes ., PA-C) Additional Copies To Chelle Cameron,P.A.
--- NOTE | 2016-08-07 15:13 | Infectious Disease Progress Nt ---
Progress Note Date of Service August 07, 2016. Subjective Pt evaluation today including: conversation w/ patient, physical exam, chart review, lab review, review of studies, conversation w/ sr technical sales consultant, review of inpatient medication list Patient is feeling better. Less short of breath. Leg still painful but improved. Decrease in lower extremity edema. All Other Systems: Reviewed and Negative Medications Current Inpatient Medications Medications (Trade) Dose Ordered Sig/Lori Route Start Time Stop Time Status Last Admin Dose Admin Acetaminophen (Tylenol Tab) 650 mg Q4H PRN PO 07/31/16 14:45 08/30/16 14:44 08/06/16 01:08 650 MG Al Hydrox/Mg Hydrox/Simethicone (Maalox Max Susp) 15 ml Q4H PRN PO 07/31/16 14:45 08/30/16 14:44 Magnesium Hydroxide (Milk Of Magnesia Susp) 30 ml Q6H PRN PO 07/31/16 14:45 08/30/16 14:44 Polyethylene (Miralax Powder Packet) 17 gm DAILY PRN PO 07/31/16 14:45 08/30/16 14:44 Ondansetron HCl (Zofran Inj) 4 mg Q6H PRN IV 07/31/16 14:45 08/30/16 14:44 08/03/16 21:12 4 MG Ascorbic Acid (Vitamin C Tab) 500 mg DAILY PO 08/01/16 08:00 08/31/16 07:59 08/07/16 08:41 500 MG Dabigatran (Pradaxa Cap) 75 mg BID PO 07/31/16 20:00 08/30/16 19:59 08/07/16 08:40 75 MG Digoxin (Lanoxin Tab) 0.125 mg DAILY@1600 PO 07/31/16 16:00 08/30/16 15:59 08/06/16 16:36 0.125 MG Salmeterol Xinafoate/ Fluticasone (Advair Diskus 250/50 Inh) 1 puff BID INH 07/31/16 20:00 08/30/16 19:59 08/07/16 08:41 1 PUFF Albuterol/ Ipratropium (Combivent Respimat Inh) 1 puffs QID INH 07/31/16 17:00 08/30/16 16:59 08/07/16 13:45 1 PUFFS Lactobacillus Acidophilus (Floranex Tab) 1 tab QAM PO 08/01/16 08:00 08/31/16 07:59 08/07/16 08:39 1 TAB Levothyroxine Sodium (Synthroid Tab) 25 mcg DAILYBB PO 08/01/16 06:30 08/31/16 06:29 08/07/16 06:47 25 MCG Magnesium Oxide (Mag-Ox Tab) 400 mg DAILY PO 08/01/16 08:00 08/31/16 07:59 08/07/16 08:39 400 MG Metoprolol Succinate (Toprol Xl Tab) 12.5 mg QAM PO 08/01/16 08:00 08/31/16 07:59 08/07/16 08:38 12.5 MG Multivitamins (Multivitamin Tab) 1 tab DAILY PO 08/01/16 08:00 08/31/16 07:59 08/07/16 08:40 1 TAB Nitroglycerin (Nitrostat Tab) 0.4 mg UD PRN UT 07/31/16 14:45 08/30/16 14:44 08/03/16 16:54 0.4 MG Potassium Chloride (Klor-Con Tab) 20 meq DAILY PO 08/01/16 08:00 08/31/16 07:59 08/07/16 08:40 20 MEQ Simvastatin (Zocor Tab) 20 mg QPM PO 07/31/16 21:00 08/30/16 20:59 08/06/16 19:53 20 MG Calcium Carbonate (oS-Carlos 500 TAB) 1,250 mg DAILY@1200,1700 PO 07/31/16 17:00 08/30/16 16:59 08/07/16 11:54 1,250 MG Daptomycin 1 ea 1 ea UD PRN N/A 07/31/16 15:30 08/30/16 15:29 Daptomycin/Sodium Chloride (Cubicin IV/Nss 50ml) 55 ml @ 120 mls/hr DAILY@1600 IV 08/01/16 16:00 08/10/16 15:59 08/06/16 16:34 120 MLS/HR Ketoconazole (Nizoral 2% Crm) 1 appln Q12 EXT 08/01/16 11:00 09/25/16 23:59 08/07/16 08:44 1 APPLN Multi-Ingredient Ointment (Eucerin Unscented Cr) 1 appln BID EXT 08/01/16 20:00 08/31/16 19:59 08/07/16 08:43 1 APPLN Albuterol/ Ipratropium (Duoneb) 3 ml Q4H PRN INH 08/01/16 22:00 08/31/16 21:59 08/07/16 01:24 3 ML Furosemide (Lasix Tab) 20 mg QAM PO 08/03/16 08:00 09/02/16 07:59 08/07/16 08:39 20 MG Guaifenesin (Mucinex Contr Rel Tab) 600 mg Q12 PO 08/03/16 21:00 09/02/16 20:59 08/07/16 08:39 600 MG Ciprofloxacin (Cipro Tab) 500 mg Q12@0800,2000 PO 08/03/16 20:00 08/13/16 19:59 08/07/16 08:40 500 MG Aspirin (Ecotrin Tab) 81 mg QAM PO 08/04/16 08:00 09/03/16 07:59 08/04/16 09:02 81 MG Objective Vital Signs Date Time Temp Pulse Resp B/P Pulse Ox O2 Delivery O2 Flow Rate FiO2 08/07/16 14:35 36.6 81 20 100 Nasal Cannula 08/07/16 12:14 36.6 81 20 103/66 100 Nasal Cannula 2.0 08/07/16 12:00 Nasal Cannula 2.0 08/07/16 08:33 37.0 99 18 113/71 90 Nasal Cannula 2.0 08/07/16 08:00 Nasal Cannula 2.0 08/07/16 04:00 96 Nasal Cannula 2.0 08/07/16 03:53 36.7 98 18 107/72 96 Nasal Cannula 2.0 08/07/16 01:25 83 16 95 Nasal Cannula 2.0 08/07/16 00:03 36.8 83 18 116/74 93 Nasal Cannula 2.0 08/07/16 00:00 96 Nasal Cannula 2.0 08/06/16 20:00 96 Nasal Cannula 2.0 08/06/16 19:12 36.9 83 16 92/57 96 Nasal Cannula 2.0 08/06/16 16:36 64 08/06/16 15:57 93 Nasal Cannula 2.0 Physical Exam General Appearance: WD/WN, no apparent distress Eyes: normal inspection, EOMI, sclerae normal ENT: normal ENT inspection, pharynx normal Neck: supple, thyroid normal, trachea midline Respiratory/Chest: lungs clear, normal breath sounds, no respiratory distress Cardiovascular: regular rate, rhythm, no gallop, no murmur Abdomen: normal bowel sounds, non tender, soft, no organomegaly Extremities: + inflammation, + swelling Neurologic/Psychiatric: alert, oriented x 3 Skin: normal color, no rash, + pertinent finding (Improving lower extremity cellulitis) Lymphatic: no adenopathy Laboratory Results Last 24 Hours Test 08/07/16 05:45 White Blood Count 6.11 K/uL Red Blood Count 3.61 M/uL Hemoglobin 11.9 g/dL Hematocrit 38.0 % Mean Corpuscular Volume 105.3 fL Mean Corpuscular Hemoglobin 33.0 pg Mean Corpuscular Hemoglobin Concent 31.3 g/dl RDW Standard Deviation 52.0 fL RDW Coefficient of Variation 13.3 % Platelet Count 194 K/uL Mean Platelet Volume 10.4 fL Sodium Level 139 mmol/L Potassium Level 4.1 mmol/L Chloride Level 98 mmol/L Carbon Dioxide Level 39 mmol/L Anion Gap 2.0 mmol/L Blood Urea Nitrogen 11 mg/dl Creatinine 0.67 mg/dl Est Creatinine Clear Calc Drug Dose 59.8 ml/min Estimated GFR () 97.6 Estimated GFR (Non- 84.2 BUN/Creatinine Ratio 16.9 Random Glucose 102 mg/dl Calcium Level 8.9 mg/dl Assessment and Plan 76-year-old female with recurrent lower extremity cellulitis in the setting of chronic lymphedema and venous stasis disease. Now with afib with pulmonary edema Which has improved with diuresis. Patient to be transitioned to oral antibiotics with doxycycline and ciprofloxacin in anticipation of discharge. Will see in the office in 7-10 days.
[2016-11-29] MEDS ORDERED: MULTTAB58 PO (09:10)
[2016-11-29] MEDS ORDERED: NTRGSL/4 UT (09:43)
[2016-11-29] MEDS ORDERED: MAGN400T6 PO (09:47)
[2016-11-29] MEDS ORDERED: ASCO500T3 PO (11:42)
[2016-11-29] MEDS ORDERED: LACT1TAB4 PO (11:42)
[2016-11-29] MEDS ORDERED: LNX125 PO (11:54)
[2016-11-29] MEDS ORDERED: MCRK20 PO (11:58)
== END 2016-08-07 15:39 | disposition home or self-care (01) | DRG 602 ==
LOC: ENRESERVDT → ENRESERVTM → C.MS4W 13:53 → CANBEDREQ 08-01 08:10 → C.MSICU 08-04 00:10 → C.2T 08-04 07:03
PROVIDERS: ADMIT Hospitalist; ATTEND Hospitalist
DX: L03.115 Cellulitis of right lower limb (principal); J18.9 Pneumonia, unspecified organism; I50.32 Chronic diastolic (congestive) heart failure; I42.2 Other hypertrophic cardiomyopathy; E87.70 Fluid overload, unspecified; I48.2 Chronic atrial fibrillation; L03.116 Cellulitis of left lower limb; Z86.73 Personal history of transient ischemic attack (TIA), and cerebral infarction without residual deficits; J44.9 Chronic obstructive pulmonary disease, unspecified; Z91.040 Latex allergy status; E03.9 Hypothyroidism, unspecified; E78.5 Hyperlipidemia, unspecified; B35.3 Tinea pedis; R07.9 Chest pain, unspecified; Z87.891 Personal history of nicotine dependence; I89.0 Lymphedema, not elsewhere classified; I87.8 Other specified disorders of veins; I25.10 Atherosclerotic heart disease of native coronary artery without angina pectoris; I10 Essential (primary) hypertension; I95.9 Hypotension, unspecified

== ENCOUNTER → 2016-08-22 | Outpatient (CLI) | payer OTHER ==
[~2016-08-22] MED LIST changes: -ADVIN10/60 INH; +ADVIN25/60 INH; +ASCO500T3 PO; +CEPH500C2 PO; -CHOL2000 PO; +CPR500 PO; +DABI1CAP PO; +DOXY-300 PO; +FRS/40 PO; -FURO-85 PO; +GFNSR600 PO; +LACT1TAB4 PO; +LEVO25TA5 PO; +LNX125 PO; +LSX20 PO; +MAGN400T6 PO; +MCRK20 PO; +METO25TA3 PO; +MULTTAB58 PO; +NTRGSL/4 UT; +NZRCR TOP; -PRLSR20 PO; +SIMV20TA2 PO; +SULF800T23 PO; +[UNRECOGNIZED DRUG - CODE] PO
--- NOTE | 2016-08-22 11:22 | DIAGNOSTIC IMAGING REPORT ---
CHEST 2 VIEWS ROUTINE CLINICAL HISTORY: PNEUMONIA COMPARISON STUDY: 08/03/2016 FINDINGS: The heart is mildly enlarged. There is no failure. There is no focal pulmonary consolidation. No pleural effusions are visualized.[ IMPRESSION: Mild cardiomegaly. No acute findings. Electronically signed by: Glen Cade M.D. 08/22/2016 11:21 AM Dictated Date/Time: 08/22/2016 11:20 AM
== END | disposition home or self-care (01) ==
LOC: C.RAD1850 10:49
PROVIDERS: ATTEND Physician Assistant Medical
DX: J18.9 Pneumonia, unspecified organism (principal)

== ENCOUNTER → 2016-09-12 | Outpatient (CLI) | payer OTHER ==
[2016-09-12 13:30] LABS: BLOOD UREA NITROGEN 12 mg/dl (7-18); BUN/CREATININE RATIO 12.6 (10-20); CARBON DIOXIDE 35 mmol/L (21-32); CHLORIDE 96 mmol/L (98-107); CREATININE 0.97 mg/dl (0.60-1.20); GLUCOSE 65 mg/dl (70-99); POTASSIUM 4.4 mmol/L (3.5-5.1); SODIUM 137 mmol/L (136-145)
[2016-09-12 13:37] LABS: CALCIUM 9.1 mg/dl (8.5-10.1)
== END | disposition home or self-care (01) ==
LOC: C.LAB1850 11:32
PROVIDERS: ATTEND Physician Assistant
DX: I50.32 Chronic diastolic (congestive) heart failure (principal)

== ENCOUNTER → 2016-11-20 | Outpatient (CLI) | payer OTHER ==
--- NOTE | 2016-11-20 12:04 | DIAGNOSTIC IMAGING REPORT ---
CHEST 2 VIEWS ROUTINE HISTORY: R09.02 Hypoxia COMPARISON: Chest 08/22/2016. FINDINGS: The lungs are hyperexpanded with apical predominant emphysematous changes. The heart is mildly enlarged, unchanged. No pleural effusions. No pneumothorax. Enlargement of the main pulmonary artery. The lungs are clear. IMPRESSION: 1. No significant change compared to the prior study. 2. Emphysema. 3. Mild cardiomegaly. 4. Enlargement of the central pulmonary arteries consistent with pulmonary arterial hypertension. Electronically signed by: Link Koroma M.D. 11/20/2016 12:03 PM Dictated Date/Time: 11/20/2016 12:00 PM
== END | disposition home or self-care (01) ==
LOC: C.RAD1850 11:44
PROVIDERS: ATTEND Physician Assistant
DX: R09.02 Hypoxemia (principal); I51.7 Cardiomegaly; J43.9 Emphysema, unspecified

== ENCOUNTER 2016-11-29 13:36 | Inpatient (IN) | payer OTHER ==
[~2016-11-29] VITALS: Ht 165.1 cm; Wt 59.8 kg
[~2016-11-29 13:36] MED LIST changes: -ADVIN25/60 INH; -CEPH500C2 PO; -DABI1CAP PO; -FRS/40 PO; -LEVO25TA5 PO; -METO25TA3 PO; -NZRCR TOP; -SIMV20TA2 PO; -SULF800T23 PO; -[UNRECOGNIZED DRUG - CODE] PO
--- NOTE | 2016-11-29 14:04 | EMERGENCY ROOM VISIT NOTE ---
History Report prepared by Pierre: Nilson Zaidi Under the Supervision of: Dr. Unruly Valadez D.O. First contact with patient: 13:45 Chief Complaint: WEAKNESS Stated Complaint: WEAK, BREATHING, A-FIB, CELLULITIS LEGS History of Present Illness The patient is a 76 year old female with a history of atrial fibrillation who presents to the Emergency Room with complaints of worsening weakness that started a couple weeks ago. She says that she has been gradually feeling more sick ever since the middle of May, but over the past few weeks, she has been getting much more weak. The patient states that she started getting sick after a colonoscopy in May. She notes that she then got cellulitis on both her legs , and has been on maintenance Keflex and Bactrim. The patient states that over the past 2 weeks, she has had 4 falls, the last one being 3 nights ago. She says that on one of the falls, she hit the top of her head and cut it open. The patient adds that she has neck soreness, right hip soreness, bilateral knee bruises, and a right elbow bruise from the falls. She says that she has no history of falling before these past few weeks. The patient's son adds that the patient is not normally on oxygen at home, but she has been on oxygen the past 2 weeks. The patient says that she has not been eating as much the past few days. The patient states that she has had intermittent decreased urinary frequency, but she has been taking a lot of Lasix for her leg issues. She denies any chest pain, fevers, vomiting, or pain with ambulation. She saw Dr. Vargas's PA-C (Radha Qiu) 2 weeks ago once she started declining. She had a chest x-ray, which was negative for pneumonia. The patient says that she then saw her the PA-C again today, and had an EKG done. The PA-C recommended that the patient come here for further blood work and imaging. Source of History: patient, family Onset: A couple weeks ago Position: other (global - weakness) Quality: other ("declining") Timing: worsening Associated Symptoms: + neck pain (neck soreness), No fevers, No chest pain, No vomiting Note: Associated symptoms: 4 falls in past 2 weeks, with resulting right hip soreness , bilateral knee bruises, right elbow bruise, and cut on head. Not eating as much past few days. Intermittent decreased urinary frequency but is on Lasix. Denies pain with ambulation. Review of Systems See HPI for pertinent positives & negatives. A total of 10 systems reviewed and were otherwise negative. Past Medical & Surgical Medical Problems: (1) ANTICOAGULANTS,LT,CURRENT USE (2) ATRIAL FIBRILLATION (3) CATARACT NOS (4) Cellulitis (5) CEREBRAL THROMBOSIS W CEREBRAL INFARCTION (6) CHR AIRWAY OBSTRUCT NEC (7) DIVERTICULOSIS COLON (W/O MENT OF HEMORRHAGE) (8) GI bleed (9) Hypotension (10) Pneumonia (11) Pneumonia (12) recurrence cellulitis (13) Recurrent cellulitis Family History Negative FHx for blood clots Social History Smoking Status: Former Smoker Alcohol Use: none Drug Use: none Marital Status: Housing Status: lives with family Occupation Status: retired Current/Historical Medications Scheduled Ascorbic Acid (Vitamin C), 1 TAB PO DAILY AT LUNCH Calcium/Vitamin D (Caltrate 600+D Plus 600-800 mg-Unit), 1 TAB PO BID Cephalexin Monohydrate (Keflex), 500 MG PO Q12 Dabigatran Etexilate Mesylate (Pradaxa), 75 MG PO BID Digoxin (Digoxin), 0.125 MG PO DAILY Fluticasone Prop/Salmeterol (Advair Diskus 250/50 60 Dose), 1 PUFFS INH BID Furosemide (Lasix), 40 MG PO DAILY Ipratropium-Albuterol (Combivent Respimat), 1 PUFFS INH QID Ketoconazole (Ketoconazole), 1 APPLN TOP BID UD Lactobacillus (Floranex), 1 TAB PO QAM Levothyroxine Sodium (Levothyroxine Sodium), 25 MCG PO DAILY Magnesium Oxide (Mag-Ox), 400 MG PO DAILY Metoprolol Succ (Toprol Xl) (Toprol-Xl), 12.5 MG PO QAM Multiple Vitamin (Multivitamin), 1 TAB PO DAILY AT LUNCH Potassium Chloride (Klor-Con M20), 20 MEQ PO BID Simvastatin (Zocor), 20 MG PO QPM Sulfa/Trimethoprim (Bactrim Ds 800MG/160MG), 0.5 TAB PO BID Scheduled PRN Acetaminophen (Tylenol), 1 TAB PO DAILY PRN for Pain Nitroglycerin (Nitrostat), 0.4 MG UT UD PRN for Chest Pain Allergies Coded Allergies: Latex1 -Allergic Contact Dermititis (Verified Allergy, Mild, RASH AND ITCHING, 07/03/16) Diltiazem (Verified Adverse Reaction, Unknown, LOW BP AND UPSET STOMACH, ) Physical Exam Vital Signs Date Time Temp Pulse Resp B/P (MAP) Pulse Ox O2 Delivery O2 Flow Rate FiO2 11/29/16 16:41 163/88 11/29/16 15:01 110/68 11/29/16 14:58 79/65 11/29/16 14:58 89 117/55 108 91/78 109/64 11/29/16 14:56 109/64 11/29/16 14:55 91/78 11/29/16 14:54 117/55 11/29/16 14:36 84 28 93 11/29/16 14:33 82 11/29/16 14:30 99 Nasal Cannula 2.0 11/29/16 14:27 97 Nasal Cannula 2.0 11/29/16 13:40 36.5 97 20 101/60 97 Nasal Cannula 2.0 Physical Exam GENERAL: Patient is awake, alert, somewhat listless appearing but does not appear to be in pain. EYES: The conjunctivae are clear. The pupils are round and reactive. EARS, NOSE, MOUTH AND THROAT: The nose is without any evidence of any deformity. Mucous membranes are moist tongue is midline NECK: Diffuse tenderness over cervical spine. Range of motion appeared intact. RESPIRATORY: Diminished breath sounds in both bases. No tachypnea or conversational dyspnea noted. CARDIOVASCULAR: Irregular rhythm noted to auscultation. No definite murmur noted. GASTROINTESTINAL: The abdomen is soft. Bowel sounds are present in all quadrants. Abdomen is nontender BACK: No midline tenderness or or step-off noted range of motion in flexion extension as well as rotation no signs of muscle spasm noted MUSCULOSKELETAL/EXTREMITIES: No deformity or decreased range of motion over extremities. There were abrasions over the right elbow. SKIN: There is no obvious evidence of any rash. There are no petechiae, pallor or cyanosis noted. NEUROLOGIC: Patient is awake alert and oriented x3. Strength was symmetric but diminished bilaterally. Medical Decision & Procedures ER Provider Diagnostic Interpretation: Radiology results as stated below per my review and radiologist interpretation: CHEST ONE VIEW PORTABLE HISTORY: EVALUATE ALTERED MENTAL STATUS/WEAKNESS COMPARISON: Chest 11/20/2016. FINDINGS: No pneumothorax. No pleural effusions. The heart remains mildly enlarged. No focal lung consolidations to suggest pneumonia. No evidence for pulmonary edema. Stable mild central pulmonary arterial enlargement. Emphysema, unchanged. IMPRESSION: No significant change compared to the prior study. No acute process. Electronically signed by: Link Koroma M.D. 11/29/2016 2:20 PM Dictated Date/Time: 11/29/2016 2:19 PM HEAD WITHOUT CONTRAST (CT) CLINICAL HISTORY: 76 years-old Female with fall. Acute weakness status post fall. Initial exam. TECHNIQUE: Multiple axial CT images of the head were obtained without contrast. A dose lowering technique was utilized adhering to the principles of ALARA. COMPARISON: CT head 12/12/2006. FINDINGS: No acute intracranial hemorrhage, midline shift, mass, large territorial ischemia or abnormal extra-axial collection. There is mild cerebral atrophy. The calvarium is intact. The paranasal sinuses, mastoid air cells, and middle ear cavities are clear. Scattered foci of deep tissue air noted adjacent to the right pterygoid plates with additional deep tissue air foci within the right infratemporal fossa region. IMPRESSION: 1. No acute intracranial hemorrhage or midline shift. 2. Scattered foci of deep tissue air adjacent to the right pterygoid plates and also within the right infratemporal fossa suggest facial bone fractures which are not identified. Focus of pneumocephalus noted in the right cavernous sinus which may be venous in location. Further evaluation with CT facial bone study recommended. The above report was generated using voice recognition software. It may contain grammatical, syntax or spelling errors Electronically signed by: Edi Hodge M.D. 11/29/2016 3:01 PM Dictated Date/Time: 11/29/2016 2:55 PM CERVICAL SPINE W/O CT DOSE: 926.63 mGy.cm HISTORY: Trauma fall TECHNIQUE: Multiaxial CT images of the cervical spine were performed and reformatted in the sagittal and coronal plane without the use of contrast. A dose lowering technique was utilized adhering to the principles of ALARA. COMPARISON: None. FINDINGS: No fractures. No subluxation. Prevertebral soft tissues and the C1-C2 interval are intact. No pneumothorax. Reversal of normal cervical curvature possibly secondary to muscular spasm. Slight wedge deformity superior endplate T1 considered old by CT criteria. IMPRESSION: No fractures within the cervical spine. Degenerative change. Muscle spasm. The above report was generated using voice recognition software. It may contain grammatical, syntax or spelling errors. Electronically signed by: Kehinde Serrano M.D. 11/29/2016 2:58 PM Dictated Date/Time: 11/29/2016 2:[address] SCAN OF THE FACIAL BONES WITHOUT IV CONTRAST CLINICAL HISTORY: Fall. COMPARISON STUDY: CT scan of the paranasal sinuses dated 05/22/2012. CT of the brain performed concurrently on 11/29/2016. TECHNIQUE: High-resolution CT scan of the facial bones is performed. Images are reviewed in the axial, sagittal, and coronal planes. IV contrast was not administered for this examination. A dose lowering technique was utilized adhering to the principles of ALARA. CT DOSE: 592.46 mGy.cm FINDINGS: The skeletal structures are osteopenic. There is no evidence of facial bone fracture. The bony orbits are intact and the orbital contents are within normal limits noting bilateral ocular lens implants. The zygomatic arches, nasal bones, and pterygoid plates are preserved. The maxilla and mandible are intact. Dental caries are noted within the remaining mandibular teeth. Degenerative change is seen involving the temporomandibular joints. There are no layering blood products within the paranasal sinuses. The sinuses and mastoids are clear. The visualized calvarium and upper cervical spine are maintained. There is multilevel cervical spondylosis. Partially imaged brain parenchyma is within normal limits noting age-related involutional change. IMPRESSION: 1. There is no evidence of facial bone fracture. 2. Dental caries are identified within the remaining mandibular teeth. Follow-up with dentistry is recommended. Electronically signed by: Hussain León M.D. 11/29/2016 4:00 PM Dictated Date/Time: 11/29/2016 3:55 PM BILATERAL LOWER EXTREMITY VENOUS DOPPLER CLINICAL HISTORY: Lower extremity swelling. COMPARISON STUDY: Lower extremity venous Doppler July. TECHNIQUE: Sonography of the deep venous system of the bilateral lower extremities was performed. Compression and augmentation were evaluated. FINDINGS: The bilateral common femoral, superficial femoral and popliteal veins were compressible. Augmentation was normal. Flow was shown within the deep calf vessels. Note was made of subcutaneous edema within the lower extremities. There was a 5 x 2 x 1.1 cm left popliteal cyst. IMPRESSION: 1. No evidence of deep venous thrombus within the bilateral lower extremities. 2. 5 x 2 x 1.1 cm left popliteal cyst. Electronically signed by: Phil Solorzano M.D. 11/29/2016 3:56 PM Dictated Date/Time: 11/29/2016 3:55 PM Laboratory Results 11/29/16 14:30 Red Blood Count 4.30, Mean Corpuscular Volume 99.5, Mean Corpuscular Hemoglobin 34.2, Mean Corpuscular Hemoglobin Concent 34.3, Mean Platelet Volume 9.9, Neutrophils (%) (Auto) 72.7, Lymphocytes (%) (Auto) 7.0, Monocytes (%) (Auto) 14.4, Eosinophils (%) (Auto) 5.2, Basophils (%) (Auto) 0.5, Neutrophils # (Auto ) 4.05, Lymphocytes # (Auto) 0.39, Monocytes # (Auto) 0.80, Eosinophils # (Auto ) 0.29, Basophils # (Auto) 0.03 11/29/16 14:30 Test 11/29/16 14:30 11/29/16 16:34 White Blood Count 5.57 K/uL (4.8-10.8) Red Blood Count 4.30 M/uL (4.2-5.4) Hemoglobin 14.7 g/dL (12.0-16.0) Hematocrit 42.8 % (37-47) Mean Corpuscular Volume 99.5 fL (80-100) Mean Corpuscular Hemoglobin 34.2 pg (25-34) Mean Corpuscular Hemoglobin Concent 34.3 g/dl (32-36) Platelet Count 182 K/uL (130-400) Mean Platelet Volume 9.9 fL (7.4-10.4) Neutrophils (%) (Auto) 72.7 % Lymphocytes (%) (Auto) 7.0 % Monocytes (%) (Auto) 14.4 % Eosinophils (%) (Auto) 5.2 % Basophils (%) (Auto) 0.5 % Neutrophils # (Auto) 4.05 K/uL (1.4-6.5) Lymphocytes # (Auto) 0.39 K/uL (1.2-3.4) Monocytes # (Auto) 0.80 K/uL (0.11-0.59) Eosinophils # (Auto) 0.29 K/uL (0-0.5) Basophils # (Auto) 0.03 K/uL (0-0.2) RDW Standard Deviation 57.5 fL (36.4-46.3) RDW Coefficient of Variation 15.8 % (11.5-14.5) Immature Granulocyte % (Auto) 0.2 % Immature Granulocyte # (Auto) 0.01 K/uL (0.00-0.02) Erythrocyte Sedimentation Rate 17 mm/hr (0-21) Prothrombin Time 13.6 SECONDS (9.0-12.0) Prothromb Time International Ratio 1.3 (0.9-1.1) Activated Partial Thromboplast Time 40.1 SECONDS (21.0-31.0) Partial Thromboplastin Ratio 1.5 Anion Gap 2.0 mmol/L (3-11) Est Creatinine Clear Calc Drug Dose 54.2 ml/min Estimated GFR () 85.7 Estimated GFR (Non- 74.0 BUN/Creatinine Ratio 12.9 (10-20) Calcium Level 9.4 mg/dl (8.5-10.1) Phosphorus Level 3.5 mg/dl (2.5-4.9) Magnesium Level 2.2 mg/dl (1.8-2.4) Total Bilirubin 0.5 mg/dl (0.2-1) Direct Bilirubin 0.2 mg/dl (0-0.2) Aspartate Amino Transf (AST/SGOT) 51 U/L (15-37) Alanine Aminotransferase (ALT/SGPT) 44 U/L (12-78) Alkaline Phosphatase 107 U/L (45-117) Total Creatine Kinase 115 U/L (26-192) Creatine Kinase MB 4.2 ng/ml (0.5-3.6) Creatine Kinase MB Ratio 3.7 (0-3.0) Troponin I 0.019 ng/ml (0-0.045) C-Reactive Protein < 0.29 mg/dl (0-0.29) Pro-B-Type Natriuretic Peptide 2033 pg/ml (0-1800) Total Protein 7.2 gm/dl (6.4-8.2) Albumin 3.6 gm/dl (3.4-5.0) Lipase 218 U/L (73-393) Thyroid Stimulating Hormone (TSH) 3.080 uIu/ml (0.300-4.500) Digoxin Level 0.7 ng/ml (0.8-2.0) Urine Color YELLOW Urine Appearance CLEAR (CLEAR) Urine pH 7.0 (4.5-7.5) Urine Specific [place] 1.015 (1.000-1.030) Urine Protein NEG (NEG) Urine Glucose (UA) NEG (NEG) Urine Ketones NEG (NEG) Urine Occult Blood TRACE (NEG) Urine Nitrite NEG (NEG) Urine Bilirubin NEG (NEG) Urine Urobilinogen NEG (NEG) Urine Leukocyte Esterase NEG (NEG) Urine WBC (Auto) 1-5 /hpf (0-5) Urine RBC (Auto) 5-10 /hpf (0-4) Urine Hyaline Casts (Auto) 0 /lpf (0-5) Urine Epithelial Cells (Auto) 0-5 /lpf (0-5) Urine Bacteria (Auto) NEG (NEG) Laboratory results per my review. Medications Administered Medications (Trade) Dose Ordered Sig/Lori Route Start Time Stop Time Status Last Admin Dose Admin Sodium Chloride 500 ml @ 999 mls/hr Q31M STAT IV 11/29/16 16:57 11/29/16 17:27 DC 11/29/16 17:04 999 MLS/HR ECG Indication: weakness Rate (beats per minute): 89 Rhythm: atrial fibrillation Findings: ST depression (Lateral), T-wave inversion (Lateral), other (No PVCs) Change: no significant change (from Aug 05 2016) ED Course 1349: The patient was evaluated in room B9. A complete history and physical examination were performed. 1455: I discussed the patient with Radha Marcos PA-C for Dr. Vargas ([facility] [place]) - she was concerned about the falling and decreased oxygen saturation. 1647: I reevaluated the patient and she is resting. The patient verbally expressed understanding and agreement with the treatment plan. The patient will be evaluated for further treatment. 1655: I discussed the patient with Dr. Lindsay - [facility] correctional case records supervisor. He will evaluate the patient for further treatment. Medical Decision Differential diagnosis: Etiologies such as metabolic, infection, hypo/hyperglycemia, electrolyte abnormalities, cardiac sources, intracerebral event, toxicologic, neurologic, as well as others were entertained. Nursing notes reviewed. Additional history is obtained from the patient's family member. The patient is a 76-year-old female who presented to the emergency department for an evaluation of multiple complaints. The patient states that she's been having problems with generalized weakness over the last few months. She was also had multiple falls. She does suffer from congestive heart failure and manages her Lasix dose based on how she feels her fluid status is. The patient was found have orthostatic hypotension and was treated with a small bolus of fluid in the emergency department. Her chest. Be consistent with congestive heart failure but she does have a elevation in her BNP. I discussed the patient' s laboratory radiographic studies with her And her family member. I also discussed her case with her cardiology group who sent her to the emergency department because of hypoxia. At this time the exact cause of her hypoxia is unclear what she does not appear to have chest pain. She currently is taking anticoagulation for atrial fibrillation. Saw I will defer any further workup of pulmonary embolism to the admitting team at this time. I discussed his case with the on-call [facility] hospitalist group. They've agreed to evaluate the patient in the emergency apartment for further management and disposition. Medication Reconcilliation Current Medication List: was personally reviewed by me Blood Pressure Screening Patient's blood pressure: Normal blood pressure Consults Time Called: 1430 Consulting Physician: Radha aMrcos PA-C for Dr. Vargas ([facility] [place]) Returned Call: 1455 I discussed the patient with Radha Marcos PA-C for Dr. Vargas ([facility] [place]) - she was concerned about the falling and decreased oxygen saturation. Additional Consults: Time Called: 1650 Consulted Physician: Dr. Angélica SHERIDAN correctional case records supervisor Returned Call: 1655 Additional Comments: I discussed the patient with Dr. Angélica SHERIDAN correctional case records supervisor. He will evaluate the patient for further treatment. Impression Primary Impression: Weakness Additional Impressions: Orthostatic hypotension Hypoxia Falls Head injury Scribe Attestation The scribe's documentation has been prepared under my direction and personally reviewed by me in its entirety. I confirm that the note above accurately reflects all work, treatment, procedures, and medical decision making performed by me. Departure Information Dispostion Being Evaluated By Hospitalist Referrals Berny Vargas M.D. (PCP) Patient Instructions My [facility] Problem Qualifiers Additional Impressions: Falls Encounter type: initial encounter Qualified Codes: W19.XXXA - Unspecified fall, initial encounter Head injury Encounter type: initial encounter Qualified Codes: S09.90XA - Unspecified injury of head, initial encounter
--- NOTE | 2016-11-29 14:21 | DIAGNOSTIC IMAGING REPORT ---
CHEST ONE VIEW PORTABLE HISTORY: EVALUATE ALTERED MENTAL STATUS/WEAKNESS COMPARISON: Chest 11/20/2016. FINDINGS: No pneumothorax. No pleural effusions. The heart remains mildly enlarged. No focal lung consolidations to suggest pneumonia. No evidence for pulmonary edema. Stable mild central pulmonary arterial enlargement. Emphysema, unchanged. IMPRESSION: No significant change compared to the prior study. No acute process. Electronically signed by: Link Koroma M.D. 11/29/2016 2:20 PM Dictated Date/Time: 11/29/2016 2:19 PM
[2016-11-29] MEDS ORDERED: ADVIN25/60 INH (14:44)
[2016-11-29 14:49] LABS: BASO % 0.5 %; BASO ABS # 0.03 K/uL (0-0.2); COMPLETE YES; EOS % 5.2 %; HEMATOCRIT 42.8 % (37-47); IG% 0.2 %; LYMPH ABS # 0.39 K/uL (1.2-3.4); MEAN CELL VOLUME 99.5 fL (80-100); MEAN CORPUSCULAR HEMOGLOBIN 34.2 pg (25-34); MEAN CORPUSCULAR HGB CONC 34.3 g/dl (32-36); MEAN PLATELET VOLUME 9.9 fL (7.4-10.4); MONO % 14.4 %; NEUT % 72.7 %; PLATELET COUNT 182 K/uL (130-400); WHITE BLOOD COUNT 5.57 K/uL (4.8-10.8)
[2016-11-29 14:58] LABS: INR 1.3 (0.9-1.1); PARTIAL THROMBOPLASTIN RATIO 1.5; PROTHROMBIN TIME (PATIENT) 13.6 SECONDS (9.0-12.0)
--- NOTE | 2016-11-29 15:00 | DIAGNOSTIC IMAGING REPORT ---
CERVICAL SPINE W/O CT DOSE: 926.63 mGy.cm HISTORY: Trauma fall TECHNIQUE: Multiaxial CT images of the cervical spine were performed and reformatted in the sagittal and coronal plane without the use of contrast. A dose lowering technique was utilized adhering to the principles of ALARA. COMPARISON: None. FINDINGS: No fractures. No subluxation. Prevertebral soft tissues and the C1-C2 interval are intact. No pneumothorax. Reversal of normal cervical curvature possibly secondary to muscular spasm. Slight wedge deformity superior endplate T1 considered old by CT criteria. IMPRESSION: No fractures within the cervical spine. Degenerative change. Muscle spasm. The above report was generated using voice recognition software. It may contain grammatical, syntax or spelling errors. Electronically signed by: Kehinde Serrano M.D. 11/29/2016 2:58 PM Dictated Date/Time: 11/29/2016 2:52 PM
--- NOTE | 2016-11-29 15:02 | DIAGNOSTIC IMAGING REPORT ---
HEAD WITHOUT CONTRAST (CT) CLINICAL HISTORY: 76 years-old Female with fall. Acute weakness status post fall. Initial exam. TECHNIQUE: Multiple axial CT images of the head were obtained without contrast. A dose lowering technique was utilized adhering to the principles of ALARA. COMPARISON: CT head 12/12/2006. FINDINGS: No acute intracranial hemorrhage, midline shift, mass, large territorial ischemia or abnormal extra-axial collection. There is mild cerebral atrophy. The calvarium is intact. The paranasal sinuses, mastoid air cells, and middle ear cavities are clear. Scattered foci of deep tissue air noted adjacent to the right pterygoid plates with additional deep tissue air foci within the right infratemporal fossa region. IMPRESSION: 1. No acute intracranial hemorrhage or midline shift. 2. Scattered foci of deep tissue air adjacent to the right pterygoid plates and also within the right infratemporal fossa suggest facial bone fractures which are not identified. Focus of pneumocephalus noted in the right cavernous sinus which may be venous in location. Further evaluation with CT facial bone study recommended. The above report was generated using voice recognition software. It may contain grammatical, syntax or spelling errors. Electronically signed by: Edi Hodge M.D. 11/29/2016 3:01 PM Dictated Date/Time: 11/29/2016 2:55 PM
[2016-11-29 15:10] LABS: ALT/SGPT 44 U/L (12-78); AST/SGOT 51 U/L (15-37); BLOOD UREA NITROGEN 10 mg/dl (7-18); BUN/CREATININE RATIO 12.9 (10-20); C-REACTIVE PROTEIN < 0.29 mg/dl (0-0.29); CALCIUM 9.4 mg/dl (8.5-10.1); CARBON DIOXIDE 35 mmol/L (21-32); CHLORIDE 95 mmol/L (98-107); CREATININE 0.77 mg/dl (0.60-1.20); GLUCOSE 90 mg/dl (70-99); MAGNESIUM 2.2 mg/dl (1.8-2.4); POTASSIUM 4.6 mmol/L (3.5-5.1); SODIUM 132 mmol/L (136-145)
[2016-11-29 15:18] LABS: ALKALINE PHOSPHATASE 107 U/L (45-117); CKMB/CK RATIO 3.7 (0-3.0); PHOSPHORUS 3.5 mg/dl (2.5-4.9)
--- NOTE | 2016-11-29 15:57 | DIAGNOSTIC IMAGING REPORT ---
BILATERAL LOWER EXTREMITY VENOUS DOPPLER CLINICAL HISTORY: Lower extremity swelling. COMPARISON STUDY: Lower extremity venous Doppler July. TECHNIQUE: Sonography of the deep venous system of the bilateral lower extremities was performed. Compression and augmentation were evaluated. FINDINGS: The bilateral common femoral, superficial femoral and popliteal veins were compressible. Augmentation was normal. Flow was shown within the deep calf vessels. Note was made of subcutaneous edema within the lower extremities. There was a 5 x 2 x 1.1 cm left popliteal cyst. IMPRESSION: 1. No evidence of deep venous thrombus within the bilateral lower extremities. 2. 5 x 2 x 1.1 cm left popliteal cyst. Electronically signed by: Phil Solorzano M.D. 11/29/2016 3:56 PM Dictated Date/Time: 11/29/2016 3:55 PM
--- NOTE | 2016-11-29 16:01 | DIAGNOSTIC IMAGING REPORT ---
CT SCAN OF THE FACIAL BONES WITHOUT IV CONTRAST CLINICAL HISTORY: Fall. COMPARISON STUDY: CT scan of the paranasal sinuses dated 05/22/2012. CT of the brain performed concurrently on 11/29/2016. TECHNIQUE: High-resolution CT scan of the facial bones is performed. Images are reviewed in the axial, sagittal, and coronal planes. IV contrast was not administered for this examination. A dose lowering technique was utilized adhering to the principles of ALARA. CT DOSE: 592.46 mGy.cm FINDINGS: The skeletal structures are osteopenic. There is no evidence of facial bone fracture. The bony orbits are intact and the orbital contents are within normal limits noting bilateral ocular lens implants. The zygomatic arches, nasal bones, and pterygoid plates are preserved. The maxilla and mandible are intact. Dental caries are noted within the remaining mandibular teeth. Degenerative change is seen involving the temporomandibular joints. There are no layering blood products within the paranasal sinuses. The sinuses and mastoids are clear. The visualized calvarium and upper cervical spine are maintained. There is multilevel cervical spondylosis. Partially imaged brain parenchyma is within normal limits noting age-related involutional change. IMPRESSION: 1. There is no evidence of facial bone fracture. 2. Dental caries are identified within the remaining mandibular teeth. Follow-up with dentistry is recommended. Electronically signed by: Hussain León M.D. 11/29/2016 4:00 PM Dictated Date/Time: 11/29/2016 3:55 PM
[2016-11-29] MEDS ORDERED: DABI1CAP PO (16:04)
[2016-11-29] MEDS ORDERED: NZRCR TOP (16:04)
[2016-11-29] MEDS ORDERED: IPRA1AER2 INH (16:04)
[2016-11-29] MEDS ORDERED: [UNRECOGNIZED DRUG - CODE] PO (16:04)
[2016-11-29] MEDS ORDERED: CEPH500C2 PO (16:04)
[2016-11-29] MEDS ORDERED: LEVO25TA5 PO (16:04)
[2016-11-29] MEDS ORDERED: FRS/40 PO (16:04)
[2016-11-29] MEDS ORDERED: SULF800T23 PO (16:04)
[2016-11-29] MEDS ORDERED: ACET-1256 PO (16:04)
--- NOTE | 2016-11-29 16:40 | DIAGNOSTIC IMAGING REPORT ---
RIGHT PELVIS/UNILATERAL HIP 2-3VIEWS CLINICAL HISTORY: Fall. Right hip bruising. COMPARISON: CT of the abdomen and pelvis June 22, 2012. FINDINGS: Incidental note is made of numerous small gallstones within the gallbladder. The sacroiliac joints and symphysis pubis are intact. There is no acute fracture within the pelvis or hips. 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 IMPRESSION: 1. No acute fracture within the pelvis or hips. 2. Cholelithiasis. Electronically signed by: Phil Solorzano M.D. 11/29/2016 4:39 PM Dictated Date/Time: 11/29/2016 4:38 PM
[2016-11-29 16:54] LABS: URINE APPEARANCE CLEAR (CLEAR); URINE BILIRUBIN NEG (NEG); URINE COLOR YELLOW; URINE EPITHELIAL CELL AUTO 0-5 /lpf (0-5); URINE NITRITE NEG (NEG); URINE SPECIFIC GRAVITY 1.015 (1.000-1.030); UROBILINOGEN NEG (NEG)
[2016-11-29 16:55] LABS: MANUAL MICROSCOPIC REQUIRED? NO; REVIEW REQ? NO
[2016-11-29] MEDS ORDERED: SODIUM CHLORIDE 0.9% 500ML 500 ML IV STA (16:57)
[2016-11-29] MEDS ORDERED: METO25TA3 PO (17:56)
[2016-11-29] MEDS ORDERED: NITROGLYCERIN 0.4 MG SL PER TAB CHARGE SL PRN (19:45)
[2016-11-29] MEDS ORDERED: ONDANSETRON INJ 2 MG/ML 2 ML VIAL IV PRN (20:00)
[2016-11-29 20:26] VITALS: BP 103/44; PULSE 77; TEMP 36.7; O2SAT 94; Ht 165.1 cm; Wt 59.8 kg
--- NOTE | 2016-11-29 20:34 | History and Physical ---
History & Physical Date & Time of Service: Nov 29, 2016 at 20:14 Chief Complaint: Weak, Breathing, A-Fib, Cellulitis Legs Primary Care Physician: Berny Vargas M.D. History of Present Illness Source: patient, family The patient is a 76-year-old female has had signs of generalized fatigue and malaise over the past few months but in particularly worse over the past few weeks. She reports having had 4 falls over the past 2 weeks, with the last one being 3 nights ago. She has been on maintenance Keflex and Bactrim for cellulitis of both legs. On one of the falls, she did hit the top of her head but had no abnormal symptoms such as memory dysfunction clarity of thought, imbalance issues or other. She presents to the emergency department tonight after referral from her outpatient office for concerns regarding the above and assessing for possibility of cardiac involvement. Past Medical/Surgical History Medical Problems: (1) ANTICOAGULANTS,LT,CURRENT USE Status: Chronic (2) ATRIAL FIBRILLATION Status: Chronic (3) CATARACT NOS Status: Resolved (4) Cellulitis Status: Chronic (5) CEREBRAL THROMBOSIS W CEREBRAL INFARCTION Status: Resolved (6) CHR AIRWAY OBSTRUCT NEC Status: Chronic (7) DIVERTICULOSIS COLON (W/O MENT OF HEMORRHAGE) Status: Chronic Family History noncontributory Social History Smoking Status: Former Smoker Smokeless Tobacco Use: No Alcohol Use: none Drug Use: none Marital Status: Occupational Status: retired Immunizations History of Influenza Vaccine: No History of Tetanus Vaccine?: Unknown History of Pneumococcal: Unknown Pneumococcal Date: Apr 10, 2010 History of Hepatitis B Vaccine: Unknown Multi-Drug Resistant Organisms History of MDRO: No Allergies Coded Allergies: Latex1 -Allergic Contact Dermititis (Verified Allergy, Mild, RASH AND ITCHING, 07/03/16) Diltiazem (Verified Adverse Reaction, Unknown, LOW BP AND UPSET STOMACH, ) Home Medications Scheduled Ascorbic Acid (Vitamin C), 1 TAB PO DAILY AT LUNCH Calcium/Vitamin D (Caltrate 600+D Plus 600-800 mg-Unit), 1 TAB PO BID Cephalexin Monohydrate (Keflex), 500 MG PO Q12 Dabigatran Etexilate Mesylate (Pradaxa), 75 MG PO BID Digoxin (Digoxin), 0.125 MG PO DAILY Fluticasone Prop/Salmeterol (Advair Diskus 250/50 60 Dose), 1 PUFFS INH BID Furosemide (Lasix), 40 MG PO DAILY Ipratropium-Albuterol (Combivent Respimat), 1 PUFFS INH QID Ketoconazole (Ketoconazole), 1 APPLN TOP BID UD Lactobacillus (Floranex), 1 TAB PO QAM Levothyroxine Sodium (Levothyroxine Sodium), 25 MCG PO DAILY Magnesium Oxide (Mag-Ox), 400 MG PO DAILY Metoprolol Succ (Toprol Xl) (Toprol-Xl), 12.5 MG PO QAM Multiple Vitamin (Multivitamin), 1 TAB PO DAILY AT LUNCH Potassium Chloride (Klor-Con M20), 20 MEQ PO BID Simvastatin (Zocor), 20 MG PO QPM Sulfa/Trimethoprim (Bactrim Ds 800MG/160MG), 0.5 TAB PO BID Scheduled PRN Acetaminophen (Tylenol), 1 TAB PO DAILY PRN for Pain Nitroglycerin (Nitrostat), 0.4 MG UT UD PRN for Chest Pain Review of Systems The patient denies chest pain, palpitations, shortness of breath, cough, lower extremity swelling, vision change, hearing change, sore throat, fevers, chills, sweats, weight change, nausea, vomiting, diarrhea or constipation, abdominal pain, pelvic pain, blood in urine or stool, dysuria, urinary frequency or urgency, headache, memory loss, abnormal bruising or bleeding, imbalance, focal weakness, numbness or tingling in arms or legs, generalized arthralgias or myalgias, back or neck pain, night sweats. The review of systems is otherwise negative other than for that already noted above, and at least 10 systems have been reviewed. Physical Exam Vital Signs Date Time Temp Pulse Resp B/P (MAP) Pulse Ox O2 Delivery O2 Flow Rate FiO2 11/29/16 20:06 36.5 89 18 91/61 96 11/29/16 19:31 91/61 11/29/16 19:03 111/68 11/29/16 18:31 92/60 11/29/16 18:01 18 77/55 96 Room Air 11/29/16 17:31 18 95/64 96 Room Air 11/29/16 16:41 163/88 11/29/16 15:01 110/68 11/29/16 14:58 79/65 11/29/16 14:58 89 117/55 108 91/78 109/64 11/29/16 14:56 109/64 11/29/16 14:55 91/78 11/29/16 14:54 117/55 11/29/16 14:36 84 28 93 11/29/16 14:33 82 11/29/16 14:30 99 Nasal Cannula 2.0 11/29/16 14:27 97 Nasal Cannula 2.0 11/29/16 13:40 36.5 97 20 101/60 97 Nasal Cannula 2.0 The patient is awake, alert and oriented 3, looks chronically ill and fatigued , normocephalic and atraumatic, lying in bed and in no acute distress. HEENT--PERRL, EOMI, mucous membranes and oropharynx very dry. Neck--supple, no JVD or bruits, thyroid normal, trachea midline, no adenopathy. Heart--normal S1 and S2, no extra beats, no murmurs, rubs or gallops. Lungs--a few dry crackles at the bases bilaterally, no respiratory distress, no accessory muscle use. Abdomen--normal bowel sounds and soft, nontender and nondistended, no hernias or masses, no organomegaly. Extremities--no cyanosis, clubbing or edema. There are good distal pulses b/l. Dermatologic--bilateral lower extremities with area of erythema that is blanching from ankle to knee. Skin is very dry and flaking bilaterally. Neurologic--cranial nerves II through XII grossly intact. Rheumatologic--normal range of motion, nontender, muscles and joints for age. Psychiatric--mildly depressed. Diagnostics Laboratory Results Results Past 24 Hours Test 11/29/16 14:30 11/29/16 16:34 Range/Units White Blood Count 5.57 4.8-10.8 K/uL Red Blood Count 4.30 4.2-5.4 M/uL Hemoglobin 14.7 12.0-16.0 g/dL Hematocrit 42.8 37-47 % Mean Corpuscular Volume 99.5 80-100 fL Mean Corpuscular Hemoglobin 34.2 25-34 pg Mean Corpuscular Hemoglobin Concent 34.3 32-36 g/dl Platelet Count 182 130-400 K/uL Mean Platelet Volume 9.9 7.4-10.4 fL Neutrophils (%) (Auto) 72.7 % Lymphocytes (%) (Auto) 7.0 % Monocytes (%) (Auto) 14.4 % Eosinophils (%) (Auto) 5.2 % Basophils (%) (Auto) 0.5 % Neutrophils # (Auto) 4.05 1.4-6.5 K/uL Lymphocytes # (Auto) 0.39 1.2-3.4 K/uL Monocytes # (Auto) 0.80 0.11-0.59 K/uL Eosinophils # (Auto) 0.29 0-0.5 K/uL Basophils # (Auto) 0.03 0-0.2 K/uL RDW Standard Deviation 57.5 36.4-46.3 fL RDW Coefficient of Variation 15.8 11.5-14.5 % Immature Granulocyte % (Auto) 0.2 % Immature Granulocyte # (Auto) 0.01 0.00-0.02 K/uL Erythrocyte Sedimentation Rate 17 0-21 mm/hr Prothrombin Time 13.6 9.0-12.0 SECONDS Prothromb Time International Ratio 1.3 0.9-1.1 Activated Partial Thromboplast Time 40.1 21.0-31.0 SECONDS Partial Thromboplastin Ratio 1.5 Sodium Level 132 136-145 mmol/L Potassium Level 4.6 3.5-5.1 mmol/L Chloride Level 95 98-107 mmol/L Carbon Dioxide Level 35 21-32 mmol/L Anion Gap 2.0 3-11 mmol/L Blood Urea Nitrogen 10 7-18 mg/dl Creatinine 0.77 0.60-1.20 mg/dl Est Creatinine Clear Calc Drug Dose 54.2 ml/min Estimated GFR () 85.7 Estimated GFR (Non- 74.0 BUN/Creatinine Ratio 12.9 10-20 Random Glucose 90 70-99 mg/dl Calcium Level 9.4 8.5-10.1 mg/dl Phosphorus Level 3.5 2.5-4.9 mg/dl Magnesium Level 2.2 1.8-2.4 mg/dl Total Bilirubin 0.5 0.2-1 mg/dl Direct Bilirubin 0.2 0-0.2 mg/dl Aspartate Amino Transf (AST/SGOT) 51 15-37 U/L Alanine Aminotransferase (ALT/SGPT) 44 12-78 U/L Alkaline Phosphatase 107 45-117 U/L Total Creatine Kinase 115 26-192 U/L Creatine Kinase MB 4.2 0.5-3.6 ng/ml Creatine Kinase MB Ratio 3.7 0-3.0 Troponin I 0.019 0-0.045 ng/ml C-Reactive Protein < 0.29 0-0.29 mg/dl Pro-B-Type Natriuretic Peptide 2033 0-1800 pg/ml Total Protein 7.2 6.4-8.2 gm/dl Albumin 3.6 3.4-5.0 gm/dl Lipase 218 73-393 U/L Thyroid Stimulating Hormone (TSH) 3.080 0.300-4.500 uIu/ml Digoxin Level 0.7 0.8-2.0 ng/ml Urine Color YELLOW Urine Appearance CLEAR CLEAR Urine pH 7.0 4.5-7.5 Urine Specific [place] 1.015 1.000-1.030 Urine Protein NEG NEG Urine Glucose (UA) NEG NEG Urine Ketones NEG NEG Urine Occult Blood TRACE NEG Urine Nitrite NEG NEG Urine Bilirubin NEG NEG Urine Urobilinogen NEG NEG Urine Leukocyte Esterase NEG NEG Urine WBC (Auto) 1-5 0-5 /hpf Urine RBC (Auto) 5-10 0-4 /hpf Urine Hyaline Casts (Auto) 0 0-5 /lpf Urine Epithelial Cells (Auto) 0-5 0-5 /lpf Urine Bacteria (Auto) NEG NEG Diagnostic Radiology Patient Name: GUERDA RODRIGUEZ Unit Number: [id number] Dictated: 11/29/161418 Transcribed: 11/29/161418 Alphion Printed Date/Time: [~ rep prt dt]/[~ rep prt tm] [~ rep ct labl] - [~ rep ct ivnm] [facility] [place] [address] Dictated: 11/29/161418 Transcribed: 11/29/161418 Alphion Printed Date/Time: [~ rep prt dt]/[~ rep prt tm] [~ rep ct labl] - [~ rep ct ivnm] CHEST ONE VIEW PORTABLE HISTORY: EVALUATE ALTERED MENTAL STATUS/WEAKNESS COMPARISON: Chest 11/20/2016. FINDINGS: No pneumothorax. No pleural effusions. The heart remains mildly enlarged. No focal lung consolidations to suggest pneumonia. No evidence for pulmonary edema. Stable mild central pulmonary arterial enlargement. Emphysema, unchanged. IMPRESSION: No significant change compared to the prior study. No acute process. Electronically signed by: Link Koroma M.D. 11/29/2016 2:20 PM Dictated Date/Time: 11/29/2016 2:19 PM The status of this report is Signed. Draft = Not yet reviewed or approved by Radiologist. Signed = Reviewed and approved by Radiologist. <AttendingPhy></AttendingPhy> <FamilyPhy>Soren Ontiveros, </FamilyPhy> < PrimaryPhy>Berny Vargas M.D.</PrimaryPhy> <UnitNumber>[id number]</ UnitNumber> <VisitNumber>[id number]</VisitNumber> <PatientName>GUEDRA RODRIGUEZ</PatientName> <DateOfBirth>1940</DateOfBirth> <Location>[facility]< /Location> <ServiceDate>11/29/16</ServiceDate> <MNE>ESINDI</MNE> <OrderingPhy> Unruly Valadez D.O.</OrderingPhy> <OrderingPhyMNE>f rep ord dr short</ OrderingPhyMNE> <DictatingPhyMNE>f rep dict dr short</DictatingPhyMNE> <CCListMNE> f rep ct mne</CCListMNE> <AdmittingPhyMNE>f pt admit dr short</AdmittingPhyMNE> < AttendingPhyMNE>f pt attend dr short</AttendingPhyMNE> <ConsultingPhyMNE>f pt consult dr short</ConsultingPhyMNE> <FamilyPhyMNE>f pt fam dr short</FamilyPhyMNE> <OtherPhyMNE>f pt other dr short</OtherPhyMNE> < PrimaryPhyMNE>f pt prim care dr short</PrimaryPhyMNE> <ReferringPhyMNE>f pt referring dr short</ReferringPhyMNE> Patient Name: GUERDA RODRIGUEZ Unit Number: [id number] Dictated: 11/29/16 1555 Transcribed: 11/29/161554 JA Printed Date/Time: [~ rep prt dt]/[~ rep prt tm] [~ rep ct labl] - [~ rep ct ivnm] [facility] [place] [address] Dictated: 11/29/161554 Transcribed: 11/29/161554 JA Printed Date/Time: [~ rep prt dt]/[~ rep prt tm] [~ rep ct labl] - [~ rep ct ivnm] [~ rep ct add3]] BILATERAL LOWER EXTREMITY VENOUS DOPPLER CLINICAL HISTORY: Lower extremity swelling. COMPARISON STUDY: Lower extremity venous Doppler July. TECHNIQUE: Sonography of the deep venous system of the bilateral lower extremities was performed. Compression and augmentation were evaluated. FINDINGS: The bilateral common femoral, superficial femoral and popliteal veins were compressible. Augmentation was normal. Flow was shown within the deep calf vessels. Note was made of subcutaneous edema within the lower extremities. There was a 5 x 2 x 1.1 cm left popliteal cyst. IMPRESSION: 1. No evidence of deep venous thrombus within the bilateral lower extremities. 2. 5 x 2 x 1.1 cm left popliteal cyst. Electronically signed by: Phil Solorzano M.D. 11/29/2016 3:56 PM Dictated Date/Time: 11/29/2016 3:55 PM The status of this report is Signed. Draft = Not yet reviewed or approved by Radiologist. Signed = Reviewed and approved by Radiologist. <AttendingPhy></AttendingPhy> <FamilyPhy>Soren Ontiveros DO</FamilyPhy> < PrimaryPhy>Berny Vargas M.D.</PrimaryPhy> <UnitNumber>[id number]</ UnitNumber> <VisitNumber>[id number]</VisitNumber> <PatientName>GUERDA RODRIGUEZ</PatientName> <DateOfBirth>1940</DateOfBirth> <[facility] <ServiceDate>11/29/16</ServiceDate> <MNE>ESINDI</MNE> <OrderingPhy> Unruly Valadez D.O.</OrderingPhy> <OrderingPhyMNE>f rep ord dr short</ OrderingPhyMNE> <DictatingPhyMNE>f rep dict dr short</DictatingPhyMNE> <CCListMNE> f rep ct mne</CCListMNE> <AdmittingPhyMNE>f pt admit dr short</AdmittingPhyMNE> < AttendingPhyMNE>f pt attend dr short</AttendingPhyMNE> <ConsultingPhyMNE>f pt consult dr short</ConsultingPhyMNE> <FamilyPhyMNE>f pt fam dr short</FamilyPhyMNE> <OtherPhyMNE>f pt other dr short</OtherPhyMNE> < PrimaryPhyMNE>f pt prim care dr short</PrimaryPhyMNE> <ReferringPhyMNE>f pt referring dr short</ReferringPhyMNE> Patient Name: GUERDA RODRIGUEZ Unit Number: [id number] Dictated: 11/29/161637 Transcribed: 11/29/161637 JA Printed Date/Time: [~ rep prt dt]/[~ rep prt tm] [~ rep ct labl] - [~ rep ct ivnm] [facility] Radiology Department [place] [id number] Dictated: 11/29/161637 Transcribed: 11/29/161637 JA Printed Date/Time: [~ rep prt dt]/[~ rep prt tm] [~ rep ct labl] - [~ rep ct ivnm] RIGHT PELVIS/UNILATERAL HIP 2-3VIEWS CLINICAL HISTORY: Fall. Right hip bruising. COMPARISON: CT of the abdomen and pelvis June 22, 2012. FINDINGS: Incidental note is made of numerous small gallstones within the gallbladder. The sacroiliac joints and symphysis pubis are intact. There is no acute fracture within the pelvis or hips. 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 IMPRESSION: 1. No acute fracture within the pelvis or hips. 2. Cholelithiasis. Electronically signed by: Phil Solorzano M.D. 11/29/2016 4:39 PM Dictated Date/Time: 11/29/2016 4:38 PM The status of this report is Signed. Draft = Not yet reviewed or approved by Radiologist. Signed = Reviewed and approved by Radiologist. <AttendingPhy></AttendingPhy> <FamilyPhy>Soren Ontiveros, </FamilyPhy> < PrimaryPhy>Berny Vargas M.D.</PrimaryPhy> <UnitNumber>[id number]</ UnitNumber> <VisitNumber>[id number]</VisitNumber> <PatientName>GUERDA RODRIGUEZ</PatientName> <DateOfBirth>1940</DateOfBirth> <Location>[facility]< /Location> <ServiceDate>11/29/16</ServiceDate> <MNE>ESINDI</MNE> <OrderingPhy> Unruly Valadez D.O.</OrderingPhy> <OrderingPhyMNE>f rep ord dr short</ OrderingPhyMNE> <DictatingPhyMNE>f rep dict dr short</DictatingPhyMNE> <CCListMNE> f rep ct mne</CCListMNE> <AdmittingPhyMNE>f pt admit dr short</AdmittingPhyMNE> < AttendingPhyMNE>f pt attend dr short</AttendingPhyMNE> <ConsultingPhyMNE>f pt consult dr short</ConsultingPhyMNE> <FamilyPhyMNE>f pt fam dr short</FamilyPhyMNE> <OtherPhyMNE>f pt other dr short</OtherPhyMNE> < PrimaryPhyMNE>f pt prim care dr short</PrimaryPhyMNE> <ReferringPhyMNE>f pt referring dr short</ReferringPhyMNE> Patient Name: GUERDA RODRIGUEZ Unit Number: [id number] Dictated: 11/29/161454 Transcribed: 11/29/161454 JRB Printed Date/Time: [~ rep prt dt]/[~ rep prt tm] [~ rep ct labl] - [~ rep ct ivnm] [facility] [place] [address] Dictated: 11/29/161454 Transcribed: 11/29/161454 JRB Printed Date/Time: [~ rep prt dt]/[~ rep prt tm] [~ rep ct labl] - [~ rep ct ivnm] [~ rep ct add3]] HEAD WITHOUT CONTRAST (CT) CLINICAL HISTORY: 76 years-old Female with fall. Acute weakness status post fall. Initial exam. TECHNIQUE: Multiple axial CT images of the head were obtained without contrast. A dose lowering technique was utilized adhering to the principles of ALARA. COMPARISON: CT head 12/12/2006. FINDINGS: No acute intracranial hemorrhage, midline shift, mass, large territorial ischemia or abnormal extra-axial collection. There is mild cerebral atrophy. The calvarium is intact. The paranasal sinuses, mastoid air cells, and middle ear cavities are clear. Scattered foci of deep tissue air noted adjacent to the right pterygoid plates with additional deep tissue air foci within the right infratemporal fossa region. IMPRESSION: 1. No acute intracranial hemorrhage or midline shift. 2. Scattered foci of deep tissue air adjacent to the right pterygoid plates and also within the right infratemporal fossa suggest facial bone fractures which are not identified. Focus of pneumocephalus noted in the right cavernous sinus which may be venous in location. Further evaluation with CT facial bone study recommended. The above report was generated using voice recognition software. It may contain grammatical, syntax or spelling errors. Electronically signed by: Edi Hodge M.D. 11/29/2016 3:01 PM Dictated Date/Time: 11/29/2016 2:55 PM The status of this report is Signed. Draft = Not yet reviewed or approved by Radiologist. Signed = Reviewed and approved by Radiologist. <AttendingPhy></AttendingPhy> <FamilyPhy>Soren Ontiveros DO</FamilyPhy> < PrimaryPhy>Berny Vargas M.D.</PrimaryPhy> <UnitNumber>[id number]</ UnitNumber> <VisitNumber>[id number]</VisitNumber> <PatientName>GUERDA RODRIGUEZ</PatientName> <DateOfBirth>1940</DateOfBirth> <[facility]> <ServiceDate>11/29/16</ServiceDate> <MNE>ESINDI</MNE> <OrderingPhy> Unruly Valadez D.O.</OrderingPhy> <OrderingPhyMNE>f rep ord dr short</ OrderingPhyMNE> <DictatingPhyMNE>f rep dict dr short</DictatingPhyMNE> <CCListMNE> f rep ct mne</CCListMNE> <AdmittingPhyMNE>f pt admit dr short</AdmittingPhyMNE> < AttendingPhyMNE>f pt attend dr short</AttendingPhyMNE> <ConsultingPhyMNE>f pt consult dr short</ConsultingPhyMNE> <FamilyPhyMNE>f pt fam dr short</FamilyPhyMNE> <OtherPhyMNE>f pt other dr short</OtherPhyMNE> < PrimaryPhyMNE>f pt prim care dr short</PrimaryPhyMNE> <ReferringPhyMNE>f pt referring dr short</ReferringPhyMNE> Patient Name: GEURDA RODRIGUEZ Unit Number: [id number] Dictated: 11/29/161451 Transcribed: 11/29/161451 MS Printed Date/Time: [~ rep prt dt]/[~ rep prt tm] [~ rep ct labl] - [~ rep ct ivnm] [facility] [place] [address] Dictated: 11/29/161451 Transcribed: 11/29/161451 MS Printed Date/Time: [~ rep prt dt]/[~ rep prt tm] [~ rep ct labl] - [~ rep ct ivnm] CERVICAL SPINE W/O CT DOSE: 926.63 mGy.cm HISTORY: Trauma fall TECHNIQUE: Multiaxial CT images of the cervical spine were performed and reformatted in the sagittal and coronal plane without the use of contrast. A dose lowering technique was utilized adhering to the principles of ALARA. COMPARISON: None. FINDINGS: No fractures. No subluxation. Prevertebral soft tissues and the C1-C2 interval are intact. No pneumothorax. Reversal of normal cervical curvature possibly secondary to muscular spasm. Slight wedge deformity superior endplate T1 considered old by CT criteria. IMPRESSION: No fractures within the cervical spine. Degenerative change. Muscle spasm. The above report was generated using voice recognition software. It may contain grammatical, syntax or spelling errors. Electronically signed by: Kehinde Serrano M.D. 11/29/2016 2:58 PM Dictated Date/Time: 11/29/2016 2:52 PM The status of this report is Signed. Draft = Not yet reviewed or approved by Radiologist. Signed = Reviewed and approved by Radiologist. <AttendingPhy></AttendingPhy> <FamilyPhy>Soren Ontiveros DO</FamilyPhy> < PrimaryPhy>Berny Vargas M.D.</PrimaryPhy> <UnitNumber>[id number]</ UnitNumber> <VisitNumber>[id number]</VisitNumber> <PatientName>JENNIFER GUERDA Cullen</PatientName> <DateOfBirth>1940</DateOfBirth> <Location>[facility]< /Location> <ServiceDate>11/29/16</ServiceDate> <MNE>ESINDI</MNE> <OrderingPhy> Unruly Valadez D.O.</OrderingPhy> <OrderingPhyMNE>f rep ord dr short</ OrderingPhyMNE> <DictatingPhyMNE>f rep dict dr short</DictatingPhyMNE> <CCListMNE> f rep ct mne</CCListMNE> <AdmittingPhyMNE>f pt admit dr short</AdmittingPhyMNE> < AttendingPhyMNE>f pt attend dr short</AttendingPhyMNE> <ConsultingPhyMNE>f pt consult dr short</ConsultingPhyMNE> <FamilyPhyMNE>f pt fam dr short</FamilyPhyMNE> <OtherPhyMNE>f pt other dr short</OtherPhyMNE> < PrimaryPhyMNE>f pt prim care dr short</PrimaryPhyMNE> <ReferringPhyMNE>f pt referring dr short</ReferringPhyMNE> Patient Name: JENNIFERGUERDA Cullen Unit Number: [id number] Dictated: 11/29/16 1555 Transcribed: 11/29/16 1555 EV Printed Date/Time: [~ rep prt dt]/[~ rep prt tm] [~ rep ct labl] - [~ rep ct ivnm] [facility] Radiology Department [place], [place] [id number] Dictated: 11/29/161554 Transcribed: 11/29/16 155 EV Printed Date/Time: [~ rep prt dt]/[~ rep prt tm] [~ rep ct labl] - [~ rep ct ivnm] [~ rep ct add3]] CT SCAN OF THE FACIAL BONES WITHOUT IV CONTRAST CLINICAL HISTORY: Fall. COMPARISON STUDY: CT scan of the paranasal sinuses dated 05/22/2012. CT of the brain performed concurrently on 11/29/2016. TECHNIQUE: High-resolution CT scan of the facial bones is performed. Images are reviewed in the axial, sagittal, and coronal planes. IV contrast was not administered for this examination. A dose lowering technique was utilized adhering to the principles of ALARA. CT DOSE: 592.46 mGy.cm FINDINGS: The skeletal structures are osteopenic. There is no evidence of facial bone fracture. The bony orbits are intact and the orbital contents are within normal limits noting bilateral ocular lens implants. The zygomatic arches, nasal bones, and pterygoid plates are preserved. The maxilla and mandible are intact. Dental caries are noted within the remaining mandibular teeth. Degenerative change is seen involving the temporomandibular joints. There are no layering blood products within the paranasal sinuses. The sinuses and mastoids are clear. The visualized calvarium and upper cervical spine are maintained. There is multilevel cervical spondylosis. Partially imaged brain parenchyma is within normal limits noting age-related involutional change. IMPRESSION: 1. There is no evidence of facial bone fracture. 2. Dental caries are identified within the remaining mandibular teeth. Follow-up with dentistry is recommended. Electronically signed by: Hussain León M.D. 11/29/2016 4:00 PM Dictated Date/Time: 11/29/2016 3:55 PM The status of this report is Signed. Draft = Not yet reviewed or approved by Radiologist. Signed = Reviewed and approved by Radiologist. <AttendingPhy></AttendingPhy> <FamilyPhy>Soren Ontiveros, </FamilyPhy> < PrimaryPhy>Berny Vargas M.D.</PrimaryPhy> <UnitNumber>[id number]</ UnitNumber> <VisitNumber>[id number]</VisitNumber> <PatientName>GUERDA RODRIGUEZ</PatientName> <DateOfBirth>1940</DateOfBirth> <[facility] <ServiceDate>11/29/16</ServiceDate> <MNE>ESINDI</MNE> <OrderingPhy> Unruly Valadez D.O.</OrderingPhy> <OrderingPhyMNE>f rep ord dr short</ OrderingPhyMNE> <DictatingPhyMNE>f rep dict dr hsort</DictatingPhyMNE> <CCListMNE> f rep ct han</CCListMNE> <AdmittingPhyMNE>f pt admit dr short</AdmittingPhyMNE> < AttendingPhyMNE>f pt attend dr short</AttendingPhyMNE> <ConsultingPhyMNE>f pt consult dr short</ConsultingPhyMNE> <FamilyPhyMNE>f pt fam dr short</FamilyPhyMNE> <OtherPhyMNE>f pt other dr short</OtherPhyMNE> < PrimaryPhyMNE>f pt prim care dr short</PrimaryPhyMNE> <ReferringPhyMNE>f pt referring dr short</ReferringPhyMNE> EKG EKG shows atrial flutter at 89 bpm, LVH, ST depression and T-wave inversion in leads V4 to 6, and nonspecific T-wave changes in inferior leads. Impression Assessment and Plan Atrial fibrillation/flutter/cerebrovascular disease/CHF--The patient will be admitted to telemetry for serial cardiac enzymes, cardiac rhythm monitoring and a 2-D echocardiogram with Dopplers. EKG with new changes compared to previous. Continue digoxin 0.125 mg by mouth daily, mag oxide 400 mg by mouth daily, metoprolol succinate 12.5 mg by mouth every morning and Pradaxa 75 mg by mouth twice a day Hold furosemide 40 mg by mouth daily and Klor-Con 20 mEq by mouth twice a day. Follow serial BMP and magnesium levels. Follows with Dr. Vargas in the outpatient setting, Consult cardiology. Frequent falls/generalized weakness--multifactorial. Cardiac workup in progress. Appears dehydrated. We'll hold furosemide and place on normal saline with KCl 20 mEq at 75 ML's per hour. Treat bilateral lower extremity cellulitis. Bilateral lower extremity cellulitis-- Hold Keflex and Bactrim. Place on vancomycin IV and ceftriaxone IV. Increase Floranex. Hypothyroidism--continue levothyroxine sodium at 25 g by mouth daily. Hyperlipidemia--continue simvastatin 20 mg by mouth every afternoon. COPD--continue Advair discus and Combivent respirometer. Deconditioning-- Consult PT and OT and perinatal social worker. Level of Care Telemetry Advanced Directives Existing Advance Directive: No Existing Living Will: No Existing Power of Active Directory Administrator: No Resuscitation Status FULL RESUSCITATION VTE Prophylaxis VTE Risk Assessment Done? Y/N: Yes Risk Level: Moderate Given or contraindicated: Other Anticoagulation (Pradaxa)
[2016-11-29] MEDS ORDERED: SIMV20TA2 PO (20:35)
[2016-11-29] MEDS ORDERED: VANCOMYCIN INJ 1,500 MG in SODIUM CHLORIDE 0.9% 500ML 500 ML IV ONE (20:45)
--- NOTE | 2016-11-29 20:55 | Pharmacy Progress Note ---
Pharmacy Abx Initial Consult Date of Service Nov 29, 2016. Pharmacy Dosing Scope Date of Consult: 11/29/16 Consultation requested by: Dr. Goss Pharmacy is consulted to initiate Vancomycin IV dosing therapy, order appropriate labs and adjust drug dose/frequency. Subjective The patient is a 76 year old female admitted on Nov 29, 2016 at 19:37 with bilateral lower extremity cellulitis. Objective Height (Feet): 5 Height (Inches): 5.00 Weight (Kilograms): 57.600 Vital Signs (Past 12Hrs) Vital Signs Past 12 Hours Date Time Temp Pulse Resp B/P (MAP) Pulse Ox O2 Delivery O2 Flow Rate FiO2 11/29/16 20:06 36.5 89 18 91/61 96 11/29/16 19:31 91/61 11/29/16 19:03 111/68 11/29/16 18:31 92/60 11/29/16 18:01 18 77/55 96 Room Air 11/29/16 17:31 18 95/64 96 Room Air 11/29/16 16:41 163/88 11/29/16 15:01 110/68 11/29/16 14:58 79/65 11/29/16 14:58 89 117/55 108 91/78 109/64 11/29/16 14:56 109/64 11/29/16 14:55 91/78 11/29/16 14:54 117/55 11/29/16 14:36 84 28 93 11/29/16 14:33 82 11/29/16 14:30 99 Nasal Cannula 2.0 11/29/16 14:27 97 Nasal Cannula 2.0 11/29/16 13:40 36.5 97 20 101/60 97 Nasal Cannula 2.0 Lab Results (24Hrs) Laboratory Tests (24 Hours) Test 11/29/16 14:30 C-Reactive Protein < 0.29 mg/dl (0-0.29) Erythrocyte Sedimentation Rate 17 mm/hr (0-21) White Blood Count 5.57 K/uL (4.8-10.8) Red Blood Count 4.30 M/uL (4.2-5.4) Hemoglobin 14.7 g/dL (12.0-16.0) Hematocrit 42.8 % (37-47) Mean Corpuscular Volume 99.5 fL (80-100) Mean Corpuscular Hemoglobin 34.2 pg (25-34) H Mean Corpuscular Hemoglobin Concent 34.3 g/dl (32-36) Platelet Count 182 K/uL (130-400) Mean Platelet Volume 9.9 fL (7.4-10.4) Neutrophils (%) (Auto) 72.7 % Lymphocytes (%) (Auto) 7.0 % Monocytes (%) (Auto) 14.4 % Eosinophils (%) (Auto) 5.2 % Basophils (%) (Auto) 0.5 % Neutrophils # (Auto) 4.05 K/uL (1.4-6.5) Lymphocytes # (Auto) 0.39 K/uL (1.2-3.4) L Monocytes # (Auto) 0.80 K/uL (0.11-0.59) H Eosinophils # (Auto) 0.29 K/uL (0-0.5) Basophils # (Auto) 0.03 K/uL (0-0.2) Total Creatine Kinase 115 U/L (26-192) Risk Factors for Resistance * Antimicrobial use within the last 90 days: Bactrim PO + Keflex PO Assessment & Plan Assessment 76 year old female initiated on Vancomycin/Rocephin IV for bilateral lower extremity cellulitis. Plan Vancomycin IV * Loading dose: 1500 mg (26 mg/kg) * Maintenance dose: 1000 mg IV (17 mg/kg) every 16 hours * Goal trough level for cellulitis: ~15 mcg/mL * Trough level ordered for 12/01/16 @1930 prior to the 2000 dose Pharmacy will continue to follow and will adjust dose/frequency as necessary. Thank you.
[2016-11-29] MEDS: KETOCONAZOLE 2% CR 15 GM TUBE EXT SCH (21:00)
[2016-11-29] MEDS: FLUTICASONE/SALMETEROL 250/50 (ADVAIR) 14 PUFF/1 INHALER INH SCH (21:08)
[2016-11-29] MEDS: NSS + 20MEQ KCL 1000ML 1,000 ML IV SCH (21:09)
[2016-11-29] MEDS: IPRATROPIUM BROMIDE/ALBUTEROL respimat INH INH SCH (21:09)
[2016-11-29] MEDS: SIMVASTATIN 20 MG TAB PO SCH (21:10)
[2016-11-29] MEDS: DABIGATRAN ELEXILATE 75 MG CAP PO SCH (21:15)
[2016-11-29] MEDS ORDERED: VANCOMYCIN CONSULT ACTIVE PRN (21:30)
[2016-11-29] MEDS: CEFTRIAXONE SOD INJ 1 GM in DEXTROSE 5% ADD-VANTAGE 50ML 50 ML IV SCH (23:31)
[2016-11-29 23:59] VITALS: O2SAT 98
[2016-11-30] VITALS (13 sets, daily range): BP systolic 78–104; BP diastolic 41–62; PULSE 66–100; TEMP 36.2–36.8; O2SAT 90–99
[2016-11-30] MEDS: LEVOTHYROXINE 25 MCG TAB PO SCH (05:29)
[2016-11-30] MEDS: ACETAMINOPHEN 325 MG TAB PO PRN (05:33)
[2016-11-30 07:01] LABS: BASO % 0.2 %; BASO ABS # 0.01 K/uL (0-0.2); COMPLETE YES; EOS % 5.7 %; HEMATOCRIT 40.1 % (37-47); IG% 0.2 %; LYMPH % 6.9 %; MEAN CELL VOLUME 103.1 fL (80-100); MEAN CORPUSCULAR HEMOGLOBIN 33.4 pg (25-34); MEAN CORPUSCULAR HGB CONC 32.4 g/dl (32-36); MEAN PLATELET VOLUME 9.5 fL (7.4-10.4); MONO % 16.4 %; NEUT % 70.6 %; PLATELET COUNT 179 K/uL (130-400); RED BLOOD COUNT 3.89 M/uL (4.2-5.4); WHITE BLOOD COUNT 5.81 K/uL (4.8-10.8)
[2016-11-30 07:22] LABS: INR 1.2 (0.9-1.1); PARTIAL THROMBOPLASTIN RATIO 1.5; PROTHROMBIN TIME (PATIENT) 13.1 SECONDS (9.0-12.0)
[2016-11-30 07:35] LABS: BUN/CREATININE RATIO 12.2 (10-20); CALCIUM 8.4 mg/dl (8.5-10.1); CREATININE 0.66 mg/dl (0.60-1.20); MAGNESIUM 2.1 mg/dl (1.8-2.4); POTASSIUM 4.7 mmol/L (3.5-5.1)
[2016-11-30] MEDS: IPRATROPIUM BROMIDE/ALBUTEROL respimat INH INH SCH ×4 (07:58→21:44)
[2016-11-30] MEDS: FLUTICASONE/SALMETEROL 250/50 (ADVAIR) 14 PUFF/1 INHALER INH SCH ×2 (07:58→21:44)
[2016-11-30] MEDS: LACTOBACILLUS ACIDOPHILUS (FLORANEX) TAB PO SCH ×3 (08:00→16:28)
[2016-11-30] MEDS: MAGNESIUM OXIDE 400 MG TAB PO SCH (08:01)
[2016-11-30] MEDS: ASCORBIC ACID 500 MG TAB PO SCH (08:02)
[2016-11-30] MEDS: DABIGATRAN ELEXILATE 75 MG CAP PO SCH ×2 (08:02→21:46)
[2016-11-30] MEDS: METOPROLOL SUCC 25MG EXT REL TAB PO SCH (08:03)
[2016-11-30] MEDS: KETOCONAZOLE 2% CR 15 GM TUBE EXT SCH ×2 (08:04→21:45)
[2016-11-30] MEDS: MULTIVITAMIN TAB PO SCH (08:04)
--- NOTE | 2016-11-30 08:33 | Hospitalist Progress Note ---
Hospitalist Progress Note Date of Service Nov 30, 2016. (Dorota Al PA-C) Subjective Pt evaluation today including: conversation w/ patient, physical exam, chart review, lab review, review of studies Pain: None PO Intake: Good Voiding: no voiding problems Constitutional: No fever, No chills, No sweats, No fatigue Eyes: No discharge, No diplopia ENT: No nasal symptoms, No sore throat Respiratory: No cough, No shortness of breath Cardiovascular: No chest pain, No edema, No palpitations Abdomen: No pain, No nausea, No vomiting, No diarrhea, No constipation Musculoskeletal: + swelling (chronic BLE), No joint pain, No muscle pain Female : No dysuria Neurologic: + weakness (s/p multiple falls in the past week) Endo: No fatigue Skin: No rash, No itch (Dorota Al PA-C) Objective Vital Signs Date Time Temp Pulse Resp B/P (MAP) Pulse Ox O2 Delivery O2 Flow Rate FiO2 11/30/16 08:02 36.6 91 20 78/41 (53) 90 4.0 11/30/16 04:00 93 Nasal Cannula 2.0 11/30/16 03:56 100 87/43 (58) 11/30/16 03:55 95 89/55 (66) 11/30/16 03:54 36.6 84 20 82/57 (65) 93 Nasal Cannula 2.0 11/30/16 00:07 36.6 80 18 87/57 (67) 97 Nasal Cannula 2.0 11/29/16 23:59 98 Nasal Cannula 2.0 11/29/16 20:26 36.7 77 18 103/44 94 Nasal Cannula 2.0 11/29/16 20:06 36.5 89 18 91/61 96 11/29/16 19:31 91/61 11/29/16 19:03 111/68 11/29/16 18:31 92/60 11/29/16 18:01 18 77/55 96 Room Air 11/29/16 17:31 18 95/64 96 Room Air 11/29/16 16:41 163/88 11/29/16 15:01 110/68 11/29/16 14:58 79/65 11/29/16 14:58 89 117/55 108 91/78 109/64 11/29/16 14:56 109/64 11/29/16 14:55 91/78 11/29/16 14:54 117/55 11/29/16 14:36 84 28 93 11/29/16 14:33 82 11/29/16 14:30 99 Nasal Cannula 2.0 11/29/16 14:27 97 Nasal Cannula 2.0 11/29/16 13:40 36.5 97 20 101/60 97 Nasal Cannula 2.0 (Dorota Al PA-C) Physical Exam General Appearance: WD/WN, no apparent distress Eyes: PERRL, EOMI ENT: hearing grossly normal, pharynx normal Neck: supple, no JVD Respiratory/Chest: chest non-tender, no respiratory distress, no accessory muscle use, + pertinent finding (ON 2 Li via NC) Cardiovascular: + irregularly irregular Abdomen: normal bowel sounds, non tender, soft Extremities: no calf tenderness, + pedal edema, + pertinent finding (+erythema and warmth over entire circumference of lower legs up to level of the knee, + onychomycosis BLE, + abraision over the R knee, ecchymosis over bilateral knee s/p fall. + ecchymosis over the R elbow. ) Neurologic/Psychiatric: alert, normal mood/affect, oriented x 3 Skin: warm/dry (Dorota Al, VIKASH-C) Laboratory Results Last 24 Hours Test 11/29/16 14:30 11/29/16 16:34 11/30/16 06:47 White Blood Count 5.57 K/uL 5.81 K/uL Red Blood Count 4.30 M/uL 3.89 M/uL Hemoglobin 14.7 g/dL 13.0 g/dL Hematocrit 42.8 % 40.1 % Mean Corpuscular Volume 99.5 fL 103.1 fL Mean Corpuscular Hemoglobin 34.2 pg 33.4 pg Mean Corpuscular Hemoglobin Concent 34.3 g/dl 32.4 g/dl Platelet Count 182 K/uL 179 K/uL Mean Platelet Volume 9.9 fL 9.5 fL Neutrophils (%) (Auto) 72.7 % 70.6 % Lymphocytes (%) (Auto) 7.0 % 6.9 % Monocytes (%) (Auto) 14.4 % 16.4 % Eosinophils (%) (Auto) 5.2 % 5.7 % Basophils (%) (Auto) 0.5 % 0.2 % Neutrophils # (Auto) 4.05 K/uL 4.11 K/uL Lymphocytes # (Auto) 0.39 K/uL 0.40 K/uL Monocytes # (Auto) 0.80 K/uL 0.95 K/uL Eosinophils # (Auto) 0.29 K/uL 0.33 K/uL Basophils # (Auto) 0.03 K/uL 0.01 K/uL RDW Standard Deviation 57.5 fL 60.3 fL RDW Coefficient of Variation 15.8 % 15.9 % Immature Granulocyte % (Auto) 0.2 % 0.2 % Immature Granulocyte # (Auto) 0.01 K/uL 0.01 K/uL Erythrocyte Sedimentation Rate 17 mm/hr Prothrombin Time 13.6 SECONDS 13.1 SECONDS Prothromb Time International Ratio 1.3 1.2 Activated Partial Thromboplast Time 40.1 SECONDS 38.2 SECONDS Partial Thromboplastin Ratio 1.5 1.5 Sodium Level 132 mmol/L 135 mmol/L Potassium Level 4.6 mmol/L 4.7 mmol/L Chloride Level 95 mmol/L 99 mmol/L Carbon Dioxide Level 35 mmol/L 32 mmol/L Anion Gap 2.0 mmol/L 4.0 mmol/L Blood Urea Nitrogen 10 mg/dl 8 mg/dl Creatinine 0.77 mg/dl 0.66 mg/dl Est Creatinine Clear Calc Drug Dose 54.2 ml/min 63.2 ml/min Estimated GFR () 85.7 98.1 Estimated GFR (Non- 74.0 84.6 BUN/Creatinine Ratio 12.9 12.2 Random Glucose 90 mg/dl 85 mg/dl Calcium Level 9.4 mg/dl 8.4 mg/dl Phosphorus Level 3.5 mg/dl Magnesium Level 2.2 mg/dl 2.1 mg/dl Total Bilirubin 0.5 mg/dl Direct Bilirubin 0.2 mg/dl Aspartate Amino Transf (AST/SGOT) 51 U/L Alanine Aminotransferase (ALT/SGPT) 44 U/L Alkaline Phosphatase 107 U/L Total Creatine Kinase 115 U/L Creatine Kinase MB 4.2 ng/ml Creatine Kinase MB Ratio 3.7 Troponin I 0.019 ng/ml C-Reactive Protein < 0.29 mg/dl Pro-B-Type Natriuretic Peptide 2033 pg/ml Total Protein 7.2 gm/dl Albumin 3.6 gm/dl Lipase 218 U/L Thyroid Stimulating Hormone (TSH) 3.080 uIu/ml Digoxin Level 0.7 ng/ml Urine Color YELLOW Urine Appearance CLEAR Urine pH 7.0 Urine Specific Bradshaw 1.015 Urine Protein NEG Urine Glucose (UA) NEG Urine Ketones NEG Urine Occult Blood TRACE Urine Nitrite NEG Urine Bilirubin NEG Urine Urobilinogen NEG Urine Leukocyte Esterase NEG Urine WBC (Auto) 1-5 /hpf Urine RBC (Auto) 5-10 /hpf Urine Hyaline Casts (Auto) 0 /lpf Urine Epithelial Cells (Auto) 0-5 /lpf Urine Bacteria (Auto) NEG (Dorota Al PA-C) Assessment and Plan 76 yo F with hx of multiple admissions over the past year for cellulitis and falls. She has PMHx of atrial fibrillation/flutter, cerebrovascular disease and CHF ? Arrhythmia s/p falls in the setting of atrial fibrillation/flutter - Question if etiology is from hypotension from chronic rate control in the setting of her afib while being on beta blockade. Cardiology consulted to see if tilt table test needs to be obtained, or if other workup. Pt follows with Dr. Vargas as an outpatient. Other differential would of course include flare of recurrent cellulitis- although her WBC is negative, no fevers, and imaging studies including CXR are negative for other etiology which would possibly indicated infectious etiology. - cardiac enzymes neg, cardiac rhythm monitoring without any abnormalities overnight. - Echo ordered - follow - EKG with new changes compared to previous at time of admission - Continue digoxin 0.125 mg QD, mag oxide 400 mg QD, metoprolol succinate 12.5 mg QAM and Pradaxa 75 mg BID - Hold furosemide 40 mg by mouth daily and Klor-Con 20 mEq by mouth twice a day. - Caution with volume overload with fluids - Follow serial BMP and magnesium levels. Frequent falls/generalized weakness--multifactorial. - Question if hypotensive from beta blockade in the setting of afib, cardiac workup in progress. - Holding furosemide and place on normal saline with KCl 20 mEq at 75 ML's per hour. - PT/OT evals Bilateral lower extremity cellulitis-- - Hold Keflex and Bactrim. - Continue vancomycin IV and ceftriaxone IV day # 2 - have asked Infectious disease to see the patient since chronic cellulitis and multiple antibiotic regimens as oupatient. Question if IV abx for an extended period of time would be beneficial. Pt reports having IV abx once before as an outpatient however insurance didn't cover it. - Increase Floranex. Hypothyroidism- -continue levothyroxine sodium at 25 g daily Hyperlipidemia- -continue simvastatin 20 mg daily COPD--continue Advair discus and Combivent respirometer. CODE STATUS: FULL CODE DVT ppx: teds, scds. Disposition: From home, lives with son, Possible in 1-2 days pending consults (Dorota Al, PAHemantC) PA Physician Supervision Note: I interviewed and examined the patient. Discussed with Dorota Al PAC and agree with findings and plan as documented in the note. Any exceptions or clarifications are listed here: None C attending note Documented By: Sergio Guzman (Sergio Guzman M.D.)
[2016-11-30] MEDS ORDERED: LACTOBACILLUS ACIDOPHILUS (FLORANEX) TAB PO SCH (09:00)
--- NOTE | 2016-11-30 10:59 | Clinical Documentation Query ---
Ms. AGUILARJORDYN : CLINICAL DOCUMENTATION QUERY Patient is a 76 year old female admitted for evaluation and treatment of generalized fatigue and malaise with recent, recurrent falls. H&P notes a history of CHF, not otherwise specified. Echocardiogram from 07/2016 demonstrated normal biventricular systolic function. 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 As appropriate, please explicitly specify the type and acuity of CHF in your patient. Thank you. In your clinical opinion is this patient being managed for: (x ) Chronic diastolic CHF ( ) Not Agree ( ) Other explanation of clinical findings (Please Explain) ( ) Unable to determine (Please Define) ( ) Need to Discuss The medical record reflects the following clinical findings, treatment, and risk factors. Clinical Indicators: As above Treatment: EKG, serial labs, cardiology consultation, telemetry, repeat 2D echocardiogram Risk Factors: Age, hypertension, atrial fibrillation, valvular disease on prior echo Please clarify and document your clinical opinion in the progress notes and discharge summary. Terms such as "probable", "suspected", "likely", "questionable", "possible", or "still to be ruled out" are acceptable. IF IN AGREEMENT, YOU MUST DOCUMENT ABOVE DIAGNOSTIC STATEMENT IN DAILY PROGRESS NOTES AND DISCHARGE SUMMARY. This document is not part of the patient's record. Thank You, Chaz Grey RN [phone]
[2016-11-30] MEDS: NSS + 20MEQ KCL 1000ML 1,000 ML IV SCH (12:00)
[2016-11-30] MEDS ORDERED: PERFLUTREN LIPID MICROSPHERE (DEFINITY) IV ONE (13:34)
[2016-11-30] MEDS: VANCOMYCIN INJ 1,000 MG in SODIUM CHLORIDE 0.9% 250ML 250 ML IV SCH (13:48)
--- NOTE | 2016-11-30 14:59 | Progress Note ---
Progress Note Date of Service Nov 30, 2016. Progress Note ID Consult Dictated #[id number] A/P: 1. Le cellulitis -Continue IV abx for now, will follow response to therapy -thank you
--- NOTE | 2016-11-30 15:39 | INFECT. DISEASE CONSULTATION ---
DATE OF CONSULTATION: 11/30/2016 DATE OF CONSULTATION: 11/30/2016 REQUESTING PHYSICIAN: Dr. Joy. HISTORY OF PRESENT ILLNESS: This is a 76-year-old female who was admitted yesterday with worsening fatigue over the past few weeks to months. She has had multiple falls over the last 14 days with last one being 3 days ago. She is being treated on an outpatient basis chronically with Keflex and Bactrim for bilateral lower extremity cellulitis. It appears that she has been on these antibiotics up until the time of admission. Upon admission to the ER, she was afebrile. She was found to have swelling and erythema of her bilateral lower extremities and was transitioned to vancomycin and Rocephin. Infectious diseases was consulted for antibiotic management. She has been afebrile since admission. Her white blood cell count is normal at 5.8. She currently has no complaints but remains lethargic. She denies any fevers or chills. She denies any wound to the lower extremity on my examination. Her remaining review of systems is limited but unremarkable. PAST MEDICAL HISTORY: Significant for Afib on anticoagulation, cataracts, cellulitis, CVA, airway obstruction and diverticulosis. FAMILY HISTORY: Noncontributory. SOCIAL HISTORY: Significant for history of tobacco use. She denies any alcohol or drug use. ALLERGIES: LATEX AND DILTIAZEM. CURRENT MEDICATIONS: Include digoxin, vancomycin, vitamin C, magnesium, Toprol-XL, multivitamins, Flomax, Synthroid, Rocephin, potassium, Pradaxa, Advair, Combivent, fungal cream, Zocor, Zofran, Tylenol. PHYSICAL EXAMINATION: VITAL SIGNS: She is afebrile, pulse 83, respiratory rate is 20, blood pressure is 91/47, oxygen saturation is 93% on 2 liters. GENERAL: She is awake, alert and oriented x3. She is in no distress but is fatigued but arousable. HEAD, EYES, EARS, NOSE, AND THROAT: Mucous membranes are dry. HEART: Regular. LUNGS: Clear with decreased breath sounds and poor inspiratory effort. ABDOMEN: Soft and distended. EXTREMITIES: There is bilateral lower extremity edema, warmth and erythema. LABORATORY STUDIES: CBC reveals a white blood cell count of 5.8, hemoglobin 13, platelets are 179, a sed rate was normal at 17. Chemistry panel reveals a sodium of 135, potassium 4.7, chloride 99, bicarb 32, BUN 8, creatinine 0.6, glucose is 85. LFTs are within normal limits on admission. Urinalysis was unremarkable. There is no micro to review. Chest x-ray done in the Emergency Room showed no acute disease. Venous Dopplers were done in the ER and did not show any DVT. X-ray of the hip showed no fractures. Head CT showed no acute abnormalities. Maxillofacial CT showed no fractures. Cervical spine CT again showed no fractures. ASSESSMENT AND PLAN: Bilateral lower extremity cellulitis. She can remain on her current intravenous antibiotics. Likely she will be transitioned back to oral antibiotics, but we will follow and assess her response to therapy. Thank you for this consultation.
[2016-11-30] MEDS: DIGOXIN 0.125 MG TAB PO SCH (16:28)
--- NOTE | 2016-11-30 16:30 | ECHOCARDIOGRAM REPORT ---
*NOTICE TO RECEIVING [employer] This information is strictly Confidential and protected under [place] law. [place] law prohibits you from making any further disclosure of this information unless further disclosure is expressly permitted by the written consent of the person to whom it pertains or is authorized by law. A general authorization for the release of medical or other information is not sufficient for this purpose. Hospital accepts no responsibility if the information is made available to any other person, INCLUDING THE PATIENT. Interpretation Summary * Name: LEONORA RODRIGUEZ Study Date: 11/30/2016 12:48 PM BP: 91/47 mmHg * Patient Location: .2E\S\E210\S\1 HR: 86 * : 1940 (M/d/yyy) Gender: Female Height: 65 in * Age: 76 yrs Ethnicity: [place] Weight: 126 lb * Ordering Physician: Tanmay Joy * Referring Physician: Self, Referred * Performed By: Leonora Foley RDCS * * Reason For Study: GENERALIZED WEAKNESS, ABNORMAL EKG * BSA: 1.6 m2 * -- Conclusions -- * 1. Normal left ventricular size and systolic function. EF 60-65%. No regional wall motion abnormalities visualized. Severe, asymmetric hypertrophy of the distal/apical segments, suggestive of apical variant hypertrophic cardiomyopathy. * 2. The left atrium is mildly dilated. * 3. The right atrium is moderately dilated. * 4. There is mild mitral regurgitation. * 5. Probable moderate tricuspid regurgitation. * 6. Mildly elevated right ventricular systolic pressure; estimated RVSP 43 mmHg. * 7. Technically difficult study, enhanced with IV Definity. * 8. No significant change from prior study on 08/04/2016. Procedure Details * A contrast injection of Definity was performed to improve assessment of LV function. * Contrast was injected into an intravenous site in the right arm. * One vial of Definity ultrasound contrast was diluted in normal saline to a total volume of 10 ml. A total of '2' ml of solution was administered during imaging. * Lot # [id number] of Definity utilized for procedure. * Expiration date jan 10. * The attending nurse who injected the contrast agent was INGRID OTOOLE RN. Left Ventricle * Normal left ventricular size and systolic function. EF 60-65%. No regional wall motion abnormalities visualized. Severe, asymmetric hypertrophy of the distal/apical segments, suggestive of apical variant hypertrophic cardiomyopathy. Right Ventricle * The right ventricle is normal in size and function. * The right ventricular systolic function is normal as assessed by tricuspid annular plane systolic excursion (TAPSE) (normal >1.5 cm). Atria * The left atrium is mildly dilated. * The right atrium is moderately dilated. * There is no evidence of atrial septal defect, but resolution does not allow assessment for a patent foramen ovale. Mitral Valve * The mitral valve is grossly normal. * There is no mitral valve stenosis. * There is mild mitral regurgitation. Tricuspid Valve * Grossly normal tricuspid leaflets. * There is no tricuspid stenosis. * Probable moderate tricuspid regurgitation. Aortic Valve * The aortic valve is trileaflet. * No hemodynamically significant valvular aortic stenosis. * Trace aortic regurgitation. Pulmonic Valve * The pulmonary valve is inadequately visualized, but the Doppler data is adequate for interpretation. * There is no pulmonic valvular stenosis. * There is no significant pulmonary regurgitation. Great Vessels * Ascending aorta of normal dimension * The aortic root is normal size. * Blunted pulmonary venous flow pattern. Pericardium/Pleural * There is no pericardial effusion. Great Vessels * Normal inferior vena cava size and collapsability with sniff indicates a normal right atrial pressure of 3 mmHg MMode 2D Measurements and Calculations IVSd 0.97 cm IVSs 1.9 cm LVIDd 4.7 cm LVIDs 3.1 cm LVPWd 0.99 cm LVPWs 1.9 cm IVS/LVPW 0.98 FS 34.3 % EDV(Teich) 103.4 ml ESV(Teich) 37.9 ml EF(Teich) 63.3 % EDV(cubed) 105.1 ml ESV(cubed) 29.8 ml EF(cubed) 71.7 % % IVS thick 90.4 % % LVPW thick 90.8 % LV mass(C)d 161.2 grams LV mass(C)dI 99.1 grams/m\S\2 LV mass(C)s 241.7 grams LV mass(C)sI 148.7 grams/m\S\2 SV(Teich) 65.5 ml SI(Teich) 40.3 ml/m\S\2 SV(cubed) 75.3 ml SI(cubed) 46.4 ml/m\S\2 Ao root diam 3.2 cm Ao root area 8.1 cm\S\2 LA dimension 4.0 cm asc Aorta Diam 2.9 cm LA/Ao 1.2 Doppler Measurements and Calculations MV E max xenia 107.7 cm/sec MV dec time 0.16 sec Ao V2 max 114.4 cm/sec Ao max PG 5.2 mmHg Ao max PG (full) 1.2 mmHg LV V1 max PG 4.0 mmHg LV V1 max 100.4 cm/sec TV E max xenia 68.9 cm/sec TR max xenia 314.8 cm/sec RVSP(TR) 43.1 mmHg RAP systole 3.0 mmHg
--- NOTE | 2016-11-30 16:57 | Cardiology Consultation ---
Cardiology Consultation Date of Consultation: Nov 30, 2016. Attending Physician: Dr. Mcdonough. History of Present Illness This is a PGY1 resident cardiology service note. Please see attending's consult note for official evaluation and recommendations. 76yo female presented to ED on (referred from outpt) with concerns about worsening malaise for past couple months and worsening weakness over past couple weeks, including multiple recent falls (four in two weeks). She has a known cardiac hx of permanent afib, diastolic CHF, cor pulmonale, and hypertrophic cardiomyopathy. Regarding falls, she denies feeling acutely dizzy during these events, LOC, and states its more a feeling of very acute unbalance as if "someone pushed me". She also notes ongoing lasix use for bilateral lower extremity edema and some worsening of her chronic bilateral lower extremity cellulitis. Son says she's been sleeping more than normal but otherwise interaction has been at baseline. She has remained on home oxygen more consistently during these past couple weeks as well. She denies any particular CP, acute SOB (but will get dyspnea with exertion, more rare at rest) , clear orthopnea during this time, bleeding concerns, or other acute c/o beyond wanting to know why she's more fatigued and weak. Pt was admitted earlier this year (2016) with acute CHF as well as ongoing infectious disease care for her cellulitis. Past Medical/Surgical History PMH: - Cellulitis of bilateral legs, recurrent - Afib, permanent - Cataracts - CVA, thrombotic - Diverticulosis - GI bleed - Hypotension - PNA - CHF, diastolic - Falls - COPD - Hypothyroidism - Chronic lymphedema - Cor pulmonale - Hypertrophic cardiomyopathy PSH: - Colonoscopy (May 2016) - Cardiac cath 2011 (mild luminal irregularities) Family History Negative FHx for blood clots Social History Smoking Status: Former Smoker History of Alcohol Use: No Smoked approx one ppd for 50+ years, quick around 2011. Drank etoh socially when younger. Lives at home with family, . 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 Review of Systems Respiratory: + shortness of breath, No cough Cardiac: + edema, No chest pain, No palpitations Abdomen: No nausea, No vomiting, No diarrhea Neurologic: + weakness, + balance problems Heme: No abnormal bleeding/bruising Allergies Coded Allergies: Latex1 -Allergic Contact Dermititis (Verified Allergy, Mild, RASH AND ITCHING, 07/03/16) Diltiazem (Verified Adverse Reaction, Unknown, LOW BP AND UPSET STOMACH, ) Medications Current Inpatient Medications Medications (Trade) Dose Ordered Sig/Lori Route Start Time Stop Time Status Last Admin Dose Admin Potassium Chloride/Sodium Chloride 1,000 ml @ 75 mls/hr [id number] IV 11/29/16 21:00 12/29/16 20:59 11/30/16 12:00 75 MLS/HR Acetaminophen (Tylenol Tab) 650 mg Q4H PRN PO 11/29/16 19:45 12/29/16 19:44 11/30/16 05:33 325 MG Nitroglycerin (Nitrostat Tab) 0.4 mg UD PRN SL 11/29/16 19:45 12/29/16 19:44 Ascorbic Acid (Vitamin C Tab) 500 mg DAILY PO 11/30/16 09:00 12/30/16 08:59 11/30/16 08:02 500 MG Dabigatran (Pradaxa Cap) 75 mg BID PO 11/29/16 21:00 12/29/16 20:59 11/30/16 08:02 75 MG Digoxin (Lanoxin Tab) 0.125 mg DAILY@1600 PO 11/30/16 16:00 12/30/16 15:59 11/30/16 16:28 0.125 MG Salmeterol Xinafoate/ Fluticasone (Advair Diskus 250/50 Inh) 1 puff BID INH 11/29/16 21:00 12/29/16 20:59 11/30/16 07:58 1 PUFF Albuterol/ Ipratropium (Combivent Respimat Inh) 1 puffs QID INH 11/29/16 21:00 12/29/16 20:59 11/30/16 16:27 1 PUFFS Ketoconazole (Nizoral 2% Crm) 1 appln BID EXT 11/29/16 21:00 12/09/16 20:59 11/30/16 08:04 1 APPLN Levothyroxine Sodium (Synthroid Tab) 25 mcg DAILYBB PO 11/30/16 06:00 12/30/16 06:59 11/30/16 05:29 25 MCG Magnesium Oxide (Mag-Ox Tab) 400 mg DAILY PO 11/30/16 09:00 12/30/16 08:59 11/30/16 08:01 400 MG Metoprolol Succinate (Toprol Xl Tab) 12.5 mg QAM PO 11/30/16 09:00 12/30/16 08:59 11/30/16 08:03 12.5 MG Multivitamins (Multivitamin Tab) 1 tab DAILY PO 11/30/16 09:00 12/30/16 08:59 11/30/16 08:04 1 TAB Simvastatin (Zocor Tab) 20 mg QPM PO 11/29/16 21:00 12/29/16 20:59 11/29/16 21:10 20 MG Ceftriaxone Sodium 1 gm/ Dextrose 50 ml @ 100 mls/hr Q24H IV 11/30/16 00:00 12/10/16 00:00 11/29/16 23:31 100 MLS/HR Ondansetron HCl (Zofran Inj) 4 mg Q6H PRN IV 11/29/16 20:00 12/29/16 19:59 Lactobacillus Acidophilus (Floranex Tab) 4 tab TIDM PO 11/30/16 08:00 12/30/16 07:59 11/30/16 16:28 4 TAB Vancomycin HCl 1000 mg/Sodium Chloride 270 ml @ 125 mls/hr Q16H IV 11/30/16 12:00 12/10/16 11:59 11/30/16 13:48 125 MLS/HR Vancomycin HCl (Consult) 1 ea UD PRN N/A 11/29/16 21:30 12/29/16 21:29 Physical Exam Vital Signs Past 12 Hours Date Time Temp Pulse Resp B/P (MAP) Pulse Ox O2 Delivery O2 Flow Rate FiO2 11/30/16 16:28 88 11/30/16 15:22 36.7 88 25 88/51 (63) 99 Nasal Cannula 4.0 11/30/16 15:05 92 Nasal Cannula 2.0 11/30/16 11:06 93 Nasal Cannula 2.0 11/30/16 11:01 36.8 83 20 91/47 (62) 94 4.0 11/30/16 08:02 36.6 91 20 78/41 (53) 90 4.0 11/30/16 08:00 93 Nasal Cannula 2.0 Constitutional: Level of Distress: NAD Lungs: Auscultation: expiratory wheezing Cardiovascular: Heart Auscultation: normal S1, normal S2, II/ KENIA, irregular rate rhythm Peripheral Pulses: Bruits: none appreciated Carotid Pulse: normal on the left, normal on the right Radial Pulse: normal on the left, normal on the right Bilateral pedal and LE edema up to knees, positive erythema over entire lower legs up to knees. Data Laboratory Results: Last 24 Hours Test 11/30/16 06:47 White Blood Count 5.81 K/uL Red Blood Count 3.89 M/uL Hemoglobin 13.0 g/dL Hematocrit 40.1 % Mean Corpuscular Volume 103.1 fL Mean Corpuscular Hemoglobin 33.4 pg Mean Corpuscular Hemoglobin Concent 32.4 g/dl Platelet Count 179 K/uL Mean Platelet Volume 9.5 fL Neutrophils (%) (Auto) 70.6 % Lymphocytes (%) (Auto) 6.9 % Monocytes (%) (Auto) 16.4 % Eosinophils (%) (Auto) 5.7 % Basophils (%) (Auto) 0.2 % Neutrophils # (Auto) 4.11 K/uL Lymphocytes # (Auto) 0.40 K/uL Monocytes # (Auto) 0.95 K/uL Eosinophils # (Auto) 0.33 K/uL Basophils # (Auto) 0.01 K/uL RDW Standard Deviation 60.3 fL RDW Coefficient of Variation 15.9 % Immature Granulocyte % (Auto) 0.2 % Immature Granulocyte # (Auto) 0.01 K/uL Prothrombin Time 13.1 SECONDS Prothromb Time International Ratio 1.2 Activated Partial Thromboplast Time 38.2 SECONDS Partial Thromboplastin Ratio 1.5 Sodium Level 135 mmol/L Potassium Level 4.7 mmol/L Chloride Level 99 mmol/L Carbon Dioxide Level 32 mmol/L Anion Gap 4.0 mmol/L Blood Urea Nitrogen 8 mg/dl Creatinine 0.66 mg/dl Est Creatinine Clear Calc Drug Dose 63.2 ml/min Estimated GFR () 98.1 Estimated GFR (Non- 84.6 BUN/Creatinine Ratio 12.2 Random Glucose 85 mg/dl Calcium Level 8.4 mg/dl Magnesium Level 2.1 mg/dl Troponin I 0.022 ng/ml ED EKG 06Sep: EKG shows atrial flutter at 89 bpm, LVH, ST depression and T-wave inversion in leads V4 to 6, and nonspecific T-wave changes in inferior leads. ED CXR one view portable 06Sep: No pneumothorax. No pleural effusions. The heart remains mildly enlarged. No focal lung consolidations to suggest pneumonia. No evidence for pulmonary edema. Stable mild central pulmonary arterial enlargement. Emphysema, unchanged. ED CT head without contrast 06Sep: 1. No acute intracranial hemorrhage or midline shift. 2. Scattered foci of deep tissue air adjacent to the right pterygoid plates and also within the right infratemporal fossa suggest facial bone fractures which are not identified. Focus of pneumocephalus noted in the right cavernous sinus which may be venous in location. Further evaluation with CT facial bone study recommended. ED CT C-spine without contrast 06Sep: No fractures within the cervical spine. Degenerative change. Muscle spasm. ED CT Facial bones without contrast 06Sep: 1. There is no evidence of facial bone fracture. 2. Dental caries are identified within the remaining mandibular teeth. Follow-up with dentistry is recommended. ED Bilateral LE venous doppler 06Sep: 1. No evidence of deep venous thrombus within the bilateral lower extremities. 2. 5 x 2 x 1.1 cm left popliteal cyst. ED X-ray hip/pelvis 06Sep: 1. No acute fracture within the pelvis or hips. 2. Cholelithiasis. Dobutamine stress echo August 2010 was negative for ischemia at 99% MPHR. Transthoracic echo [id number]: * 1. Normal left ventricular size and systolic function. EF 60-65%. No regional wall motion abnormalities visualized. Severe, asymmetric hypertrophy of the distal/apical segments, suggestive of apical variant hypertrophic cardiomyopathy. * 2. The left atrium is mildly dilated. * 3. The right atrium is moderately dilated. * 4. There is mild mitral regurgitation. * 5. Probable moderate tricuspid regurgitation. * 6. Mildly elevated right ventricular systolic pressure; estimated RVSP 43 mmHg. * 7. Technically difficult study, enhanced with IV Definity. * 8. No significant change from prior study on 08/04/2016. Assessment & Plan 76 yo female with multiple ongoing cardiac issues (permanent afib, diastolic CHF , cor pulmonale, hypertrophic cardiomyopathy) admitted for further eval of weakness and fatigue s/p multiple recent falls. - She denies any outright CP. TnI 0.019. Monitor EKG not c/w ongoing ischemia or infarction. - She denies any outright SOB, though she has low SpO2 off of 2L NC oxygen, something relatively new for her. CXR read as stable emphysema. Not anemic. On COPD meds. - She denies any known bleeding. H/H here reassuring. - Noted to be hypotensive through much of her inpt stay thus far. She has well- documented need for close fluid status monitoring. Not tachycardic during this time, though is on metoprolol and digoxin. Does have a hx of afib. Thought was to hold the metoprolol for now and see if BP improves. - Regarding possible tilt table testing, may consider after further eval. - Pt has hx of hypothyroidism, on synthroid, and TSH normal on admit here. Did have some mild hyponatremia on admit. Wondered if pt would benefit from adrenal eval. Discussed all the above with attending (Dr. Mcdonough) at patient's bedside this afternoon. These are preliminary thoughts based on that discussion. Please see his consult note for official notes and recommendations. - NATASHA, PGY1, Family Medicine, Cardiology service Attending addendum: Patient seen and examined, reviewed with Catarino. Agree with above. Resident Tracking Resident Involvement: Resident Care Provided Care Provided: Adult Hospital Medicine (cardiology consult)
--- NOTE | 2016-11-30 18:59 | Progress Note ---
Subjective Date of Service: Nov 30, 2016. Subjective Patient was seen and cannot recall events that really recall her to fall. She never has an event which sitting still or not moving. These events seem to be precipitated by either sitting to standing or moving from us standing position to slight movement across her room she denies having vertiginous description city symptoms nor any association with chest pain or palpitations. She is currently asymptomatic Problem List Medical Problems: (1) Falls Status: Acute (2) Fluid overload Status: Acute (3) Head injury Status: Acute (4) Hypoxia Status: Acute (5) Orthostatic hypotension Status: Acute (6) Pulmonary vascular congestion Status: Acute (7) Weakness Status: Acute Review of Systems Constitutional: No fever, No chills Respiratory: No cough, No sputum, No shortness of breath, No dyspnea on exertion Cardiac: No chest pain, No PND, No edema Abdomen: No pain, No nausea, No vomiting, No diarrhea Objective Vital Signs Date Time Temp Pulse Resp B/P (MAP) Pulse Ox O2 Delivery O2 Flow Rate FiO2 11/30/16 04:00 93 Nasal Cannula 2.0 11/30/16 03:56 100 87/43 (58) 11/30/16 03:55 95 89/55 (66) 11/30/16 03:54 36.6 84 20 82/57 (65) 93 Nasal Cannula 2.0 11/30/16 00:07 36.6 80 18 87/57 (67) 97 Nasal Cannula 2.0 11/29/16 23:59 98 Nasal Cannula 2.0 11/29/16 20:26 36.7 77 18 103/44 94 Nasal Cannula 2.0 11/29/16 20:06 36.5 89 18 91/61 96 11/29/16 19:31 91/61 11/29/16 19:03 111/68 11/29/16 18:31 92/60 11/29/16 18:01 18 77/55 96 Room Air 11/29/16 17:31 18 95/64 96 Room Air 11/29/16 16:41 163/88 11/29/16 15:01 110/68 11/29/16 14:58 79/65 11/29/16 14:58 89 117/55 108 91/78 109/64 11/29/16 14:56 109/64 11/29/16 14:55 91/78 11/29/16 14:54 117/55 11/29/16 14:36 84 28 93 11/29/16 14:33 82 11/29/16 14:30 99 Nasal Cannula 2.0 11/29/16 14:27 97 Nasal Cannula 2.0 11/29/16 13:40 36.5 97 20 101/60 97 Nasal Cannula 2.0 Physical Exam General Appearance: no apparent distress, + thin ENT: normal ENT inspection, pharynx normal Neck: supple, no JVD Respiratory/Chest: chest non-tender, lungs clear, normal breath sounds Cardiovascular: regular rate, rhythm, + systolic murmur Abdomen: normal bowel sounds, non tender, soft Extremities: no pedal edema, no calf tenderness Laboratory Results Last 24 Hours Test 11/29/16 14:30 11/29/16 16:34 11/30/16 06:47 White Blood Count 5.57 K/uL 5.81 K/uL Red Blood Count 4.30 M/uL 3.89 M/uL Hemoglobin 14.7 g/dL 13.0 g/dL Hematocrit 42.8 % 40.1 % Mean Corpuscular Volume 99.5 fL 103.1 fL Mean Corpuscular Hemoglobin 34.2 pg 33.4 pg Mean Corpuscular Hemoglobin Concent 34.3 g/dl 32.4 g/dl Platelet Count 182 K/uL 179 K/uL Mean Platelet Volume 9.9 fL 9.5 fL Neutrophils (%) (Auto) 72.7 % 70.6 % Lymphocytes (%) (Auto) 7.0 % 6.9 % Monocytes (%) (Auto) 14.4 % 16.4 % Eosinophils (%) (Auto) 5.2 % 5.7 % Basophils (%) (Auto) 0.5 % 0.2 % Neutrophils # (Auto) 4.05 K/uL 4.11 K/uL Lymphocytes # (Auto) 0.39 K/uL 0.40 K/uL Monocytes # (Auto) 0.80 K/uL 0.95 K/uL Eosinophils # (Auto) 0.29 K/uL 0.33 K/uL Basophils # (Auto) 0.03 K/uL 0.01 K/uL RDW Standard Deviation 57.5 fL 60.3 fL RDW Coefficient of Variation 15.8 % 15.9 % Immature Granulocyte % (Auto) 0.2 % 0.2 % Immature Granulocyte # (Auto) 0.01 K/uL 0.01 K/uL Erythrocyte Sedimentation Rate 17 mm/hr Prothrombin Time 13.6 SECONDS 13.1 SECONDS Prothromb Time International Ratio 1.3 1.2 Activated Partial Thromboplast Time 40.1 SECONDS 38.2 SECONDS Partial Thromboplastin Ratio 1.5 1.5 Sodium Level 132 mmol/L 135 mmol/L Potassium Level 4.6 mmol/L 4.7 mmol/L Chloride Level 95 mmol/L 99 mmol/L Carbon Dioxide Level 35 mmol/L 32 mmol/L Anion Gap 2.0 mmol/L 4.0 mmol/L Blood Urea Nitrogen 10 mg/dl 8 mg/dl Creatinine 0.77 mg/dl 0.66 mg/dl Est Creatinine Clear Calc Drug Dose 54.2 ml/min 63.2 ml/min Estimated GFR () 85.7 98.1 Estimated GFR (Non- 74.0 84.6 BUN/Creatinine Ratio 12.9 12.2 Random Glucose 90 mg/dl 85 mg/dl Calcium Level 9.4 mg/dl 8.4 mg/dl Phosphorus Level 3.5 mg/dl Magnesium Level 2.2 mg/dl 2.1 mg/dl Total Bilirubin 0.5 mg/dl Direct Bilirubin 0.2 mg/dl Aspartate Amino Transf (AST/SGOT) 51 U/L Alanine Aminotransferase (ALT/SGPT) 44 U/L Alkaline Phosphatase 107 U/L Total Creatine Kinase 115 U/L Creatine Kinase MB 4.2 ng/ml Creatine Kinase MB Ratio 3.7 Troponin I 0.019 ng/ml C-Reactive Protein < 0.29 mg/dl Pro-B-Type Natriuretic Peptide 2033 pg/ml Total Protein 7.2 gm/dl Albumin 3.6 gm/dl Lipase 218 U/L Thyroid Stimulating Hormone (TSH) 3.080 uIu/ml Digoxin Level 0.7 ng/ml Urine Color YELLOW Urine Appearance CLEAR Urine pH 7.0 Urine Specific [place] 1.015 Urine Protein NEG Urine Glucose (UA) NEG Urine Ketones NEG Urine Occult Blood TRACE Urine Nitrite NEG Urine Bilirubin NEG Urine Urobilinogen NEG Urine Leukocyte Esterase NEG Urine WBC (Auto) 1-5 /hpf Urine RBC (Auto) 5-10 /hpf Urine Hyaline Casts (Auto) 0 /lpf Urine Epithelial Cells (Auto) 0-5 /lpf Urine Bacteria (Auto) NEG Assessment and Plan 76 F admitted with frequent falling and concern for worsening arrhythmia as a cause, give h/o A fib could be from rapid or overly slow rate Atrial fibrillation/flutter monitor for arrhythmia. Check digoxin level, hold diuretic Cautiously continue digoxin 0.125 mg, metoprolol succinate 12.5 mg by plus Pradaxa 75 mg Consult cardiology typically Follows with Dr. Vargas in the outpatient setting, Frequent falls/generalized weakness-clinically appeared dehydrated. hydrated Bilateral lower extremity cellulitis--vs chronic venous stasis dermatitis, Pt started on vancomycin IV and ceftriaxone IV. Hypothyroidism--clinically euthyroid, continue levothyroxine 25 g mouth daily. COPD--stable Advair discus and Combivent respirometer. PT and OT and oncology social work.
[2016-11-30] MEDS: SIMVASTATIN 20 MG TAB PO SCH (21:46)
[2016-12-01] VITALS (9 sets, daily range): BP systolic 95–145; BP diastolic 57–70; PULSE 89–120; TEMP 36.6–37.6; O2SAT 91–96
[2016-12-01] MEDS: CEFTRIAXONE SOD INJ 1 GM in DEXTROSE 5% ADD-VANTAGE 50ML 50 ML IV SCH (01:59)
[2016-12-01] MEDS ORDERED: LEVALBUTEROL/IPRATROPIUM NEB INH PRN (03:30)
[2016-12-01] MEDS: IPRATROPIUM BROMIDE NEB SOLN 0.02% 2.5 ML VIAL INH PRN ×2 (03:39→12:17)
[2016-12-01] MEDS: LEVALBUTEROL 0.63MG/3 ML NEB INH PRN ×2 (03:39→12:17)
[2016-12-01] MEDS ORDERED: FUROSEMIDE INJ 20 MG in SYRINGE 0 ML IV STA (04:21)
[2016-12-01] MEDS: VANCOMYCIN INJ 1,000 MG in SODIUM CHLORIDE 0.9% 250ML 250 ML IV SCH ×2 (04:55→19:44)
[2016-12-01] MEDS ORDERED: NURSING VERBAL MED ORDER ONE ×2 (05:00→15:15)
[2016-12-01] MEDS: LEVOTHYROXINE 25 MCG TAB PO SCH (05:58)
[2016-12-01 06:38] LABS: BASO % 0.3 %; BASO ABS # 0.02 K/uL (0-0.2); COMPLETE YES; EOS % 1.5 %; IG% 0.4 %; LYMPH % 4.2 %; LYMPH ABS # 0.33 K/uL (1.2-3.4); MEAN CELL VOLUME 103.7 fL (80-100); MEAN CORPUSCULAR HEMOGLOBIN 33.6 pg (25-34); MEAN CORPUSCULAR HGB CONC 32.4 g/dl (32-36); MONO % 14.1 %; NEUT % 79.5 %; PLATELET COUNT 165 K/uL (130-400); RED BLOOD COUNT 4.34 M/uL (4.2-5.4); WHITE BLOOD COUNT 7.92 K/uL (4.8-10.8)
[2016-12-01 06:46] LABS: INR 1.2 (0.9-1.1); PARTIAL THROMBOPLASTIN RATIO 1.6; PROTHROMBIN TIME (PATIENT) 13.1 SECONDS (9.0-12.0)
[2016-12-01 07:09] LABS: BUN/CREATININE RATIO 13.1 (10-20); CALCIUM 8.6 mg/dl (8.5-10.1); CREATININE 0.62 mg/dl (0.60-1.20); MAGNESIUM 1.9 mg/dl (1.8-2.4); POTASSIUM 4.5 mmol/L (3.5-5.1)
--- NOTE | 2016-12-01 07:23 | DIAGNOSTIC IMAGING REPORT ---
CHEST ONE VIEW PORTABLE CLINICAL HISTORY: SOB COMPARISON STUDY: 11/29/2016 FINDINGS: The heart is mildly enlarged. There is mild elevation of the interstitium. An element of mild interstitial edema is suspected. There is persistent mild prominence of the AP window/left main pulmonary artery region. There is no lobar consolidation. There is a small left pleural effusion.[ IMPRESSION: Cardiomegaly and subtle interstitial edema. Small left pleural effusion. No evidence of lobar consolidation Electronically signed by: Glen Cade M.D. 12/01/2016 7:22 AM Dictated Date/Time: 12/01/2016 7:21 AM
[2016-12-01] MEDS: MULTIVITAMIN TAB PO SCH (08:15)
[2016-12-01] MEDS: LACTOBACILLUS ACIDOPHILUS (FLORANEX) TAB PO SCH ×3 (08:15→16:05)
[2016-12-01] MEDS: ASCORBIC ACID 500 MG TAB PO SCH (08:15)
[2016-12-01] MEDS: DABIGATRAN ELEXILATE 75 MG CAP PO SCH ×2 (08:16→20:51)
[2016-12-01] MEDS: KETOCONAZOLE 2% CR 15 GM TUBE EXT SCH ×2 (08:16→20:51)
[2016-12-01] MEDS: METOPROLOL SUCC 25MG EXT REL TAB PO SCH (08:17)
[2016-12-01] MEDS: IPRATROPIUM BROMIDE/ALBUTEROL respimat INH INH SCH ×4 (08:18→20:51)
[2016-12-01] MEDS: FLUTICASONE/SALMETEROL 250/50 (ADVAIR) 14 PUFF/1 INHALER INH SCH ×2 (08:18→20:50)
[2016-12-01] MEDS: MAGNESIUM OXIDE 400 MG TAB PO SCH (08:18)
[2016-12-01] MEDS ORDERED: IPRATROPIUM BROMIDE NEB SOLN 0.02% 2.5 ML VIAL INH SCH (09:00)
[2016-12-01] MEDS ORDERED: LEVALBUTEROL 0.63MG/3 ML NEB INH SCH (09:00)
[2016-12-01] MEDS ORDERED: DIGOXIN 0.125 MG TAB PO ONE (09:45)
[2016-12-01] MEDS: ACETAMINOPHEN 325 MG TAB PO PRN ×2 (10:19→23:40)
--- NOTE | 2016-12-01 10:44 | Progress Note ---
Subjective Date of Service: Dec 01, 2016. Subjective Pt evaluation today including: conversation w/ patient, physical exam, chart review, lab review pt seen in followup, tolerating abx. remains on vanco and ctx. afebrile. states she is "sick" receiving breathing treatment on my exam. no cp, no f/c, no abd pain. less pain in legs. remains lethargic. remaining ros reviewed and are negative. Problem List Medical Problems: (1) Falls Status: Acute (2) Fluid overload Status: Acute (3) Head injury Status: Acute (4) Hypoxia Status: Acute (5) Orthostatic hypotension Status: Acute (6) Pulmonary vascular congestion Status: Acute (7) Weakness Status: Acute Objective Vital Signs Date Time Temp Pulse Resp B/P (MAP) Pulse Ox O2 Delivery O2 Flow Rate FiO2 12/01/16 10:12 113 12/01/16 08:19 113 95/70 (78) 12/01/16 08:00 Oxymask 5.0 12/01/16 07:58 37.5 111 28 145/57 (86) 92 Oxymask 5.0 12/01/16 04:00 37.5 120 24 128/64 (85) 95 Oxymask 5.0 12/01/16 04:00 95 Oxymask 5.0 12/01/16 03:39 108 28 96 Mask 5.0 11/30/16 23:59 Nasal Cannula 3.0 11/30/16 23:59 90 20 104/62 (76) 94 Nasal Cannula 3.0 11/30/16 20:00 Nasal Cannula 3.0 11/30/16 19:28 36.2 66 20 97/57 (70) 95 Nasal Cannula 2.0 11/30/16 16:28 88 11/30/16 15:22 36.7 88 25 88/51 (63) 99 Nasal Cannula 4.0 11/30/16 15:05 92 Nasal Cannula 2.0 11/30/16 11:06 93 Nasal Cannula 2.0 11/30/16 11:01 36.8 83 20 91/47 (62) 94 4.0 Physical Exam General Appearance: WD/WN Eyes: normal inspection ENT: + pertinent finding (mmd) Neck: supple Respiratory/Chest: lungs clear, normal breath sounds, no respiratory distress, + decreased breath sounds Cardiovascular: regular rate, rhythm, no edema Abdomen: soft Extremities: non-tender, no pedal edema Neurologic/Psychiatric: + pertinent finding (lethargic but appropriate) Skin: normal color Comments: b/l le with improvement today. no warmth, less edema, less erythema. no drainage , weeping non tender Laboratory Results Last 24 Hours Test 12/01/16 06:19 White Blood Count 7.92 K/uL Red Blood Count 4.34 M/uL Hemoglobin 14.6 g/dL Hematocrit 45.0 % Mean Corpuscular Volume 103.7 fL Mean Corpuscular Hemoglobin 33.6 pg Mean Corpuscular Hemoglobin Concent 32.4 g/dl Platelet Count 165 K/uL Mean Platelet Volume 10.0 fL Neutrophils (%) (Auto) 79.5 % Lymphocytes (%) (Auto) 4.2 % Monocytes (%) (Auto) 14.1 % Eosinophils (%) (Auto) 1.5 % Basophils (%) (Auto) 0.3 % Neutrophils # (Auto) 6.30 K/uL Lymphocytes # (Auto) 0.33 K/uL Monocytes # (Auto) 1.12 K/uL Eosinophils # (Auto) 0.12 K/uL Basophils # (Auto) 0.02 K/uL RDW Standard Deviation 60.0 fL RDW Coefficient of Variation 15.7 % Immature Granulocyte % (Auto) 0.4 % Immature Granulocyte # (Auto) 0.03 K/uL Prothrombin Time 13.1 SECONDS Prothromb Time International Ratio 1.2 Activated Partial Thromboplast Time 41.3 SECONDS Partial Thromboplastin Ratio 1.6 Sodium Level 133 mmol/L Potassium Level 4.5 mmol/L Chloride Level 98 mmol/L Carbon Dioxide Level 31 mmol/L Anion Gap 4.0 mmol/L Blood Urea Nitrogen 8 mg/dl Creatinine 0.62 mg/dl Est Creatinine Clear Calc Drug Dose 67.3 ml/min Estimated GFR () 100.1 Estimated GFR (Non- 86.4 BUN/Creatinine Ratio 13.1 Random Glucose 107 mg/dl Calcium Level 8.6 mg/dl Magnesium Level 1.9 mg/dl Assessment and Plan (1) Cellulitis Assessment & Plan: can continue IV abx for now, difficult to know whether changes in legs are due to cellulitis vs stasis. She can remain on IV abx while in hospital and would suggest transition back to pp abx at d/c. will plan to follow with Dr. Little post d/c. elevate legs.
--- NOTE | 2016-12-01 11:37 | Hospitalist Progress Note ---
Hospitalist Progress Note Date of Service Dec 01, 2016. (Dorota Al PA-C) Subjective Pt evaluation today including: conversation w/ patient, physical exam, chart review, lab review, review of studies Pain: None PO Intake: Fair Voiding: martinez catheter in place The patient was seen and examined this morning. Pt looks worse today than yesterday upon entry to the room. Reports " I'm sick". She is extremely fatigued , short of breath, and has difficulty talking to me. Overnight her fluids were stopped and was given Lasix 20 mg IV. Per nursing she has had > 700 mL out during her morning shift. The patient denies fevers, chills, sweats. She cannot tell if her legs look any different compared to yesterday. Constitutional: + fatigue, No fever, No chills, No sweats Eyes: No discharge, No diplopia ENT: No nasal symptoms, No sore throat Respiratory: + cough (occasionaly), + shortness of breath, + dyspnea at rest , No sputum, No wheezing Cardiovascular: No chest pain, No palpitations Abdomen: No pain, No nausea, No vomiting, No diarrhea, No constipation Musculoskeletal: No joint pain, No muscle pain, No swelling Neurologic: + weakness, No numbness/tingling Skin: No rash, No itch (Dorota Al PA-C) Objective Vital Signs Date Time Temp Pulse Resp B/P (MAP) Pulse Ox O2 Delivery O2 Flow Rate FiO2 12/01/16 11:27 97 24 113/61 (78) 96 Oxymask 5.0 12/01/16 10:12 113 12/01/16 08:19 113 95/70 (78) 12/01/16 08:00 Oxymask 5.0 12/01/16 07:58 37.5 111 28 145/57 (86) 92 Oxymask 5.0 12/01/16 04:00 37.5 120 24 128/64 (85) 95 Oxymask 5.0 12/01/16 04:00 95 Oxymask 5.0 12/01/16 03:39 108 28 96 Mask 5.0 11/30/16 23:59 Nasal Cannula 3.0 11/30/16 23:59 90 20 104/62 (76) 94 Nasal Cannula 3.0 11/30/16 20:00 Nasal Cannula 3.0 11/30/16 19:28 36.2 66 20 97/57 (70) 95 Nasal Cannula 2.0 11/30/16 16:28 88 11/30/16 15:22 36.7 88 25 88/51 (63) 99 Nasal Cannula 4.0 11/30/16 15:05 92 Nasal Cannula 2.0 (Dorota Al PA-C) Physical Exam General Appearance: WD/WN, + moderate distress, + thin Eyes: PERRL, EOMI ENT: hearing grossly normal, pharynx normal Neck: supple, no JVD Respiratory/Chest: no accessory muscle use, + pertinent finding (+ On 3 L via NC, difficulty with speaking, no accessory muscle use. + Coarse breath sounds and +crackles in the LLL. Right side sounds fairly clear. No wheeze.) Cardiovascular: + tachycardia, + irregularly irregular Abdomen: normal bowel sounds, non tender, soft Extremities: + pertinent finding (+erythema and warmth over entire circumference of lower legs up to level of the knee, + onychomycosis BLE, + abraision over the R knee, ecchymosis over bilateral knee s/p fall. + ecchymosis over the R elbow.) Neurologic/Psychiatric: alert, oriented x 3 Skin: normal color, warm/dry (Dorota Al, VIKASH-C) Laboratory Results Last 24 Hours Test 12/01/16 06:19 White Blood Count 7.92 K/uL Red Blood Count 4.34 M/uL Hemoglobin 14.6 g/dL Hematocrit 45.0 % Mean Corpuscular Volume 103.7 fL Mean Corpuscular Hemoglobin 33.6 pg Mean Corpuscular Hemoglobin Concent 32.4 g/dl Platelet Count 165 K/uL Mean Platelet Volume 10.0 fL Neutrophils (%) (Auto) 79.5 % Lymphocytes (%) (Auto) 4.2 % Monocytes (%) (Auto) 14.1 % Eosinophils (%) (Auto) 1.5 % Basophils (%) (Auto) 0.3 % Neutrophils # (Auto) 6.30 K/uL Lymphocytes # (Auto) 0.33 K/uL Monocytes # (Auto) 1.12 K/uL Eosinophils # (Auto) 0.12 K/uL Basophils # (Auto) 0.02 K/uL RDW Standard Deviation 60.0 fL RDW Coefficient of Variation 15.7 % Immature Granulocyte % (Auto) 0.4 % Immature Granulocyte # (Auto) 0.03 K/uL Prothrombin Time 13.1 SECONDS Prothromb Time International Ratio 1.2 Activated Partial Thromboplast Time 41.3 SECONDS Partial Thromboplastin Ratio 1.6 Sodium Level 133 mmol/L Potassium Level 4.5 mmol/L Chloride Level 98 mmol/L Carbon Dioxide Level 31 mmol/L Anion Gap 4.0 mmol/L Blood Urea Nitrogen 8 mg/dl Creatinine 0.62 mg/dl Est Creatinine Clear Calc Drug Dose 67.3 ml/min Estimated GFR () 100.1 Estimated GFR (Non- 86.4 BUN/Creatinine Ratio 13.1 Random Glucose 107 mg/dl Calcium Level 8.6 mg/dl Magnesium Level 1.9 mg/dl (Dorota lA, MAINOR) Assessment and Plan 76 yo F with hx of multiple admissions over the past year for cellulitis and falls. She has PMHx of atrial fibrillation/flutter, cerebrovascular disease and CHF Acute hypoxia secondary to acute on chronic diastolic HF - Likely due to acute volume overload with maintenance fluids- Pt requiring 3L via NC and oximask this morning after overnight events- martinez placed, Lasix 20 mg IV given. - Strict I/Os - Repeat CXR this morning appears to have some interstitial pulmonary edema and new small left effusion. - Will order another Lasix 40 mg IV now. - Likely can restart lasix po soon - restart KCl supplement COPD -continue Advair discus and Combivent respirometer. ? Arrhythmia s/p falls in the setting of atrial fibrillation/flutter Hypertrophic cardiomyopathy Chronic Diastolic CHF - Question if etiology is from hypotension from chronic rate control in the setting of her afib while being on beta blockade vs recurrent cellulitis - Cardiology consulted to see if tilt table test needs to be obtained, or if other workup. Pt follows with Dr. Vargas as an outpatient- await formal recommendations - cardiac enzymes neg x3 - Echo ordered - 1. Normal left ventricular size and systolic function. EF 60-65%. No regional wall motion abnormalities visualized. Severe, asymmetric hypertrophy of the distal/apical segments, suggestive of apical variant hypertrophic cardiomyopathy. - Continue digoxin 0.125 mg QD, mag oxide 400 mg QD, metoprolol succinate 12.5 mg QAM and Pradaxa 75 mg BID - Follow serial BMP and magnesium levels. - Question if hypotensive from beta blockade in the setting of afib, cardiac workup in progress. - PT/OT evals Bilateral lower extremity cellulitis- - Continue vancomycin IV and ceftriaxone IV day # 3 - ID on board- appreciate recs: Will continue IV abx for now, likely transition back to PO keflex and bactrim upon discharge - Cont Floranex. Hypothyroidism- -continue levothyroxine sodium at 25 g daily Hyperlipidemia- -continue simvastatin 20 mg daily CODE STATUS: FULL CODE DVT ppx: teds, scds. Disposition: From home, lives with son (Dorota Al, MAINOR) PA Physician Supervision Note: I interviewed and examined the patient. Discussed with Dorota Al PAC and agree with findings and plan as documented in the note. Any exceptions or clarifications are listed here: None Patient appears in going to acute diastolic heart failure from volume overload of IV fluid overnight this exacerbated her breathing. She has had no other events of falling but is markedly short of breath and uncomfortable. She was seen by infectious disease with continuation of IV antibiotics for lower extremity cellulitis. Vital signs show her heart rate is more tachycardic with atrial fibrillation slightly in the low 100s her blood pressure however is improved and her heart is irregularly irregular Her lungs are coarse breath sounds bilaterally to the apices doses prior to Lasix administration Today she is acute. Heart failure from volume overload with Lasix therapy Attempts at improving her heart rate to augment her systemic response in blood pressure to prevent falls this will include holding her beta carlos Documented By: Sergio Guzman (Sergio Guzman M.D.)
[2016-12-01] MEDS: FUROSEMIDE INJ 40 MG in SYRINGE 0 ML IV SCH (12:07)
--- NOTE | 2016-12-01 13:17 | Cardiology Follow-Up ---
Subjective Date of Service: Dec 01, 2016. Pt evaluation today including: conversation w/ patient, physical exam, lab review, review of studies, review of inpatient medication list, conversation w/ attending History of Present Illness She seems to be feeling better today, she tells me that she is feeling stronger and she has no palpitations. She has no further falls that she is aware of during her hospitalization. Social History Smoking Status: Former Smoker History of Alcohol Use: No Review of Systems Respiratory: + cough (occasionaly), + shortness of breath, + dyspnea at rest, No sputum, No wheezing Cardiac: No chest pain, No palpitations Objective Vital Signs Past 12 Hours Date Time Temp Pulse Resp B/P (MAP) Pulse Ox O2 Delivery O2 Flow Rate FiO2 12/01/16 12:17 106 28 95 Mask 5.0 12/01/16 12:00 Oxymask 5.0 12/01/16 11:40 37.6 96 20 113/61 (78) 91 Nasal Cannula 3.0 12/01/16 11:27 97 24 113/61 (78) 96 Oxymask 5.0 12/01/16 10:12 113 12/01/16 08:19 113 95/70 (78) 12/01/16 08:00 Oxymask 5.0 12/01/16 07:58 37.5 111 28 145/57 (86) 92 Oxymask 5.0 12/01/16 04:00 37.5 120 24 128/64 (85) 95 Oxymask 5.0 12/01/16 04:00 95 Oxymask 5.0 12/01/16 03:39 108 28 96 Mask 5.0 Last Recorded Weight-Kilograms: 58.400 Physical Exam Constitutional: Level of Distress: NAD Lungs: Auscultation: expiratory wheezing Cardiovascular: Heart Auscultation: normal S1, normal S2, II/ KENIA, irregular rate rhythm Peripheral Pulses: Bruits: none appreciated Carotid Pulse: normal on the left, normal on the right Radial Pulse: normal on the left, normal on the right Bilateral pedal and LE edema up to knees, positive erythema over entire lower legs up to knees. Data Laboratory Results: Last 24 Hours Test 12/01/16 06:19 White Blood Count 7.92 K/uL Red Blood Count 4.34 M/uL Hemoglobin 14.6 g/dL Hematocrit 45.0 % Mean Corpuscular Volume 103.7 fL Mean Corpuscular Hemoglobin 33.6 pg Mean Corpuscular Hemoglobin Concent 32.4 g/dl Platelet Count 165 K/uL Mean Platelet Volume 10.0 fL Neutrophils (%) (Auto) 79.5 % Lymphocytes (%) (Auto) 4.2 % Monocytes (%) (Auto) 14.1 % Eosinophils (%) (Auto) 1.5 % Basophils (%) (Auto) 0.3 % Neutrophils # (Auto) 6.30 K/uL Lymphocytes # (Auto) 0.33 K/uL Monocytes # (Auto) 1.12 K/uL Eosinophils # (Auto) 0.12 K/uL Basophils # (Auto) 0.02 K/uL RDW Standard Deviation 60.0 fL RDW Coefficient of Variation 15.7 % Immature Granulocyte % (Auto) 0.4 % Immature Granulocyte # (Auto) 0.03 K/uL Prothrombin Time 13.1 SECONDS Prothromb Time International Ratio 1.2 Activated Partial Thromboplast Time 41.3 SECONDS Partial Thromboplastin Ratio 1.6 Sodium Level 133 mmol/L Potassium Level 4.5 mmol/L Chloride Level 98 mmol/L Carbon Dioxide Level 31 mmol/L Anion Gap 4.0 mmol/L Blood Urea Nitrogen 8 mg/dl Creatinine 0.62 mg/dl Est Creatinine Clear Calc Drug Dose 67.3 ml/min Estimated GFR () 100.1 Estimated GFR (Non- 86.4 BUN/Creatinine Ratio 13.1 Random Glucose 107 mg/dl Calcium Level 8.6 mg/dl Magnesium Level 1.9 mg/dl Telemetry reviewed: AF with rapid HR Assessment and Plan #1. Falls: I am suspicious that her falls are due to hypotension, probably without significant heart rate variation. She has shown no evidence of bradycardia here in the hospital on her outpatient medications, and her heart rate has not been fast enough that we would expect syncope. With discontinuation of her beta blockade her heart rate has increased but she remains asymptomatic. #2. Hypotension: Her blood pressure is much improved with discontinuation of the beta-blockade. Although she was on a low dose there is evidence that she had physiologic effect with her heart rate, therefore probably did affect her blood pressure control. It may have eliminated her ability to respond to a low blood pressure. I think we need to leave her off of beta-blockade and I would also leave her off of calcium blockade if possible. I would like to monitor blood pressure for another day on her current regimen. #3. Permanent atrial fibrillation: Her heart rate during atrial fibrillation is now somewhat rapid, however her blood pressure is improved. I would opt for improved rate control using digoxin but avoid calcium or beta-blockade for now. If we find that we cannot control her heart rate adequately (and I would probably just shoot for adequate control, not ideal rate control) we can consider pacemaker implantation and creation of heart block, thus avoiding the need for medications which would cause hypotension. I would not do this now but it is a possibility if we have to. Thank you for allowing me to participate in her care.
[2016-12-01] MEDS: DIGOXIN 0.125 MG TAB PO SCH (16:05)
[2016-12-01] MEDS ORDERED: VANCOMYCIN TROUGH SCH (19:30)
[2016-12-01] MEDS: SIMVASTATIN 20 MG TAB PO SCH (20:51)
[2016-12-02] VITALS (9 sets, daily range): BP systolic 113–128; BP diastolic 55–70; PULSE 89–117; TEMP 36.4–36.8; O2SAT 89–95
[2016-12-02] MEDS: CEFTRIAXONE SOD INJ 1 GM in DEXTROSE 5% ADD-VANTAGE 50ML 50 ML IV SCH (01:00)
[2016-12-02] MEDS: LEVOTHYROXINE 25 MCG TAB PO SCH (06:03)
[2016-12-02 06:10] LABS: BASO % 0.1 %; BASO ABS # 0.01 K/uL (0-0.2); COMPLETE YES; EOS % 0.8 %; HEMATOCRIT 46.2 % (37-47); IG% 0.2 %; LYMPH % 7.5 %; LYMPH ABS # 0.69 K/uL (1.2-3.4); MEAN CELL VOLUME 106.2 fL (80-100); MEAN CORPUSCULAR HEMOGLOBIN 32.4 pg (25-34); MEAN CORPUSCULAR HGB CONC 30.5 g/dl (32-36); MONO % 8.1 %; NEUT % 83.3 %; PLATELET COUNT 160 K/uL (130-400); RED BLOOD COUNT 4.35 M/uL (4.2-5.4); WHITE BLOOD COUNT 9.25 K/uL (4.8-10.8)
[2016-12-02 06:50] LABS: BUN/CREATININE RATIO 19.1 (10-20); CALCIUM 8.9 mg/dl (8.5-10.1); CREATININE 0.55 mg/dl (0.60-1.20); INR 1.2 (0.9-1.1); MAGNESIUM 1.8 mg/dl (1.8-2.4); PARTIAL THROMBOPLASTIN RATIO 1.4; POTASSIUM 4.4 mmol/L (3.5-5.1); PROTHROMBIN TIME (PATIENT) 12.8 SECONDS (9.0-12.0)
[2016-12-02] MEDS: LACTOBACILLUS ACIDOPHILUS (FLORANEX) TAB PO SCH ×3 (08:24→17:32)
[2016-12-02] MEDS: DABIGATRAN ELEXILATE 75 MG CAP PO SCH ×2 (08:25→20:57)
[2016-12-02] MEDS: FLUTICASONE/SALMETEROL 250/50 (ADVAIR) 14 PUFF/1 INHALER INH SCH (08:25)
[2016-12-02] MEDS: IPRATROPIUM BROMIDE/ALBUTEROL respimat INH INH SCH (08:25)
[2016-12-02] MEDS: MULTIVITAMIN TAB PO SCH (08:25)
[2016-12-02] MEDS: KETOCONAZOLE 2% CR 15 GM TUBE EXT SCH ×2 (08:26→20:58)
[2016-12-02] MEDS: ASCORBIC ACID 500 MG TAB PO SCH (08:30)
[2016-12-02] MEDS: MAGNESIUM OXIDE 400 MG TAB PO SCH (08:30)
--- NOTE | 2016-12-02 08:33 | DIAGNOSTIC IMAGING REPORT ---
CHEST ONE VIEW PORTABLE CLINICAL HISTORY: eval for hcf dyspnea COMPARISON STUDY: 12/01/2016 FINDINGS: Slight increase in cardiac size. Small left pleural effusion. Increased prominence of pulmonary vasculature. IMPRESSION: Congestive heart failure slightly progressive from the prior study. The above report was generated using voice recognition software. It may contain grammatical, syntax or spelling errors. Electronically signed by: Kehinde Serrano M.D. 12/02/2016 8:32 AM Dictated Date/Time: 12/02/2016 8:31 AM
[2016-12-02] MEDS ORDERED: ALBUT/IPRATROP 3MG/0.5MG NEB 3 ML VIAL INH ONE (09:32)
[2016-12-02] MEDS ORDERED: ALBUT/IPRATROP 3MG/0.5MG NEB 3 ML VIAL INH PRN (09:45)
--- NOTE | 2016-12-02 09:51 | Pharmacy Progress Note ---
Pharmacy Abx Dose Short Note Date of Service Dec 02, 2016. Assessment & Plan Assessment 76 year old female receiving vancomycin/rocephin for treatment of cellulitis Day # 4 of antimicrobial therapy. Plan Vancomycin * Trough level of 11.2 mcg/mL is therapeutic * Trough drawn prior to third dose- may still have some accumulation, SCr trending down, will recheck trough at steady state * Continue dose of 1000 mg q16H * Goal trough level for cellulitis: 10-15 mcg/mL * Trough level ordered for 12/04 @ 1130 Pharmacy will continue to follow and will adjust dose/frequency as necessary. Thank you.
--- NOTE | 2016-12-02 10:26 | Cardiology Follow-Up ---
Subjective Date of Service: Dec 02, 2016. Pt evaluation today including: conversation w/ patient, physical exam, lab review, review of studies, review of inpatient medication list, conversation w/ attending History of Present Illness Today she is feeling weak and is having some difficulty with breathing. She has no cardiovascular complaints today but is quite sleepy. Social History Smoking Status: Former Smoker History of Alcohol Use: No Review of Systems Respiratory: + cough (occasionaly), + shortness of breath, + dyspnea at rest, No sputum, No wheezing Cardiac: No chest pain, No palpitations Medications Cardiovascular: Item Value Date Time Furosemide 40 mg/ 4 ml @ 4 mls/min 12/01/16 1200 Syringe 1200/IV 12/01/16 1207 Digoxin 0.125 mg 11/30/16 1600 (Lanoxin Tab) DAILY@1600/PO 12/01/16 1605 Dabigatran 75 mg 11/29/16 2100 (Pradaxa Cap) BID/PO 12/02/16 0825 Simvastatin 20 mg 11/29/16 2100 (Zocor Tab) QPM/PO 12/01/162050 Objective Vital Signs Past 12 Hours Date Time Temp Pulse Resp B/P (MAP) Pulse Ox O2 Delivery O2 Flow Rate FiO2 12/02/16 07:34 36.7 95 20 128/55 (79) 94 Oxymask 4.0 12/02/16 04:00 Oxymask 4.0 12/02/16 03:21 36.8 89 18 120/70 (87) 95 12/02/16 00:28 36.6 103 18 121/64 (83) 93 4.0 12/02/16 00:00 Oxymask 4.0 Last Recorded Weight-Kilograms: 58.000 Physical Exam Constitutional: Level of Distress: NAD Lungs: Auscultation: expiratory wheezing Cardiovascular: Heart Auscultation: normal S1, normal S2, II/ KENIA, irregular rate rhythm Peripheral Pulses: Bruits: none appreciated Carotid Pulse: normal on the left, normal on the right Radial Pulse: normal on the left, normal on the right Bilateral pedal and LE edema up to knees, positive erythema over entire lower legs up to knees. Data Laboratory Results: Last 24 Hours Test 12/01/16 19:33 12/02/16 05:46 Vancomycin Level Trough 11.2 mcg/ml White Blood Count 9.25 K/uL Red Blood Count 4.35 M/uL Hemoglobin 14.1 g/dL Hematocrit 46.2 % Mean Corpuscular Volume 106.2 fL Mean Corpuscular Hemoglobin 32.4 pg Mean Corpuscular Hemoglobin Concent 30.5 g/dl Platelet Count 160 K/uL Mean Platelet Volume 10.0 fL Neutrophils (%) (Auto) 83.3 % Lymphocytes (%) (Auto) 7.5 % Monocytes (%) (Auto) 8.1 % Eosinophils (%) (Auto) 0.8 % Basophils (%) (Auto) 0.1 % Neutrophils # (Auto) 7.71 K/uL Lymphocytes # (Auto) 0.69 K/uL Monocytes # (Auto) 0.75 K/uL Eosinophils # (Auto) 0.07 K/uL Basophils # (Auto) 0.01 K/uL RDW Standard Deviation 60.9 fL RDW Coefficient of Variation 15.4 % Immature Granulocyte % (Auto) 0.2 % Immature Granulocyte # (Auto) 0.02 K/uL Prothrombin Time 12.8 SECONDS Prothromb Time International Ratio 1.2 Activated Partial Thromboplast Time 36.6 SECONDS Partial Thromboplastin Ratio 1.4 Sodium Level 133 mmol/L Potassium Level 4.4 mmol/L Chloride Level 93 mmol/L Carbon Dioxide Level 39 mmol/L Anion Gap 1.0 mmol/L Blood Urea Nitrogen 11 mg/dl Creatinine 0.55 mg/dl Est Creatinine Clear Calc Drug Dose 75.9 ml/min Estimated GFR () 104.1 Estimated GFR (Non- 89.8 BUN/Creatinine Ratio 19.1 Random Glucose 96 mg/dl Calcium Level 8.9 mg/dl Magnesium Level 1.8 mg/dl Telemetry reviewed: Atrial fibrillation with an overall somewhat elevated heart rate, probably averaging around 100. Assessment and Plan #1. Falls: I am suspicious that her falls are due to hypotension, probably without significant heart rate variation. She has shown no evidence of bradycardia here in the hospital on her outpatient medications, and her heart rate has not been fast enough that we would expect syncope. With discontinuation of her beta blockade her heart rate has increased but she remains asymptomatic and her blood pressure is improved which would be consistent with this diagnosis. #2. Hypotension: Her blood pressure is much improved with discontinuation of the beta-blockade. Although she was on a low dose there is evidence that she had physiologic effect with her heart rate, therefore probably did affect her blood pressure control. It may have eliminated her ability to respond to a low blood pressure. I think we need to leave her off of beta-blockade and I would also leave her off of calcium blockade if possible. #3. Permanent atrial fibrillation: Her heart rate during atrial fibrillation remains somewhat rapid, however her blood pressure is improved. I would opt for improved rate control using digoxin but avoid calcium or beta-blockade for now. I'm going to increase her digoxin somewhat since her level was relatively low. If we find that we cannot control her heart rate adequately (and I would probably just shoot for adequate control, not ideal rate control) we can consider pacemaker implantation and creation of heart block, thus avoiding the need for medications which would cause hypotension. I would not do this now but it is a possibility if we have to. #4. Shortness of breath: She has diastolic congestive heart failure as well as lung disease, both possibly contributing to her shortness of breath. I don't think she is in significant heart failure currently and we need to be careful to avoid overdiuresis. I would agree with treating her lung disease for the moment and not pursue further diuresis. Thank you for allowing me to participate in her care.
[2016-12-02] MEDS: METHYLPREDNISOLONE IV 40 MG in SYRINGE 0 ML IV SCH ×2 (11:00→20:59)
[2016-12-02] MEDS: ALBUT/IPRATROP 3MG/0.5MG NEB 3 ML VIAL INH SCH ×3 (11:15→19:06)
[2016-12-02] MEDS: VANCOMYCIN INJ 1,000 MG in SODIUM CHLORIDE 0.9% 250ML 250 ML IV SCH (12:50)
[2016-12-02] MEDS: FUROSEMIDE INJ 40 MG in SYRINGE 0 ML IV SCH (12:52)
--- NOTE | 2016-12-02 14:29 | Progress Note ---
Subjective Date of Service: Dec 02, 2016. Subjective Patient is slightly improved today. Her prolonged expiratory cycle of her respiratory rate leaving today to believe this might be a COPD exacerbation. She does have a smoking history and chronically takes inhaled medications. I believe earlier in her stay she did have acute diastolic heart failure prompted by intravenous fluids. Given her euvolemic state today we will stop her diuresis but continue to aggressively treat an exacerbation of her chronic respiratory failure. She continues to have cough productive of sputum use feel weak and tired she has no chest pain Problem List Medical Problems: (1) Falls Status: Acute (2) Fluid overload Status: Acute (3) Head injury Status: Acute (4) Hypoxia Status: Acute (5) Orthostatic hypotension Status: Acute (6) Pulmonary vascular congestion Status: Acute (7) Weakness Status: Acute Review of Systems Constitutional: + weakness, + fatigue, No fever, No chills Respiratory: + cough, + sputum, + wheezing, + shortness of breath, + dyspnea on exertion, + dyspnea at rest Cardiac: + orthopnea, + PND, No chest pain, No edema Abdomen: No pain, No nausea, No vomiting, No diarrhea Female : No dysuria, No urinary frequency Psychiatric: No depression symptoms, No anhedonism, No anxiety Objective Vital Signs Date Time Temp Pulse Resp B/P (MAP) Pulse Ox O2 Delivery O2 Flow Rate FiO2 12/02/16 11:16 105 30 95 Mask 4.0 12/02/16 11:02 36.5 109 20 113/67 (82) 95 Oxymask 4.0 12/02/16 07:34 36.7 95 20 128/55 (79) 94 Oxymask 4.0 12/02/16 04:00 Oxymask 4.0 12/02/16 03:21 36.8 89 18 120/70 (87) 95 12/02/16 00:28 36.6 103 18 121/64 (83) 93 4.0 12/02/16 00:00 Oxymask 4.0 12/01/16 20:06 36.6 103 24 121/63 (82) 93 Oxymask 4.0 12/01/16 20:00 Oxymask 4.0 12/01/16 16:05 101 12/01/16 16:00 Oxymask 5.0 12/01/16 15:30 36.7 89 24 107/62 (77) 94 Oxymask 5.0 Physical Exam General Appearance: + moderate distress, + thin Neck: supple, no JVD Respiratory/Chest: + decreased breath sounds, + accessory muscle use, + rhonchi Cardiovascular: no murmur, + irregularly irregular Abdomen: normal bowel sounds, non tender, soft Extremities: no pedal edema, no calf tenderness Neurologic/Psychiatric: alert, oriented x 3 Laboratory Results Last 24 Hours Test 12/01/16 19:33 12/02/16 05:46 Vancomycin Level Trough 11.2 mcg/ml White Blood Count 9.25 K/uL Red Blood Count 4.35 M/uL Hemoglobin 14.1 g/dL Hematocrit 46.2 % Mean Corpuscular Volume 106.2 fL Mean Corpuscular Hemoglobin 32.4 pg Mean Corpuscular Hemoglobin Concent 30.5 g/dl Platelet Count 160 K/uL Mean Platelet Volume 10.0 fL Neutrophils (%) (Auto) 83.3 % Lymphocytes (%) (Auto) 7.5 % Monocytes (%) (Auto) 8.1 % Eosinophils (%) (Auto) 0.8 % Basophils (%) (Auto) 0.1 % Neutrophils # (Auto) 7.71 K/uL Lymphocytes # (Auto) 0.69 K/uL Monocytes # (Auto) 0.75 K/uL Eosinophils # (Auto) 0.07 K/uL Basophils # (Auto) 0.01 K/uL RDW Standard Deviation 60.9 fL RDW Coefficient of Variation 15.4 % Immature Granulocyte % (Auto) 0.2 % Immature Granulocyte # (Auto) 0.02 K/uL Prothrombin Time 12.8 SECONDS Prothromb Time International Ratio 1.2 Activated Partial Thromboplast Time 36.6 SECONDS Partial Thromboplastin Ratio 1.4 Sodium Level 133 mmol/L Potassium Level 4.4 mmol/L Chloride Level 93 mmol/L Carbon Dioxide Level 39 mmol/L Anion Gap 1.0 mmol/L Blood Urea Nitrogen 11 mg/dl Creatinine 0.55 mg/dl Est Creatinine Clear Calc Drug Dose 75.9 ml/min Estimated GFR () 104.1 Estimated GFR (Non- 89.8 BUN/Creatinine Ratio 19.1 Random Glucose 96 mg/dl Calcium Level 8.9 mg/dl Magnesium Level 1.8 mg/dl Assessment and Plan 76 F admitted with frequent falling and concern for worsening arrhythmia as a cause, give h/o A fib could be from rapid or overly slow rate, developed acute diastolic heart failure and acute exacerbation of chronic respiratory failure while here, all while being treated for acute cellulitis on top of chronic venous stasis dermatitis of LE Atrial fibrillation/flutter digoxin 0.125 mg, cardiology did holdmetoprolol succinate 12.5 mg but continues Pradaxa [address] Mcdonough is following and will tolerate a higher V rate to help improve BP and avoid bradycardic symptoms Acute diastolic heart failure was exacerbated by intravenous fluids this resolved with intravenous Lasix therapy Acute exacerbation of chronic respiratory failure, we will initiate intravenous Solu-Medrol and duo nebs and formoterol therapy on 12/02 chest x-ray does not show significant infiltrate and changes of diastolic heart failure have improved Bilateral lower extremity cellulitis--vs chronic venous stasis dermatitis, Pt started on vancomycin IV and ceftriaxone IV. Infectious disease is following Hypothyroidism--clinically euthyroid, continue levothyroxine 25 g mouth daily. PT and OT and older adult social work specialist. Pradaxa for her A. fib is her DVT prevention
[2016-12-02] MEDS: DIGOXIN 0.125 MG TAB PO SCH (17:32)
[2016-12-02] MEDS: FORMOTEROL FUMA NEBULIZER SOLN 20 MCG/2 ML VIAL INH SCH (19:06)
[2016-12-02] MEDS: SIMVASTATIN 20 MG TAB PO SCH (20:58)
[2016-12-02] MEDS: ACETAMINOPHEN 325 MG TAB PO PRN (20:58)
[2016-12-03] VITALS (10 sets, daily range): BP systolic 101–148; BP diastolic 52–106; PULSE 84–110; TEMP 36.5–37.2; O2SAT 90–96
[2016-12-03] MEDS: CEFTRIAXONE SOD INJ 1 GM in DEXTROSE 5% ADD-VANTAGE 50ML 50 ML IV SCH (00:22)
[2016-12-03] MEDS: VANCOMYCIN INJ 1,000 MG in SODIUM CHLORIDE 0.9% 250ML 250 ML IV SCH ×2 (03:34→20:26)
[2016-12-03] MEDS: LEVOTHYROXINE 25 MCG TAB PO SCH ×2 (05:44→05:48)
[2016-12-03 06:40] LABS: CREATININE 0.72 mg/dl (0.60-1.20)
[2016-12-03] MEDS: FORMOTEROL FUMA NEBULIZER SOLN 20 MCG/2 ML VIAL INH SCH ×2 (07:29→19:49)
[2016-12-03] MEDS: ALBUT/IPRATROP 3MG/0.5MG NEB 3 ML VIAL INH SCH ×3 (08:00→19:47)
[2016-12-03] MEDS: DABIGATRAN ELEXILATE 75 MG CAP PO SCH ×2 (09:30→21:00)
--- NOTE | 2016-12-03 09:43 | Cardiology Follow-Up ---
Subjective Date of Service: Dec 03, 2016. Pt evaluation today including: conversation w/ patient, physical exam, lab review, review of studies, review of inpatient medication list History of Present Illness Today she shakes her head when asked how she feels, but she has no specific complaints. She does not respond when asked if she is shortness of breath but she appears relatively comfortable but is on a mask. She looks tired. Social History Smoking Status: Former Smoker History of Alcohol Use: No Review of Systems Respiratory: + shortness of breath, + dyspnea on exertion, + dyspnea at rest Cardiac: No chest pain, No edema Medications Cardiovascular: Item Value Date Time Digoxin 0.125 mg 11/30/16 1600 (Lanoxin Tab) DAILY@1600/PO 12/02/16 173 Dabigatran 75 mg 11/29/16 2100 (Pradaxa Cap) BID/PO 12/02/162056 Objective Vital Signs Past 12 Hours Date Time Temp Pulse Resp B/P (MAP) Pulse Ox O2 Delivery O2 Flow Rate FiO2 12/03/16 07:56 37.2 101 20 112/80 (91) 91 Oxymask 12/03/16 07:29 95 22 95 Mask 4.0 12/03/16 04:27 36.9 84 22 101/53 (69) 95 12/03/16 04:00 Oxymask 4.0 12/03/16 00:10 36.5 99 20 111/52 (71) 96 12/03/16 00:00 Oxymask 4.0 Last Recorded Weight-Kilograms: 56.900 Physical Exam Constitutional: Level of Distress: NAD Lungs: Auscultation: deminished air movement Cardiovascular: Heart Auscultation: normal S1, normal S2, II/ KENIA, irregular rate rhythm Peripheral Pulses: Bruits: none appreciated Data Laboratory Results: Last 24 Hours Test 12/03/16 05:30 Creatinine 0.72 mg/dl Est Creatinine Clear Calc Drug Dose 57.8 ml/min Estimated GFR () 93.0 Estimated GFR (Non- 80.2 Telemetry reviewed: Atrial fibrillation with a reasonably well-controlled heart rate, averaging around 100 Assessment and Plan #1. Falls: Probably due to hypotension, in part related to beta blockade. She has not been out of bed much but has had no further falling here. #2. Hypotension: Her blood pressure is much improved with discontinuation of the beta-blockade. Her heart rate is increased but I would leave her off of beta blockade and calcium blockade. #3. Permanent atrial fibrillation: Her heart rate during atrial fibrillation remains somewhat rapid, however her blood pressure is improved. I am going to try to increase her digoxin a little bit, 0.25 mg Sunday and Sunday and 0.125 mg the other days. #4. Shortness of breath: She has diastolic congestive heart failure as well as lung disease, both possibly contributing to her shortness of breath. Today she seems he was hydrated. Thank you for allowing me to participate in her care.
[2016-12-03] MEDS ORDERED: DIGOXIN 0.125 MG TAB PO ONE (09:45)
[2016-12-03] MEDS: METHYLPREDNISOLONE IV 40 MG in SYRINGE 0 ML IV SCH ×2 (10:11→21:17)
[2016-12-03] MEDS: ASCORBIC ACID 500 MG TAB PO SCH (10:11)
[2016-12-03] MEDS: KETOCONAZOLE 2% CR 15 GM TUBE EXT SCH ×2 (10:12→21:00)
[2016-12-03] MEDS: MULTIVITAMIN TAB PO SCH (10:24)
[2016-12-03] MEDS: MAGNESIUM OXIDE 400 MG TAB PO SCH (10:24)
[2016-12-03] MEDS: LACTOBACILLUS ACIDOPHILUS (FLORANEX) TAB PO SCH ×3 (10:24→16:45)
[2016-12-03] MEDS ORDERED: DIGOXIN IV 125 MCG in SYRINGE 9.5 ML IV ONE (10:45)
--- NOTE | 2016-12-03 11:31 | DIAGNOSTIC IMAGING REPORT ---
HEAD WITHOUT CONTRAST (CT) CT DOSE: 1977.94 mGy.cm HISTORY: Mental status change eval for hemorrhage TECHNIQUE: Multiaxial CT images of the head were performed without the use of intravenous contrast. A dose lowering technique was utilized adhering to the principles of ALARA. Comparison: 11/29/2016 Findings: Interval resolution of the extracranial air adjacent to the pterygoid plates described previously. The calvarium and skull base are intact. The ventricles and sulci are within normal limits. There is no mass, hematoma, midline shift, or acute infarct. Mild age-related chronic small vessel change and atrophy. No acute intracranial hemorrhage. Impression: Negative study for age. Improved exam compared to the prior study. The above report was generated using voice recognition software. It may contain grammatical, syntax or spelling errors. Electronically signed by: Kehinde Serrano M.D. 12/03/2016 11:30 AM Dictated Date/Time: 12/03/2016 11:28 AM
--- NOTE | 2016-12-03 14:03 | Progress Note ---
Subjective Date of Service: Dec 03, 2016. Subjective this pt is voluntarily not speaking and squeezing her eyes closed, she remains somewhat short of breath Problem List Medical Problems: (1) Falls Status: Acute (2) Fluid overload Status: Acute (3) Head injury Status: Acute (4) Hypoxia Status: Acute (5) Orthostatic hypotension Status: Acute (6) Pulmonary vascular congestion Status: Acute (7) Weakness Status: Acute Review of Systems Constitutional: No fever, No chills, No weakness Respiratory: + wheezing, + shortness of breath Cardiac: + edema, No chest pain Abdomen: No pain, No nausea, No vomiting, No diarrhea Musculoskeletal: No joint pain, No muscle pain Female : No dysuria, No urinary frequency, No hematuria, No incontinence Neurologic: No paralysis, No weakness Psychiatric: No depression symptoms, No anhedonism Objective Vital Signs Date Time Temp Pulse Resp B/P (MAP) Pulse Ox O2 Delivery O2 Flow Rate FiO2 12/03/16 12:08 148/84 (105) 12/03/16 11:22 90 26 94 Mask 4.0 12/03/16 11:03 98 12/03/16 10:37 37.1 110 20 135/106 (116) 90 Oxymask 6.0 12/03/16 10:10 106 12/03/16 07:56 37.2 101 20 112/80 (91) 91 Oxymask 12/03/16 07:29 95 22 95 Mask 4.0 12/03/16 04:27 36.9 84 22 101/53 (69) 95 12/03/16 04:00 Oxymask 4.0 12/03/16 00:10 36.5 99 20 111/52 (71) 96 12/03/16 00:00 Oxymask 4.0 12/02/16 20:00 Oxymask 4.0 12/02/16 19:19 36.6 117 22 114/61 (78) 95 Oxymask 5.0 12/02/16 19:07 104 28 89 Mask 4.0 12/02/16 17:32 113 12/02/16 16:05 Oxymask 4.0 12/02/16 15:29 36.4 101 16 127/66 (86) 93 Oxymask 4.0 12/02/16 15:22 114 30 90 Mask 4.0 Physical Exam General Appearance: + mild distress, + thin Respiratory/Chest: + respiratory distress, + accessory muscle use Cardiovascular: + tachycardia, + irregularly irregular Abdomen: normal bowel sounds, non tender, soft Extremities: + pedal edema, + swelling Skin: + pertinent finding (le extremity swelling and erythema) Laboratory Results Last 24 Hours Test 12/03/16 05:30 Creatinine 0.72 mg/dl Est Creatinine Clear Calc Drug Dose 57.8 ml/min Estimated GFR () 93.0 Estimated GFR (Non- 80.2 Assessment and Plan 76 F admitted with frequent falling and concern for worsening arrhythmia as a cause, give h/o A fib could be from rapid or overly slow rate, developed acute diastolic heart failure and acute exacerbation of chronic respiratory failure while here, all while being treated for acute cellulitis on top of chronic venous stasis dermatitis of LE Atrial fibrillation/flutter digoxin 0.125 mg, cardiology did hold metoprolol, but continues Pradaxa [address] Mcdonough is following and will tolerate a higher V rate to help improve BP and avoid bradycardic symptoms Acute diastolic heart failure was exacerbated by intravenous fluids this resolved with intravenous Lasix therapy Acute exacerbation of chronic respiratory failure, Solu-Medrol and duo nebs and formoterol therapy, holding mdi's, on 12/02 chest x-ray does not show significant infiltrate and changes of diastolic heart failure have improved Bilateral lower extremity cellulitis--vs chronic venous stasis dermatitis, Pt started on vancomycin IV and ceftriaxone IV. Infectious disease is following Hypothyroidism, continue levothyroxine 25 g mouth daily. PT and OT and social worker delinquency prevention. Pradaxa for her A. fib is her DVT prevention
[2016-12-03] MEDS ORDERED: DIGOXIN 0.125 MG TAB PO SCH (16:00)
[2016-12-03] MEDS ORDERED: DIGOXIN IV 125 MCG in SYRINGE 9.5 ML IV SCH (16:00)
[2016-12-03] MEDS: SIMVASTATIN 20 MG TAB PO SCH (21:00)
[2016-12-04] VITALS (15 sets, daily range): BP systolic 112–143; BP diastolic 61–82; PULSE 80–102; TEMP 36.5–36.9; O2SAT 90–97
[2016-12-04] MEDS: CEFTRIAXONE SOD INJ 1 GM in DEXTROSE 5% ADD-VANTAGE 50ML 50 ML IV SCH ×2
[2016-12-04] MEDS: LEVOTHYROXINE 25 MCG TAB PO SCH (06:00)
[2016-12-04] MEDS: FORMOTEROL FUMA NEBULIZER SOLN 20 MCG/2 ML VIAL INH SCH ×2 (07:06→19:54)
[2016-12-04 07:07] LABS: CREATININE 0.47 mg/dl (0.60-1.20)
[2016-12-04] MEDS: ALBUT/IPRATROP 3MG/0.5MG NEB 3 ML VIAL INH SCH ×4 (07:08→20:00)
[2016-12-04] MEDS: LACTOBACILLUS ACIDOPHILUS (FLORANEX) TAB PO SCH ×4 (07:30→16:29)
[2016-12-04] MEDS: METHYLPREDNISOLONE IV 40 MG in SYRINGE 0 ML IV SCH ×2 (08:23→21:29)
[2016-12-04] MEDS: DABIGATRAN ELEXILATE 75 MG CAP PO SCH ×3 (08:29→21:00)
[2016-12-04] MEDS: MULTIVITAMIN TAB PO SCH (08:29)
[2016-12-04] MEDS: MAGNESIUM OXIDE 400 MG TAB PO SCH ×2 (08:29→09:00)
[2016-12-04] MEDS: ASCORBIC ACID 500 MG TAB PO SCH ×2 (08:29→09:00)
[2016-12-04] MEDS: KETOCONAZOLE 2% CR 15 GM TUBE EXT SCH ×3 (08:30→21:29)
[2016-12-04] MEDS: BISACODYL 5 MG TABEC PO SCH (09:00)
--- NOTE | 2016-12-04 10:04 | Cardiology Follow-Up ---
Subjective Date of Service: Dec 04, 2016. Pt evaluation today including: conversation w/ patient, physical exam, lab review, review of studies, review of inpatient medication list History of Present Illness She remains minimally responsive, evidently by choice not physically unable to respond. She seems to have no complaints and she is resting comfortably in bed. Social History Smoking Status: Former Smoker History of Alcohol Use: No Review of Systems Today she is not responding to questions. Medications Cardiovascular: Item Value Date Time Digoxin 250 mcg/ 10 ml @ 2 mls/min 12/05/16 1600 Syringe Q2D@1600/IV Digoxin 125 mcg/ 10 ml @ 2 mls/min 12/04/16 1600 Syringe Q2D@1600/IV Dabigatran 75 mg 11/29/16 2100 (Pradaxa Cap) BID/PO 12/04/16 0829 Ketoconazole 1 appln 11/29/16 2100 (Nizoral 2% Crm) BID/EXT 12/04/16 0830 Objective Vital Signs Past 12 Hours Date Time Temp Pulse Resp B/P (MAP) Pulse Ox O2 Delivery O2 Flow Rate FiO2 12/04/16 08:10 94 Mask 5.0 12/04/16 07:22 36.7 94 19 126/79 (95) 94 12/04/16 07:14 36.7 86 19 143/82 (102) 93 12/04/16 07:08 96 15 90 Mask 5.0 12/04/16 04:09 36.6 102 22 143/82 (102) 92 12/04/16 04:00 97 Oxymask 4.5 12/04/16 00:10 36.9 91 20 115/68 (84) 93 12/04/16 00:00 91 Oxymask 4.5 Last Recorded Weight-Kilograms: 56.900 Physical Exam Constitutional: Level of Distress: NAD Lungs: Auscultation: deminished air movement Cardiovascular: Heart Auscultation: normal S1, normal S2, II/ KENIA, irregular rate rhythm Peripheral Pulses: Bruits: none appreciated Data Laboratory Results: Last 24 Hours Test 12/04/16 06:00 Creatinine 0.47 mg/dl Est Creatinine Clear Calc Drug Dose 88.6 ml/min Estimated GFR () 109.7 Estimated GFR (Non- 94.6 Digoxin Level 1.3 ng/ml Telemetry reviewed: Atrial fibrillation with acceptable heart rate control, no rapid heart rates Assessment and Plan #1. Falls: Probably due to hypotension, in part related to beta blockade. She has not been out of bed much but has had no further falling here. #2. Hypotension: Her blood pressure is much improved with discontinuation of the beta-blockade. Her heart rate is increased but I would leave her off of beta blockade and calcium blockade. #3. Permanent atrial fibrillation: Her heart rate during atrial fibrillation is currently acceptable, and her blood pressure is improved. Her digoxin level is good. I would continue the current regimen.. Thank you for allowing me to participate in her care.
[2016-12-04] MEDS: VANCOMYCIN INJ 1,000 MG in SODIUM CHLORIDE 0.9% 250ML 250 ML IV SCH (11:52)
[2016-12-04] MEDS ORDERED: DIGOXIN 0.25 MG TAB PO SCH (16:00)
[2016-12-04] MEDS: DIGOXIN IV 125 MCG in SYRINGE 9.5 ML IV SCH (16:16)
--- NOTE | 2016-12-04 20:35 | Progress Note ---
Subjective Date of Service: Dec 04, 2016. Subjective Pt evaluation today including: physical exam, chart review, lab review, review of inpatient medication list Voiding: martinez catheter in place tele stable overnight during my visit she had her eyes closed staff report she had been like this all day except for when her son came to visit during that visit she opened her eyes and she had a meal (her son fed her) she has been refusing blood draws she will keep her eyes closed when staff are trying to talk with her unable to obtain ROS due to nonverbal status Problem List Medical Problems: (1) Falls Status: Acute (2) Fluid overload Status: Acute (3) Head injury Status: Acute (4) Hypoxia Status: Acute (5) Orthostatic hypotension Status: Acute (6) Pulmonary vascular congestion Status: Acute (7) Weakness Status: Acute Objective Vital Signs Date Time Temp Pulse Resp B/P (MAP) Pulse Ox O2 Delivery O2 Flow Rate FiO2 12/04/16 16:16 92 12/04/16 16:05 Mask 5.0 12/04/16 15:03 36.5 98 20 132/65 (87) 96 Oxymask 5.0 12/04/16 14:30 90 20 96 Mask 5.0 12/04/16 12:05 Mask 5.0 12/04/16 11:26 102 22 90 Mask 5.0 12/04/16 10:45 36.5 99 20 126/73 (90) 97 Oxymask 5.0 12/04/16 08:10 94 Mask 5.0 12/04/16 07:22 36.7 94 19 126/79 (95) 94 12/04/16 07:14 36.7 86 19 143/82 (102) 93 12/04/16 07:08 96 15 90 Mask 5.0 12/04/16 04:09 36.6 102 22 143/82 (102) 92 12/04/16 04:00 97 Oxymask 4.5 12/04/16 00:10 36.9 91 20 115/68 (84) 93 12/04/16 00:00 91 Oxymask 4.5 Physical Exam General Appearance: no apparent distress ENT: pharynx normal (MMM) Neck: no JVD Respiratory/Chest: no respiratory distress, no accessory muscle use, + rales ( mild, bases) Cardiovascular: regular rate, rhythm, no gallop, no murmur Abdomen: normal bowel sounds, non tender, soft, no organomegaly Extremities: no pedal edema Neurologic/Psychiatric: + pertinent finding (non-focal --- when I lifted up her arms she gently lowered each to the bed symmetrically; no facial droop; both legs with normal tone) Skin: + pertinent finding (b/l shins with stasis changes but NO cellulitis ) Laboratory Results Last 24 Hours Test 12/04/16 06:00 12/04/16 11:30 12/04/16 15:39 12/04/16 15:42 Creatinine 0.47 mg/dl Est Creatinine Clear Calc Drug Dose 88.6 ml/min Estimated GFR () 109.7 Estimated GFR (Non- 94.6 Digoxin Level 1.3 ng/ml Assessment and Plan 76yo female with: 1. a. fib - rates acceptable with IV digoxin. Dig level normal. Remains off BB and CCB. Pradaxa for anticoagulation. 2. recent falls/weakness - exact etiology uncertain. There was a question if she was hypotensive from beta blockade in the setting of a. fib leading to her weakness. Uncertain if some of the weakness could have been from infectious process. PT, OT - if she will participate. 3. b/l LE cellulitis - appears resolved. d/c vanco. cont rocephin until taking PO and then transition back to PO abx therapy. 4. encephalopathy - cause?? staff and her son report that she apparently is not talking and keeping her eyes closed under her own volition. I ordered a VBG today to exclude hypercarbia & ammonia today and apparently, during several attempts by phlebotomy team, she refused the blood draws. CT head yesterday unremarkable. Will check with son about her psychiatric history. 5. hypothyroidism - continue levothyroxine; TSH compensated. 6. COPD with exacerbation - improving; cont steroids; no wean today. Cont nebs & inhalers. 7. acute/chronic diastolic CHF - improved; volume status looks acceptable today. 8. DVT proph - pradaxa. will most certainly need PT, OT Continued [facility] stay due to: inadequate po fluid intake, voiding difficulties, ambulation difficulties, multiple IV medications needed, home environment unsafe for pt Discharge planning: uncertain
[2016-12-04] MEDS: SIMVASTATIN 20 MG TAB PO SCH (21:00)
[2016-12-05] VITALS (9 sets, daily range): BP systolic 119–140; BP diastolic 64–76; PULSE 62–99; TEMP 36.5–36.9; O2SAT 90–96
[2016-12-05] MEDS: CEFTRIAXONE SOD INJ 1 GM in DEXTROSE 5% ADD-VANTAGE 50ML 50 ML IV SCH ×2 (00:51→23:59)
[2016-12-05] MEDS ORDERED: VANCOMYCIN TROUGH ONE (03:30)
[2016-12-05 05:38] LABS: VEN BLD GAS O2 SATURATION 83.3 %; VEN BLOOD GAS BASE EXCESS 10.6 mEq/L
[2016-12-05] MEDS: LEVOTHYROXINE 25 MCG TAB PO SCH (06:00)
[2016-12-05 06:10] LABS: BLOOD UREA NITROGEN 26 mg/dl (7-18); BUN/CREATININE RATIO 62.9 (10-20); CALCIUM 9.5 mg/dl (8.5-10.1); CARBON DIOXIDE 40 mmol/L (21-32); CHLORIDE 95 mmol/L (98-107); CREATININE 0.42 mg/dl (0.60-1.20); GLUCOSE 120 mg/dl (70-99)
[2016-12-05 06:15] LABS: SODIUM 137 mmol/L (136-145)
[2016-12-05 07:27] LABS: POTASSIUM 4.8 mmol/L (3.5-5.1)
[2016-12-05 07:28] LABS: MAGNESIUM 2.3 mg/dl (1.8-2.4)
[2016-12-05] MEDS: ALBUT/IPRATROP 3MG/0.5MG NEB 3 ML VIAL INH SCH ×4 (07:48→19:14)
[2016-12-05] MEDS: FORMOTEROL FUMA NEBULIZER SOLN 20 MCG/2 ML VIAL INH SCH ×2 (07:48→19:14)
[2016-12-05] MEDS: MULTIVITAMIN TAB PO SCH (08:39)
[2016-12-05] MEDS: BISACODYL 5 MG TABEC PO SCH (08:39)
[2016-12-05] MEDS: MAGNESIUM OXIDE 400 MG TAB PO SCH (08:39)
[2016-12-05] MEDS: LACTOBACILLUS ACIDOPHILUS (FLORANEX) TAB PO SCH ×3 (08:39→16:34)
[2016-12-05] MEDS: ASCORBIC ACID 500 MG TAB PO SCH (08:40)
[2016-12-05] MEDS: KETOCONAZOLE 2% CR 15 GM TUBE EXT SCH ×2 (08:47→21:25)
[2016-12-05] MEDS: METHYLPREDNISOLONE IV 40 MG in SYRINGE 0 ML IV SCH (08:47)
[2016-12-05] MEDS: DABIGATRAN ELEXILATE 75 MG CAP PO SCH ×2 (08:48→20:00)
--- NOTE | 2016-12-05 13:35 | DIAGNOSTIC IMAGING REPORT ---
ORBIT RADIOGRAPHS 3 VIEWS HISTORY: pre-MRI screening. COMPARISON: None. FINDINGS: There are no radiopaque foreign bodies identified within the orbits. IMPRESSION: No radiopaque foreign bodies identified within the orbits. Electronically signed by: Glen Cade M.D. 12/05/2016 1:34 PM Dictated Date/Time: 12/05/2016 1:34 PM
--- NOTE | 2016-12-05 14:22 | DIAGNOSTIC IMAGING REPORT ---
MRI OF THE BRAIN WITHOUT CONTRAST CLINICAL HISTORY: Atrial fibrillation. Change in mental status. Hallucinations. Patient is nonverbal. History of prior stroke. COMPARISON STUDY: Head CT dated 12/03/2016 FINDINGS: Sagittal T1, axial diffusion, proton density and T2 weighted axial, coronal FLAIR, and axial T1-weighted images were acquired. No intra or extra-axial mass lesions are visualized Axial diffusion-weighted images reveal no evidence of acute or subacute infarction. There is no evidence of ventricular dilatation. Proton density T2-weighted and FLAIR images reveal minimal foci of increased T2 signal within the white matter, likely on a small vessel basis. The previously reported left hemispheric infarcts are difficult to visualize with certainty on this examination. There are no abnormal flow voids. IMPRESSION: 1. No acute intracranial findings 2. No evidence of acute or subacute infarction 3. No evidence of intracranial mass 4. No evidence of hydrocephalus Electronically signed by: Glen Cade M.D. 12/05/2016 2:20 PM Dictated Date/Time: 12/05/2016 2:16 PM
[2016-12-05] MEDS: DIGOXIN IV 250 MCG in SYRINGE 9 ML IV SCH (16:33)
[2016-12-05] MEDS: SIMVASTATIN 20 MG TAB PO SCH (21:00)
[2016-12-06] VITALS (12 sets, daily range): BP systolic 114–123; BP diastolic 68–77; PULSE 70–79; TEMP 36.1–36.6; O2SAT 91–98
--- NOTE | 2016-12-06 00:06 | Progress Note ---
Subjective Date of Service: Dec 05, 2016. Subjective Pt evaluation today including: physical exam, chart review, lab review, review of studies (MRI brain - normal), review of inpatient medication list tele with rate-controlled marbella watson overnight during the visit she had her eyes closed the entire time when I called her name, asked her questions, gave her commands - each time she did not answer when I told her I was going to open her eyes to examine them she purposefully squeezed them shut staff report that she had her eyes open this morning and answered questions although she was acting strangely unable to obtain ROS due to nonverbal status Problem List Medical Problems: (1) Falls Status: Acute (2) Fluid overload Status: Acute (3) Head injury Status: Acute (4) Hypoxia Status: Acute (5) Orthostatic hypotension Status: Acute (6) Pulmonary vascular congestion Status: Acute (7) Weakness Status: Acute Objective Vital Signs Date Time Temp Pulse Resp B/P (MAP) Pulse Ox O2 Delivery O2 Flow Rate FiO2 12/05/16 19:14 64 14 94 Mask 6.0 12/05/16 18:19 36.6 86 16 119/66 (83) 91 Oxymask 12/05/16 16:33 97 12/05/16 16:00 Oxymask 5.0 12/05/16 15:44 62 16 96 Mask 6.0 12/05/16 15:27 36.5 80 20 129/73 (91) 90 Oxymask 6.0 12/05/16 12:00 Oxymask 6.0 12/05/16 11:20 94 22 96 Mask 6.0 12/05/16 10:30 36.5 92 20 122/75 (91) 94 Oxymask 6.0 12/05/16 08:00 Oxymask 5.0 12/05/16 07:48 87 20 95 Mask 6.0 12/05/16 07:31 36.5 88 20 140/76 (97) 94 Nasal Cannula 6.0 12/05/16 04:00 Oxymask 4.0 12/05/16 03:10 36.9 99 24 120/64 (82) 94 Oxymask 6.0 12/05/16 00:00 Oxymask 4.0 12/04/16 23:40 36.7 96 18 112/65 (81) 97 Oxymask 6.0 Physical Exam General Appearance: no apparent distress, + pertinent finding (eyes closed, does not follow commands) ENT: pharynx normal (MMM) Neck: no JVD Respiratory/Chest: lungs clear, no respiratory distress, no accessory muscle use Cardiovascular: no gallop, + irregularly irregular Abdomen: normal bowel sounds, non tender, soft, no organomegaly Extremities: no pedal edema Neurologic/Psychiatric: + pertinent finding (no focal deficits; no facial droop ; tone is normal (not flaccid nor rigid); no tremors noted or fasciculations) Skin: no rash (no cellulitis on shins) Laboratory Results Last 24 Hours Test 12/05/16 05:25 12/05/16 06:50 Venous Blood pH 7.37 Venous Blood Partial Pressure CO2 69 mmHg Venous Blood Partial Pressure O2 51 mmHg Venous Blood HCO3 39 mmol/L Venous Blood Oxygen Saturation 83.3 % Venous Blood Base Excess 10.6 mEq/L Sodium Level 137 mmol/L Potassium Level mmol/L 4.8 mmol/L Chloride Level 95 mmol/L Carbon Dioxide Level 40 mmol/L Anion Gap 2.0 mmol/L Blood Urea Nitrogen 26 mg/dl Creatinine 0.42 mg/dl Est Creatinine Clear Calc Drug Dose 98.1 ml/min Estimated GFR () 113.8 Estimated GFR (Non- 98.2 BUN/Creatinine Ratio 62.9 Random Glucose 120 mg/dl Calcium Level 9.5 mg/dl Magnesium Level mg/dl 2.3 mg/dl Ammonia 23.0 umol/L Vancomycin Level Trough 12.2 mcg/ml Assessment and Plan 76yo female with: 1. a. fib - rates acceptable with IV digoxin. Dig level normal. Will repeat dig level again in am. Remains off BB and CCB. Pradaxa for anticoagulation but patient refusing to take meds (and/or is unable to). 2. recent falls/weakness - exact etiology uncertain. There was a question if she was hypotensive from beta blockade in the setting of a. fib leading to her weakness. Uncertain if some of the weakness could have been from infectious process. 3. b/l LE cellulitis - appears resolved. d/c all abx and observe. 4. encephalopathy - cause?? MRI brain negative for stroke or other process. no infectious process is apparent. VBG with compensated resp acidosis. b12 in recent past normal. ammonia normal. cause? consider EEG consider lyme's testing I am at a loss to explain her mental status - this does not make sense as some of her behaviors, according to staff, appear to be volitional 5. hypothyroidism - continue levothyroxine; TSH compensated. May need IV if unable to take PO. 6. COPD with exacerbation - resolved; stop steroids. cont nebs. 7. acute/chronic diastolic CHF - improved; volume status looks acceptable today. 8. DVT proph - pradaxa if able to take; otherwise start daily lovenox. will most certainly need PT, OT d/c tele, move to med/surg left message for son 12/05/16 Continued [facility] stay due to: inadequate po fluid intake, voiding difficulties, ambulation difficulties, multiple IV medications needed, home environment unsafe for pt Discharge planning: uncertain
[2016-12-06 05:57] LABS: COMPLETE YES; HEMATOCRIT 49.6 % (37-47); IG% 0.2 %; LYMPH % 8.2 %; LYMPH ABS # 0.77 K/uL (1.2-3.4); MEAN CELL VOLUME 104.6 fL (80-100); MEAN CORPUSCULAR HEMOGLOBIN 33.5 pg (25-34); MEAN CORPUSCULAR HGB CONC 32.1 g/dl (32-36); MEAN PLATELET VOLUME 9.6 fL (7.4-10.4); NEUT % 84.6 %; PLATELET COUNT 189 K/uL (130-400); RED BLOOD COUNT 4.74 M/uL (4.2-5.4)
[2016-12-06] MEDS: LEVOTHYROXINE 25 MCG TAB PO SCH (06:16)
[2016-12-06 06:41] LABS: BUN/CREATININE RATIO 60.7 (10-20); CALCIUM 9.8 mg/dl (8.5-10.1); CREATININE 0.44 mg/dl (0.60-1.20); POTASSIUM 4.6 mmol/L (3.5-5.1)
[2016-12-06 06:52] LABS: LYME DISEASE AB IGG NEG (NEG)
[2016-12-06 06:53] LABS: LYME DISEASE AB IGM NEG (NEG)
[2016-12-06] MEDS: ALBUT/IPRATROP 3MG/0.5MG NEB 3 ML VIAL INH SCH ×3 (08:00→19:32)
[2016-12-06] MEDS: KETOCONAZOLE 2% CR 15 GM TUBE EXT SCH ×2 (08:23→19:56)
[2016-12-06] MEDS: DABIGATRAN ELEXILATE 75 MG CAP PO SCH ×3 (08:24→19:56)
[2016-12-06] MEDS: ASCORBIC ACID 500 MG TAB PO SCH ×2 (08:24→11:04)
[2016-12-06] MEDS: MULTIVITAMIN TAB PO SCH ×2 (08:25→11:04)
[2016-12-06] MEDS: LACTOBACILLUS ACIDOPHILUS (FLORANEX) TAB PO SCH ×4 (08:26→17:00)
[2016-12-06] MEDS: MAGNESIUM OXIDE 400 MG TAB PO SCH ×2 (08:26→11:03)
[2016-12-06] MEDS: BISACODYL 5 MG TABEC PO SCH ×2 (08:26→11:00)
[2016-12-06] MEDS: FORMOTEROL FUMA NEBULIZER SOLN 20 MCG/2 ML VIAL INH SCH ×2 (11:03→19:32)
[2016-12-06 11:08] LABS: VEN BLD GAS O2 SATURATION 68.5 %; VEN BLOOD GAS BASE EXCESS 12.8 mEq/L
[2016-12-06] MEDS: THIAMINE HCL INJ 200 MG in SODIUM CHLORIDE 0.9% 50ML 50 ML IV SCH ×2 (12:39→19:56)
[2016-12-06] MEDS: DIGOXIN IV 125 MCG in SYRINGE 9.5 ML IV SCH ×2 (16:24→17:22)
[2016-12-06 17:18] LABS: VEN BLD GAS O2 SATURATION 75.1 %; VEN BLOOD GAS BASE EXCESS 12.3 mEq/L
[2016-12-06] MEDS: SIMVASTATIN 20 MG TAB PO SCH (19:57)
--- NOTE | 2016-12-06 21:20 | Progress Note ---
Subjective Date of Service: Dec 06, 2016. Subjective Pt evaluation today including: conversation w/ patient (multiple), conversation w/ family (son, daughter in law), physical exam, chart review, lab review, conversation w/ customer sales consultant (psych), review of inpatient medication list Pain: nothing voiced by patient PO Intake: very poor Voiding: incontinence This am the patient "awoke" - that is, she opened her eyes to her name being called. She kept her eyes open the entire conversation. She answered all my questions. She knew she was in the hospital but didn't know the day. She could not recall any of the events of the last few days. During my AM rounds she pointed at the TV and said "she's bad." When asked to elaborate she couldn't. She denied hearing voices or seeing objects/people in the room I couldn't see. She then asked for her glasses. We gave her the glasses, she put them on, then took them off and said "they're bad." She then told me that we were poisoning her water and therefore she refused to drink it. I checked on her again later in the afternoon and then again late this evening - both times she was awake and alert. She squeezed my hand several times and told me "no, no." When asked what the problem was she would simply squeeze harder. I had a lengthy conversation with the patient's son this evening. He reports she is quite sedentary at home, sitting in her chair most of the day. They deny any obvious depression, change in mental status at home, or any change in memory/thinking as of late. A family member did 2 weeks ago but she refused to go to the for fear of seeing multiple family members she is estranged from. No prior h/o psychosis. Problem List Medical Problems: (1) Falls Status: Acute (2) Fluid overload Status: Acute (3) Head injury Status: Acute (4) Hypoxia Status: Acute (5) Orthostatic hypotension Status: Acute (6) Pulmonary vascular congestion Status: Acute (7) Weakness Status: Acute Review of Systems unable to obtain ROS due to mental status but she denied any pain in any location Objective Vital Signs Date Time Temp Pulse Resp B/P (MAP) Pulse Ox O2 Delivery O2 Flow Rate FiO2 12/06/16 19:32 70 28 95 Nasal Cannula 4.0 12/06/16 17:22 81 12/06/16 15:45 BiPAP 12/06/16 15:41 78 95 4.0 12/06/16 15:39 70 18 94 Nasal Cannula 4.0 12/06/16 15:10 36.5 76 20 116/77 (90) 98 4.0 12/06/16 11:54 79 98 4.0 12/06/16 11:53 75 20 91 Nasal Cannula 3.0 12/06/16 10:15 97 Nasal Cannula 2.0 12/06/16 09:00 98 Mask 4.0 12/06/16 07:37 74 20 97 Mask 4.0 12/06/16 07:26 36.6 72 20 114/68 (83) 98 4.0 12/06/16 00:25 Oxymask 4.0 12/06/16 00:04 36.6 77 16 123/73 (90) 98 Oxymask 4.0 Physical Exam General Appearance: no apparent distress, + thin Eyes: + pertinent finding (horizontal nystagmus present) ENT: pharynx normal (except MM dry) Neck: no JVD Respiratory/Chest: lungs clear, no respiratory distress, no accessory muscle use Cardiovascular: no gallop, no murmur, + irregularly irregular Abdomen: normal bowel sounds, non tender, soft, no organomegaly Extremities: no pedal edema Neurologic/Psychiatric: alert, + depressed affect, + disoriented, + pertinent finding (psychotic) Skin: + pertinent finding (no cellulitis of either extremity) Laboratory Results Last 24 Hours Test 12/06/16 05:17 12/06/16 10:56 12/06/16 16:46 White Blood Count 9.40 K/uL Red Blood Count 4.74 M/uL Hemoglobin 15.9 g/dL Hematocrit 49.6 % Mean Corpuscular Volume 104.6 fL Mean Corpuscular Hemoglobin 33.5 pg Mean Corpuscular Hemoglobin Concent 32.1 g/dl Platelet Count 189 K/uL Mean Platelet Volume 9.6 fL Neutrophils (%) (Auto) 84.6 % Lymphocytes (%) (Auto) 8.2 % Monocytes (%) (Auto) 7.0 % Eosinophils (%) (Auto) 0.0 % Basophils (%) (Auto) 0.0 % Neutrophils # (Auto) 7.95 K/uL Lymphocytes # (Auto) 0.77 K/uL Monocytes # (Auto) 0.66 K/uL Eosinophils # (Auto) 0.00 K/uL Basophils # (Auto) 0.00 K/uL RDW Standard Deviation 57.9 fL RDW Coefficient of Variation 15.0 % Immature Granulocyte % (Auto) 0.2 % Immature Granulocyte # (Auto) 0.02 K/uL Sodium Level 139 mmol/L Potassium Level 4.6 mmol/L Chloride Level 96 mmol/L Carbon Dioxide Level 41 mmol/L Anion Gap 1.0 mmol/L Blood Urea Nitrogen 27 mg/dl Creatinine 0.44 mg/dl Est Creatinine Clear Calc Drug Dose 93.7 ml/min Estimated GFR () 112.1 Estimated GFR (Non- 96.7 BUN/Creatinine Ratio 60.7 Random Glucose 103 mg/dl Calcium Level 9.8 mg/dl Digoxin Level 1.5 ng/ml Lyme Disease IgG Antibody NEG Lyme Disease IgM Antibody NEG Venous Blood pH 7.35 7.47 Venous Blood Partial Pressure CO2 79 mmHg 54 mmHg Venous Blood Partial Pressure O2 38 mmHg 39 mmHg Venous Blood HCO3 43 mmol/L 39 mmol/L Venous Blood Oxygen Saturation 68.5 % 75.1 % Venous Blood Base Excess 12.8 mEq/L 12.3 mEq/L C-Reactive Protein 0.64 mg/dl Vitamin B12 Level 1830 pg/mL Assessment and Plan 76yo female with: 1. a. fib - rates acceptable with IV digoxin. Dig level normal again today. Remains off BB and CCB. Pradaxa for anticoagulation but patient refusing to take meds. 2. recent falls/weakness - exact etiology uncertain. There was a question if she was hypotensive from beta blockade in the setting of a. fib leading to her weakness. Uncertain if some of the weakness could have been from infectious process but doubt. MRI brain negative for stroke. Again etiology uncertain. 3. b/l LE cellulitis - appears resolved. d/c all abx and observe. 4. encephalopathy / psychosis - this issue has been a true mystery over the last 3-4 days. She suddenly "woke up" today but was quite paranoid with delusions & hallucinations. MRI brain negative for stroke or other process. no infectious process is apparent. VBG with mild resp acidosis but there was NO change in her mental status today after use of BIPAP and improvement in her PCO2. b12 normal. ammonia normal. lyme's test negative. with her nystagmus I sent B1 (thiamine) level and started her on IV thiamine in the remote event this is Wernecke's encephalopathy. I have spoken with psychiatry who will consult. could she have underlying depression with psychosis? could this simply be acute hospital psychosis? other? 5. hypothyroidism - continue levothyroxine; TSH compensated. May need IV if unable to take PO. 6. COPD with exacerbation - resolved; stopped steroids. cont nebs. 7. acute/chronic diastolic CHF - resolved, in fact looks dehydrated today. 8. DVT proph - she is not taking her pradaxa; thus, start lovenox. 9. acute/chronic hypercarbic resp failure - see above 10. FEN - has not eaten in over 5-6 days. Restart fluids. Doubt she would tolerate enteral feedings (would likely pull NG tube out). Certainly she is in a difficult position at this time. total time today about 60 minutes, 30-40 minutes of which was spent talking with her family and obtaining historical information Continued [facility] stay due to: inadequate po fluid intake, ambulation difficulties , multiple IV medications needed, home environment unsafe for pt, other ( psychosis ) Discharge planning: uncertain
--- NOTE | 2016-12-06 22:16 | DIAGNOSTIC IMAGING REPORT ---
CHEST ONE VIEW PORTABLE CLINICAL HISTORY: COPD, recent CHF; eval for any infiltrates dyspnea COMPARISON STUDY: 12/02/2016 FINDINGS: Interval left upper lobe atelectasis. Partial atelectasis versus infiltrate in both lower lung regions. Components of congestive failure present. IMPRESSION: 1. Interval left upper lobe atelectasis. 2. Moderate chronic megaly. 3. Progressive bibasilar parenchymal infiltrates versus developing pulmonary edema The above report was generated using voice recognition software. It may contain grammatical, syntax or spelling errors. Electronically signed by: Kehinde Serrano M.D. 12/06/2016 10:14 PM Dictated Date/Time: 12/06/2016 10:13 PM
[2016-12-07] VITALS (10 sets, daily range): BP systolic 119–134; BP diastolic 70–79; PULSE 65–99; TEMP 36.3–36.5; O2SAT 91–96
[2016-12-07] MEDS: D5W AND 1/2NSS 1,000 ML IV SCH ×3 (00:08→20:44)
[2016-12-07] MEDS: CEFTRIAXONE SOD INJ 1 GM in DEXTROSE 5% ADD-VANTAGE 50ML 50 ML IV SCH (00:08)
[2016-12-07] MEDS: LEVOTHYROXINE 25 MCG TAB PO SCH (05:33)
[2016-12-07] MEDS: ALBUT/IPRATROP 3MG/0.5MG NEB 3 ML VIAL INH SCH ×3 (07:22→16:13)
[2016-12-07] MEDS: FORMOTEROL FUMA NEBULIZER SOLN 20 MCG/2 ML VIAL INH SCH (07:24)
[2016-12-07] MEDS: LACTOBACILLUS ACIDOPHILUS (FLORANEX) TAB PO SCH ×3 (07:31→16:06)
[2016-12-07] MEDS: BISACODYL 5 MG TABEC PO SCH (07:31)
[2016-12-07] MEDS: DABIGATRAN ELEXILATE 75 MG CAP PO SCH ×2 (07:32→20:00)
[2016-12-07] MEDS: ASCORBIC ACID 500 MG TAB PO SCH (07:32)
[2016-12-07] MEDS: MAGNESIUM OXIDE 400 MG TAB PO SCH (07:32)
[2016-12-07] MEDS: MULTIVITAMIN TAB PO SCH (07:32)
[2016-12-07] MEDS: ENOXAPARIN 40 MG/0.4 ML SYR SQ SCH (07:33)
[2016-12-07] MEDS: KETOCONAZOLE 2% CR 15 GM TUBE EXT SCH ×2 (07:34→20:00)
[2016-12-07] MEDS: THIAMINE HCL INJ 200 MG in SODIUM CHLORIDE 0.9% 50ML 50 ML IV SCH ×2 (07:40→20:48)
[2016-12-07 09:48] LABS: URINE APPEARANCE CLEAR (CLEAR); URINE BILIRUBIN NEG (NEG); URINE COLOR DK YELLOW; URINE EPITHELIAL CELL AUTO 20-30 /lpf (0-5); URINE NITRITE NEG (NEG); URINE SPECIFIC GRAVITY 1.028 (1.000-1.030); UROBILINOGEN NEG (NEG)
[2016-12-07 09:53] LABS: MANUAL MICROSCOPIC REQUIRED? NO; REVIEW REQ? NO
--- NOTE | 2016-12-07 13:00 | Psychiatric Consultation ---
Consultation Date of Consultation Dec 07, 2016. Identifying Data 76-year-old female with multiple medical problems but no psychiatric history who is admitted with acute on chronic fatigue and malaise, four falls in the 2 weeks prior to presentation, and chronic cellulitis of bilateral lower extremities. Chief Complaint Psychosis. Patient nonverbal and refusing to answer questions. History of Present Illness The patient has been here for 8 days, initially would answer questions, although records indicate she was frequently sleepy, had poor memory for recent events, and would answer with only one or 2 word statements. Over the past several days, she has been refusing to answer questions, we'll close her eyes when staff attempted to talk with her, and at times refuses to talk with family when they visit. At baseline, she lives at home with her son, uses a rolling walker, and does most of her ADLs independently. Earlier in her hospital stay, she was oriented 4, but recently has been oriented only to person and place, and at times refused to take medication. For several days, she spoke very little, and did not respond to staff attempts to talk with her. At time she repeats statements, for example 2 days ago told her nurse several times to wash her hands, even though she had already done it. She has resisted staff attempts to examine her pupils at times, by squeezing her eyes closed. She has been referred to [facility] and accepted, and has been there twice before with good outcomes. When case management has tried to meet with her recently, she has not responded to their questions. Yesterday when Dr. Jackson met with her , she responded to her name being called by opening her eyes, and answered questions appropriately. She knew she was in the hospital, but did not know the day, and could not recall the events of the past few days. At one point, she pointed at the TV and said "she's bad," and could not elaborate when asked. She said that we were poisoning the water, and she would not drink it. She would squeeze his hand and repeat "no." Her son reported that she is quite sedentary at home, sits in her chair most of the day, but he had not noted any depression, changes in mental status at home, or decline in memory or cognition. He stated a family member 2 weeks ago, and the patient refused to go to the as she is estranged from multiple family members. He denied any history of psychosis. On my assessment today, the patient is visiting with her middle son Leon. He lives nearby, and she lives with his younger brother. She refuses to answer any question,. But her son says that prior to my entering the room, she was talking with him. He says this type of behavior is not unusual for her, but does not explain it further. He says she is not at baseline, but says he cannot explain this further. After this physician left the room, he asked staff to have me call him, saying that he "could not talk in front of her because of her altered state." He says that she had an acute mental status change on Sunday where she started seeing demons and thinking the food was poisoned, so not wanting to eat or drink here. He thinks she is not answering questions because she thinks the hospital staff are trying to poison her and that they are "evil entities." He has never seen her have symptoms like this before. She had been sleeping a lot and "out of it" in the hospital. He denies that she has ever had symptoms like this before. He says she has struggled with health problems and frequent hospitalizations. Past Psychiatric History Current OP Treatment: no current treatment Prior OP Treatment: no prior treatment Prior Psych Hospitalizations: none Suicide Attempts: No Past Medication Trials None. Additional Notes No psychiatric history per son. Past Medical/Surgical History (1) CATARACT NOS (2) CHF (congestive heart failure) (3) Sepsis due to cellulitis (4) Chest pain (5) COPD exacerbation (6) Peripheral vascular disease (7) ATRIAL FIBRILLATION (8) CEREBRAL THROMBOSIS W CEREBRAL INFARCTION (9) DIVERTICULOSIS COLON (W/O MENT OF HEMORRHAGE) (10) Orthostatic hypotension (11) Weakness (12) Bilateral lower leg cellulitis Allergies Allergies: Coded Allergies: Latex1 -Allergic Contact Dermititis (Verified Allergy, Mild, RASH AND ITCHING, 07/03/16) Diltiazem (Verified Adverse Reaction, Unknown, LOW BP AND UPSET STOMACH, ) Home Medications Scheduled Ascorbic Acid (Vitamin C), 1 TAB PO DAILY AT LUNCH Calcium/Vitamin D (Caltrate 600+D Plus 600-800 mg-Unit), 1 TAB PO BID Cephalexin Monohydrate (Keflex), 500 MG PO Q12 Dabigatran Etexilate Mesylate (Pradaxa), 75 MG PO BID Digoxin (Digoxin), 0.125 MG PO DAILY Fluticasone Prop/Salmeterol (Advair Diskus 250/50 60 Dose), 1 PUFFS INH BID Furosemide (Lasix), 40 MG PO DAILY Ipratropium-Albuterol (Combivent Respimat), 1 PUFFS INH QID Ketoconazole (Ketoconazole), 1 APPLN TOP BID UD Lactobacillus (Floranex), 1 TAB PO QAM Levothyroxine Sodium (Levothyroxine Sodium), 25 MCG PO DAILY Magnesium Oxide (Mag-Ox), 400 MG PO DAILY Metoprolol Succ (Toprol Xl) (Toprol-Xl), 12.5 MG PO QAM Multiple Vitamin (Multivitamin), 1 TAB PO DAILY AT LUNCH Potassium Chloride (Klor-Con M20), 20 MEQ PO BID Simvastatin (Zocor), 20 MG PO QPM Sulfa/Trimethoprim (Bactrim Ds 800MG/160MG), 0.5 TAB PO BID Scheduled PRN Acetaminophen (Tylenol), 1 TAB PO DAILY PRN for Pain Nitroglycerin (Nitrostat), 0.4 MG UT UD PRN for Chest Pain Family History Negative FHx for blood clots Alcohol Use Alcohol Use In Past 12 Months: No (unknown ) Smoking Use Smoking Status: Former Smoker Personal History Lives in: [place] with her son Review of Systems Attempted to review 10 systems, but patient refused to answer questions or participate. Examination Vital Signs Vital Signs Past 12 Hours Date Time Temp Pulse Resp B/P (MAP) Pulse Ox O2 Delivery O2 Flow Rate FiO2 12/07/16 07:45 Nasal Cannula 3.0 12/07/16 07:24 70 20 93 BiPAP/CPAP 3.0 12/07/16 07:21 36.3 65 16 128/70 (89) 92 BiPAP 12/07/16 05:40 69 93 3.0 12/07/16 04:00 95 BiPAP 12/07/16 02:12 72 91 3.0 Laboratory Results Last 24 Hours Test 12/06/16 16:46 12/07/16 09:30 Venous Blood pH 7.47 Venous Blood Partial Pressure CO2 54 mmHg Venous Blood Partial Pressure O2 39 mmHg Venous Blood HCO3 39 mmol/L Venous Blood Oxygen Saturation 75.1 % Venous Blood Base Excess 12.3 mEq/L Urine Color DK YELLOW Urine Appearance CLEAR Urine pH 8.0 Urine Specific [place] 1.028 Urine Protein NEG Urine Glucose (UA) NEG Urine Ketones TRACE Urine Occult Blood 2+ Urine Nitrite NEG Urine Bilirubin NEG Urine Urobilinogen NEG Urine Leukocyte Esterase TRACE Urine WBC (Auto) 1-5 /hpf Urine RBC (Auto) 10-30 /hpf Urine Hyaline Casts (Auto) 1-5 /lpf Urine Epithelial Cells (Auto) 20-30 /lpf Urine Bacteria (Auto) NEG Mental Examination During interview pt is: uncooperative, other (thin, nonverbal) Appearance: appropriately dressed, appropriately groomed Eye contact is: other (staring) Motor behavior is: no abnormal motor movements Speech: other (patient does not speak or respond to questions) Affect: constricted Insight: impaired Judgement: impaired Impression / Recommendations Impression 76-year-old female who lives [facility] With her son, has no psychiatric history, but multiple medical problems, and has developed an acute mental status change about 4 days ago in the context of hospitalization for weakness, hypoxia, multiple falls, head injury, and various chronic medical conditions. Difficult to fully assess her due to her unwillingness to participate in the interview, but based on information from the records and her family, I think that the most likely diagnosis is delirium. This is supported by the acute onset of her mental status change, her lack of a psychiatric history (which makes a primary thought disorder or psychotic depression extremely unlikely), her family's denial that she has demonstrated symptoms of depression recently, multiple medical problems, and prolonged hospitalization with development of symptoms while in the hospital. Other potential diagnoses on the differential include psychotic depression, catatonia, or a dementing process. For now, recommend standard delirium precautions, including avoiding medications that are deliriogenic, attempting to keep her circadian rhythms intact, use of familiar staff when possible, and frequent reorientation. A trial of an antipsychotic may be appropriate, but given her cardiac issues and age, this would need to be discussed with family first due to the risks. We will continue to follow.
[2016-12-07] MEDS: DIGOXIN IV 250 MCG in SYRINGE 9 ML IV SCH (16:05)
[2016-12-07] MEDS: RISPERIDONE ODT 0.5MG PO SCH (20:00)
[2016-12-07] MEDS: SIMVASTATIN 20 MG TAB PO SCH (20:45)
--- NOTE | 2016-12-07 21:44 | Progress Note ---
Subjective Date of Service: Dec 07, 2016. Subjective Pt evaluation today including: conversation w/ patient, conversation w/ family (son Bill at bedside), physical exam, chart review, lab review, review of inpatient medication list Pain: denies PO Intake: didn't eat until son brought milkshake and burger for dinner Voiding: martinez catheter in place last pm had urinary retention first was straight cathed then had retention again and martinez placed during AM rounds she was awake, alert, and oriented x 4 she talked very slowly still thinks that we are trying to poison her with medications, the food, etc she states "the food is bad ---- it is bad --- bad bad" Problem List Medical Problems: (1) Falls Status: Acute (2) Fluid overload Status: Acute (3) Head injury Status: Acute (4) Hypoxia Status: Acute (5) Orthostatic hypotension Status: Acute (6) Pulmonary vascular congestion Status: Acute (7) Weakness Status: Acute Review of Systems Constitutional: No fever Respiratory: No cough, No shortness of breath Cardiac: No chest pain Abdomen: No pain Musculoskeletal: + problem reported (neck pain but she reports "it's just the bed") Objective Vital Signs Date Time Temp Pulse Resp B/P (MAP) Pulse Ox O2 Delivery O2 Flow Rate FiO2 12/07/16 21:00 Room Air 12/07/16 19:52 68 28 93 Nasal Cannula 3.0 12/07/16 17:18 Nasal Cannula 3.0 12/07/16 16:13 72 24 93 Nasal Cannula 3.0 12/07/16 16:05 71 12/07/16 14:49 36.4 71 18 134/79 (97) 96 Nasal Cannula 3.0 12/07/16 07:45 Nasal Cannula 3.0 12/07/16 07:24 70 20 93 BiPAP/CPAP 3.0 12/07/16 07:21 36.3 65 16 128/70 (89) 92 BiPAP 12/07/16 05:40 69 93 3.0 12/07/16 04:00 95 BiPAP 12/07/16 02:12 72 91 3.0 12/07/16 00:29 78 95 3.0 12/06/16 23:29 36.1 76 18 121/76 (91) 93 CPAP 3.0 Physical Exam General Appearance: no apparent distress, + cachetic, + thin ENT: pharynx normal Neck: no JVD, + pertinent finding (no rigidity or meningismus) Respiratory/Chest: no respiratory distress, no accessory muscle use, + wheezing Cardiovascular: no gallop, no murmur, + irregularly irregular Abdomen: normal bowel sounds, non tender, soft, no organomegaly Extremities: no pedal edema Neurologic/Psychiatric: no motor/sensory deficits, alert, oriented x 3, + depressed affect Laboratory Results Last 24 Hours Test 12/07/16 09:30 Urine Color DK YELLOW Urine Appearance CLEAR Urine pH 8.0 Urine Specific [place] 1.028 Urine Protein NEG Urine Glucose (UA) NEG Urine Ketones TRACE Urine Occult Blood 2+ Urine Nitrite NEG Urine Bilirubin NEG Urine Urobilinogen NEG Urine Leukocyte Esterase TRACE Urine WBC (Auto) 1-5 /hpf Urine RBC (Auto) 10-30 /hpf Urine Hyaline Casts (Auto) 1-5 /lpf Urine Epithelial Cells (Auto) 20-30 /lpf Urine Bacteria (Auto) NEG Assessment and Plan 76yo female with: 1. a. fib - rates acceptable with IV digoxin. Dig levels have been acceptable. Remains off BB and CCB. Pradaxa for anticoagulation but patient refusing to take meds. 2. recent falls/weakness - exact etiology uncertain. There was a question if she was hypotensive from beta blockade in the setting of a. fib leading to her weakness. Uncertain if some of the weakness could have been from infectious process but doubt. MRI brain negative for stroke. Again etiology uncertain. She is quite sedentary at home - perhaps due to severe deconditioning. 3. b/l LE cellulitis - appears resolved. d/c all abx and observe. Restart oral prophylactic abx when taking PO. 4. encephalopathy / psychosis - continues with paranoia with delusions & hallucinations. MRI brain negative for stroke or other process. no infectious process is apparent. u/a not suggestive of UTI. VBG with mild resp acidosis but there was NO change in her mental status after use of BIPAP and improvement in her PCO2. b12 normal. ammonia normal. lyme's test negative. with her nystagmus I sent B1 (thiamine) level and started her on IV thiamine in the remote event this is Wernecke's encephalopathy. appreciate psych consult - they feel this is acute delirium. she is refusing to eat because of delusions (thinks we are poisoning her food) start risperdal 0.5mg HS (if she will take) 5. hypothyroidism - continue levothyroxine; TSH compensated. May need IV if unable to take PO. 6. COPD with exacerbation - resolved; stopped steroids. cont nebs. could steroids have caused delirium? 7. acute/chronic diastolic CHF - resolved. 8. DVT proph - she is not taking her pradaxa; thus, started lovenox. 9. acute/chronic hypercarbic resp failure - see above 10. FEN - has not eaten in over 5-6 days. Restarted fluids. Doubt she would tolerate enteral feedings (would likely pull NG tube out). BMP, mag in am. updated son, Howard, at home she lives with Howard and he confirms she has NEVER had psychosis, delirium, mental status issues, etc at home Continued [facility] stay due to: inadequate po fluid intake, ambulation difficulties , multiple IV medications needed, home environment unsafe for pt, other ( psychosis ) Discharge planning: uncertain
[2016-12-08] MEDS: LEVOTHYROXINE 25 MCG TAB PO SCH (05:15)
[2016-12-08] MEDS: ALBUT/IPRATROP 3MG/0.5MG NEB 3 ML VIAL INH SCH ×4 (07:00→19:21)
[2016-12-08] MEDS: FORMOTEROL FUMA NEBULIZER SOLN 20 MCG/2 ML VIAL INH SCH ×2 (07:00→19:21)
[2016-12-08 07:02] LABS: COMPLETE YES; EOS % 1.9 %; HEMATOCRIT 47.2 % (37-47); IG% 0.1 %; LYMPH % 11.1 %; LYMPH ABS # 0.89 K/uL (1.2-3.4); MEAN CELL VOLUME 102.2 fL (80-100); MEAN CORPUSCULAR HEMOGLOBIN 33.1 pg (25-34); MEAN CORPUSCULAR HGB CONC 32.4 g/dl (32-36); MEAN PLATELET VOLUME 9.6 fL (7.4-10.4); NEUT % 80.9 %; PLATELET COUNT 123 K/uL (130-400); RED BLOOD COUNT 4.62 M/uL (4.2-5.4); WHITE BLOOD COUNT 8.04 K/uL (4.8-10.8)
[2016-12-08 07:22] VITALS: BP 120/68; PULSE 64; TEMP 36.4; O2SAT 94
[2016-12-08 07:32] LABS: BUN/CREATININE RATIO 36.2 (10-20); CALCIUM 8.5 mg/dl (8.5-10.1); CREATININE 0.48 mg/dl (0.60-1.20); POTASSIUM 3.6 mmol/L (3.5-5.1)
[2016-12-08 08:30] VITALS: O2SAT 94
[2016-12-08] MEDS: LACTOBACILLUS ACIDOPHILUS (FLORANEX) TAB PO SCH ×3 (08:30→16:43)
[2016-12-08] MEDS: THIAMINE HCL INJ 200 MG in SODIUM CHLORIDE 0.9% 50ML 50 ML IV SCH ×2 (08:34→20:00)
[2016-12-08] MEDS: D5W AND 1/2NSS 1,000 ML IV SCH ×2 (08:35→22:11)
[2016-12-08] MEDS: KETOCONAZOLE 2% CR 15 GM TUBE EXT SCH ×2 (08:36→20:00)
[2016-12-08] MEDS: ENOXAPARIN 40 MG/0.4 ML SYR SQ SCH (08:36)
[2016-12-08 10:47] VITALS: BP 119/73; PULSE 64; O2SAT 95
[2016-12-08] MEDS: MULTIVITAMIN TAB PO SCH (12:11)
[2016-12-08] MEDS: MAGNESIUM OXIDE 400 MG TAB PO SCH (12:11)
[2016-12-08] MEDS: DABIGATRAN ELEXILATE 75 MG CAP PO SCH ×2 (12:11→20:00)
[2016-12-08] MEDS: BISACODYL 5 MG TABEC PO SCH (12:11)
[2016-12-08] MEDS: ASCORBIC ACID 500 MG TAB PO SCH (12:12)
[2016-12-08 15:06] VITALS: BP 93/53; PULSE 78; TEMP 36.7; O2SAT 98
[2016-12-08] MEDS ORDERED: HYDROCODONE/ACETAMOPHEN 5/325MG TAB PO PRN (16:00)
[2016-12-08 16:32] VITALS: BP 100/63; PULSE 82
[2016-12-08] MEDS: DIGOXIN IV 125 MCG in SYRINGE 9.5 ML IV SCH (16:34)
[2016-12-08] MEDS: RISPERIDONE ODT 0.5MG PO SCH ×2 (19:13→20:47)
[2016-12-08] MEDS: SIMVASTATIN 20 MG TAB PO SCH (20:47)
[2016-12-08 22:42] VITALS: BP 93/56; PULSE 66; TEMP 36.1; O2SAT 94
[2016-12-09] MEDS: LEVOTHYROXINE 25 MCG TAB PO SCH (06:18)
[2016-12-09] MEDS: FORMOTEROL FUMA NEBULIZER SOLN 20 MCG/2 ML VIAL INH SCH ×2 (07:00→18:54)
[2016-12-09] MEDS: ALBUT/IPRATROP 3MG/0.5MG NEB 3 ML VIAL INH SCH ×4 (07:00→18:53)
[2016-12-09 07:42] VITALS: BP 85/50; PULSE 76; TEMP 36.4; O2SAT 95
[2016-12-09 07:43] LABS: BASO % 0.1 %; BASO ABS # 0.01 K/uL (0-0.2); COMPLETE YES; EOS % 3.2 %; HEMATOCRIT 46.6 % (37-47); IG% 0.2 %; LYMPH % 11.1 %; LYMPH ABS # 0.95 K/uL (1.2-3.4); MEAN CELL VOLUME 103.6 fL (80-100); MEAN CORPUSCULAR HEMOGLOBIN 33.3 pg (25-34); MEAN CORPUSCULAR HGB CONC 32.2 g/dl (32-36); MEAN PLATELET VOLUME 10.1 fL (7.4-10.4); MONO % 6.8 %; NEUT % 78.6 %; PLATELET COUNT 130 K/uL (130-400); WHITE BLOOD COUNT 8.57 K/uL (4.8-10.8)
[2016-12-09] MEDS: BISACODYL 5 MG TABEC PO SCH (07:57)
[2016-12-09] MEDS: DABIGATRAN ELEXILATE 75 MG CAP PO SCH ×2 (07:57→19:56)
[2016-12-09] MEDS: ASCORBIC ACID 500 MG TAB PO SCH (07:57)
[2016-12-09] MEDS: MAGNESIUM OXIDE 400 MG TAB PO SCH (07:57)
[2016-12-09] MEDS: KETOCONAZOLE 2% CR 15 GM TUBE EXT SCH ×2 (07:57→19:56)
[2016-12-09] MEDS: LACTOBACILLUS ACIDOPHILUS (FLORANEX) TAB PO SCH ×3 (07:57→16:04)
[2016-12-09] MEDS: MULTIVITAMIN TAB PO SCH (07:57)
[2016-12-09] MEDS: ENOXAPARIN 40 MG/0.4 ML SYR SQ SCH (07:59)
[2016-12-09 08:00] VITALS: BP 93/58; PULSE 65
[2016-12-09] MEDS: THIAMINE HCL INJ 200 MG in SODIUM CHLORIDE 0.9% 50ML 50 ML IV SCH ×2 (08:05→20:05)
[2016-12-09 08:18] LABS: BUN/CREATININE RATIO 33.3 (10-20); CALCIUM 8.7 mg/dl (8.5-10.1); CREATININE 0.42 mg/dl (0.60-1.20); POTASSIUM 3.7 mmol/L (3.5-5.1)
--- NOTE | 2016-12-09 08:42 | Progress Note ---
Subjective Date of Service: Dec 08, 2016. Subjective Pt evaluation today including: physical exam, chart review, lab review, review of inpatient medication list Pain: nothing obvious PO Intake: scant/minimal - only will eat if family feeds her Voiding: martinez catheter in place During my visit Ms. Ellison had her eyes open. I called her name; refused to look at me. I asked her multiple questions - refused or was unable to respond. She gradually closed her eyes and did not follow commands. No seizure activity. Unable to obtain ROS. Problem List Medical Problems: (1) Falls Status: Acute (2) Fluid overload Status: Acute (3) Head injury Status: Acute (4) Hypoxia Status: Acute (5) Orthostatic hypotension Status: Acute (6) Pulmonary vascular congestion Status: Acute (7) Weakness Status: Acute Objective Vital Signs Date Time Temp Pulse Resp B/P (MAP) Pulse Ox O2 Delivery O2 Flow Rate FiO2 12/08/16 22:42 36.1 66 18 93/56 (68) 94 4.0 12/08/16 16:34 72 12/08/16 16:32 82 100/63 (75) 12/08/16 16:00 Nasal Cannula 4.0 12/08/16 15:06 36.7 78 20 93/53 (66) 98 12/08/16 10:47 64 95 12/08/16 08:30 94 Nasal Cannula 4.0 12/08/16 07:22 36.4 64 20 120/68 (85) 94 4.0 12/08/16 01:00 Room Air 12/07/16 23:44 36.5 99 20 119/74 (89) 96 Nasal Cannula 3.0 Physical Exam General Appearance: no apparent distress, + thin ENT: pharynx normal Neck: no JVD Respiratory/Chest: lungs clear, no respiratory distress, no accessory muscle use Cardiovascular: no gallop, no murmur, + irregularly irregular Abdomen: normal bowel sounds, non tender, soft, no organomegaly Extremities: no pedal edema Neurologic/Psychiatric: + pertinent finding (awake initially, then closed her eyes and would not follow commands) Skin: no rash Laboratory Results Last 24 Hours Test 12/08/16 06:48 White Blood Count 8.04 K/uL Red Blood Count 4.62 M/uL Hemoglobin 15.3 g/dL Hematocrit 47.2 % Mean Corpuscular Volume 102.2 fL Mean Corpuscular Hemoglobin 33.1 pg Mean Corpuscular Hemoglobin Concent 32.4 g/dl Platelet Count 123 K/uL Mean Platelet Volume 9.6 fL Neutrophils (%) (Auto) 80.9 % Lymphocytes (%) (Auto) 11.1 % Monocytes (%) (Auto) 6.0 % Eosinophils (%) (Auto) 1.9 % Basophils (%) (Auto) 0.0 % Neutrophils # (Auto) 6.51 K/uL Lymphocytes # (Auto) 0.89 K/uL Monocytes # (Auto) 0.48 K/uL Eosinophils # (Auto) 0.15 K/uL Basophils # (Auto) 0.00 K/uL RDW Standard Deviation 55.8 fL RDW Coefficient of Variation 14.8 % Immature Granulocyte % (Auto) 0.1 % Immature Granulocyte # (Auto) 0.01 K/uL Sodium Level 140 mmol/L Potassium Level 3.6 mmol/L Chloride Level 98 mmol/L Carbon Dioxide Level 38 mmol/L Anion Gap 4.0 mmol/L Blood Urea Nitrogen 17 mg/dl Creatinine 0.48 mg/dl Est Creatinine Clear Calc Drug Dose 85.9 ml/min Estimated GFR () 108.9 Estimated GFR (Non- 94.0 BUN/Creatinine Ratio 36.2 Random Glucose 113 mg/dl Calcium Level 8.5 mg/dl Magnesium Level 2.0 mg/dl Assessment and Plan 76yo female with: 1. a. fib - rates acceptable with IV digoxin. Dig levels have been acceptable. Remains off BB and CCB. Pradaxa for anticoagulation but patient refusing to take meds. On lovenox sc for DVT proph. 2. recent falls/weakness - exact etiology uncertain. There was a question if she was hypotensive from beta blockade in the setting of a. fib leading to her weakness. Uncertain if some of the weakness could have been from infectious process but doubt. MRI brain negative for stroke. Again etiology uncertain. She is quite sedentary at home - perhaps due to severe deconditioning. 3. b/l LE cellulitis - resolved. Restart oral prophylactic abx when taking PO. 4. encephalopathy / psychosis - continues with paranoia with delusions & hallucinations. She is back today to not speaking with myself or staff although she had her eyes open during much of my visit today. Later on today her family brought her dinner and she DID eat for them. Refusing meds. MRI brain negative for stroke or other process. no infectious process is apparent. u/a not suggestive of UTI. VBG with mild resp acidosis but there was NO change in her mental status after use of BIPAP and improvement in her PCO2. b12 normal. ammonia normal. lyme's test negative. with her nystagmus I sent B1 (thiamine) level and started her on IV thiamine in the remote event this is Wernecke's encephalopathy. appreciate psych consult - they feel this is acute delirium. she is refusing to eat because of delusions (thinks we are poisoning her food) started risperdal 0.5mg HS but we have been unsuccessful at getting this into her will check EEG and have neurology see for any other recommendations 5. hypothyroidism - continue levothyroxine; TSH compensated. Change to IV formulation. 6. COPD with exacerbation - resolved; stopped steroids. cont nebs. could steroids have caused delirium? 7. acute/chronic diastolic CHF - resolved. 8. DVT proph - she is not taking her pradaxa; thus, started lovenox. 9. acute/chronic hypercarbic resp failure - see above 10. FEN - has not eaten in over 5-6 days. Restarted fluids. Doubt she would tolerate enteral feedings (would likely pull NG tube out). BMP in am for stability. Will need to address nutrition w/ family. she lives with Bill her son and he confirms she has NEVER had psychosis, delirium, mental status issues, etc at home no h/o depression will update family in AM Continued [facility] stay due to: inadequate po fluid intake, voiding difficulties, ambulation difficulties, multiple IV medications needed, home environment unsafe for pt, other (psychosis ) Discharge planning: uncertain
--- NOTE | 2016-12-09 09:41 | Neurology Consultation ---
Neurology Consultation Date of Consultation: Dec 09, 2016. Attending Physician: Declan Garber MD Primary Care Physician: Berny Vargas M.D. Reason for Consultation: Patient is a 76-year-old, who was asked to see the request of Dr. Garber, for neurologic consultation regarding acute psychosis. History of Present Illness Source: patient, caregiver, clinic records, hospital records Patient was admitted November 29 with bilateral lower extremity cellulitis. She was given antibiotics and steroids. These have largely improved and she is off these medications currently. According to the chart the patient has no significant psychiatric history or dementia. She has no history of neurologic issues either. There has been some history of chronic fatigue and recent weakness this year particularly in the legs with falling. She hit her head several weeks ago as well. There was no loss of consciousness. In the emergency room, CT scan of the head and neck were largely unremarkable with no acute changes or fractures. In the ER the patient was not febrile, did develop a mild temperature elevation on December 01 but has not been febrile since. Patient has not had any elevation in white count and has not had meningeal signs noted. Around the time of December 03, she was noted to be acting strange with eyes closed resisting opening and not interacting. By the she is opening her eyes but acting somewhat paranoid, suspicious, and possibly hallucinating. She was seen by psychiatry on the by Dr. Limon. She diagnosed delirium from a combination of chronic medical conditions, hypoxia, weakness, falls, and head injury. She felt acute psychosis was unlikely. MRI of the brain on December 05 was unremarkable with no acute findings. There was minimal atrophy and small vessel ischemic disease. Laboratory studies this week have been unrevealing with unremarkable CBC, chem profile, B-12, TSH, and Lyme antibody titers. Chest x-ray December 06 showed some atelectasis in the left upper lobe and some bilateral basilar infiltrate. She continues to act strangely and Dr. Garber noted some nystagmus the other day. Today, the patient is lying comfortably in bed and will not speak to me, answers my questions or follow commands or open her eyes. Nursing reports this is the way she's been since yesterday. She's had no seizure activity or other issues according to the nursing staff. Past Medical/Surgical History Medical Problems: (1) Falls Status: Acute (2) Fluid overload Status: Acute (3) Head injury Status: Acute (4) Hypoxia Status: Acute (5) Orthostatic hypotension Status: Acute (6) Pulmonary vascular congestion Status: Acute (7) Weakness Status: Acute Chronic diastolic congestive heart failure Hypertension, hypotension Obstructive sleep apnea History of COPD Permanent atrial fibrillation Bilateral lower extremity cellulitis History of GI bleed History of pneumonia Gastroesophageal reflux disease Vitamin D deficiency Post hysterectomy Family History His family history of cardiac issues and AL in the patient's mother and in the patient's father. Patient will not speak to me regarding any other family history. Social History Patient has quit cigarette smoking in the past and does not use alcohol. She will not speak to me regarding any other social history. Smoking Status: Former smoker Smokeless Tobacco Use: No Alcohol Use: none Drug Use: none Marital Status: Housing Status: lives with family Occupation Status: retired Allergies Coded Allergies: Latex1 -Allergic Contact Dermititis (Verified Allergy, Mild, RASH AND ITCHING, 07/03/16) Diltiazem (Verified Adverse Reaction, Unknown, LOW BP AND UPSET STOMACH, ) Current Inpatient Medications Current Inpatient Medications Medications (Trade) Dose Ordered Sig/Lori Route Start Time Stop Time Status Last Admin Dose Admin Acetaminophen (Tylenol Tab) 650 mg Q4H PRN PO 11/29/16 19:45 12/29/16 19:44 12/02/16 20:58 650 MG Nitroglycerin (Nitrostat Tab) 0.4 mg UD PRN SL 11/29/16 19:45 12/29/16 19:44 Ascorbic Acid (Vitamin C Tab) 500 mg DAILY PO 11/30/16 09:00 12/30/16 08:59 12/03/16 10:11 500 MG Dabigatran (Pradaxa Cap) 75 mg BID PO 11/29/16 21:00 12/29/16 20:59 12/02/16 20:57 75 MG Salmeterol Xinafoate/ Fluticasone (Advair Diskus 250/50 Inh) 1 puff BID INH 11/29/16 21:00 12/29/16 20:59 Future Hold 12/02/16 08:25 1 PUFF Albuterol/ Ipratropium (Combivent Respimat Inh) 1 puffs QID INH 11/29/16 21:00 12/29/16 20:59 Future Hold 12/02/16 08:25 1 PUFFS Ketoconazole (Nizoral 2% Crm) 1 appln BID EXT 11/29/16 21:00 12/09/16 20:59 12/08/16 08:36 1 APPLN Levothyroxine Sodium (Synthroid Tab) 25 mcg DAILYBB PO 11/30/16 06:00 12/30/16 06:59 12/02/16 06:03 25 MCG Magnesium Oxide (Mag-Ox Tab) 400 mg DAILY PO 11/30/16 09:00 12/30/16 08:59 12/01/16 08:18 400 MG Multivitamins (Multivitamin Tab) 1 tab DAILY PO 11/30/16 09:00 12/30/16 08:59 12/04/16 08:29 1 TAB Simvastatin (Zocor Tab) 20 mg QPM PO 11/29/16 21:00 12/29/16 20:59 12/02/16 20:58 20 MG Ondansetron HCl (Zofran Inj) 4 mg Q6H PRN IV 11/29/16 20:00 12/29/16 19:59 Lactobacillus Acidophilus (Floranex Tab) 4 tab TIDM PO 11/30/16 08:00 12/30/16 07:59 12/02/16 17:32 4 TAB Albuterol/ Ipratropium (Duoneb) 3 ml QIDR INH 12/02/16 12:00 01/01/17 11:59 12/07/16 16:13 3 ML Albuterol/ Ipratropium (Duoneb) 3 ml Q2H PRN INH 12/02/16 09:45 01/01/17 09:44 Formoterol Fumarate (Perforomist 20MCG/2ML Neb Soln) 20 mcg BID INH 12/02/16 21:00 01/01/17 20:59 12/07/16 07:24 20 MCG Digoxin 125 mcg/ Syringe 10 ml @ 2 mls/min Q2D@1600 IV 12/04/16 16:00 01/03/17 15:59 12/08/16 16:34 2 MLS/MIN Digoxin 250 mcg/ Syringe 10 ml @ 2 mls/min Q2D@1600 IV 12/05/16 16:00 01/04/17 15:59 12/07/16 16:05 2 MLS/MIN Bisacodyl (Dulcolax Tab) 5 mg DAILY PO 12/04/16 09:00 01/03/17 08:59 Thiamine HCl 200 mg/Sodium Chloride 52 ml @ 208 mls/hr BID IV 12/06/16 12:00 01/05/17 11:59 12/09/16 08:05 208 MLS/HR Dextrose/Sodium Chloride 1,000 ml @ 80 mls/hr [id number] IV 12/06/16 21:00 01/05/17 20:59 12/08/16 22:11 80 MLS/HR Enoxaparin Sodium (Lovenox Inj) 40 mg QAM SQ 12/07/16 08:00 01/06/17 07:59 12/09/16 07:59 40 MG Risperidone (Risperdal M Tab) 0.5 mg HS PO 12/07/16 20:00 01/06/17 19:59 Acetaminophen/ Hydrocodone Bitart ([place] 5/325 Tab) 1 tab Q6H PRN PO 12/08/16 16:00 12/22/16 15:59 Levothyroxine Sodium 12.5 mcg/ Syringe 0.625 ml @ 2 mls/min DAILY@09 IV 12/09/16 09:00 01/08/17 08:59 UNV Review of Systems Review of systems cannot be obtained because the patient will not talk to me or respond. Physical Exam Vital Signs (Past 24 Hrs): Date Time Temp Pulse Resp B/P (MAP) Pulse Ox O2 Delivery O2 Flow Rate FiO2 12/09/16 07:42 36.4 76 14 85/50 (62) 95 Nasal Cannula 3.0 12/09/16 00:00 Nasal Cannula 4.0 12/08/16 22:42 36.1 66 18 93/56 (68) 94 4.0 12/08/16 16:34 72 12/08/16 16:32 82 100/63 (75) 12/08/16 16:00 Nasal Cannula 4.0 12/08/16 15:06 36.7 78 20 93/53 (66) 98 12/08/16 10:47 64 95 The patient has a limited physical exam because she won't respond to me or follow commands. She will not speak. She does not make noises. She is lying in bed still without any abnormal involuntary movements. Her breathing pattern is regular. She will occasionally raise her eyebrows when I speak to her but she will not open her eyes. She resists tightly all eye opening. She resists me manipulating her face at the corner of the mouth or forehead. She winces to pin and pain. There is no facial droop. She resists me opening her mouth. Neck is not as stiff and is probably supple although she resists movements. I can manipulate her limbs and she will keep them where I placed him with good tone/strength in a symmetrical fashion both proximally and distally in all 4 limbs. She withdraws to pain. Reflexes are 1/4 in the biceps, triceps and quadriceps tendons and absent in the Achilles and brachioradialis tendons. Toe seems upgoing on the right and downgoing on the left. Laboratory Results Past 24 Hours: 12/09/16 07:26 Red Blood Count 4.50, Mean Corpuscular Volume 103.6, Mean Corpuscular Hemoglobin 33.3, Mean Corpuscular Hemoglobin Concent 32.2, Mean Platelet Volume 10.1, Neutrophils (%) (Auto) 78.6, Lymphocytes (%) (Auto) 11.1, Monocytes (%) ( Auto) 6.8, Eosinophils (%) (Auto) 3.2, Basophils (%) (Auto) 0.1, Neutrophils # ( Auto) 6.74, Lymphocytes # (Auto) 0.95, Monocytes # (Auto) 0.58, Eosinophils # ( Auto) 0.27, Basophils # (Auto) 0.01 12/09/16 07:26 Test 12/09/16 07:26 White Blood Count 8.57 K/uL (4.8-10.8) Red Blood Count 4.50 M/uL (4.2-5.4) Hemoglobin 15.0 g/dL (12.0-16.0) Hematocrit 46.6 % (37-47) Mean Corpuscular Volume 103.6 fL (80-100) Mean Corpuscular Hemoglobin 33.3 pg (25-34) Mean Corpuscular Hemoglobin Concent 32.2 g/dl (32-36) Platelet Count 130 K/uL (130-400) Mean Platelet Volume 10.1 fL (7.4-10.4) Neutrophils (%) (Auto) 78.6 % Lymphocytes (%) (Auto) 11.1 % Monocytes (%) (Auto) 6.8 % Eosinophils (%) (Auto) 3.2 % Basophils (%) (Auto) 0.1 % Neutrophils # (Auto) 6.74 K/uL (1.4-6.5) Lymphocytes # (Auto) 0.95 K/uL (1.2-3.4) Monocytes # (Auto) 0.58 K/uL (0.11-0.59) Eosinophils # (Auto) 0.27 K/uL (0-0.5) Basophils # (Auto) 0.01 K/uL (0-0.2) RDW Standard Deviation 56.3 fL (36.4-46.3) RDW Coefficient of Variation 14.6 % (11.5-14.5) Immature Granulocyte % (Auto) 0.2 % Immature Granulocyte # (Auto) 0.02 K/uL (0.00-0.02) Anion Gap 1.0 mmol/L (3-11) Est Creatinine Clear Calc Drug Dose 98.1 ml/min Estimated GFR () 113.8 Estimated GFR (Non- 98.2 BUN/Creatinine Ratio 33.3 (10-20) Calcium Level 8.7 mg/dl (8.5-10.1) Imaging MRI OF THE BRAIN WITHOUT CONTRAST CLINICAL HISTORY: Atrial fibrillation. Change in mental status. Hallucinations. Patient is nonverbal. History of prior stroke. COMPARISON STUDY: Head CT dated 12/03/2016 FINDINGS: Sagittal T1, axial diffusion, proton density and T2 weighted axial, coronal FLAIR, and axial T1-weighted images were acquired. No intra or extra-axial mass lesions are visualized Axial diffusion-weighted images reveal no evidence of acute or subacute infarction. There is no evidence of ventricular dilatation. Proton density T2-weighted and FLAIR images reveal minimal foci of increased T2 signal within the white matter, likely on a small vessel basis. The previously reported left hemispheric infarcts are difficult to visualize with certainty on this examination. There are no abnormal flow voids. IMPRESSION: 1. No acute intracranial findings 2. No evidence of acute or subacute infarction 3. No evidence of intracranial mass 4. No evidence of hydrocephalus Electronically signed by: Glen Cade M.D. 12/05/2016 2:20 PM Impression 1. Acute encephalopathy with some catatonic features and unwillingness to cooperate or interact with examiner. Since she does not have any psychiatric or mental status change history prior to this hospitalization I suspect this is an acute reaction and there may be a significant willful component to this. Certainly I agree with psychiatry distances secondary to her multiple medical issues and hospitalization. From the Limited neurologic examination I was able to do, she has no focal abnormalities, meningeal signs, however the upgoing toe on the right is noted. This could be old. There was no new stroke on MRI. MRI showed no abnormalities. 2. Subacute history of weakness, fatigue, and falling. Certainly, she did have a polyneuropathy as well as other potential peripheral neurologic issues. Plan 1. There is very little I can do for her as an inpatient in this state. I would defer all treatment of this condition to psychiatry. 2. It is reasonable to obtain an EEG to see what her baseline function is. 3. I see no indication for lumbar puncture at this time. 4. EMG and nerve conduction studies could be done as an outpatient on one arm and leg. Overall, it is best that I follow-up on her as an outpatient after she is over this acute encephalopathy/psychosis.
[2016-12-09] MEDS ORDERED: SOD PHOSPHATE/SOD BIPHOSPHATE ENEMA 132 ML BTL PR PRN (11:30)
[2016-12-09] MEDS: LEVOTHYROXINE SODIUM INJ 12.5 MCG in SYRINGE 0 ML IV SCH ×3 (11:39→11:59)
[2016-12-09] MEDS: D5W AND 1/2NSS 1,000 ML IV SCH ×2 (11:39→23:30)
--- NOTE | 2016-12-09 14:05 | EEG Procedure Note ---
EEG Procedure Note Date of Service Dec 09, 2016. Start / End Times Start Time: 1202 End Time: [address] Garber History 76 year old with cellulitis and acute encephalopathy Home Medication List Scheduled Ascorbic Acid (Vitamin C), 1 TAB PO DAILY AT LUNCH Calcium/Vitamin D (Caltrate 600+D Plus 600-800 mg-Unit), 1 TAB PO BID Cephalexin Monohydrate (Keflex), 500 MG PO Q12 Dabigatran Etexilate Mesylate (Pradaxa), 75 MG PO BID Digoxin (Digoxin), 0.125 MG PO DAILY Fluticasone Prop/Salmeterol (Advair Diskus 250/50 60 Dose), 1 PUFFS INH BID Furosemide (Lasix), 40 MG PO DAILY Ipratropium-Albuterol (Combivent Respimat), 1 PUFFS INH QID Ketoconazole (Ketoconazole), 1 APPLN TOP BID UD Lactobacillus (Floranex), 1 TAB PO QAM Levothyroxine Sodium (Levothyroxine Sodium), 25 MCG PO DAILY Magnesium Oxide (Mag-Ox), 400 MG PO DAILY Metoprolol Succ (Toprol Xl) (Toprol-Xl), 12.5 MG PO QAM Multiple Vitamin (Multivitamin), 1 TAB PO DAILY AT LUNCH Potassium Chloride (Klor-Con M20), 20 MEQ PO BID Simvastatin (Zocor), 20 MG PO QPM Sulfa/Trimethoprim (Bactrim Ds 800MG/160MG), 0.5 TAB PO BID Scheduled PRN Acetaminophen (Tylenol), 1 TAB PO DAILY PRN for Pain Nitroglycerin (Nitrostat), 0.4 MG UT UD PRN for Chest Pain Inpatient Medication List Current Inpatient Medications Medications (Trade) Dose Ordered Sig/Lori Route Start Time Stop Time Status Last Admin Dose Admin Acetaminophen (Tylenol Tab) 650 mg Q4H PRN PO 11/29/16 19:45 12/29/16 19:44 12/02/16 20:58 650 MG Nitroglycerin (Nitrostat Tab) 0.4 mg UD PRN SL 11/29/16 19:45 12/29/16 19:44 Ascorbic Acid (Vitamin C Tab) 500 mg DAILY PO 11/30/16 09:00 12/30/16 08:59 12/03/16 10:11 500 MG Dabigatran (Pradaxa Cap) 75 mg BID PO 11/29/16 21:00 12/29/16 20:59 12/02/16 20:57 75 MG Salmeterol Xinafoate/ Fluticasone (Advair Diskus 250/50 Inh) 1 puff BID INH 11/29/16 21:00 12/29/16 20:59 Future Hold 12/02/16 08:25 1 PUFF Albuterol/ Ipratropium (Combivent Respimat Inh) 1 puffs QID INH 11/29/16 21:00 12/29/16 20:59 Future Hold 12/02/16 08:25 1 PUFFS Ketoconazole (Nizoral 2% Crm) 1 appln BID EXT 11/29/16 21:00 12/09/16 20:59 12/08/16 08:36 1 APPLN Levothyroxine Sodium (Synthroid Tab) 25 mcg DAILYBB PO 11/30/16 06:00 12/30/16 06:59 Future Hold 12/02/16 06:03 25 MCG Magnesium Oxide (Mag-Ox Tab) 400 mg DAILY PO 11/30/16 09:00 12/30/16 08:59 12/01/16 08:18 400 MG Multivitamins (Multivitamin Tab) 1 tab DAILY PO 11/30/16 09:00 12/30/16 08:59 12/04/16 08:29 1 TAB Simvastatin (Zocor Tab) 20 mg QPM PO 11/29/16 21:00 12/29/16 20:59 12/02/16 20:58 20 MG Ondansetron HCl (Zofran Inj) 4 mg Q6H PRN IV 11/29/16 20:00 12/29/16 19:59 Lactobacillus Acidophilus (Floranex Tab) 4 tab TIDM PO 11/30/16 08:00 12/30/16 07:59 12/02/16 17:32 4 TAB Albuterol/ Ipratropium (Duoneb) 3 ml QIDR INH 12/02/16 12:00 01/01/17 11:59 12/07/16 16:13 3 ML Albuterol/ Ipratropium (Duoneb) 3 ml Q2H PRN INH 12/02/16 09:45 01/01/17 09:44 Formoterol Fumarate (Perforomist 20MCG/2ML Neb Soln) 20 mcg BID INH 12/02/16 21:00 01/01/17 20:59 12/07/16 07:24 20 MCG Digoxin 125 mcg/ Syringe 10 ml @ 2 mls/min Q2D@1600 IV 12/04/16 16:00 01/03/17 15:59 12/08/16 16:34 2 MLS/MIN Digoxin 250 mcg/ Syringe 10 ml @ 2 mls/min Q2D@1600 IV 12/05/16 16:00 01/04/17 15:59 12/07/16 16:05 2 MLS/MIN Bisacodyl (Dulcolax Tab) 5 mg DAILY PO 12/04/16 09:00 01/03/17 08:59 Thiamine HCl 200 mg/Sodium Chloride 52 ml @ 208 mls/hr BID IV 12/06/16 12:00 01/05/17 11:59 12/09/16 08:05 208 MLS/HR Dextrose/Sodium Chloride 1,000 ml @ 80 mls/hr [id number] IV 12/06/16 21:00 01/05/17 20:59 12/09/16 11:39 80 MLS/HR Enoxaparin Sodium (Lovenox Inj) 40 mg QAM SQ 12/07/16 08:00 01/06/17 07:59 12/09/16 07:59 40 MG Risperidone (Risperdal M Tab) 0.5 mg HS PO 12/07/16 20:00 01/06/17 19:59 Acetaminophen/ Hydrocodone Bitart ([place] 5/325 Tab) 1 tab Q6H PRN PO 12/08/16 16:00 12/22/16 15:59 Levothyroxine Sodium 12.5 mcg/ Syringe 0.625 ml @ 2 mls/min DAILY@09 IV 12/09/16 12:00 01/08/17 11:59 Sodium Biphosphate/ Sodium Phosphate (Fleet Enema) 132 ml DAILY PRN [place] 12/09/16 11:30 01/08/17 11:29 Description This is a 21 electrode EEG with a single channel dedicated to limited EKG. The electrodes were placed in accordance with the International 10-20 system. Interpretation The predominate background activity consisted of a somewhat irregular 9 Hz activity, of 30-40 microvolts in amplitude seen over the posterior head regions symmetrically spreading anteriorly. This activity attenuates some with alerting procedures. A mild amount of muscle and movement activity contaminated the recording without hindering interpretation to any significant degree. Photic stimulation and hyperventilation were not performed on the bedside, routine EEG. No focal abnormalities, abnormal slow activity or potentially epileptogenic activity was noted during wakefulness or brief periods of drowsiness. In summary, this is a normal EEG during awake and brief periods of drowsiness Clinical Correlation The absence of potentially epileptogenic activity does not rule out seizures, but there is no evidence for encephalopathy by this normal EEG.
[2016-12-09 15:38] VITALS: BP 99/59; PULSE 57; TEMP 37; O2SAT 97
[2016-12-09] MEDS: DIGOXIN IV 250 MCG in SYRINGE 9 ML IV SCH (16:00)
[2016-12-09] MEDS: RISPERIDONE ODT 0.5MG PO SCH (19:56)
[2016-12-09] MEDS: SIMVASTATIN 20 MG TAB PO SCH (19:57)
--- NOTE | 2016-12-09 22:51 | Progress Note ---
Subjective Date of Service: Dec 09, 2016. Subjective Pt evaluation today including: conversation w/ patient, physical exam, chart review, lab review, review of inpatient medication list Pain: nothing obvious PO Intake: minimal; will only eat if family feeds her Voiding: martinez catheter in place during the visit today she had her eyes open she tracked my movements and looked at me while I spoke she refused to follow any commands or answer any questions she did not say any words unable to obtain ROS due to nonverbal status staff report intermittent episodes where she will scream and tells the staff to "get out" Problem List Medical Problems: (1) Falls Status: Acute (2) Fluid overload Status: Acute (3) Head injury Status: Acute (4) Hypoxia Status: Acute (5) Orthostatic hypotension Status: Acute (6) Pulmonary vascular congestion Status: Acute (7) Weakness Status: Acute Objective Vital Signs Date Time Temp Pulse Resp B/P (MAP) Pulse Ox O2 Delivery O2 Flow Rate FiO2 12/09/16 20:00 Nasal Cannula 4.0 12/09/16 16:00 Nasal Cannula 4.0 12/09/16 16:00 57 12/09/16 15:38 37.0 57 20 99/59 (72) 97 12/09/16 08:00 65 93/58 (70) 12/09/16 08:00 Nasal Cannula 4.0 12/09/16 07:42 36.4 76 14 85/50 (62) 95 Nasal Cannula 3.0 12/09/16 00:00 Nasal Cannula 4.0 12/08/16 22:42 36.1 66 18 93/56 (68) 94 4.0 Physical Exam General Appearance: no apparent distress, + thin, + pertinent finding (awake, alert, does not follow commands) Neck: no JVD Respiratory/Chest: lungs clear, no respiratory distress, no accessory muscle use Cardiovascular: no murmur, + bradycardia, + irregularly irregular Abdomen: normal bowel sounds, non tender, soft, no organomegaly Extremities: no pedal edema Neurologic/Psychiatric: + pertinent finding (borderline catatonic like state) Skin: no rash, + pertinent finding (no cellulitis on legs) Laboratory Results Last 24 Hours Test 12/09/16 07:26 White Blood Count 8.57 K/uL Red Blood Count 4.50 M/uL Hemoglobin 15.0 g/dL Hematocrit 46.6 % Mean Corpuscular Volume 103.6 fL Mean Corpuscular Hemoglobin 33.3 pg Mean Corpuscular Hemoglobin Concent 32.2 g/dl Platelet Count 130 K/uL Mean Platelet Volume 10.1 fL Neutrophils (%) (Auto) 78.6 % Lymphocytes (%) (Auto) 11.1 % Monocytes (%) (Auto) 6.8 % Eosinophils (%) (Auto) 3.2 % Basophils (%) (Auto) 0.1 % Neutrophils # (Auto) 6.74 K/uL Lymphocytes # (Auto) 0.95 K/uL Monocytes # (Auto) 0.58 K/uL Eosinophils # (Auto) 0.27 K/uL Basophils # (Auto) 0.01 K/uL RDW Standard Deviation 56.3 fL RDW Coefficient of Variation 14.6 % Immature Granulocyte % (Auto) 0.2 % Immature Granulocyte # (Auto) 0.02 K/uL Sodium Level 137 mmol/L Potassium Level 3.7 mmol/L Chloride Level 97 mmol/L Carbon Dioxide Level 39 mmol/L Anion Gap 1.0 mmol/L Blood Urea Nitrogen 14 mg/dl Creatinine 0.42 mg/dl Est Creatinine Clear Calc Drug Dose 98.1 ml/min Estimated GFR () 113.8 Estimated GFR (Non- 98.2 BUN/Creatinine Ratio 33.3 Random Glucose 113 mg/dl Calcium Level 8.7 mg/dl Assessment and Plan 76yo female with: 1. a. fib - rates acceptable with IV digoxin but now getting bradycardic. Hold dig today, check level in am. Remains off BB and CCB. 2. recent falls/weakness - exact etiology uncertain. MRI brain negative for stroke. IS vitamin B1 deficiency - getting replacement. Refusing to get out of bed, take in nourishment, etc. 3. b/l LE cellulitis - resolved. Restart oral prophylactic abx when taking PO. 4. encephalopathy / psychosis - continues with paranoia with delusions & hallucinations. Continues with a catatonic-like state - staring into space, not answering questions, etc. Occasionally yelling out in disgust. Intermittently oriented. Refusing meds. MRI brain negative for stroke or other process. no infectious process is apparent. u/a not suggestive of UTI. VBG with mild resp acidosis but there was NO change in her mental status after use of BIPAP and improvement in her PCO2. b12 normal. ammonia normal. lyme's test negative. appreciate Dr. Aranda's neurology consult - feels there is no underlying neurological condition. EEG recommended - this returned normal. does have B1 deficiency - getting IV replacement - unsure if this could be contributing. if this is Wernecke's encephalopathy sometimes some symptoms are irreversible. appreciate psych consult - they feel this is acute delirium. she is refusing to eat because of delusions (thinks we are poisoning her food) started risperdal 0.5mg HS but we have been unsuccessful at getting this into her 5. hypothyroidism - continue levothyroxine; TSH compensated. Change to IV formulation. 6. COPD with exacerbation - resolved; stopped steroids. 7. acute/chronic diastolic CHF - resolved. 8. DVT proph - lovenox. 9. acute/chronic hypercarbic resp failure - see above 10. FEN - cont IVF due to lack of nutrition. BMP in am. Lytes o/w stable 11. vitamin B1 def - thiamine 200mg BID will speak with both sons tomorrow about plan of care it has now been 1 week since her psychosis / behavior change started we have lost considerable ground and we need a good plan moving forward Continued [facility] stay due to: inadequate po fluid intake, voiding difficulties, ambulation difficulties, multiple IV medications needed, home environment unsafe for pt, other (psychosis ) Discharge planning: uncertain
[2016-12-10] VITALS (8 sets, daily range): BP systolic 101–114; BP diastolic 64–73; PULSE 50–102; TEMP 36.4–36.5; O2SAT 93–99
[2016-12-10] MEDS: LEVOTHYROXINE SODIUM INJ 12.5 MCG in SYRINGE 0 ML IV SCH (06:02)
[2016-12-10] MEDS: ALBUT/IPRATROP 3MG/0.5MG NEB 3 ML VIAL INH SCH ×4 (07:00→18:59)
[2016-12-10] MEDS: FORMOTEROL FUMA NEBULIZER SOLN 20 MCG/2 ML VIAL INH SCH ×2 (07:01→18:59)
[2016-12-10 08:19] LABS: CALCIUM 9.1 mg/dl (8.5-10.1); CREATININE 0.42 mg/dl (0.60-1.20); POTASSIUM 3.8 mmol/L (3.5-5.1)
[2016-12-10] MEDS: DABIGATRAN ELEXILATE 75 MG CAP PO SCH ×2 (08:52→19:44)
[2016-12-10] MEDS: LACTOBACILLUS ACIDOPHILUS (FLORANEX) TAB PO SCH ×3 (08:56→16:43)
[2016-12-10] MEDS: MULTIVITAMIN TAB PO SCH (08:56)
[2016-12-10] MEDS: BISACODYL 5 MG TABEC PO SCH (08:56)
[2016-12-10] MEDS: MAGNESIUM OXIDE 400 MG TAB PO SCH (08:56)
[2016-12-10] MEDS: ASCORBIC ACID 500 MG TAB PO SCH (08:57)
[2016-12-10] MEDS: ENOXAPARIN 40 MG/0.4 ML SYR SQ SCH (08:57)
[2016-12-10] MEDS: THIAMINE HCL INJ 200 MG in SODIUM CHLORIDE 0.9% 50ML 50 ML IV SCH ×2 (09:01→19:43)
[2016-12-10] MEDS: D5W AND 1/2NSS 1,000 ML IV SCH (12:24)
--- NOTE | 2016-12-10 12:55 | Psychiatric Progress Notes ---
Psychiatric Progress Note Date of Service Dec 10, 2016. Notes ID: Patient reviewed with liaison nurse and Dr. Jackson. Interim progress reviewed as well as initial consultation by Dr. Limon on 12/07/16. Patient with new onset of paranoia and change in MS, initial dx delirium vs psychotic depression with catatonia. CC: refusing care and to answer questions HPI: Patient had a normal EEG which removed encephalopathy lower on differential. Refused hs care and Dr. Jackson had attempted trial of low dose Risperdal M tab but patient refused. He is expecting to meet with family later today as her refusal to answer questions altering with periods of yelling appears more intentional than delirium driven at this point and wants to ensure they would support IM if necessary to get her back to baseline. PO intake remains limited. Had made statements earlier in stay about water being poisoned. ROS: patient unable to complete. MSE: patient won't open her eyes, she will only nod yes/no to limited number of questions, no posturing noted. No psychomotor agitation. Imp: failure to progress, no evidence of worsening delirium, resistant to care Plan: discussed that makes most sense at this point to treat for presumed depression with psychotic features/catatonia. Initial treatment for catatonia would be benzodiazepines of which Ativan could be given IV. Catatonia classically responds to higher dosing of benzos so would recommend 1 mg Ativan IV q6. When more responsive, can further explore psychotic symptoms and if still present. As patient is not taking PO meds consistently, even dissolvables would support use of Haldol 2 mg IM at hs. Symptoms are medical emergency and I concur with Dr. Jackson's opinion that should be given over patient objection. I will defer writing orders to Dr. Jackson as he plans to speak with family later today re: treatment plan/seek support.
[2016-12-10] MEDS ORDERED: LORAZEPAM 2 MG/ML 1 ML VIAL IV STA (17:36)
[2016-12-10] MEDS ORDERED: LORAZEPAM INJ 1 MG in SYRINGE 0.5 ML IV STA (17:42)
[2016-12-10] MEDS: FLUTICASONE/SALMETEROL 250/50 (ADVAIR) 14 PUFF/1 INHALER INH SCH (19:43)
[2016-12-10] MEDS: SIMVASTATIN 20 MG TAB PO SCH (19:44)
[2016-12-10] MEDS: RISPERIDONE ODT 0.5MG PO SCH (19:49)
[2016-12-10] MEDS: CEPHALEXIN MONOHYDRATE 500 MG CAP PO SCH (20:00)
--- NOTE | 2016-12-10 20:07 | Progress Note ---
Subjective Date of Service: Dec 10, 2016. Subjective Pt evaluation today including: conversation w/ patient, conversation w/ family (sonHoward, at bedside), physical exam, chart review, lab review, conversation w / fitness sales consultant (psychiatry, OT), review of inpatient medication list Pain: none PO Intake: poor Voiding: martinez catheter in place Visited patient several times today. On first visit I was accompanied by the nursing staff. She was awake, alert, and answered my questions albeit with broken sentences and often one-word answers. She would speak very slowly and calculated, enunciating each syllable. She stared at me when not speaking. She was able to tell me she was in the hospital, that it was 2016, and that it was November. Staff then reported she stared at the TV all day. Interestingly there was a moment this afternoon when the patient asked the nurse if she could have her bactrim and keflex. Son came to feed her dinner - ate some fast food from [employer]. When I came to visit her when the son was there she again answered questions with one-word answers. When I asked her if she still thought that we were poisoning her with meds or the food she said twice "cautious." Staff then reported she declined the ativan earlier that was ordered. Her son, when I spoke to him in private, does not recall any issues with ativan (rash, etc). Her son also said that his mother reported seeing "hidden messages" while watching TV today. Has not been out of bed now in nearly 9 days. Problem List Medical Problems: (1) Falls Status: Acute (2) Fluid overload Status: Acute (3) Head injury Status: Acute (4) Hypoxia Status: Acute (5) Orthostatic hypotension Status: Acute (6) Pulmonary vascular congestion Status: Acute (7) Weakness Status: Acute Review of Systems unable to obtain ROS due to mental status Objective Vital Signs Date Time Temp Pulse Resp B/P (MAP) Pulse Ox O2 Delivery O2 Flow Rate FiO2 12/10/16 19:31 93 Nasal Cannula 2.0 12/10/16 16:28 53 96 Nasal Cannula 3.0 12/10/16 16:17 36.5 102 20 114/73 (87) 96 Nasal Cannula 3.0 12/10/16 16:00 Nasal Cannula 3.0 12/10/16 15:12 50 20 95 Nasal Cannula 3.0 12/10/16 11:28 91 20 94 Room Air 12/10/16 08:00 Nasal Cannula 4.0 12/10/16 07:19 36.4 60 20 101/65 (77) 98 Room Air 12/10/16 00:16 36.4 56 20 104/64 (77) 99 Nasal Cannula 4.0 12/10/16 00:00 Nasal Cannula 4.0 12/09/16 20:00 Nasal Cannula 4.0 Physical Exam General Appearance: no apparent distress, + thin ENT: pharynx normal (MMM) Neck: no JVD Respiratory/Chest: no respiratory distress, no accessory muscle use, + wheezing (mild, b/l) Cardiovascular: no gallop, no murmur, + irregularly irregular Abdomen: normal bowel sounds, non tender, soft, no organomegaly Extremities: no pedal edema Neurologic/Psychiatric: no motor/sensory deficits, alert, + pertinent finding ( flat affect, appears very paranoid/psychotic) Laboratory Results Last 24 Hours Test 12/10/16 07:33 Sodium Level 137 mmol/L Potassium Level 3.8 mmol/L Chloride Level 96 mmol/L Carbon Dioxide Level 40 mmol/L Anion Gap 1.0 mmol/L Blood Urea Nitrogen 11 mg/dl Creatinine 0.42 mg/dl Est Creatinine Clear Calc Drug Dose 98.1 ml/min Estimated GFR () 113.8 Estimated GFR (Non- 98.2 BUN/Creatinine Ratio 26.0 Random Glucose 121 mg/dl Calcium Level 9.1 mg/dl Digoxin Level 0.9 ng/ml Assessment and Plan 76yo female with: 1. a. fib - rates acceptable with IV digoxin but now getting bradycardic. Holding dig for now. Dig level was acceptable (ie not toxic) this AM. Remains off BB and CCB. 2. acute psychosis - continues with paranoia with delusions & hallucinations. Continues with a catatonic-like state - staring into space, not answering questions, when she does answer gives 1-word answers, etc. Occasionally yelling out in disgust. Despite such she has been remarkably oriented to person, place, time, year, etc. Refusing most meds including bedtime risperdal. CT head negative x 2. MRI brain negative for stroke or other process. no infectious process is apparent. u/a not suggestive of UTI. VBG with mild resp acidosis but there was NO change in her mental status after use of BIPAP and improvement in her PCO2. b12 normal. ammonia normal. lyme's test negative. appreciate Dr. Aranda's neurology consult - feels there is no underlying neurological condition. EEG normal - no evidence of slowly to suggest encephalopathy. Dr. Aranda felt that this was psychiatric. Although thiamine level was low, she has had no change in her mental status with supplementation and I do not believe her recurrent symptoms is from Wernicke's. Spoke with Dr. Arambula from psych who consulted today. She believes she may have depression with psychosis/catatonia vs acute psychosis nos. She recommends ativan 1mg IV q6h for the cataonia and haldol at HS for the psychosis. Since she has been like this for 8 days straight it is felt that we are in an "emergency" type situation and the ativan/haldol should be given even if patient declines. I agree with Dr. Arambula's assessment and plan. I spoke with Howard, her son, yasir barnett regarding the plan of care. He agrees with plan of care. 3. b/l LE cellulitis - resolved. Restart oral prophylactic abx (bactrim/keflex ) if she will take them. 4. B1 def - thiamine 200mg IV q12h. 5. hypothyroidism - continue levothyroxine; TSH compensated. Changed to IV formulation since she has been refusing meds. 6. COPD with exacerbation - resolved; stopped steroids. 7. acute/chronic diastolic CHF - resolved. 8. DVT proph - lovenox. She has been refusing her oral pradaxa. 9. acute/chronic hypercarbic resp failure - she had mild hypercarbia a few days ago. Even with Rx with BIPAP she had no improvement in her mental status suggesting her acid/base status was NOT playing a role in her symptomatology. 10. FEN - cont IVF due to lack of nutrition. BMP in am. Lytes o/w stable total time today about 60 minutes which included several bedside visits, speaking with son, speaking with staff, speaking with psych Continued [facility] stay due to: inadequate po fluid intake, voiding difficulties, ambulation difficulties, multiple IV medications needed, home environment unsafe for pt, other (psychosis ) Discharge planning: uncertain
[2016-12-10] MEDS: HALOPERIDOL LACTATE 5 MG/ML 1 ML VIAL IM SCH (20:53)
[2016-12-10] MEDS: SULFAMETHOXAZOLE/TRIMETHOPRIM DS 800/160MG TAB PO SCH (21:00)
[2016-12-11] VITALS (9 sets, daily range): BP systolic 100–106; BP diastolic 60–68; PULSE 65–87; TEMP 36.3–36.7; O2SAT 91–99
[2016-12-11] MEDS: D5W AND 1/2NSS 1,000 ML IV SCH ×2 (00:41→13:26)
[2016-12-11] MEDS: LEVOTHYROXINE SODIUM INJ 12.5 MCG in SYRINGE 0 ML IV SCH (06:03)
[2016-12-11] MEDS: ALBUT/IPRATROP 3MG/0.5MG NEB 3 ML VIAL INH SCH ×4 (07:06→19:00)
[2016-12-11] MEDS: FORMOTEROL FUMA NEBULIZER SOLN 20 MCG/2 ML VIAL INH SCH ×3 (07:06→21:00)
[2016-12-11] MEDS: FLUTICASONE/SALMETEROL 250/50 (ADVAIR) 14 PUFF/1 INHALER INH SCH ×2 (08:00→21:09)
[2016-12-11] MEDS: BISACODYL 5 MG TABEC PO SCH (08:00)
[2016-12-11] MEDS: MAGNESIUM OXIDE 400 MG TAB PO SCH (08:30)
[2016-12-11] MEDS: MULTIVITAMIN TAB PO SCH (08:30)
[2016-12-11] MEDS: LACTOBACILLUS ACIDOPHILUS (FLORANEX) TAB PO SCH ×3 (08:30→17:00)
[2016-12-11] MEDS: DABIGATRAN ELEXILATE 75 MG CAP PO SCH (08:30)
[2016-12-11] MEDS: ASCORBIC ACID 500 MG TAB PO SCH (08:31)
[2016-12-11] MEDS: ENOXAPARIN 40 MG/0.4 ML SYR SQ SCH (08:32)
[2016-12-11] MEDS: THIAMINE HCL INJ 200 MG in SODIUM CHLORIDE 0.9% 50ML 50 ML IV SCH ×2 (08:35→21:59)
[2016-12-11] MEDS: CEPHALEXIN MONOHYDRATE 500 MG CAP PO SCH ×2 (09:40→21:07)
[2016-12-11] MEDS: SULFAMETHOXAZOLE/TRIMETHOPRIM DS 800/160MG TAB PO SCH ×2 (09:40→21:09)
--- NOTE | 2016-12-11 13:53 | Psychiatric Progress Notes ---
Psychiatric Progress Note Date of Service Dec 11, 2016. Notes ID: Patient reviewed with liaison nurse and Dr. Arambula, who saw her in follow-up yesterday. Interim progress reviewed as well. CC: refusing to answer questions. Patient with new onset paranoia, change in MS , initial dx delirium vs psychotic depression with catatonia. HPI: Patient had a normal EEG, so delirium was thought to be less likely, and when Dr. Arambula saw her yesterday, she recommended a trial of lorazepam 1 mg IV every 6 hours for catatonia, and haloperidol 2 mg IM at bedtime for psychosis. She has been refusing Risperdal M tab, and did not receive the haloperidol due to sedation. Nursing notes indicate she received Ativan IV last night. This morning, she was noted to be very somnolent, tachypneic, and was only briefly arousable. On my assessment, she opens her eyes only briefly, but does not respond to questions, other than to shake her head "no" when asked if she needs anything. ROS: patient unable to complete. MSE: Lying in bed, tachypneic, mouth open. Noncompliant with assessment, opens her eyes only briefly and then closes them again, shook her head "no" when asked if she needed anything, no posturing noted. No psychomotor agitation. Imp: Continues to have altered mental status, with periods where she is responsive and endorses paranoia, now sedated and poorly responsive and tachypneic, resistant to care Plan: Per nursing notes, patient got a dose of lorazepam last evening, with no response, although she did allow for nursing care and took scheduled medications last night. Agree with trial of Haldol 2 mg IM at hs.
[2016-12-11] MEDS ORDERED: HALOPERIDOL LACTATE 5 MG/ML 1 ML VIAL IV STA (14:23)
--- NOTE | 2016-12-11 14:24 | DIAGNOSTIC IMAGING REPORT ---
CHEST ONE VIEW PORTABLE CLINICAL HISTORY: evAL FOR LLL PNEUMONIA dyspnea COMPARISON STUDY: 12/06/2016 FINDINGS: Complete opacification left hemithorax. Small parenchymal infiltrate right base. Possible small right effusion. Prominent pulmonary vasculature. IMPRESSION: Complete opacification left hemithorax. Small parenchymal infiltrate right base with a trace right pleural effusion. The above report was generated using voice recognition software. It may contain grammatical, syntax or spelling errors. Electronically signed by: Kehinde Serrano M.D. 12/11/2016 2:23 PM Dictated Date/Time: 12/11/2016 2:22 PM
[2016-12-11] MEDS ORDERED: FLUMAZENIL 0.1 MG/1 ML 10 ML VIAL IV STA (14:25)
[2016-12-11] MEDS ORDERED: NURSING VERBAL MED ORDER ONE (14:30)
--- NOTE | 2016-12-11 16:56 | Pulmonary Consultation ---
History General Date of Service: Dec 11, 2016. Stated Complaint: Left hemithorax opacification HPI The patient is a 76 year old female who presents to [facility] with complaints of Bilateral Lower Leg Cellulitis. The patient's primary care provider is Berny Vargas M.D.. 76-year-old female admitted 11/29/2016 with shortness of breath, atrial fibrillation and bilateral lower extremity cellulitis. Her atrial fibrillation is well controlled and her bilateral lower extremity cellulitis has also responded well to therapy. During her hospital stay though the patient has been experiencing progressive altered mental status almost catatonic at times. Due to shes had aggressive workup with neurology as well as psychiatry and there is no definitive organic origin for her current altered mental status. It is believed that she could have acute psychosis with associated paranoid delusion and hallucinations inducing her current mental status state. The patient has actually had decreasing oxygen requirements are the hospital stay but as noted earlier today she had an abnormal exam and a chest x-ray was obtained. This chest x-ray showed complete opacification of the left hemithorax and pulmonary was consult it. The patient is not interactive at least verbally during our conversation and Im unable to perform proper review. Historian: EMS Review of Systems Unable to perform a 12 point review of systems as the patient has notable abnormal mental status Past Medical History Past Medical History: (1) ANTICOAGULANTS,LT,CURRENT USE (2) ATRIAL FIBRILLATION (3) CATARACT NOS (4) Cellulitis (5) CEREBRAL THROMBOSIS W CEREBRAL INFARCTION (6) CHR AIRWAY OBSTRUCT NEC (7) DIVERTICULOSIS COLON (W/O MENT OF HEMORRHAGE) Family History Negative FHx for blood clots Noncontributory Social History Smoking Status: Former Smoker Smokeless Tobacco Use: No Alcohol Use: none Drug Use: none Marital Status: Occupational Status: retired Hx Tobacco Use In Past Year?: No Smoking Status: Former Smoker Marital status: Occupational Status: retired Immunizations History of Influenza Vaccine: No History of Tetanus Vaccine?: Unknown History of Pneumococcal: Unknown Pneumococcal Date: Apr 10, 2010 History of Hepatitis B Vaccine: Unknown History of MDRO History of MDRO: No Allergies Coded Allergies: Latex1 -Allergic Contact Dermititis (Verified Allergy, Mild, RASH AND ITCHING, 07/03/16) Diltiazem (Verified Adverse Reaction, Unknown, LOW BP AND UPSET STOMACH, ) Current Medications Reported Home Medications Medications Dose Route/Sig Max Daily Dose Days Date Category Dose Instructions Pradaxa (Dabigatran Etexilate Mesylate) 75 Mg Cap 75 Mg PO BID 11/29/16 Reported Tylenol (Acetaminophen) 500 Mg Tab 1 Tab PO DAILY PRN 3 11/29/16 Reported Ketoconazole 45 Appln/15 Gm Cr 1 Appln TOP BID UD 11/29/16 Reported Lasix (Furosemide) 40 Mg Tab 40 Mg PO DAILY 11/29/16 Reported Keflex (Cephalexin Monohydrate) 500 Mg Cap 500 Mg PO Q12 11/29/16 Reported Caltrate 600+D Plus 600-800 mg-Unit (Calcium/Vitamin D) 600 Mg Chew 1 Tab PO BID 11/29/16 Reported Bactrim Ds 800MG/160MG (Trimethoprim/Sulfamethoxazole) Tab 0.5 Tab PO BID 11/29/16 Reported Combivent Respimat (Ipratropium-Albuterol) 1 Aer Aer 1 Puffs INH QID 11/29/16 Reported Levothyroxine Sodium 25 Mcg Tab 25 Mcg PO DAILY 11/29/16 Reported Advair Diskus 250/50 60 Dose (Fluticasone Prop/Salmeterol) 1 Ea Aerp 1 Puffs INH BID 90 07/31/16 Reported Klor-Con M20 (Potassium Chloride) 20 Meq Tabcr 20 Meq PO BID 06/12/16 Reported Digoxin 0.125 Mg Tab 0.125 Mg PO DAILY 06/12/16 Reported Vitamin C (Ascorbic Acid) 500 Mg Tab 1 Tab PO DAILY AT LUNCH 05/11/16 Reported Floranex (Lactobacillus) 1 Tab Tab 1 Tab PO QAM 05/11/16 Reported Multivitamin (Multiple Vitamin) 1 Tab Tab 1 Tab PO DAILY AT LUNCH 09/15/14 Reported Toprol-Xl (Metoprolol Succinate) 25 Mg Tabcr 12.5 Mg PO QAM 08/19/14 Reported Mag-Ox (Magnesium Oxide) 400 Mg Tab 400 Mg PO DAILY 08/11/11 Reported TAKE WITH LUNCH Nitrostat (Nitroglycerin) 0.4 Mg Tab 0.4 Mg UT UD PRN 08/11/11 Reported Zocor (Simvastatin) 20 Mg Tab 20 Mg PO QPM 09/12/08 Reported Physical Physical Exam Vital Signs: Date Time Temp Pulse Resp B/P (MAP) Pulse Ox O2 Delivery O2 Flow Rate FiO2 12/11/16 14:57 36.3 65 40 106/66 (79) 99 3.0 12/11/16 12:00 36 96 Nasal Cannula 3.0 12/11/16 08:00 Nasal Cannula 2.0 12/11/16 07:54 36.7 66 16 101/62 (75) 99 2.0 12/11/16 07:06 66 18 99 Nasal Cannula 2.0 12/11/16 00:22 36.6 87 18 105/60 (75) 91 2.0 12/11/16 00:00 Nasal Cannula 4.0 12/10/16 20:00 Nasal Cannula 4.0 12/10/16 19:31 93 Nasal Cannula 2.0 12/10/16 18:59 55 22 96 Nasal Cannula 2.0 General Appearance: NO APPARENT DISTRESS Head: NORMOCEPHALIC, ATRAUMATIC Eyes: PERRLA, NO DISCHARGE, EOMI, SCLERAE NORMAL, CONJUNCTIVAE NORMAL ENT: other (trend mucous membranes otherwise within normal) Neck: NORMAL RANGE OF MOTION, NO TENDERNESS, TRACHEA MIDLINE, NO STRIDOR Respiratory: other (no notable blasts sounds of the left hemithorax within normal limits on the right hemithorax) Cardiovasular: REGULAR RATE/RHYTHM, NORMAL S1S2, NO M/G/R, NO MURMUR Abdomen: NON TENDER, NORMAL BOWEL SOUNDS, NO REBOUND, NO MASSES, NO GUARDING, NO ORGANOMEGALY Genitourinary - Female: EXTERNAL GENITALIA NORMAL Back: NORMAL INSPECTION, NO MIDLINE TENDERNESS, NO CVA TENDERNESS, NO PARAVERTEBRAL TTP Upper Extremities: NO EDEMA, NO DEFORMITY, NORMAL ROM Lower Extremities: edema Edema: Bilateral LE (1+) Pulses: carotid (R) (1+), carotid (L) (1+), posterior tibial (R) (1+), posterior tibial (L) (1+) Neuro: lethargic, disoriented, other (does not respond to verbal stimuli but notably responded to noxious stimulus, patient did respond to upper and lower extremities with noxious stimulus by withdrawing from stimulus) Reflexes: biceps (R) (2+), bicpes (L) (2+), achilles (R) (2+), achilles (L) (2+ ) Babinski Testing: right (downgoing), left (downgoing) Psychiatric: other (severely withdrawn) Diagnostics Diagnostic Radiology Chest x-ray 11/29/2016: Mild blunting of the left costophrenic angle Chest x-ray 12/02/19: Decreased penetration but increased blunting at the left costophrenic angle Chest x-ray 12/02/2016: Increased AP window fullness no acute changes Chest x-ray 12/06/2016: Opacification left upper and left lower lobes Chest x-ray 12/11/2016: Opacification of the left hemithorax no signs of volume loss via tracheal shift Chest x-ray 11/12/2016: Within normal limits MRI brain 12/05/2016: No acute intracranial findings noted CT head 11/29/2016: No acute intracranial hemorrhage Impression Assessment and Plan 76-year-old female admitted initially for atrial fibrillation with motion cellulitis now with notable altered mental status and left hemithorax opacification 1# Left Hemithorax: Patient has complete opacification of the left hemithorax it does seem to be progressive since her hospital stay. This will most likely require bronchoscopic intervention for reexpansion of the lung. I attempted to contact the patient's DPOA/her [place] admitted been unable to at this time. The patient is at increased risk for respiratory insufficiency/failure and that she is a full code we should move forward with perform bronchoscopy in a timely manner. Will continue to attempt to contact the patient's family.
--- NOTE | 2016-12-11 18:10 | Progress Note ---
Subjective Date of Service: Dec 11, 2016. Subjective pt remains with limited interaction, nursing noted tachypnea, and found to have absent and tubular breathsounds on the left, CXR revealed white out of hemithorax. Pt was given ativan last pm and remains with limited responsiveness Problem List Medical Problems: (1) Falls Status: Acute (2) Fluid overload Status: Acute (3) Head injury Status: Acute (4) Hypoxia Status: Acute (5) Orthostatic hypotension Status: Acute (6) Pulmonary vascular congestion Status: Acute (7) Weakness Status: Acute Review of Systems Constitutional: + problem reported (cannot get ROS due to obtunded state), No fever, No chills Objective Vital Signs Date Time Temp Pulse Resp B/P (MAP) Pulse Ox O2 Delivery O2 Flow Rate FiO2 12/11/16 16:00 Nasal Cannula 3.0 12/11/16 14:57 36.3 65 40 106/66 (79) 99 3.0 12/11/16 12:00 36 96 Nasal Cannula 3.0 12/11/16 08:00 Nasal Cannula 2.0 12/11/16 07:54 36.7 66 16 101/62 (75) 99 2.0 12/11/16 07:06 66 18 99 Nasal Cannula 2.0 12/11/16 00:22 36.6 87 18 105/60 (75) 91 2.0 12/11/16 00:00 Nasal Cannula 4.0 12/10/16 20:00 Nasal Cannula 4.0 12/10/16 19:31 93 Nasal Cannula 2.0 12/10/16 18:59 55 22 96 Nasal Cannula 2.0 Physical Exam General Appearance: + moderate distress, + thin Respiratory/Chest: + respiratory distress, + decreased breath sounds, + accessory muscle use Cardiovascular: regular rate, rhythm, no murmur Abdomen: normal bowel sounds, non tender, soft Extremities: no pedal edema, no calf tenderness Neurologic/Psychiatric: + depressed affect, + disoriented, + pertinent finding (obtunded) Assessment and Plan 76 F admitted with frequent falling and concern for worsening arrhythmia as a cause, give h/o A fib could be from rapid or overly slow rate, developed acute diastolic heart failure and acute exacerbation of chronic respiratory failure while here, all while being treated for acute cellulitis on top of chronic venous stasis dermatitis of LE unresponsive state, neuro did not feel [employer] pathology, psyche did consider catatonia, no response to ativan , will consider ativan/haldol but acute respiratory failure ensues CT head negative x 2. MRI brain negative for stroke or other process. no infectious process is apparent. u/a not suggestive of UTI. VBG with mild resp acidosis but there was NO change in her mental status after use of BIPAP and improvement in her PCO2. b12 normal.ammonia normal. lyme's test negative. EEG normal - no evidence of slowly to suggest encephalopathy. acute respiratory failure, white out of left lung maybe from aspiration, pts lethargy has limited interaction, pulmonary consult will be placed and I personally reviewed CXR and discussed plan of care Atrial fibrillation/flutter digoxin 0.125 mg, cardiology did hold metoprolol, but continues Pradaxa 75 mg but not taking reliably Acute diastolic heart failure was exacerbated by intravenous fluids this resolved with intravenous Lasix therapy, now NPO will restart IVF Bilateral lower extremity cellulitis--vs chronic venous stasis dermatitis, Pt started on vancomycin IV and ceftriaxone IV. Infectious disease is following Hypothyroidism, continue levothyroxine 25 g mouth daily. DVT proph - lovenox. She has been refusing her oral pradaxa. Continued [facility] stay due to: inadequate po fluid intake, voiding difficulties, ambulation difficulties, multiple IV medications needed, home environment unsafe for pt, other (psychosis ) Discharge planning: uncertain
[2016-12-11] MEDS ORDERED: SODIUM CHLORIDE 0.9% 1000ML 1,000 ML IV SCH (18:15)
[2016-12-11] MEDS: DORNASE ALFA (2500U) 2.5MG/2.5ML INH SCH (20:00)
[2016-12-11] MEDS: RISPERIDONE ODT 0.5MG PO SCH (21:06)
[2016-12-11] MEDS: HALOPERIDOL LACTATE 5 MG/ML 1 ML VIAL IM SCH (21:08)
[2016-12-11] MEDS: SIMVASTATIN 20 MG TAB PO SCH (21:10)
[2016-12-12] VITALS (37 sets, daily range): BP systolic 94–138; BP diastolic 53–83; PULSE 54–109; TEMP 34.8–36.5; O2SAT 89–100
[2016-12-12 00:15] LABS: BASO % 0.1 %; BASO ABS # 0.01 K/uL (0-0.2); EOS % 0.8 %; HEMATOCRIT 48.2 % (37-47); IG% 0.2 %; LYMPH % 8.1 %; LYMPH ABS # 0.83 K/uL (1.2-3.4); MEAN CELL VOLUME 106.6 fL (80-100); MEAN CORPUSCULAR HEMOGLOBIN 33.2 pg (25-34); MONO % 9.3 %; NEUT % 81.5 %; PLATELET COUNT 149 K/uL (130-400); RED BLOOD COUNT 4.52 M/uL (4.2-5.4); WHITE BLOOD COUNT 10.23 K/uL (4.8-10.8)
[2016-12-12 00:19] LABS: COMPLETE YES; MEAN CORPUSCULAR HGB CONC 31.1 g/dl (32-36)
[2016-12-12 00:22] LABS: ARTERIAL BLD GAS O2 SATURATION 93.6 % (90-95); ARTERIAL BLOOD GAS BASE EXCESS 9.9 mEq/L (-9-1.8); ARTERIAL BLOOD GAS HCO3 41 mmol/L (19-24); ARTERIAL BLOOD GAS PO2 77 mm/Hg (80-95); ARTERIAL BLOOD GAS pH 7.26 (7.35-7.45)
[2016-12-12 00:23] LABS: ALLEN TEST POS (POS); O2 ADMINISTRATION 5L
[2016-12-12 00:43] LABS: ALB/GLOB RATIO 0.7 (0.9-2); BUN/CREATININE RATIO 28.8 (10-20); CALCIUM 9.2 mg/dl (8.5-10.1); CREATININE 0.43 mg/dl (0.60-1.20); POTASSIUM 4.2 mmol/L (3.5-5.1)
[2016-12-12] MEDS ORDERED: NURSING VERBAL MED ORDER ONE ×2 (01:00→09:00)
[2016-12-12 03:30] LABS: PHOSPHORUS 2.5 mg/dl (2.5-4.9)
[2016-12-12] MEDS: LEVOTHYROXINE SODIUM INJ 12.5 MCG in SYRINGE 0 ML IV SCH (05:57)
[2016-12-12] MEDS: DORNASE ALFA (2500U) 2.5MG/2.5ML INH SCH ×2 (06:58→19:35)
[2016-12-12] MEDS: FORMOTEROL FUMA NEBULIZER SOLN 20 MCG/2 ML VIAL INH SCH ×2 (06:59→19:36)
[2016-12-12] MEDS: LACTOBACILLUS ACIDOPHILUS (FLORANEX) TAB PO SCH ×3 (07:30→16:22)
[2016-12-12] MEDS: ALBUT/IPRATROP 3MG/0.5MG NEB 3 ML VIAL INH SCH ×4 (07:52→19:35)
--- NOTE | 2016-12-12 07:57 | DIAGNOSTIC IMAGING REPORT ---
CHEST ONE VIEW PORTABLE CLINICAL HISTORY: 76 years-old Female presenting with dyspnea. TECHNIQUE: Portable upright AP view of the chest was obtained. COMPARISON: 12/11/2016. FINDINGS: The left heart border is obscured secondary to left basilar opacity and pleural fluid, which is overall significantly decreased from prior possibly suggesting interval thoracentesis. Minimal right basilar opacity and trace right pleural fluid. No pneumothorax. Osseous structures normal. Multiple overlying external leads degrade evaluation of the abdomen. IMPRESSION: 1. Significant interval decrease in opacification of the left hemithorax thorax are suggesting interval thoracentesis. Persistent left basilar opacity and moderate left effusion with trace right basilar opacity and pleural fluid. Underlying infection cannot be excluded. Electronically signed by: Ming Espinoza M.D. 12/12/2016 7:55 AM Dictated Date/Time: 12/12/2016 7:53 AM
--- NOTE | 2016-12-12 07:57 | Procedure Note ---
Pre-Mod Sedation Assessment General Date of Moderate Sedation: Dec 12, 2016. Vital Signs: Vital Signs Past 12 Hours Date Time Temp Pulse Resp B/P (MAP) Pulse Ox O2 Delivery O2 Flow Rate FiO2 12/12/16 07:47 95 12/12/16 07:44 35.8 83 20 121/76 (91) BiPAP 12/12/16 06:58 82 24 91 Mask 5.0 12/12/16 04:22 36.4 69 37 112/74 94 BiPAP 3.0 88 12/12/16 04:00 94 Oxymask 3.0 BiPAP 12/12/16 04:00 36.4 69 37 112/74 (87) 94 BiPAP 12/12/16 02:31 88 40 120/71 (87) 95 CPAP 12/12/16 01:02 92 93 3.0 12/12/16 00:01 94 Oxymask 3.0 BiPAP 12/12/16 00:00 36.4 85 28 109/65 (80) 95 Oxymask 5.0 12/11/16 23:38 82 24 91 Mask 5.0 12/11/16 20:00 93 Oxymask 3.0 Review Cardiovascular: regular rate, rhythm, no edema, no gallop, no JVD Abdomen: normal bowel sounds, non tender, soft, no organomegaly, no pulsatile mass Lungs: + pertinent finding (decreased breath sounds left lower and right lower lobe with some rhonchi appreciated on expiration in the left upper lobe) Airway Class: IV Pre-Sedation Airway Assessment Oral Cavity: Dentures Able to Visualize Vocal Cords: Yes Short Thick Neck: No Hx of Sleep Apnea: No Smoking Status: Unknown if Ever Smoked Mallampati Classification: Class II ASA Classification: Class IV Procedure Planning Contraindications-for Mod Sed: None Yes Notes The planned sedation has been discussed with the patient and consent obtained. I have identified the patient, determined the appropriateness of sedation and have assessed the patient immediately prior to the procedure. All medicine(s) and interventions are by my order.
--- NOTE | 2016-12-12 08:20 | Hospitalist Progress Note ---
Hospitalist Progress Note Date of Service Dec 12, 2016. (Dorota Al, MAINOR) Subjective Pt evaluation today including: conversation w/ family, physical exam, chart review, lab review, review of studies The patient was seen and examined this morning. Pt is not speaking due to just coming back to the floor from bronchoscopy. Her son, Ritesh is present at bedside. He was updated on current information- Pt had bronchoscopy by Dr. Gill and secretions were sent to lab for cultures, and all his questions and concerns were addressed. Leonora appears comfortable on bipap, and is reaching for Ritesh's hand at times while we are talking. Additional Comments: Not obtainable due to AMS, bipap, sedation s/p procedure. (Dorota Al, MAINOR) Objective Vital Signs Date Time Temp Pulse Resp B/P (MAP) Pulse Ox O2 Delivery O2 Flow Rate FiO2 12/12/16 07:47 95 12/12/16 07:44 35.8 83 20 121/76 (91) BiPAP 12/12/16 06:58 82 24 91 Mask 5.0 12/12/16 04:22 36.4 69 37 112/74 94 BiPAP 3.0 88 12/12/16 04:00 94 Oxymask 3.0 BiPAP 12/12/16 04:00 36.4 69 37 112/74 (87) 94 BiPAP 12/12/16 02:31 88 40 120/71 (87) 95 CPAP 12/12/16 01:02 92 93 3.0 12/12/16 00:01 94 Oxymask 3.0 BiPAP 12/12/16 00:00 36.4 85 28 109/65 (80) 95 Oxymask 5.0 12/11/16 23:38 82 24 91 Mask 5.0 12/11/16 20:00 93 Oxymask 3.0 12/11/16 19:10 36.4 80 30 100/68 (79) 93 Nasal Cannula 3.0 12/11/16 19:00 36.4 65 40 96 3.0 12/11/16 16:00 Nasal Cannula 3.0 12/11/16 14:57 36.3 65 40 106/66 (79) 99 3.0 12/11/16 12:00 36 96 Nasal Cannula 3.0 (Dorota Al PA-C) Physical Exam General Appearance: WD/WN, no apparent distress, + pertinent finding (on Bipap) Eyes: PERRL Neck: no JVD Respiratory/Chest: no respiratory distress, + pertinent finding (On Bipap: IPAP 10, EPAP 5) Cardiovascular: + irregularly irregular (rate controlled) Abdomen: normal bowel sounds, soft, + pertinent finding (hypoactive bowel sounds) Extremities: no pedal edema, + pertinent finding (no erythema, cellulities appears much improved from previously) Neurologic/Psychiatric: + pertinent finding (not awake, not able to respond to questions, opens her eyes to verbal stimuli at times, reaching to her sons hands at beginning of interview) Skin: normal color, warm/dry (Dorota Al PA-C) Laboratory Results Last 24 Hours Test 12/11/16 23:54 12/12/16 07:52 White Blood Count 10.23 K/uL Red Blood Count 4.52 M/uL Hemoglobin 15.0 g/dL Hematocrit 48.2 % Mean Corpuscular Volume 106.6 fL Mean Corpuscular Hemoglobin 33.2 pg Mean Corpuscular Hemoglobin Concent 31.1 g/dl Platelet Count 149 K/uL Mean Platelet Volume 10.0 fL Neutrophils (%) (Auto) 81.5 % Lymphocytes (%) (Auto) 8.1 % Monocytes (%) (Auto) 9.3 % Eosinophils (%) (Auto) 0.8 % Basophils (%) (Auto) 0.1 % Neutrophils # (Auto) 8.34 K/uL Lymphocytes # (Auto) 0.83 K/uL Monocytes # (Auto) 0.95 K/uL Eosinophils # (Auto) 0.08 K/uL Basophils # (Auto) 0.01 K/uL RDW Standard Deviation 55.8 fL RDW Coefficient of Variation 14.2 % Immature Granulocyte % (Auto) 0.2 % Immature Granulocyte # (Auto) 0.02 K/uL Arterial Blood pH 7.26 Arterial Blood Partial Pressure CO2 95 mmHg Arterial Blood Partial Pressure O2 77 mm/Hg Arterial Blood HCO3 41 mmol/L Arterial Blood Oxygen Saturation 93.6 % Arterial Blood Base Excess 9.9 mEq/L Arterial Blood Gas Delivery 5L Deep Test POS Sodium Level 137 mmol/L Potassium Level 4.2 mmol/L Chloride Level 95 mmol/L Carbon Dioxide Level 39 mmol/L Anion Gap 3.0 mmol/L Blood Urea Nitrogen 12 mg/dl Creatinine 0.43 mg/dl Est Creatinine Clear Calc Drug Dose 95.8 ml/min Estimated GFR () 112.9 Estimated GFR (Non- 97.4 BUN/Creatinine Ratio 28.8 Random Glucose 121 mg/dl Calcium Level 9.2 mg/dl Phosphorus Level 2.5 mg/dl Magnesium Level 2.0 mg/dl Total Bilirubin 0.5 mg/dl Aspartate Amino Transf (AST/SGOT) 35 U/L Alanine Aminotransferase (ALT/SGPT) 32 U/L Alkaline Phosphatase 149 U/L Total Protein 5.8 gm/dl Albumin 2.4 gm/dl Globulin 3.4 gm/dl Albumin/Globulin Ratio 0.7 (Dorota Al, MAINOR) Assessment and Plan 76 F admitted with frequent falling and concern for worsening arrhythmia as a cause, give h/o A fib could be from rapid or overly slow rate, developed acute diastolic heart failure and acute exacerbation of chronic respiratory failure while here, all while being treated for acute cellulitis on top of chronic venous stasis dermatitis of LE Unresponsive state / Catatonia - Neurology on board - no TECHNICAL COORDINATOR pathology on CT x 2 and MRI brain. - Psychiatry on board- did consider catatonia, no response to ativan , will consider ativan/haldol but acute respiratory failure ensues - no infectious process is apparent. u/a not suggestive of UTI. - VBG with Resp acidosis repeated on 12/12 so patient placed back on Bipap overnight - currently s/p Bronchoscopy on 12/[address] Gill so sedation likely playing a part currently. - b12 normal, ammonia normal, lyme's test negative. - EEG normal - no evidence of slowly to suggest encephalopathy. Acute respiratory failure - white out of left lung appeared improved on repeat CXR this morning, + breath sounds on exam. ?aspiration but unknown at this time - Pt underwent bronchoscopy by Dr. Gill this morning. Follow cultures and fungal smear Atrial fibrillation/flutter - digoxin 0.125 mg, cardiology did hold metoprolol, but continues Pradaxa 75 mg - Pt has been variably and unreliably taking medication so not sure that shes truely been getting this. Son reports no oral meds since Sunday morning. Will convert all possible meds to IV. Acute diastolic heart failure was exacerbated by intravenous fluids this resolved with intravenous Lasix therapy, now NPO will restart IVF D5W and 1/2NSS @ 80 mL/hr and caution for volume overload. Bilateral lower extremity cellulitis--vs chronic venous stasis dermatitis, Pt started on vancomycin IV and ceftriaxone IV. Infectious disease is following - was taking chronic bactrim and keflex PO, follows with Dr. Little as outpt. Hypothyroidism - continue levothyroxine 25 g mouth daily. DVT proph - lovenox, teds, scds She has been refusing her oral pradaxa. CODE STATUS: FULL CODE Disposition: From home, lives with son Howard, her other son Ritesh was updated at bedside. Pt will need to actively participate in PT/OT prior to arrangements for d/c planning can be followed up on. She does have a referral out to [facility]. D/C >2 days. (Dorota Al, MAINOR) PA Physician Supervision Note: I interviewed and examined the patient. Discussed with Dorota Al PAC and agree with findings and plan as documented in the note. Any exceptions or clarifications are listed here: None Patient is seen after bronchoscopy which found an endobronchial lesion in her left lung she is maintaining her saturations on BiPAP. She has some episodes of being more weight but has been sleeping the remainder of the day son is at bedside and updated Oxygenation and vital signs of in stable while being on BiPAP Her cardiac exam is regular lungs are With coarse breath sounds bilaterally with diminished breath sounds on the left This patient has an encephalopathy of undetermined origin found to have complete collapse of left lung likely from the left endobronchial lesion which was found on bronchoscopy today and biopsy results are pending she is maintained on BiPAP at this time further discussion with pulmonology to be had This still does not explain her encephalopathy and lethargy we'll continue to explore ways to improve her interaction Documented By: Sergio Guzman (Sergio Guzman M.D.)
[2016-12-12 08:25] LABS: COMPLETE YES; EOS % 0.3 %; HEMATOCRIT 48.8 % (37-47); IG% 0.3 %; LYMPH % 7.1 %; LYMPH ABS # 0.77 K/uL (1.2-3.4); MEAN CELL VOLUME 106.8 fL (80-100); MEAN CORPUSCULAR HGB CONC 30.9 g/dl (32-36); MEAN PLATELET VOLUME 10.4 fL (7.4-10.4); MONO % 9.5 %; NEUT % 82.8 %; PLATELET COUNT 160 K/uL (130-400); RED BLOOD COUNT 4.57 M/uL (4.2-5.4); WHITE BLOOD COUNT 10.77 K/uL (4.8-10.8)
[2016-12-12 08:51] LABS: BUN/CREATININE RATIO 31.9 (10-20); CALCIUM 9.6 mg/dl (8.5-10.1); CREATININE 0.42 mg/dl (0.60-1.20); POTASSIUM 4.4 mmol/L (3.5-5.1)
[2016-12-12 08:54] LABS: ALB/GLOB RATIO 0.7 (0.9-2)
[2016-12-12] MEDS: ASCORBIC ACID 500 MG TAB PO SCH (09:00)
[2016-12-12] MEDS ORDERED: MIDAZOLAM HCL 5 MG/ML 1 ML VIAL IV ONE (09:00)
[2016-12-12] MEDS: MULTIVITAMIN TAB PO SCH (09:00)
[2016-12-12] MEDS: MAGNESIUM OXIDE 400 MG TAB PO SCH (09:00)
[2016-12-12] MEDS: BISACODYL 5 MG TABEC PO SCH (09:00)
--- NOTE | 2016-12-12 09:13 | Procedure Note ---
Post-Moderate Sedation Plan General Date of Moderate Sedation Dec 12, 2016. Vital Signs: Vital Signs Past 12 Hours Date Time Temp Pulse Resp B/P (MAP) Pulse Ox O2 Delivery O2 Flow Rate FiO2 12/12/16 08:58 72 22 128/62 95 BiPAP 100 12/12/16 08:50 85 20 124/74 95 BiPAP 100 12/12/16 08:45 109 24 129/83 98 BiPAP 100 12/12/16 08:40 87 26 125/81 98 BiPAP 100 12/12/16 08:35 87 26 128/65 98 BiPAP 100 12/12/16 08:30 77 24 125/64 95 BiPAP 100 12/12/16 08:22 35.8 83 20 121/76 93 BiPAP 5.0 88 12/12/16 08:20 80 18 129/66 93 BiPAP 100 12/12/16 08:07 BiPAP 12/12/16 08:00 93 BiPAP 12/12/16 08:00 93 BiPAP 12/12/16 07:47 95 12/12/16 07:44 35.8 83 20 121/76 (91) BiPAP 12/12/16 06:58 82 24 91 Mask 5.0 12/12/16 04:22 36.4 69 37 112/74 94 BiPAP 3.0 88 12/12/16 04:00 94 Oxymask 3.0 BiPAP 12/12/16 04:00 36.4 69 37 112/74 (87) 94 BiPAP 12/12/16 02:31 88 40 120/71 (87) 95 CPAP 12/12/16 01:02 92 93 3.0 12/12/16 00:01 94 Oxymask 3.0 BiPAP 12/12/16 00:00 36.4 85 28 109/65 (80) 95 Oxymask 5.0 12/11/16 23:38 82 24 91 Mask 5.0 Review - Discharge Plan Post Moderate Sedation Plan: On clinical assessment, the patient appears to have tolerated the conscious sedation without complications. Patient is recovering as anticipated. Patient will continue to be monitored by nursing and may return to inpatient Criteria are met
--- NOTE | 2016-12-12 09:15 | Bronchoscopy Procedure Note ---
Bronchoscopy Procedure Note Procedure: Bronchoscopy, conscious sedation, bronchial lavage left upper lobe Consent: Obtained through the patient placed into the chart Pre-procedural diagnosis: Left lower lobe Lobar collapse Post-procedural diagnosis: Left lower lobe lobar collapse Start time: 0840 End time: 0850 Total time: minutes Analgesia: 2% liquid lidocaine: Via nebulizer 4% gel lidocaine: Via right naris 2% liquid lidocaine: Via bronchoscopy Sedation: Versed IV: 1 mg Procedure: The Olympus video bronchoscope as well as the BiPAP bronchoscopic adapter mask and the bronchoscope was passed down through the right naris Right naris/posterior naris/posterior oropharynx: Anatomically within normal limits Glottis: Anatomically within normal limits Vocal cords: Proper abduction and abduction, anatomically within normal limits Subglottis/trachea/Carlie: Anatomically within normal limits Right bronchial tree: Right mainstem bronchus: Anatomically within normal limits Right upper lobe: Anatomically within normal limits Bronchus intermedius: Anatomically within normal limits Right middle lobe: Anatomically within normal limits Right lower lobe: Anatomically within normal limits Findings: No significant findings noted Left bronchial tree: Left mainstem bronchus: Anatomically within normal limits Left upper lobe: RB3 subsegment noted intrabronchial lesion Lingula: Anatomically within normal limits Left lower lobe: Anatomically within normal limits, diffuse mucous secretions which were cleared using normal saline Findings: No significant findings noted Bronchial alveolar lavage: Left upper lobe EBL: None Complications: None Follow-up: Return to her inpatient telemetry bed
[2016-12-12] MEDS: THIAMINE HCL INJ 200 MG in SODIUM CHLORIDE 0.9% 50ML 50 ML IV SCH ×2 (10:11→21:48)
[2016-12-12] MEDS: ENOXAPARIN 40 MG/0.4 ML SYR SQ SCH (10:14)
--- NOTE | 2016-12-12 13:21 | Psychiatric Progress Notes ---
Psychiatric Progress Note Date of Service Dec 12, 2016. Notes ID: Patient reviewed with liaison nurse and Dr. Guzman. Interim progress reviewed as well. CC: Patient admitted 11/29/2016 with shortness of breath, atrial fibrillation, and bilateral lower extremity cellulitis. Psychiatry consulted due to new onset paranoia and change in MS after admission to the hospital, initial dx delirium vs psychotic depression with catatonia. HPI: Sedated, on bipap, and unarousable/nonverbal. Patient developed acute respiratory failure yesterday, pulmonology was consulted, and she had a bronchoscopy this morning for left hemithorax. She did receive Haloperidol 2 mg IM at bedtime last night for psychosis. On my assessment, she is unresponsive and does not respond to questions. Her son Ritesh is at the bedside , and confirms collateral information previously received from her other son Leon. He states that she has never had any type of psychiatric symptoms in the past, and has never been paranoid or hallucinated, but began endorsing paranoia about the hospital staff about 2 days after she was admitted. ROS: patient unable to complete. MSE: Lying in bed, sedated, BiPAP on. Unresponsive. No psychomotor agitation. Imp: Continues to have altered mental status, with periods where she is responsive and endorses paranoia, now sedated with recent episode of acute respiratory failure and hemithorax. Plan: Continue Haldol 2 mg IM at hs. We will continue to attempt to assess her mental status as she recovers from her procedure and medical issues.
[2016-12-12] MEDS: FLUTICASONE/SALMETEROL 250/50 (ADVAIR) 14 PUFF/1 INHALER INH SCH ×2 (15:22→21:00)
[2016-12-12] MEDS ORDERED: MIDAZOLAM HCL 1 MG/ML 2ML VIAL IV ONE (15:38)
[2016-12-12] MEDS: HALOPERIDOL LACTATE 5 MG/ML 1 ML VIAL IM SCH ×2 (19:40→21:48)
[2016-12-12] MEDS: RISPERIDONE ODT 0.5MG PO SCH (21:00)
[2016-12-12] MEDS: SIMVASTATIN 20 MG TAB PO SCH (21:00)
--- NOTE | 2016-12-12 21:35 | Progress Note ---
Progress Note Date of Service Dec 12, 2016. Progress Note [employer]IDENT N[employer] CALL [employer] Called due to pt's respiratory distress after brief run of V Tach. Has been on BiPAP. RR 40's. Pt not communicating, less responsive, but tolerating BiPAP. Spoke with both son's (one of whom is POA) regarding code status (Full) and her overall comfort. They agreed she had declined over last hour. Overall, decided to keep her code status for now and continue BiPAP but can provide medications for air hunger. Discussed with RN. Will provide 0.5mg IV morphine for now.
[2016-12-12] MEDS ORDERED: MoRPHine SULFATE 2 MG/ML CARP IV PRN (21:45)
[2016-12-12] MEDS: MoRPHine SULFATE 2 MG/ML CARP IV PRN (21:51)
[2016-12-13] VITALS (16 sets, daily range): BP systolic 95–124; BP diastolic 52–69; PULSE 68–114; TEMP 36–36.4; O2SAT 63–99
[2016-12-13] MEDS: MoRPHine SULFATE 2 MG/ML CARP IV PRN ×6 (01:35→20:36)
[2016-12-13 05:37] LABS: COMPLETE YES; EOS % 0.1 %; HEMATOCRIT 46.1 % (37-47); IG% 0.3 %; LYMPH ABS # 1.05 K/uL (1.2-3.4); MEAN CELL VOLUME 105.7 fL (80-100); MEAN CORPUSCULAR HEMOGLOBIN 33.5 pg (25-34); MEAN CORPUSCULAR HGB CONC 31.7 g/dl (32-36); MEAN PLATELET VOLUME 10.5 fL (7.4-10.4); MONO % 8.3 %; NEUT % 81.3 %; PLATELET COUNT 193 K/uL (130-400); RED BLOOD COUNT 4.36 M/uL (4.2-5.4); WHITE BLOOD COUNT 10.48 K/uL (4.8-10.8)
[2016-12-13 06:19] LABS: BUN/CREATININE RATIO 46.4 (10-20); CALCIUM 9.7 mg/dl (8.5-10.1); CREATININE 0.44 mg/dl (0.60-1.20); MAGNESIUM 1.9 mg/dl (1.8-2.4); POTASSIUM 4.6 mmol/L (3.5-5.1)
[2016-12-13] MEDS: LEVOTHYROXINE SODIUM INJ 12.5 MCG in SYRINGE 0 ML IV SCH (06:39)
[2016-12-13] MEDS: FORMOTEROL FUMA NEBULIZER SOLN 20 MCG/2 ML VIAL INH SCH (07:13)
[2016-12-13] MEDS: ALBUT/IPRATROP 3MG/0.5MG NEB 3 ML VIAL INH SCH ×4 (07:13→20:00)
[2016-12-13] MEDS: BISACODYL 5 MG TABEC PO SCH (07:14)
[2016-12-13] MEDS: ASCORBIC ACID 500 MG TAB PO SCH (07:14)
[2016-12-13] MEDS: MAGNESIUM OXIDE 400 MG TAB PO SCH (07:14)
[2016-12-13] MEDS: LACTOBACILLUS ACIDOPHILUS (FLORANEX) TAB PO SCH ×3 (07:14→15:47)
[2016-12-13] MEDS: MULTIVITAMIN TAB PO SCH (07:14)
[2016-12-13] MEDS: DORNASE ALFA (2500U) 2.5MG/2.5ML INH SCH (07:54)
--- NOTE | 2016-12-13 07:57 | DIAGNOSTIC IMAGING REPORT ---
CHEST ONE VIEW PORTABLE CLINICAL HISTORY: 76 years-old Female presenting with atelectasis. TECHNIQUE: Portable upright AP view of the chest was obtained. COMPARISON: 12/12/2016. FINDINGS: Prominence of the superior mediastinal contour may relate to increasing size of the now large left pleural effusion. Decreased aeration of the left lung with increasing opacity and volume loss. Air bronchograms evident. Less extensive right basilar opacity and small right pleural effusion. No pneumothorax. Osseous structures normal. Upper abdomen normal. IMPRESSION: 1. Increasing opacification of the left hemithorax with a large pleural effusion and extensive left lung atelectasis/consolidation. Underlying infection cannot be excluded. 2. Less extensive right basilar consolidation and effusion. Electronically signed by: Ming Espinoza M.D. 12/13/2016 7:55 AM Dictated Date/Time: 12/13/2016 7:53 AM
[2016-12-13] MEDS: FLUTICASONE/SALMETEROL 250/50 (ADVAIR) 14 PUFF/1 INHALER INH SCH (09:00)
[2016-12-13] MEDS: THIAMINE HCL INJ 200 MG in SODIUM CHLORIDE 0.9% 50ML 50 ML IV SCH (09:17)
[2016-12-13] MEDS: ENOXAPARIN 40 MG/0.4 ML SYR SQ SCH (09:17)
--- NOTE | 2016-12-13 10:01 | Pulmonology Progress Note ---
Pulmonary Progress Note Date of Service Dec 13, 2016. Attending Dr. Gill Subjective Patient is still obtunded Objective Patient obtunded but does respond to painful stimuli: Vital signs: Reviewed currently stable on BiPAP settings requiring 5 L supplemental oxygen Respiratory: Decreased breath sounds in the left lower as well as apical subsegment of the left hemithorax Cardiac: S1 and S2 distant heart sounds but regular rate and rhythm at this time Abdomen: Positive bowel sounds no rebound tenderness or hepatomegaly noted Extremities: Mild 1+ edema bilaterally with healing erythema Chest x-ray: Patient is rotated to the right but there are signs of continue collapse of the left lower lobe is possible collapse of left upper lobe R Tyesha subsegment is also noted difficult as the patient is notably rotated during the exam Assessment & Plan 76-year-old female who is obtunded with continued low Rashid and at times hemithoracic collapse/opacification #1 Respiratory: During the patient's bronchoscopy there was no proximal large mucous plugs to removed. There were multiple small distal mucous plugs in the left lower even with aggressive suctioning this patient is poorly responded to the intervention continues to have signs of lobar collapse. I do not believe any further intervention unless the patient requires intubation is appropriate at this time. Pulmonary service will sign off at this time please contact us if patient's clinical status change in the family would wish to be more aggressive. Data Medications: Current Inpatient Medications Medications (Trade) Dose Ordered Sig/Lori Route Start Time Stop Time Status Last Admin Dose Admin Acetaminophen (Tylenol Tab) 650 mg Q4H PRN PO 11/29/16 19:45 12/29/16 19:44 12/02/16 20:58 650 MG Nitroglycerin (Nitrostat Tab) 0.4 mg UD PRN SL 11/29/16 19:45 12/29/16 19:44 Ascorbic Acid (Vitamin C Tab) 500 mg DAILY PO 11/30/16 09:00 12/30/16 08:59 12/03/16 10:11 500 MG Dabigatran (Pradaxa Cap) 75 mg BID PO 11/29/16 21:00 12/29/16 20:59 Future Hold 12/10/16 19:44 75 MG Salmeterol Xinafoate/ Fluticasone (Advair Diskus 250/50 Inh) 1 puff BID INH 11/29/16 21:00 12/29/16 20:59 Future hold 12/11/16 21:09 1 PUFF Albuterol/ Ipratropium (Combivent Respimat Inh) 1 puffs QID INH 11/29/16 21:00 12/29/16 20:59 Future Hold 12/02/16 08:25 1 PUFFS Levothyroxine Sodium (Synthroid Tab) 25 mcg DAILYBB PO 11/30/16 06:00 12/30/16 06:59 Future Hold 12/02/16 06:03 25 MCG Magnesium Oxide (Mag-Ox Tab) 400 mg DAILY PO 11/30/16 09:00 12/30/16 08:59 12/01/16 08:18 400 MG Multivitamins (Multivitamin Tab) 1 tab DAILY PO 11/30/16 09:00 12/30/16 08:59 12/04/16 08:29 1 TAB Simvastatin (Zocor Tab) 20 mg QPM PO 11/29/16 21:00 12/29/16 20:59 12/11/16 21:10 20 MG Ondansetron HCl (Zofran Inj) 4 mg Q6H PRN IV 11/29/16 20:00 12/29/16 19:59 Lactobacillus Acidophilus (Floranex Tab) 4 tab TIDM PO 11/30/16 08:00 12/30/16 07:59 12/02/16 17:32 4 TAB Albuterol/ Ipratropium (Duoneb) 3 ml QIDR INH 12/02/16 12:00 01/01/17 11:59 12/12/16 14:37 3 ML Albuterol/ Ipratropium (Duoneb) 3 ml Q2H PRN INH 12/02/16 09:45 01/01/17 09:44 12/11/16 23:38 3 ML Formoterol Fumarate (Perforomist 20MCG/2ML Neb Soln) 20 mcg BID INH 12/02/16 21:00 01/01/17 20:59 12/13/16 07:13 20 MCG Digoxin 125 mcg/ Syringe 10 ml @ 2 mls/min Q2D@1600 IV 12/04/16 16:00 01/03/17 15:59 Future Hold 12/08/16 16:34 2 MLS/MIN Digoxin 250 mcg/ Syringe 10 ml @ 2 mls/min Q2D@1600 IV 12/05/16 16:00 01/04/17 15:59 Future Hold 12/07/16 16:05 2 MLS/MIN Bisacodyl (Dulcolax Tab) 5 mg DAILY PO 12/04/16 09:00 01/03/17 08:59 Thiamine HCl 200 mg/Sodium Chloride 52 ml @ 208 mls/hr BID IV 12/06/16 12:00 01/05/17 11:59 12/13/16 09:17 208 MLS/HR Dextrose/Sodium Chloride 1,000 ml @ 80 mls/hr [id number] IV 12/06/16 21:00 01/05/17 20:59 Future Hold 12/11/16 13:26 80 MLS/HR Enoxaparin Sodium (Lovenox Inj) 40 mg QAM SQ 12/07/16 08:00 01/06/17 07:59 12/13/16 09:17 40 MG Risperidone (Risperdal M Tab) 0.5 mg HS PO 12/07/16 20:00 01/06/17 19:59 12/11/16 21:06 0.5 MG Acetaminophen/ Hydrocodone Bitart ([place] 5/325 Tab) 1 tab Q6H PRN PO 12/08/16 16:00 12/22/16 15:59 Sodium Biphosphate/ Sodium Phosphate (Fleet Enema) 132 ml DAILY PRN IN 12/09/16 11:30 01/08/17 11:29 Haloperidol Lactate (Haldol Inj) 2 mg HS IM 12/10/16 21:00 01/09/17 20:59 12/12/16 19:40 2 MG Cephalexin Monohydrate (Keflex Cap) 500 mg BID PO 12/10/16 20:00 01/09/17 19:59 Future Hold 12/11/16 21:07 500 MG Trimethoprim/ Sulfamethoxazole (Septra Ds 800/ 160MG Tab) 0.5 tab Q12 PO 12/10/16 21:00 01/09/17 20:59 Future Hold 12/11/16 21:09 0.5 TAB Levothyroxine Sodium 12.5 mcg/ Syringe 0.625 ml @ 2 mls/min DAILY@0600 IV 12/11/16 06:00 01/10/17 05:59 12/13/16 06:39 2 MLS/MIN Dornase Ino (Pulmozyme Inhalation Soln 2.5ml Amp) 2.5 ml BIDR INH 12/11/16 20:00 01/10/17 19:59 12/13/16 07:54 2.5 ML Morphine Sulfate (MoRPHine SULFATE INJ) 0.5 mg Q1H PRN IV 12/12/16 21:45 12/26/16 21:44 12/13/16 06:40 0.5 MG Morphine Sulfate (MoRPHine SULFATE INJ) 1 mg Q1H PRN IV 12/12/16 21:45 12/26/16 21:44 Vital Signs: Date Time Temp Pulse Resp B/P (MAP) Pulse Ox O2 Delivery O2 Flow Rate FiO2 12/13/16 08:00 93 BiPAP 12/13/16 07:34 76 20 95 BiPAP/CPAP 60 12/13/16 07:27 36.1 77 28 102/65 (77) 97 BiPAP 87 12/13/16 07:14 76 99 60 12/13/16 07:13 76 20 95 BiPAP/CPAP 60 12/13/16 04:22 BiPAP 5.0 97 12/13/16 03:53 36.4 75 16 95/52 (66) 91 BiPAP 12/13/16 02:07 98 60 12/13/16 00:22 BiPAP 5.0 97 12/13/16 00:21 36.4 68 16 99/63 (75) 98 BiPAP 60 12/12/16 22:19 93 93 3.0 60 12/12/16 20:00 BiPAP 5.0 93 12/12/16 19:30 36.3 71 22 94/58 (70) 91 Nasal Cannula 4.0 12/12/16 19:29 54 26 93 Nasal Cannula 4.0 12/12/16 16:00 BiPAP 5.0 100 12/12/16 15:34 97 BiPAP 12/12/16 15:28 97 BiPAP 12/12/16 15:05 36.5 73 24 103/59 (74) 97 12/12/16 14:39 70 100 100 12/12/16 14:38 70 23 95 BiPAP/CPAP 100 12/12/16 12:00 95 BiPAP 12/12/16 11:49 34.8 81 26 95/58 (70) 96 12/12/16 11:22 81 25 95 BiPAP/CPAP 12/12/16 11:22 81 95 100 12/12/16 11:07 36.4 83 25 98/53 (68) 96 BiPAP 12/12/16 10:30 36.1 97 22 111/66 (81) 95 BiPAP Laboratory Results: Last 24 Hours Test 12/13/16 05:16 White Blood Count 10.48 K/uL Red Blood Count 4.36 M/uL Hemoglobin 14.6 g/dL Hematocrit 46.1 % Mean Corpuscular Volume 105.7 fL Mean Corpuscular Hemoglobin 33.5 pg Mean Corpuscular Hemoglobin Concent 31.7 g/dl Platelet Count 193 K/uL Mean Platelet Volume 10.5 fL Neutrophils (%) (Auto) 81.3 % Lymphocytes (%) (Auto) 10.0 % Monocytes (%) (Auto) 8.3 % Eosinophils (%) (Auto) 0.1 % Basophils (%) (Auto) 0.0 % Neutrophils # (Auto) 8.52 K/uL Lymphocytes # (Auto) 1.05 K/uL Monocytes # (Auto) 0.87 K/uL Eosinophils # (Auto) 0.01 K/uL Basophils # (Auto) 0.00 K/uL RDW Standard Deviation 54.9 fL RDW Coefficient of Variation 14.1 % Immature Granulocyte % (Auto) 0.3 % Immature Granulocyte # (Auto) 0.03 K/uL Sodium Level 139 mmol/L Potassium Level 4.6 mmol/L Chloride Level 96 mmol/L Carbon Dioxide Level 41 mmol/L Anion Gap 2.0 mmol/L Blood Urea Nitrogen 20 mg/dl Creatinine 0.44 mg/dl Est Creatinine Clear Calc Drug Dose 94.8 ml/min Estimated GFR () 112.1 Estimated GFR (Non- 96.7 BUN/Creatinine Ratio 46.4 Random Glucose 93 mg/dl Calcium Level 9.7 mg/dl Magnesium Level 1.9 mg/dl
--- NOTE | 2016-12-13 10:21 | Hospitalist Progress Note ---
Hospitalist Progress Note Date of Service Dec 13, 2016. (Dorota Al PA-C) Subjective Pt evaluation today including: conversation w/ family, physical exam, chart review, lab review, review of studies, conversation w/ real estate consultant Voiding: martinez catheter in place The patient was seen and examined this morning. Her son Howard and Ritesh are present at bedside, and discussion was primarily held with them regarding their goals of care and if they would like to proceed with seeing palliative medicine today. Both sons agree that her mother would not want to be on mechanical ventilation, and that she would not like her life to be maintained on BiPAP in the hospital. Dr. Gill was present for part of the discussion, and he indicated that another procedure to repeat bronchoscopy would not be beneficial. Her lungs appear worse today on repeat chest x-ray. Overnight the patient was taken off BiPAP for approximately 2.5 hours and after this her respiratory status significantly worsened with tachycardia and tachypnea. Additional Comments: ROS not obtainable due to AMS and lethargy (Dorota Al PA-C) Objective Vital Signs Date Time Temp Pulse Resp B/P (MAP) Pulse Ox O2 Delivery O2 Flow Rate FiO2 12/13/16 08:00 93 BiPAP 12/13/16 07:34 76 20 95 BiPAP/CPAP 60 12/13/16 07:27 36.1 77 28 102/65 (77) 97 BiPAP 87 12/13/16 07:14 76 99 60 12/13/16 07:13 76 20 95 BiPAP/CPAP 60 12/13/16 04:22 BiPAP 5.0 97 12/13/16 03:53 36.4 75 16 95/52 (66) 91 BiPAP 12/13/16 02:07 98 60 12/13/16 00:22 BiPAP 5.0 97 12/13/16 00:21 36.4 68 16 99/63 (75) 98 BiPAP 60 12/12/16 22:19 93 93 3.0 60 12/12/16 20:00 BiPAP 5.0 93 12/12/16 19:30 36.3 71 22 94/58 (70) 91 Nasal Cannula 4.0 12/12/16 19:29 54 26 93 Nasal Cannula 4.0 12/12/16 16:00 BiPAP 5.0 100 12/12/16 15:34 97 BiPAP 12/12/16 15:28 97 BiPAP 12/12/16 15:05 36.5 73 24 103/59 (74) 97 12/12/16 14:39 70 100 100 12/12/16 14:38 70 23 95 BiPAP/CPAP 100 12/12/16 12:00 95 BiPAP 12/12/16 11:49 34.8 81 26 95/58 (70) 96 12/12/16 11:22 81 25 95 BiPAP/CPAP 12/12/16 11:22 81 95 100 12/12/16 11:07 36.4 83 25 98/53 (68) 96 BiPAP 12/12/16 10:30 36.1 97 22 111/66 (81) 95 BiPAP (Dorota Al PA-C) Physical Exam Notes: General Appearance: WD/WN, no apparent distress, + pertinent finding (on Bipap) , + opens eyes to verbal stimuli, follows basic commands like taking deep breaths Eyes: PERRL Neck: no JVD Respiratory/Chest: no respiratory distress, + pertinent finding (On Bipap: IPAP 10, EPAP 5) Cardiovascular: + irregularly irregular (rate controlled) Abdomen: normal bowel sounds, soft, + pertinent finding (hypoactive bowel sounds) Extremities: no pedal edema, + pertinent finding (no erythema, cellulitis cleared) Neurologic/Psychiatric: + pertinent finding (not awake, not able to respond to questions, opens her eyes to verbal stimuli at times, reaching to her sons hands at beginning of interview) Skin: normal color, warm/dry (Dorota Al PA-C) Laboratory Results Last 24 Hours Test 12/13/16 05:16 White Blood Count 10.48 K/uL Red Blood Count 4.36 M/uL Hemoglobin 14.6 g/dL Hematocrit 46.1 % Mean Corpuscular Volume 105.7 fL Mean Corpuscular Hemoglobin 33.5 pg Mean Corpuscular Hemoglobin Concent 31.7 g/dl Platelet Count 193 K/uL Mean Platelet Volume 10.5 fL Neutrophils (%) (Auto) 81.3 % Lymphocytes (%) (Auto) 10.0 % Monocytes (%) (Auto) 8.3 % Eosinophils (%) (Auto) 0.1 % Basophils (%) (Auto) 0.0 % Neutrophils # (Auto) 8.52 K/uL Lymphocytes # (Auto) 1.05 K/uL Monocytes # (Auto) 0.87 K/uL Eosinophils # (Auto) 0.01 K/uL Basophils # (Auto) 0.00 K/uL RDW Standard Deviation 54.9 fL RDW Coefficient of Variation 14.1 % Immature Granulocyte % (Auto) 0.3 % Immature Granulocyte # (Auto) 0.03 K/uL Sodium Level 139 mmol/L Potassium Level 4.6 mmol/L Chloride Level 96 mmol/L Carbon Dioxide Level 41 mmol/L Anion Gap 2.0 mmol/L Blood Urea Nitrogen 20 mg/dl Creatinine 0.44 mg/dl Est Creatinine Clear Calc Drug Dose 94.8 ml/min Estimated GFR () 112.1 Estimated GFR (Non- 96.7 BUN/Creatinine Ratio 46.4 Random Glucose 93 mg/dl Calcium Level 9.7 mg/dl Magnesium Level 1.9 mg/dl (Dorota Al, MAINOR) Assessment and Plan 76 F admitted with frequent falling and concern for worsening arrhythmia as a cause, give h/o A fib could be from rapid or overly slow rate, developed acute diastolic heart failure and acute exacerbation of chronic respiratory failure while here, all while being treated for acute cellulitis on top of chronic venous stasis dermatitis of LE Unresponsive state / Catatonia - Neurology on board - no [employer] [employer] pathology on CT x 2 and MRI brain. - Psychiatry on board- did consider catatonia, no response to ativan, pt has been getting IM haldol QPM. - no infectious process is apparent. u/a not suggestive of UTI. - EEG normal - no evidence of slowly to suggest encephalopathy. -Overnight events included increased respiratory distress and taken off BiPAP for 2.5 hours, patient has required this continuously since that time. - Discussion held with Dr. Gill, repeat bronchoscopy would not be beneficial. CXR reviewed showing near whiteout again on the left side. - b12 normal, ammonia normal, lyme's test negative. Question if needs for lumbar puncture- will discuss with attending and neurology. - Discussion held with palliative care Kari Larsen, family meeting will be held today at noon to discuss goals of care. Acute respiratory failure - near white out of left lung on repeat CXR this morning, minimal breath sounds on exam over the left field. ?aspiration but unknown at this time - Pt underwent bronchoscopy by Dr. Gill on 12/12. Follow cultures and fungal smear Atrial fibrillation/flutter - digoxin 0.125 mg, cardiology did hold metoprolol, but continues Pradaxa 75 mg - Pt has been variably and unreliably taking medication, last known administration of pradaxa was 12/10. Son reports no oral meds since Sunday morning. Will convert all possible meds to IV. Acute diastolic heart failure was exacerbated by intravenous fluids this resolved with intravenous Lasix therapy, now NPO will restart IVF D5W and 1/2NSS @ 80 mL/hr and caution for volume overload. Bilateral lower extremity cellulitis--vs chronic venous stasis dermatitis, Pt started on vancomycin IV and ceftriaxone IV. Infectious disease is following - was taking chronic bactrim and keflex PO, follows with Dr. Little as outpt. Hypothyroidism - continue levothyroxine 25 g mouth daily. DVT proph - lovenox, teds, scds CODE STATUS: FULL CODE Disposition: From home, lives with son Howard, her other son Ritesh was updated at bedside. Plan for palliative care meeting at noon. Update: Family meeting held with the family at noon which consisted of all 3 sons, Howard Handley and Ritesh, Dr. Guzman, Nichole Larsen, and myself. Sons are in agreement that their mother would not want life support. Howard reports that she bought a casket for herself at the end of September and has told him everything has been taken care of. Ritesh explained that last week she told all 3 of them that she thought "It was time" and believe she may have been indicating her acceptance of nearing . No formal decisions regarding end of life care has been decided at this point, but they will let staff know when they are ready to make a decision. All their questions and concerns were addressed. Thank you to Palliative care for their support with this meeting. (Dorota Al, MAINOR) VIKASH Physician Supervision Note: I interviewed and examined the patient. Discussed with Dorota Al PAC and agree with findings and plan as documented in the note. 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 She resists interaction closing her eyes and shaking her head Encephalopathy there is some discussion about possibly performing a lumbar puncture to evaluate for meningitis or encephalitis however given the fact that she is a nondrinker repairable lung problem that likely would not sustain life off of BiPAP her family is in agreement not to pursue an aggressive approach with this I likely do believe we'll pursue palliative care at some point as her bronchial stenosis is not able to be stented due to the degree of stenosis inability to pass a scope additionally Dr. Gill has offered intubation and aggressive attempts at treating this however the sons do confirm that this patient never wanted to be on any life support at this time will continue her care including antibiotic coverage awaiting family decision Documented By: Sergio Guzman (Sergio Guzman M.D.)
--- NOTE | 2016-12-13 14:09 | Palliative Care Consultation ---
Consultation Date of Consultation: Dec 13, 2016. Requesting Physician: Yara Al PA-C Attending Physician: Coral Hoffman PA-C Reason for Consultation: Goals of care History of Present Illness This 76 year old female patient with PMH COPD, atrial fibrillation, CVA, recurrent cellulitis, and others listed below, presented to the ED two weeks ago from home with c/o fatigue, malaise, and frequent falls for the last couple weeks. History mostly obtained from report and record, some from patient's sons , Ritesh Lawrence, and Ender. Patient initially admitted and treated for her bilateral leg cellulitis. She also had an acute exacerbation of CHF due to fluid overload after she was treated with IVF for a sepsis-like picture secondary to the infection. She was having some issues with her a-fib and rate control, it is now resolved. Unfortunately, patient's respiratory failure has worsened and she is now dependent on the Bipap with worsening opacification of left hemithorax. She underwent bronchoscopy with Dr. Gill yesterday and was found to have severe bronchial stenosis and mucous plugging with collapse of the left lower lobe. Today, her chest x-ray has unfortunately worsened again. Another major issue, possibly the most pressing, is the fact that a few days ago, patient suddenly began to have significant mental status changes and entered a state of near-catatonia. Medical team is unable to find a medical explanation for the behavior/confusion. Neurology and psychiatry are following. She is showing signs of paranoia, as she occasionally will just yell things out like "Smallpox!" over and over, then she will instantly go back to not answering questions or opening eyes. For the last couple days, she is dependent on the bipap, will only open eyes but has not been speaking. Her sons state that patient would not want to live this way. Palliative care consulted to assist in establishing goals of care. I met with the patient's son, Ritesh Handley and Howard, Dr. Guzman, and Yara Al PA-C. We discussed patient's medical conditions and her current mental status. All three son have a good understanding of what's going on with her medically, but they are very thrown off by the altered mental status. Normally, patient is pleasant, alert and oriented, and mostly independent in her ADL. Dr. Gill conveyed to the family today that he could certainly place patient on ventilator and treat her aggressively, but if the patient has no will to improve and remains in her current mental state, that chance of recovery is very slim. Ritesh stated that last Sunday, when patient was still oriented and speaking normally, she had all three sons in her room and told them "it was her time," referring to the end of life. They feel that patient is tired, and does not want to fight any more. Past Medical/Surgical History Medical History: (1) ANTICOAGULANTS,LT,CURRENT USE Status: Chronic (2) ATRIAL FIBRILLATION Status: Chronic (3) CATARACT NOS Status: Resolved (4) Cellulitis Status: Chronic (5) CEREBRAL THROMBOSIS W CEREBRAL INFARCTION Status: Resolved (6) CHR AIRWAY OBSTRUCT NEC Status: Chronic (7) DIVERTICULOSIS COLON (W/O MENT OF HEMORRHAGE) Status: Chronic Social History Smoking Status: Unknown if Ever Smoked History of Alcohol Use: No Drug Use: none Marital Status: Occupation Status: retired Review of Systems unable to obtain due to altered mental status Allergies Coded Allergies: Latex1 -Allergic Contact Dermititis (Verified Allergy, Mild, RASH AND ITCHING, 07/03/16) Diltiazem (Verified Adverse Reaction, Unknown, LOW BP AND UPSET STOMACH, ) Medications Current Inpatient Medications Medications (Trade) Dose Ordered Sig/Lori Route Start Time Stop Time Status Last Admin Dose Admin Acetaminophen (Tylenol Tab) 650 mg Q4H PRN PO 11/29/16 19:45 12/29/16 19:44 12/02/16 20:58 650 MG Nitroglycerin (Nitrostat Tab) 0.4 mg UD PRN SL 11/29/16 19:45 12/29/16 19:44 Ascorbic Acid (Vitamin C Tab) 500 mg DAILY PO 11/30/16 09:00 12/30/16 08:59 12/03/16 10:11 500 MG Dabigatran (Pradaxa Cap) 75 mg BID PO 11/29/16 21:00 12/29/16 20:59 Future Hold 12/10/16 19:44 75 MG Salmeterol Xinafoate/ Fluticasone (Advair Diskus 250/50 Inh) 1 puff BID INH 11/29/16 21:00 12/29/16 20:59 Future hold 12/11/16 21:09 1 PUFF Albuterol/ Ipratropium (Combivent Respimat Inh) 1 puffs QID INH 11/29/16 21:00 12/29/16 20:59 Future Hold 12/02/16 08:25 1 PUFFS Levothyroxine Sodium (Synthroid Tab) 25 mcg DAILYBB PO 11/30/16 06:00 12/30/16 06:59 Future Hold 12/02/16 06:03 25 MCG Magnesium Oxide (Mag-Ox Tab) 400 mg DAILY PO 11/30/16 09:00 12/30/16 08:59 12/01/16 08:18 400 MG Multivitamins (Multivitamin Tab) 1 tab DAILY PO 11/30/16 09:00 12/30/16 08:59 12/04/16 08:29 1 TAB Simvastatin (Zocor Tab) 20 mg QPM PO 11/29/16 21:00 12/29/16 20:59 12/11/16 21:10 20 MG Ondansetron HCl (Zofran Inj) 4 mg Q6H PRN IV 11/29/16 20:00 12/29/16 19:59 Lactobacillus Acidophilus (Floranex Tab) 4 tab TIDM PO 11/30/16 08:00 12/30/16 07:59 12/02/16 17:32 4 TAB Albuterol/ Ipratropium (Duoneb) 3 ml QIDR INH 12/02/16 12:00 01/01/17 11:59 12/13/16 11:52 3 ML Albuterol/ Ipratropium (Duoneb) 3 ml Q2H PRN INH 12/02/16 09:45 01/01/17 09:44 12/11/16 23:38 3 ML Formoterol Fumarate (Perforomist 20MCG/2ML Neb Soln) 20 mcg BID INH 12/02/16 21:00 01/01/17 20:59 12/13/16 07:13 20 MCG Digoxin 125 mcg/ Syringe 10 ml @ 2 mls/min Q2D@1600 IV 12/04/16 16:00 01/03/17 15:59 Future Hold 12/08/16 16:34 2 MLS/MIN Digoxin 250 mcg/ Syringe 10 ml @ 2 mls/min Q2D@1600 IV 12/05/16 16:00 01/04/17 15:59 Future Hold 12/07/16 16:05 2 MLS/MIN Bisacodyl (Dulcolax Tab) 5 mg DAILY PO 12/04/16 09:00 01/03/17 08:59 Thiamine HCl 200 mg/Sodium Chloride 52 ml @ 208 mls/hr BID IV 12/06/16 12:00 01/05/17 11:59 12/13/16 09:17 208 MLS/HR Dextrose/Sodium Chloride 1,000 ml @ 80 mls/hr [id number] IV 12/06/16 21:00 01/05/17 20:59 Future Hold 12/11/16 13:26 80 MLS/HR Enoxaparin Sodium (Lovenox Inj) 40 mg QAM SQ 12/07/16 08:00 01/06/17 07:59 12/13/16 09:17 40 MG Risperidone (Risperdal M Tab) 0.5 mg HS PO 12/07/16 20:00 01/06/17 19:59 12/11/16 21:06 0.5 MG Acetaminophen/ Hydrocodone Bitart ([place] 5/325 Tab) 1 tab Q6H PRN PO 12/08/16 16:00 12/22/16 15:59 Sodium Biphosphate/ Sodium Phosphate (Fleet Enema) 132 ml DAILY PRN [place] 12/09/16 11:30 01/08/17 11:29 Haloperidol Lactate (Haldol Inj) 2 mg HS IM 12/10/16 21:00 01/09/17 20:59 12/12/16 19:40 2 MG Cephalexin Monohydrate (Keflex Cap) 500 mg BID PO 12/10/16 20:00 01/09/17 19:59 Future Hold 12/11/16 21:07 500 MG Trimethoprim/ Sulfamethoxazole (Septra Ds 800/ 160MG Tab) 0.5 tab Q12 PO 12/10/16 21:00 01/09/17 20:59 Future Hold 12/11/16 21:09 0.5 TAB Levothyroxine Sodium 12.5 mcg/ Syringe 0.625 ml @ 2 mls/min DAILY@0600 IV 12/11/16 06:00 01/10/17 05:59 12/13/16 06:39 2 MLS/MIN Dornase Ino (Pulmozyme Inhalation Soln 2.5ml Amp) 2.5 ml BIDR INH 12/11/16 20:00 01/10/17 19:59 12/13/16 07:54 2.5 ML Morphine Sulfate (MoRPHine SULFATE INJ) 0.5 mg Q1H PRN IV 12/12/16 21:45 12/26/16 21:44 12/13/16 12:13 0.5 MG Morphine Sulfate (MoRPHine SULFATE INJ) 1 mg Q1H PRN IV 12/12/16 21:45 12/26/16 21:44 Physical Exam Date Time Temp Pulse Resp B/P (MAP) Pulse Ox O2 Delivery O2 Flow Rate FiO2 12/13/16 12:00 BiPAP 12/13/16 11:53 90 93 60 12/13/16 11:52 90 36 93 BiPAP/CPAP 60 12/13/16 11:11 36.0 109 28 119/67 (84) 91 BiPAP 12/13/16 08:00 93 BiPAP 12/13/16 07:34 76 20 95 BiPAP/CPAP 60 12/13/16 07:27 36.1 77 28 102/65 (77) 97 BiPAP 87 12/13/16 07:14 76 99 60 12/13/16 07:13 76 20 95 BiPAP/CPAP 60 12/13/16 04:22 BiPAP 5.0 97 12/13/16 03:53 36.4 75 16 95/52 (66) 91 BiPAP 12/13/16 02:07 98 60 12/13/16 00:22 BiPAP 5.0 97 12/13/16 00:21 36.4 68 16 99/63 (75) 98 BiPAP 60 12/12/16 22:19 93 93 3.0 60 12/12/16 20:00 BiPAP 5.0 93 12/12/16 19:30 36.3 71 22 94/58 (70) 91 Nasal Cannula 4.0 12/12/16 19:29 54 26 93 Nasal Cannula 4.0 12/12/16 16:00 BiPAP 5.0 100 12/12/16 15:34 97 BiPAP 12/12/16 15:28 97 BiPAP 12/12/16 15:05 36.5 73 24 103/59 (74) 97 9/19/17 14:39 70 100 100 12/12/16 14:38 70 23 95 BiPAP/CPAP 100 General Appearance: no apparent distress, + thin Neck: no JVD Respiratory: + accessory muscle use, + pertinent finding (on bi-pap) Cardiovascular: + irregularly irregular Musculoskeletal: pertinent finding (deconditioned, chronically ill-appearing) Neurologic/Psychiatric: + pertinent finding (is moving extremities, but not responding to stimuli at this time) Laboratory Results Last 24 Hours Test 12/13/16 05:16 White Blood Count 10.48 K/uL Red Blood Count 4.36 M/uL Hemoglobin 14.6 g/dL Hematocrit 46.1 % Mean Corpuscular Volume 105.7 fL Mean Corpuscular Hemoglobin 33.5 pg Mean Corpuscular Hemoglobin Concent 31.7 g/dl Platelet Count 193 K/uL Mean Platelet Volume 10.5 fL Neutrophils (%) (Auto) 81.3 % Lymphocytes (%) (Auto) 10.0 % Monocytes (%) (Auto) 8.3 % Eosinophils (%) (Auto) 0.1 % Basophils (%) (Auto) 0.0 % Neutrophils # (Auto) 8.52 K/uL Lymphocytes # (Auto) 1.05 K/uL Monocytes # (Auto) 0.87 K/uL Eosinophils # (Auto) 0.01 K/uL Basophils # (Auto) 0.00 K/uL RDW Standard Deviation 54.9 fL RDW Coefficient of Variation 14.1 % Immature Granulocyte % (Auto) 0.3 % Immature Granulocyte # (Auto) 0.03 K/uL Sodium Level 139 mmol/L Potassium Level 4.6 mmol/L Chloride Level 96 mmol/L Carbon Dioxide Level 41 mmol/L Anion Gap 2.0 mmol/L Blood Urea Nitrogen 20 mg/dl Creatinine 0.44 mg/dl Est Creatinine Clear Calc Drug Dose 94.8 ml/min Estimated GFR () 112.1 Estimated GFR (Non- 96.7 BUN/Creatinine Ratio 46.4 Random Glucose 93 mg/dl Calcium Level 9.7 mg/dl Magnesium Level 1.9 mg/dl Assessment & Plan Palliative Performance Scale: 10 % Problem list: Altered mental status/catatonia Acute respiratory failure- bronchial stenosis and mucous plugging on bronchoscopy 12/12. Acute diastolic CHF exacerbation BL lower extremity cellulitis Hypothyroidism Goals of care (Z51.) Palliative care recs: -After lengthy discussion with patient's sons, they would like some time to decide on whether or not to continue current treatment or transition to comfort measures only. -They did confirm the DNR/DNI status. -If comfort measures are pursued, recommend: -Morphine 2mg IV and Q1h PRN pain or SOB, send to fourth floor with bipap on , then once patient is on [address], remove bipap and place nasal cannula for comfort. -Given the appearance of dyspnea while I was in room, this patient may need a continuous morphine infusion. Would start at 2mg/hr and titrate by 1mg/hr Q15min as needed for pain or SOB. -Lorazepam 1mg IV Q2 PRN agitation/anxiety. -Atropine 1% oph soln 4 drops SL Q1h PRN secretions. -Sons plan to discuss among themselves and spend time with their mother, and call either Dr. Guzman or I when they have made a decision. Thank you kindly for this consult. I will follow.
--- NOTE | 2016-12-13 18:21 | Progress Note ---
Progress Note Date of Service Dec 13, 2016. Progress Note the family called an additional meeting and now requests to move to palliative care stop bipap and consider morphine gtt when appropriate
[2016-12-13] MEDS ORDERED: PROMETHAZINE HCL INJ 12.5 MG in SODIUM CHLORIDE 0.9% 50ML 50 ML IV PRN (18:30)
[2016-12-13] MEDS ORDERED: LORAZEPAM 2 MG/ML 1 ML VIAL IV PRN ×2 (18:30)
[2016-12-13] MEDS ORDERED: SCOPOLAMINE 1.5 MG TDSY TD SCH (19:00)
[2016-12-13] MEDS ORDERED: LORAZEPAM INJ 1 MG in SYRINGE 0.5 ML IV PRN (19:15)
[2016-12-13] MEDS ORDERED: LORAZEPAM INJ 0.5 MG in SYRINGE 0.25 ML IV PRN (19:15)
[2016-12-13] MEDS: HALOPERIDOL LACTATE 5 MG/ML 1 ML VIAL IM SCH (20:40)
[2016-12-13] MEDS: CHECK SCOPOLAMINE PATCH PLACEMENT SCH (23:48)
[2016-12-14] MEDS: MoRPHine SULFATE 2 MG/ML CARP IV PRN ×2 (06:37→08:17)
[2016-12-14] MEDS: ALBUT/IPRATROP 3MG/0.5MG NEB 3 ML VIAL INH SCH (07:09)
[2016-12-14 07:12] VITALS: PULSE 68; O2SAT 92
[2016-12-14] MEDS: CHECK SCOPOLAMINE PATCH PLACEMENT SCH (08:17)
[2016-12-14] MEDS: ATROPINE SULFATE 1% OP SOLN 5 ML BTL SL PRN ×2 (09:33→11:42)
[2016-12-14] MEDS: MoRPHine SULFATE 4 MG/ML 1 ML CARP\\VIAL IV PRN ×2 (09:33→11:42)
--- NOTE | 2016-12-14 13:38 | Hospitalist Progress Note ---
Hospitalist Progress Note Date of Service Dec 14, 2016. Subjective Pt evaluation today including: conversation w/ family, chart review, lab review The patient was seen this morning with her sons Howard and Ritesh, and Emmanuel . Conversation held and all questions and concerns were answered. They are talking amongst their mother so she can hear their voice. Pt appears comfortable. ROS not obtainable. PE: General: Pt appears comfortable. She is on an oximask and mouth breathing. Cardiac: + tachycardic, irregularly irregular Lungs: on oximask, +tachypneic - Rest of exam deferred due to being on comfort measures. Objective Vital Signs Date Time Temp Pulse Resp B/P (MAP) Pulse Ox O2 Delivery O2 Flow Rate FiO2 12/14/16 08:00 Oxymask 3.0 12/14/16 07:12 68 32 92 Mask 3.0 12/14/16 00:01 Oxymask 3.0 12/13/16 20:00 Nasal Cannula 2.0 12/13/16 20:00 Oxymask 3.0 12/13/16 18:47 36.4 114 20 124/69 (87) 91 BiPAP 12/13/16 18:08 36.4 90 22 91 5.0 12/13/16 16:00 BiPAP 12/13/16 15:36 36.4 90 22 112/58 (76) 91 BiPAP 12/13/16 14:28 84 96 60 12/13/16 14:27 84 31 63 BiPAP/CPAP 60 Assessment and Plan 76 F admitted with frequent falling and concern for worsening arrhythmia as a cause, give h/o A fib could be from rapid or overly slow rate, developed acute diastolic heart failure and acute exacerbation of chronic respiratory failure while here, all while being treated for acute cellulitis on top of chronic venous stasis dermatitis of LE. Heart failure was resolved with intravenous Lasix therapy. Pt developed afib/flutter secondary to volume overload which were initially controlled with IV meds. Pt developed worsening acute respiratory failure secondary to mucous plugging and possibly aspiration pneumonia, but not infectious etiology was determined. IV antibiotic therapy was administered during hospital stay for this. Pt underwent bronchoscopy on with some success, but without support from Bipap she again went into respiratory distress the following day. Pt developed a state of catatonia which appeared to not be secondary to infectious etiology. IV ativan and IM haldol were started for catatonia which did not improve her psychiatric state. It was unknown why catatonia occurred. Palliative care assisted with transition to comfort care. Pt has been transitioned to comfort measures only last evening. She appears comfortable but is tachycardic and tachypneic. Continue morphine prn, scopalamine patch, o2 for comfort. CODE STATUS: DNR Disposition: From home, will in the hospital
--- NOTE | 2016-12-14 14:36 | Death Summary ---
Summary of Admission Date Nov 29, 2016 at 19:37 Date & Time of Dec 14, 2016. 1329 Cause of acute hypercarbic respiratory failure left lung collapse lung mass Hospital Course 76 F admitted with frequent falling and concern for worsening arrhythmia as a cause, give h/o A fib could be from rapid or overly slow rate, developed acute diastolic heart failure and acute exacerbation of chronic respiratory failure while here, all while being treated for acute cellulitis on top of chronic venous stasis dermatitis of LE pt developed acute hypercarbic respiratory failure found to have left endobronchial lesion, pt was not able to survive off Bipap, family decided on comfort measures and pt was removed from bipap and 12/14/16 earlier in the hospital stay unresponsive state, neuro did not feel [employer] pathology, psyche did consider catatonia, no response to ativan , will consider ativan/haldol but acute respiratory failure ensues CT head negative x 2. MRI brain negative for stroke or other process. no infectious process is apparent. u/a not suggestive of UTI. VBG with mild resp acidosis but there was NO change in her mental status after use of BIPAP and improvement in her PCO2. b12 normal.ammonia normal. lyme's test negative. EEG normal - no evidence of slowly to suggest encephalopathy. Atrial fibrillation/flutter digoxin 0.125 mg, cardiology did hold metoprolol, but continues Pradaxa 75 mg but not taking reliably Acute diastolic heart failure was exacerbated by intravenous fluids this resolved with intravenous Lasix therapy Bilateral lower extremity cellulitis--vs chronic venous stasis dermatitis, Hypothyroidism, continue levothyroxine 25 g
== END 2016-12-14 15:39 | disposition expired | DRG 981 ==
LOC: C.EDB 13:38 → C.2E 19:37 → ENRESERV 19:53 → C.4E 12-05 18:11 → ENRESERV 12-11 18:07 → C.2T 12-11 19:00 → ENRESERV 12-13 18:18 → C.4E 12-13 19:46
PROVIDERS: ADMIT Hospitalist; ATTEND Internal Medicine
PROC: 0B9G8ZZ Drainage of Left Upper Lung Lobe, Via Natural or Artificial Opening Endoscopic (ICD-10-PCS; principal; 2016-12-12)
DX: I48.91 Unspecified atrial fibrillation (principal); I50.33 Acute on chronic diastolic (congestive) heart failure; J96.22 Acute and chronic respiratory failure with hypercapnia; G93.40 Encephalopathy, unspecified; L03.115 Cellulitis of right lower limb; L03.116 Cellulitis of left lower limb; J44.1 Chronic obstructive pulmonary disease with (acute) exacerbation; E87.2 Acidosis; J98.19 Other pulmonary collapse; I48.92 Unspecified atrial flutter; I42.2 Other hypertrophic cardiomyopathy; Z51.5 Encounter for palliative care; Z79.01 Long term (current) use of anticoagulants; Z79.3 Long term (current) use of hormonal contraceptives; I67.9 Cerebrovascular disease, unspecified; E03.9 Hypothyroidism, unspecified; E78.5 Hyperlipidemia, unspecified; R29.6 Repeated falls; H55.00 Unspecified nystagmus; F29 Unspecified psychosis not due to a substance or known physiological condition; W19.XXXA Unspecified fall, initial encounter; L58.1 Chronic radiodermatitis; Z66 Do not resuscitate; I95.9 Hypotension, unspecified; R33.9 Retention of urine, unspecified; E53.8 Deficiency of other specified B group vitamins; R91.8 Other nonspecific abnormal finding of lung field; S80.211A Abrasion, right knee, initial encounter; S50.00XA Contusion of unspecified elbow, initial encounter; S80.01XA Contusion of right knee, initial encounter; S80.02XA Contusion of left knee, initial encounter